=== PATIENT | male | born 1945 | race Hispanic/Latino ===

== ENCOUNTER → 2018-06-10 | Outpatient (CLI) | payer MEDICARE, OTHER | END | disposition home or self-care (01) | LOC: RAH 17:05 | PROVIDERS: ATTEND Internal Medicine | DX: I10 Essential (primary) hypertension (principal) | CPT/HCPCS: 71046 ==

== ENCOUNTER → 2019-05-21 | Outpatient (CLI) | payer OTHER | END | disposition home or self-care (01) | LOC: OIH 08:08 | PROVIDERS: ATTEND Internal Medicine | DX: M47.814 Spondylosis without myelopathy or radiculopathy, thoracic region (principal); I70.0 Atherosclerosis of aorta; I10 Essential (primary) hypertension | CPT/HCPCS: 71046 ==

== ENCOUNTER 2021-07-25 22:44 | Observation (INO) | payer OTHER ==
[~2021-07-25] VITALS: Ht 165.1 cm; Wt 74.8 kg
[2021-07-25 23:07] LABS: BASOPHILS % (AUTO) 0.8 % (0.0-5.0); EOSINOPHILS % (AUTO) 4.9 % (0.0-8.0); LYMPHOCYTES % (AUTO) 30.5 % (21.0-51.0); MEAN CORPUSCULAR HEMOGLOBIN 31.7 pg (27.0-33.0); MEAN CORPUSCULAR VOLUME 96.3 fL (79-99); MONOCYTES % (AUTO) 8.4 % (3.0-13.0); NEUTROPHILS % (AUTO) 55.2 % (40.0-77.0); PLATELET COUNT (AUTO) 209 K/uL (130-400); RED BLOOD CELL COUNT(AUTO) 4.57 MIL/uL (4.50-6.20); RED CELL DISTRIBUTION WIDTH 12.7 % (11.0-15.5); WHITE BLOOD COUNT (AUTO) 6.6 K/uL (4.8-10.8)
[2021-07-25 23:18] LABS: ALBUMIN 4.1 g/dL (3.5-5.0); BILIRUBIN,TOTAL 0.3 mg/dL (0.2-1.0); POTASSIUM 3.5 mmol/L (3.5-5.1); TOTAL PROTEIN, SERUM 7.7 g/dL (6.0-8.3)
[2021-07-26] MEDS ORDERED: ASPIRIN 81MG CHEW TAB PO ONE
[2021-07-26 00:01] LABS: APPEARANCE,URINE Clear (CLEAR); BILIRUBIN,URINE Negative (NEGATIVE); COLOR,URINE Yellow (YELLOW); GLUCOSE, URINE (UA) >=1000 mg/dL (NEGATIVE); KETONES,URINE Negative (NEGATIVE); LEUKOCYTE ESTERASE ,URINE Negative (NEGATIVE); NITRATE,URINE Negative (NEGATIVE); OCCULT BLOOD,URINE Negative (NEGATIVE); PROTEIN,URINE Negative (NEGATIVE); UROBILINOGEN,URINE 0.2 mg/dL (0.2-1.0)
[2021-07-26 00:07] LABS: AMPHET/METH SCREEN,URINE NEGATIVE (NEGATIVE); BARBITURATE SCREEN, URINE NEGATIVE (NEGATIVE); BENZODIAZEPINES SCREEN,URINE NEGATIVE (NEGATIVE); CANNABINOID SCREEN,URINE NEGATIVE (NEGATIVE); COCAINE SCREEN,URINE NEGATIVE (NEGATIVE); OPIATE SCREEN,URINE NEGATIVE (NEGATIVE); PHENCYCLIDINE SCREEN,URINE NEGATIVE (NEGATIVE)
[2021-07-26 00:13] LABS: BACTERIA,URINE Rare /HPF (None Seen); RBC,URINE None Seen /HPF (0-1); WBC,URINE 0-1 /HPF (0-1)
[2021-07-26] MEDS ORDERED: NITROGLYCERIN 1GM OINT 1 INCH/1GM TD ONE (01:30)
[2021-07-26] MEDS ORDERED: METF-446 PO (01:58)
[2021-07-26] MEDS ORDERED: MELO10CA3 PO (01:58)
[2021-07-26] MEDS ORDERED: GLIM4TAB36 PO (01:58)
[2021-07-26] MEDS ORDERED: OMEP20CA12 PO (01:58)
[2021-07-26] MEDS ORDERED: CANA300T PO (01:58)
[2021-07-26] MEDS ORDERED: ENOXAPARIN SODIUM 60 MG/0.6 ML SQ SCH (02:00)
[2021-07-26 02:05] VITALS: BP 155/70
[2021-07-26 08:00] VITALS: BP 125/69
[2021-07-26] MEDS: METFORMIN HCL 500 MG TABLET PO SCH ×2 (08:00→17:00)
[2021-07-26] MEDS: INVOKANA 300 MG PO SCH (09:00)
[2021-07-26] MEDS ORDERED: REGADENOSON 0.4 MG/5 ML PF SYG IVP SCH (09:00)
[2021-07-26] MEDS: PANTOPRAZOLE 40 MG TAB DR PO SCH (11:08)
[2021-07-26] MEDS: CLOPIDOGREL 75MG TAB PO SCH (11:09)
[2021-07-26] MEDS: MELOXICAM 7.5 MG TABLET PO SCH (11:09)
[2021-07-26] MEDS: GLIMEPIRIDE 2 MG TABLET PO SCH ×2 (11:09→20:12)
[2021-07-26] MEDS: ASPIRIN 81 MG EC TAB PO SCH (11:11)
[2021-07-26] MEDS: ENOXAPARIN SODIUM 80 MG/0.8 ML SQ SCH ×2 (11:22→20:13)
[2021-07-26] MEDS ORDERED: INSULIN HUMULIN R 100 UNIT/ML 3ML SQ SCH (11:30)
[2021-07-26 12:00] VITALS: BP 138/72
[2021-07-26 16:00] VITALS: BP 142/73
[2021-07-26] MEDS ORDERED: ACETAMINOPHEN 325 MG TAB PO PRN (20:00)
[2021-07-26 20:04] VITALS: BP 122/71
[2021-07-26 23:57] VITALS: BP 145/71
[2021-07-27 04:28] VITALS: BP 132/70
[2021-07-27] MEDS: PANTOPRAZOLE 40 MG TAB DR PO SCH (06:11)
[2021-07-27] MEDS ORDERED: INSULIN HUMULIN R 100 UNIT/ML 3ML SQ SCH (07:30)
[2021-07-27 08:56] VITALS: BP 129/62
[2021-07-27] MEDS: INVOKANA 300 MG PO SCH (09:00)
[2021-07-27] MEDS: ASPIRIN 81 MG EC TAB PO SCH (09:03)
[2021-07-27] MEDS: MELOXICAM 7.5 MG TABLET PO SCH (09:03)
[2021-07-27] MEDS: CLOPIDOGREL 75MG TAB PO SCH (09:04)
[2021-07-27] MEDS: METFORMIN HCL 500 MG TABLET PO SCH (09:04)
[2021-07-27] MEDS: GLIMEPIRIDE 2 MG TABLET PO SCH (09:04)
[2021-07-27] MEDS: ENOXAPARIN SODIUM 80 MG/0.8 ML SQ SCH (09:06)
== END 2021-07-27 10:04 | disposition home or self-care (01) ==
LOC: EDH 22:44 → EDHIP 07-26 01:08 → 3DH 07-26 02:10
PROVIDERS: ADMIT Internal Medicine; ATTEND Internal Medicine
DX: R07.89 Other chest pain (principal); Z20.822 Contact with and (suspected) exposure to COVID-19; I25.10 Atherosclerotic heart disease of native coronary artery without angina pectoris; E11.65 Type 2 diabetes mellitus with hyperglycemia; I10 Essential (primary) hypertension; E78.5 Hyperlipidemia, unspecified; F17.200 Nicotine dependence, unspecified, uncomplicated; Z79.82 Long term (current) use of aspirin; Z79.899 Other long term (current) drug therapy
CPT/HCPCS: 36415 ×2; 71045; 78452; 80053; 80305; 81001; 82550 ×2; 82948 ×4; 83690; 83874 ×2; 83880; 84484 ×3; 85025; 87635; 87804 ×2; 93005; 93017; 96372 ×2; 99285; A9500 ×2; G0378 ×30; J1650 ×3; J2785; 96374

== ENCOUNTER → 2021-07-28 | Outpatient (CLI) | payer OTHER ==
[~2021-07-28] MED LIST: CANA300T PO; GLIM4TAB36 PO; MELO10CA3 PO; METF-446 PO; OMEP20CA12 PO
== END | disposition home or self-care (01) ==
LOC: OIH 10:19
PROVIDERS: ATTEND Internal Medicine
DX: M47.812 Spondylosis without myelopathy or radiculopathy, cervical region (principal); M85.88 Other specified disorders of bone density and structure, other site
CPT/HCPCS: 72040

== ENCOUNTER → 2021-08-31 | Outpatient (CLI) | payer OTHER | END | disposition home or self-care (01) | LOC: RAH 09:54 | PROVIDERS: ATTEND Internal Medicine | DX: K80.20 Calculus of gallbladder without cholecystitis without obstruction (principal) | CPT/HCPCS: 76700 ==

== ENCOUNTER 2023-04-23 17:03 | Emergency (ER) | payer OTHER ==
[2023-04-23 18:46] LABS: BASOPHILS # (AUTO) 0.05 K/uL (0.00-0.20); BASOPHILS % (AUTO) 0.4 % (0.0-5.0); EOSINOPHILS # (AUTO) 0.07 K/uL (0.00-0.70); EOSINOPHILS % (AUTO) 0.6 % (0.0-8.0); HEMATOCRIT 43.7 % (42-54); IMMATURE GRANULOCYTE ABSOLUTE 0.06 K/uL (0-1); LYMPHOCYTES # (AUTO) 0.8 K/uL (1.0-4.8); LYMPHOCYTES % (AUTO) 6.1 % (21.0-51.0); MEAN CORPUSCULAR HEMOGLOBIN 33.4 pg (27.0-33.0); MEAN CORPUSCULAR HGB CONC 34.1 g/dL (32.0-36.0); MONOCYTES # (AUTO) 0.8 K/uL (0.1-1.0); MONOCYTES % (AUTO) 6.2 % (3.0-13.0); NEUTROPHILS # (AUTO) 10.9 K/uL (1.8-7.7); NEUTROPHILS % (AUTO) 86.2 % (40.0-77.0); PLATELET COUNT (AUTO) 190 K/uL (130-400); RED BLOOD CELL COUNT(AUTO) 4.46 MIL/uL (4.50-6.20); RED CELL DISTRIBUTION WIDTH 13.1 % (11.0-15.5); WHITE BLOOD COUNT (AUTO) 12.7 K/uL (4.8-10.8)
[2023-04-23 18:46] LABS: APPEARANCE,URINE CLEAR (CLEAR); BILIRUBIN,URINE NEGATIVE (NEGATIVE); COLOR,URINE YELLOW (YELLOW); GLUCOSE, URINE (UA) >=1000 mg/dL (NEGATIVE); KETONES,URINE 5 mg/dL (NEGATIVE); LEUKOCYTE ESTERASE ,URINE NEGATIVE Leu/uL (NEGATIVE); NITRATE,URINE NEGATIVE (NEGATIVE); OCCULT BLOOD,URINE NEGATIVE (NEGATIVE); PH,URINE 5.5 (5.0-8.0); PROTEIN,URINE NEGATIVE (NEGATIVE); UROBILINOGEN,URINE 0.2 mg/dL (0.2-1.0)
[2023-04-23 18:48] LABS: ADD UA MICROSCOPIC YES
[2023-04-23 18:56] LABS: MUCUS,URINE RARE LPF (None Seen); OTHER CASTS, URINE 3 /LPF (None Seen); RBC,URINE 0-1 /HPF (0-1); WBC,URINE 0-1 /HPF (0-1)
[2023-04-23 19:03] LABS: POTASSIUM 4.2 mmol/L (3.5-5.1)
[2023-04-23 19:08] LABS: ALBUMIN 4.1 g/dL (3.5-5.0); BILIRUBIN,TOTAL 0.4 mg/dL (0.2-1.0); TOTAL PROTEIN, SERUM 7.5 g/dL (6.0-8.3)
[2023-04-23] MEDS ORDERED: FAMOTIDINE 20MG VIAL IV ONE (20:00)
[2023-04-23] MEDS ORDERED: LABETALOL 20MG VIAL IV ONE (20:00)
[2023-04-23] MEDS ORDERED: KETOROLAC 30MG VIAL (30MG/ML) IVP ONE (20:00)
[2023-04-23] MEDS ORDERED: METOCLOPRAMIDE 10 MG/2 ML VIAL IVP ONE (20:00)
[2023-04-23] MEDS ORDERED: 0.9% NACL 500ML IV.SOLN 500 ML IV ONE ×2 (20:21→20:30)
[2023-04-23] MEDS ORDERED: METO-296 PO (21:35)
[2023-04-23] MEDS ORDERED: HYDR50CA50 PO (21:35)
[2023-04-23 22:20] VITALS: BP 152/77; PULSE 88; RESP 20; O2SAT 99
== END 2023-04-23 22:29 | disposition home or self-care (01) ==
LOC: EDH 17:03
DX: G44.209 Tension-type headache, unspecified, not intractable (principal); R07.89 Other chest pain; I10 Essential (primary) hypertension; F41.9 Anxiety disorder, unspecified; E11.9 Type 2 diabetes mellitus without complications; M19.90 Unspecified osteoarthritis, unspecified site; F17.200 Nicotine dependence, unspecified, uncomplicated; Z79.84 Long term (current) use of oral hypoglycemic drugs; Z79.899 Other long term (current) drug therapy; Z98.890 Other specified postprocedural states
CPT/HCPCS: 99285; 96374; 96375; 70450; 71045; 84484; 80053; 85025; 81001; 36415; 93005 ×2; J7040; J3490 ×2; J1885; J2765; 96361

== ENCOUNTER → 2023-05-07 | Outpatient (CLI) | payer OTHER ==
[~2023-05-07] MED LIST changes: +GADOTERATE MEGLUMINE 10 MMOL/20 ML VIAL IV ONE; +HYDR50CA50 PO; +METO-296 PO
== END | disposition home or self-care (01) ==
LOC: RAH 08:11
PROVIDERS: ATTEND Internal Medicine
DX: R51.9 Headache, unspecified (principal)
CPT/HCPCS: 70553; A9575

== ENCOUNTER 2024-08-21 09:46 | Observation (INO) | payer OTHER ==
[~2024-08-21] VITALS: Ht 165.1 cm; Wt 62.6 kg
[~2024-08-21 09:46] MED LIST changes: -GADOTERATE MEGLUMINE 10 MMOL/20 ML VIAL IV ONE
[2024-08-21] MEDS: LACTATED RINGERS 1000ML 1,000 ML IV ONE (10:11)
[2024-08-21 10:20] LABS: BASOPHILS # (AUTO) 0.02 K/uL (0.00-0.20); BASOPHILS % (AUTO) 0.3 % (0.0-5.0); EOSINOPHILS # (AUTO) 0.01 K/uL (0.00-0.70); EOSINOPHILS % (AUTO) 0.2 % (0.0-8.0); IMMATURE GRANULOCYTE ABSOLUTE 0.01 K/uL (0-1); LYMPHOCYTES # (AUTO) 0.3 K/uL (1.0-4.8); MEAN CORPUSCULAR HEMOGLOBIN 30.9 pg (27.0-33.0); MEAN CORPUSCULAR HGB CONC 31.6 g/dL (32.0-36.0); MEAN CORPUSCULAR VOLUME 97.6 fL (79-99); MONOCYTES # (AUTO) 0.5 K/uL (0.1-1.0); MONOCYTES % (AUTO) 7.1 % (3.0-13.0); NEUTROPHILS # (AUTO) 5.6 K/uL (1.8-7.7); NEUTROPHILS % (AUTO) 88.2 % (40.0-77.0); PLATELET COUNT (AUTO) 217 K/uL (130-400); RED BLOOD CELL COUNT(AUTO) 5.02 MIL/uL (4.50-6.20); RED CELL DISTRIBUTION WIDTH 13.6 % (11.0-15.5); WHITE BLOOD COUNT (AUTO) 6.3 K/uL (4.8-10.8)
[2024-08-21 10:26] LABS: APPEARANCE,URINE CLEAR (CLEAR); BILIRUBIN,URINE NEGATIVE (NEGATIVE); COLOR,URINE LIGHT-YELLOW (YELLOW); GLUCOSE, URINE (UA) >=1000 mg/dL (NEGATIVE); KETONES,URINE 20 mg/dL (NEGATIVE); LEUKOCYTE ESTERASE ,URINE NEGATIVE Leu/uL (NEGATIVE); NITRATE,URINE NEGATIVE (NEGATIVE); OCCULT BLOOD,URINE NEGATIVE (NEGATIVE); PH,URINE 5.5 (5.0-8.0); PROTEIN,URINE 10 mg/dL (NEGATIVE); UROBILINOGEN,URINE 0.2 mg/dL (0.2-1.0)
[2024-08-21 10:27] LABS: ADD UA MICROSCOPIC YES
[2024-08-21 10:28] LABS: CREATININE 1.4 mg/dL (0.5-1.3); POTASSIUM 4.3 mmol/L (3.5-5.1)
[2024-08-21 10:33] LABS: ALBUMIN 4.1 g/dL (3.5-5.0); BILIRUBIN,DIRECT 0.2 mg/dL (0.0-0.3); BILIRUBIN,TOTAL 0.6 mg/dL (0.2-1.0); TOTAL PROTEIN, SERUM 7.7 g/dL (6.0-8.3)
[2024-08-21 10:34] LABS: MUCUS,URINE RARE LPF (None Seen); RBC,URINE 0-1 /HPF (0-1); SQUAMOUS EPITHELIAL CELL,UR RARE /HPF (0-2); WBC,URINE 0-1 /HPF (0-1)
--- NOTE | 2024-08-21 10:56 | NUR ---
DECLINES CONTRAST WITH CT. STATES CONCERNS FOR RENAL FUNCTION. PROVIDER YOSEPH MACILE REAL ESTATE ATTORNEY INFORMED.
--- NOTE | 2024-08-21 11:05 | ERN ---
ED Note History of Present Illness Stated Complaint: ABDOMINAL PAIN Chief Complaint: Nausea,Vomiting,Diarrhea Time Seen by MD: 10:16 Time Seen by Midlevel: 10:20 Dictation: 78-year-old male with a history of Parkinson's, diabetes and arthritis coming in for vomiting and diarrhea last night. Patient states he has had three episodes of vomiting and three episodes of diarrhea last night. Nonbloody. Patient states also in his way from the bathroom to his bed he tried to lift up his left leg and fell forward, states he did not hit his head but he landed on his head but denies headache or neck pain. Denies any LOC. Denies being on any blood thinners. Patient states he usually has trouble ambulating says he drags his left leg due to his Parkinson's. Allergies: Coded Allergies: codeine (Unverified Adverse Reaction, Severe, SEVERE VOMITING, 04/23/23) hydrocodone (Unverified Adverse Reaction, Severe, SEVERE VOMITING, 04/23/23) Home Meds Reported Medications Glimepiride (Glimepiride) 4 Mg Tablet, 4 MG PO DAILY, TAB 08/21/24 Carbidopa/Levodopa (Carbidopa-Levo 25-100 mg Odt) 25 Mg-100 Mg Tab.rapdis, 1 EACH PO BID, TAB 08/21/24 Rosuvastatin Calcium (Rosuvastatin Calcium) 5 Mg Tablet, 20 MG PO DAILY, TAB 08/21/24 Aspirin (ASPIRIN 81MG CHEW TAB) 81 Mg Tab.chew, 1 TAB PO DAILY for 30 Days, #30 TAB 0 Refills 08/21/24 Metformin HCl (Metformin HCl) 1,000 Mg Tablet, 1 TAB PO BID for 30 Days, #60 TAB 0 Refills 08/21/24 Diphenoxylate HCl/Atropine (Diphenoxylate-Atropine Tablet) 2.5 Mg-0.025 Mg Tablet, 1 TAB PO QID for 10 Days, #40 TAB 0 Refills 08/21/24 Rimegepant Sulfate (Nurtec Odt) 75 Mg Tab.rapdis, 75 MG PO QODAY, TAB 08/21/24 Finasteride (Finasteride) 5 Mg Tablet, 1 TAB PO DAILY for 30 Days, #30 TAB 0 Refills 08/21/24 Glimepiride (Glimepiride) 1 Mg Tablet, 1 TAB PO DAILY for 30 Days, #30 TAB 0 Refills 08/21/24 Duloxetine HCl (Duloxetine HCl) 20 Mg Capsule.dr, 1 CAP PO DAILY for 30 Days, #30 CAP 0 Refills 08/21/24 Tamsulosin HCl (Flomax) 0.4 Mg Cap.er.24h, 1 CAP PO DAILY for 30 Days, #30 CAP 0 Refills 08/21/24 Empagliflozin (Jardiance) 25 Mg Tablet, 1 TAB PO DAILY for 30 Days, #30 TAB 0 Refills 08/21/24 Ondansetron (Ondansetron Odt) 4 Mg Tab.rapdis, 4 MG PO Q6HPRN PRN for NAUSEA/VOMITING, TAB 08/21/24 Gabapentin (Gabapentin) 100 Mg Capsule, 300 MG PO TID, CAP 08/21/24 Omeprazole (Omeprazole) 20 Mg Capsule.dr, 20 MG PO TIDAC, CAP 07/26/21 Discontinued Reported Medications Glimepiride (Glimepiride) 4 Mg Tablet, 4 MG PO BID, TAB 07/26/21 Metformin HCl (Metformin HCl) 1,000 Mg Tablet, 1000 MG PO BID, TAB 07/26/21 Meloxicam, Submicronized (Meloxicam) 10 Mg Capsule, 15 MG PO DAILY, CAP 07/26/21 Canagliflozin (Invokana) 300 Mg Tablet, 300 MG PO DAILY, TAB 07/26/21 Discontinued Scripts Metoclopramide HCl (Reglan) 10 Mg Tablet, 10 MG PO QIDP PRN for HEADACHE, #40 TAB 2 Refills Prov:RENETTA SHAHID Sr., MD 04/23/23 Hydroxyzine Pamoate (Hydroxyzine Pamoate) 50 Mg Capsule, 50 MG PO QIDP PRN for ANXIETY/AGITATION, #40 CAP 2 Refills Prov:RENETTA SHAHID Sr., MD 04/23/23 Past Medical History Past Medical History: Arthritis, Diabetes-Type II, High Cholesterol, Heart Disease, Hypertension, TIA, Other Additional Past Medical Hx: Parkinsons Surgical History: Cholecystectomy, Other Surgical History Other: eye Social History: Smokers, ETOH Review of System Dictation Constitutional: Negative for fever,chills, and weight loss Eyes: Negative for injury, pain,redness, and discharge ENT: Negative for injury,pain or swelling Cardiovascular: Negative for chest pain, palpitations, and edema Respiratory: Negative for shortness of breath, cough, and wheezing, Abdomen/GI: Negative for abdominal pain, positive for vomiting and diarrhea last night Back: Negative for injury and pain : Negative for injury, bleeding and discharge MS/Extremity: Negative for injury and deformity Skin: Negative for rash, and discoloration Neuro: Negative for headache, weakness, numbness, tingling, and seizure Psych: Negative for suicide ideation, homicidal ideation, and hallucinations Review of Systems: was completed Initial Vital Sign VS Vital Signs Date Time Temp Pulse Resp B/P (MAP) Pulse Ox O2 Delivery O2 Flow Rate FiO2 08/21/24 09:47 98.4 112 20 96/61 0 Room Air 0 08/21/24 10:18 21 Physical Exam Dictation General: awake, alert, NAD Head/Face: Normocephalic, atraumatic Eyes: PERRL, EOMI, vision at baseline ENT: oral cavity clear, TMs clear, no signs of infection Neck: Trachea midline, supple, no nuchal rigidity Cardiovascular: RRR, normal S1/S2, No MRGs, no JVD Respiratory: CTAB, no respiratory distress, No rales or wheezes Abdomen: Soft, non-tender, non-distended, normal bowel sounds, no guarding or rebound. Skin: Warm, dry, normal turgor, no rash MS/Extremity: Pulses equal, no cyanosis, neurovascular intact, FROM Neuro: COAx4, GCS 15, strength 5/5, CN 2-12 intact, normal cerebellar exam, normal gait, Psych: Normal behavior, mood, and affect normal Results (Laboratory/Radiology) Laboratory/Radiology Laboratory Tests Test 08/21/24 10:05 08/21/24 10:13 08/21/24 13:31 08/21/24 17:13 Urine Color LIGHT-YELLOW (YELLOW) Urine Appearance CLEAR (CLEAR) Urine pH 5.5 (5.0-8.0) Urine Specific [place] 1.037 (1.001-1.031) Urine Protein 10 mg/dL (NEGATIVE) H Urine Glucose (UA) >=1000 mg/dL (NEGATIVE) H Urine Ketones 20 mg/dL (NEGATIVE) H Urine Occult Blood NEGATIVE (NEGATIVE) Urine Nitrate NEGATIVE (NEGATIVE) Urine Bilirubin NEGATIVE mg/dL (NEGATIVE) Urine Urobilinogen 0.2 mg/dL (0.2-1.0) Urine Leukocyte Esterase NEGATIVE Bianca/uL Urine RBC 0-1 /HPF (0-1) Urine WBC 0-1 /HPF (0-1) Urine Squamous Epithelial Cells RARE /HPF (0-2) Urine Bacteria None /HPF (None Seen) White Blood Count 6.3 K/uL (4.8-10.8) Red Blood Count 5.02 MIL/uL (4.50-6.20) Hemoglobin 15.5 g/dL (14.0-18.0) Hematocrit 49.0 % (42-54) Mean Corpuscular Volume 97.6 fL (79-99) Mean Corpuscular Hemoglobin 30.9 pg (27.0-33.0) Mean Corpuscular Hemoglobin Concent 31.6 g/dL (32.0-36.0) L Red Cell Distribution Width 13.6 % (11.0-15.5) Platelet Count 217 K/uL (130-400) Mean Platelet Volume 9.8 fL (7.5-10.5) Immature Granulocyte % (Auto) 0.2 % (0-1) Neutrophils (%) (Auto) 88.2 % (40.0-77.0) H Lymphocytes (%) (Auto) 4.0 % (21.0-51.0) L Monocytes (%) (Auto) 7.1 % (3.0-13.0) Eosinophils (%) (Auto) 0.2 % (0.0-8.0) Basophils (%) (Auto) 0.3 % (0.0-5.0) Neutrophils # (Auto) 5.6 K/uL (1.8-7.7) Lymphocytes # (Auto) 0.3 K/uL (1.0-4.8) L Monocytes # (Auto) 0.5 K/uL (0.1-1.0) Eosinophils # (Auto) 0.01 K/uL (0.00-0.70) Basophils # (Auto) 0.02 K/uL (0.00-0.20) Absolute Immature Granulocyte (auto 0.01 K/uL (0-1) Nucleated Red Blood Cells 0.0 % (0.0-0.19) White Cell Morphology Comment See comments Sodium Level 142 mmol/L (136-145) Potassium Level 4.3 mmol/L (3.5-5.1) Chloride Level 102 mmol/L (101-111) Carbon Dioxide Level 24 mmol/L (21-32) Blood Urea Nitrogen 28 mg/dL (7-18) H Creatinine 1.4 mg/dL (0.5-1.3) H Glomerular Filtration Rate Calc 51 mL/min (>90) Random Glucose 205 mg/dL (70-105) H Lactic Acid Level 3.1 mmol/L (0.8-2.5) H 2.0 mmol/L (0.8-2.5) Total Calcium 9.9 mg/dL (8.5-10.1) Total Bilirubin 0.6 mg/dL (0.2-1.0) Direct Bilirubin 0.2 mg/dL (0.0-0.3) Aspartate Amino Transf (AST/SGOT) 12 U/L (10-37) Alanine Aminotransferase (ALT/SGPT) 13 U/L (12-78) Alkaline Phosphatase 68 U/L (50-136) Total Creatine Kinase 29 U/L (21-232) # Troponin I High Sensitivity 12 ng/L (4-75) Total Protein 7.7 g/dL (6.0-8.3) Albumin 4.1 g/dL (3.5-5.0) Lipase 14 U/L (16-77) L Whole Blood Glucose 110 MG/DL (70-110) Test 08/21/24 19:54 08/22/24 04:00 08/22/24 05:04 08/22/24 05:36 Whole Blood Glucose 164 MG/DL (70-110) H 64 MG/DL (70-110) #L 70 MG/DL (70-110) White Blood Count 3.8 K/uL (4.8-10.8) #L Red Blood Count 4.13 MIL/uL (4.50-6.20) L Hemoglobin 12.9 g/dL (14.0-18.0) L Hematocrit 39.8 % (42-54) L Mean Corpuscular Volume 96.4 fL (79-99) Mean Corpuscular Hemoglobin 31.2 pg (27.0-33.0) Mean Corpuscular Hemoglobin Concent 32.4 g/dL (32.0-36.0) Red Cell Distribution Width 13.4 % (11.0-15.5) Platelet Count 166 K/uL (130-400) Mean Platelet Volume 9.2 fL (7.5-10.5) Immature Granulocyte % (Auto) 0.0 % (0-1) Neutrophils (%) (Auto) 68.0 % (40.0-77.0) Lymphocytes (%) (Auto) 14.6 % (21.0-51.0) L Monocytes (%) (Auto) 14.3 % (3.0-13.0) H Eosinophils (%) (Auto) 2.3 % (0.0-8.0) Basophils (%) (Auto) 0.8 % (0.0-5.0) Neutrophils # (Auto) 2.6 K/uL (1.8-7.7) Lymphocytes # (Auto) 0.6 K/uL (1.0-4.8) L Monocytes # (Auto) 0.6 K/uL (0.1-1.0) Eosinophils # (Auto) 0.09 K/uL (0.00-0.70) Basophils # (Auto) 0.03 K/uL (0.00-0.20) Absolute Immature Granulocyte (auto 0.00 K/uL (0-1) Nucleated Red Blood Cells 0.0 % (0.0-0.19) Sodium Level 138 mmol/L (136-145) Potassium Level 3.4 mmol/L (3.5-5.1) L Chloride Level 103 mmol/L (101-111) Carbon Dioxide Level 26 mmol/L (21-32) Blood Urea Nitrogen 18 mg/dL (7-18) Creatinine 1.0 mg/dL (0.5-1.3) Glomerular Filtration Rate Calc 77 mL/min (>90) Random Glucose 56 mg/dL (70-105) #L Total Calcium 8.4 mg/dL (8.5-10.1) L Labs Reviewed?: Yes CT Scan Comment: [place] [id number] [id number] IMAGING REPORT Signed PATIENT: KAYLA BELLE MR#: [id number] : 1945 SEX: M AGE: 78 LOCATION: [facility] ORDER 1100 STATUS: REG ER REPORT#: [id number] SERVICE 1057 REASON: NAUSEA VOMITING DIARRHEA ORDERING PHYSICIAN: YOSEPH MACIEL NP PROCEDURE: ABD PEL WO - CT ABDOMEN/PELVIS W/O CONTRAST CT ABDOMEN/PELVIS W/O CONTRAST HISTORY: Nausea, vomiting and diarrhea COMPARISON: None TECHNIQUE: Multiple sequential axial images of the abdomen and pelvis were obtained from the dome of the diaphragm through symphysis pubis. Patient was not given contrast through intravenous route. Oral contrast was not given. FINDINGS: There is a small hiatal hernia. No pleural effusion is seen bilaterally. There is no evidence of parenchymal disease or pulmonary nodule of the visualized lower lungs. Degenerative changes of the thoracolumbar spine are present. The heart is not enlarged. The calcifications are seen. Fatty changes of the liver are noted. There is small bowel dilatation with fluid-filled colon and small bowel loops may be related to enterocolitis. The liver, spleen, adrenal glands and pancreas are unremarkable. There is no evidence of hydronephrosis bilaterally. No evidence of renal stone is seen. Fecal material is seen in the colon.. There is diverticulosis. There are normal size retroperitoneal and mesenteric lymph nodes. No ascites is seen. Atherosclerotic changes are present. Pelvic sidewalls are symmetric bilaterally. Bladder is well distended without wall thickening. IMPRESSION: 1. Small bowel dilatation with fluid-filled colon and small bowel loops may be related to enterocolitis. CT was performed with one or more following dose reduction techniques: automated exposure control, adjustment of the mA and kv according to patient's size, or use of a iterative reconstruction technique. DICTATED BY: ISIAH HORNER MD DATE: 08/21/24 1208 ELECTRONICALLY SIGNED BY: ISIAH HORNER MD DATE: 08/21/24 1213 [place] [id number] IMAGING REPORT Signed PATIENT: KAYLA BELLE MR#: [id number] : 1945 SEX: M AGE: 78 LOCATION: [facility] ORDER 1027 STATUS: REG ER REPORT#: [id number] SERVICE 1025 REASON: fall ORDERING PHYSICIAN: YOSEPH MACIEL NP PROCEDURE: HEAD WO - CT HEAD/BRAIN W/O CONTRAST CT HEAD/BRAIN W/O CONTRAST HISTORY: Status post fall COMPARISON: None TECHNIQUE: Multiple sequential axial images of the head were obtained from the base of the skull through vertex. Patient was not given contrast through intravenous route. FINDINGS: The ventricles and extraventricular CSF spaces are dilated consistent with cerebral atrophy. Nonspecific white matter changes seen. There is no midline shift, mass effect or herniation. No acute intracranial bleed is seen. Visualized portion of the paranasal sinuses are grossly within normal limits. IMPRESSION: 1. No acute intracranial bleed is seen. 2. Atrophy with white matter changes. CT was performed with one or more following dose reduction techniques: automated exposure control, adjustment of the mA and kv according to patient's size, or use of a iterative reconstruction technique. DICTATED BY: ISIAH HORNER MD DATE: 08/21/24 1211 ELECTRONICALLY SIGNED BY: ISIAH HORNER MD DATE: 08/21/24 1241 ED Course ED Course Orders Procedure Category Date Status Time Cbc With Differential LAB 08/21/24 Complete 09:53 Troponin I High LAB 08/21/24 Complete Sensitivity 09:53 Urinalysis Profile LAB 08/21/24 Complete 09:53 Lactated Ringers PHA 08/21/24 Complete 1000ml (Lactated 10:00 Creatine Kinase, Total LAB 08/21/24 Complete 09:53 Chest 1vw RAD 08/21/24 Resulted 09:53 Lipase LAB 08/21/24 Complete 09:53 Basic Metabolic Panel LAB 08/21/24 Complete 09:53 Hepatic Function Panel LAB 08/21/24 Complete 09:53 Lactic Acid LAB 08/21/24 Complete 09:53 Ct Head/Brain W/O CT 08/21/24 Resulted Contrast 10:25 Ct Abdomen/Pelvis W/O CT 08/21/24 Resulted Contrast 10:57 Lactic Acid (Removed) LAB 08/21/24 Complete 13:24 Admit Orders ADM 08/21/24 Transmitted 13:49 1/2 Ns 1000ml (0.45% PHA 08/21/24 Complete Nacl 1000ml) 14:00 Pantoprazole 40mg Inj PHA 08/21/24 Complete (Protonix 40mg Inj 14:00 Clear Liquid DIET 08/21/24 Complete Lunch Ondansetron 4mg Inj PHA 08/21/24 Complete (Zofran 4mg Inj) 14:00 *Nursing CPOE 08/21/24 Transmitted Communication: 13:49 Cbc With Differential LAB 08/22/24 Complete 04:00 Basic Metabolic Panel LAB 08/22/24 Complete 04:00 Initiate Hypoglycemia EVARISTO 08/21/24 Complete Protocol 13:49 Dextrose 50%-Water PHA 08/21/24 Complete (D50w) 14:00 Glucagon 1mg Kit PHA 08/21/24 Complete (Glucagon 1mg Kit) 14:00 Initiate EVARISTO 08/21/24 Complete Hyperglycemia Protoco 13:49 Insulin Regular, PHA 08/21/24 Complete Human 3ml (Humulin R 16:30 *Nursing CPOE 08/21/24 Transmitted Communication: 13:49 Aspirin 81mg Chew Tab PHA 08/22/24 Complete (Aspirin 81mg Chew 09:00 Diphenoxylate PHA 08/21/24 Complete Hcl/Atropine (Lomotil) 17:00 Finasteride 5 Mg PHA 08/22/24 Complete Tablet (Proscar 5 Mg 09:00 Ondansetron Odt 4mg PHA 08/21/24 Complete Tab (Zofran 4mg Odt) 15:00 Tamsulosin Hcl PHA 08/22/24 Complete (Flomax) 09:00 Carbidopa-Levodopa PHA 08/21/24 Complete 25-100 Tab (Sinemet 2 21:00 Home Medication (Home PHA 08/22/24 Complete Medication) 09:00 (Nf) Omeprazole PHA 08/21/24 Complete 17:00 Gabapentin 300 Mg Cap PHA 08/22/24 Complete (Neurontin 300 Mg 09:00 Home Medication (Home PHA 08/22/24 Complete Medication) 09:00 Atorvastatin 40mg PHA 08/21/24 Complete (Lipitor 40mg) 21:00 Gi Soft/[place] Diet DIET 08/22/24 Complete Breakfast *Nursing CPOE 08/22/24 Transmitted Communication: 07:38 *General Dc DS 08/22/24 Transmitted Instructions 09:12 Vital Signs Date Time Temp Pulse Resp B/P (MAP) Pulse Ox O2 Delivery O2 Flow Rate FiO2 08/22/24 08:00 94 Room Air* 0 21 08/22/24 03:30 98.1 72 20 140/70 98 Room Air 08/21/24 23:40 98.1 71 16 146/77 98 Room Air 08/21/24 20:00 Room Air* 0 21 08/21/24 20:00 98.2 86 20 156/83 97 Room Air 08/21/24 16:00 97.7 108 20 135/89 96 Room Air 08/21/24 15:35 98 Room Air* 0 08/21/24 14:52 89 14 120/67 98 Room Air* 0 08/21/24 12:06 80 16 116/62 98 Room Air* 0 08/21/24 10:18 106 14 110/56 97 Room Air* 0 08/21/24 09:47 98.4 112 20 96/61 0 Room Air 0 Medical Decision Making MDM MDM: 78-year-old male with a history of Parkinson's, diabetes and arthritis coming in for vomiting and diarrhea last night. Patient states he has had three episodes of vomiting and three episodes of diarrhea last night. Nonbloody. Patient states also in his way from the bathroom to his bed he tried to lift up his left leg and fell forward, states he did not hit his head but he landed on his head but denies headache or neck pain. Denies any LOC. Denies being on any blood thinners. Patient states he usually has trouble ambulating says he drags his left leg due to his Parkinson's.CBC SHOWS A LEUKOCYTOSIS, NO ANEMIA, NO THROMBOCYTOPENIA. CHEMISTRY SHOWS ELEVATED BUN AND CREATININE AND COULD BE RELATED TO DEHYDRATION, HYPERGLYCEMIA AT 2:05 A.M., ELEVATED LACTIC OF 3.1. SPOKE TO DR. MIXON ALSO, OKAY TO ADMIT PATIENT FOR INTRACTABLE VOMITING, DEHYDRATION ELEVATED LACTIC ENTERITIS DIFFERENTIAL DIAGNOSIS: DIVERTICULITIS, DIVERTICULOSIS, GASTROENTERITIS RATIONALE: TESTS CONSIDERED AND ORDERED SECONDARY TO SHARED DECISION MAKING INCLUDE: LABS, ECG AND RADIOLOGY PREVIOUS OUTSIDE RECORDS REVIEWED: OLD ER VISITS. RISK OF COMPLICATION AND/OR MORBIDITY OR MORTALITY OF PATIENT MANAGEMENT: NONE MEDICATIONS-PER MEDICATION RECONCILIATION NEED FOR HOSPITALIZATION: PATIENT DOES MEET CRITERIA FOR HOSPITALIZATION. NEED FOR EMERGENCY MAJOR/MINOR SURGERY: NO THERE ARE NO SOCIAL CONCERNS WITH THIS PATIENT. PRESCRIPTION DRUG MANAGEMENT PRESCRIPTIONS WILL INCLUDE SYMPTOMATIC CARE PATIENT'S PRIOR EXTERNAL MEDICAL RECORDS FROM OTHER ER VISITS WERE REVIEWED BY ME INDICATED. PRIOR TESTING AND RESULTS FROM PREVIOUS VISITS WERE REVIEWED. PRIOR TESTS WERE TAKEN INTO ACCOUNT WITH MEDICAL DECISION MAKING AND RESOURCE UTILIZATION, INDEPENDENT HISTORIAN/HISTORIANS WERE USED TO OBTAIN COMPLETE MEDICAL HISTORY. I INDEPENDENTLY INTERPRETED THE TEST THAT WERE PERFORMED, RESULTS WERE REVIEWED BY ME AND CONSIDERED FINDINGS ON RADIOLOGY IF ORDERED. MEDICAL MANAGEMENT AND EXAMINATION INTERPRETATION DISCUSSIONS WERE HAD BY ME WITH OTHER QUALIFIED HEALTHCARE PROFESSIONALS INDICATED FOR THE PATIENT'S CARE. DX & DISP Disposition: Inpatient Decision to Admit Date: August 21, 2024 Decision to Admit Time: 13:51 Departure Impression: Primary Impression: Intractable nausea and vomiting Additional Impressions: Dehydration, Elevated lactic acid level, Enteritis Condition: Stable Referrals: LYN SAHNI MD (PCP) I have reviewed the case, and I agree with, Diagnosis and Plan I performed a substantive portion of the visit. I have reviewed and personally made and approve the management plan that is documented in the notes by myself with SHERMAN/resident. I acknowledged full responsibility for the patient's management plan. YOSEPH MACIEL NP August 21, 2024 11:05 KANWAL CONTI DO August 22, 2024 10:39
--- NOTE | 2024-08-21 12:13 | HMCIMG ---
CT ABDOMEN/PELVIS W/O CONTRAST HISTORY: Nausea, vomiting and diarrhea COMPARISON: None TECHNIQUE: Multiple sequential axial images of the abdomen and pelvis were obtained from the dome of the diaphragm through symphysis pubis. Patient was not given contrast through intravenous route. Oral contrast was not given. FINDINGS: There is a small hiatal hernia. No pleural effusion is seen bilaterally. There is no evidence of parenchymal disease or pulmonary nodule of the visualized lower lungs. Degenerative changes of the thoracolumbar spine are present. The heart is not enlarged. The calcifications are seen. Fatty changes of the liver are noted. There is small bowel dilatation with fluid-filled colon and small bowel loops may be related to enterocolitis. The liver, spleen, adrenal glands and pancreas are unremarkable. There is no evidence of hydronephrosis bilaterally. No evidence of renal stone is seen. Fecal material is seen in the colon.. There is diverticulosis. There are normal size retroperitoneal and mesenteric lymph nodes. No ascites is seen. Atherosclerotic changes are present. Pelvic sidewalls are symmetric bilaterally. Bladder is well distended without wall thickening. IMPRESSION: 1. Small bowel dilatation with fluid-filled colon and small bowel loops may be related to enterocolitis. CT was performed with one or more following dose reduction techniques: automated exposure control, adjustment of the mA and kv according to patient's size, or use of a iterative reconstruction technique.
--- NOTE | 2024-08-21 12:41 | HMCIMG ---
CT HEAD/BRAIN W/O CONTRAST HISTORY: Status post fall COMPARISON: None TECHNIQUE: Multiple sequential axial images of the head were obtained from the base of the skull through vertex. Patient was not given contrast through intravenous route. FINDINGS: The ventricles and extraventricular CSF spaces are dilated consistent with cerebral atrophy. Nonspecific white matter changes seen. There is no midline shift, mass effect or herniation. No acute intracranial bleed is seen. Visualized portion of the paranasal sinuses are grossly within normal limits. IMPRESSION: 1. No acute intracranial bleed is seen. 2. Atrophy with white matter changes. CT was performed with one or more following dose reduction techniques: automated exposure control, adjustment of the mA and kv according to patient's size, or use of a iterative reconstruction technique.
[2024-08-21] MEDS ORDERED: DEXTROSE 50%-WATER 50 ML DISP.SYRIN IV PRN (14:00)
[2024-08-21] MEDS ORDERED: ondanSETRON 4MG INJ IVP PRN (14:00)
[2024-08-21] MEDS ORDERED: GLUCAGON 1MG KIT 1 MG ML IM PRN (14:00)
[2024-08-21] MEDS: PANTOPrazole 40 MG/VIAL IVP SCH (14:08)
[2024-08-21] MEDS: 1/2 NS 1000ML 1,000 ML IV SCH (14:17)
[2024-08-21] MEDS ORDERED: EMPA25TA PO (14:29)
[2024-08-21] MEDS ORDERED: DIPH-1150 PO (14:29)
[2024-08-21] MEDS ORDERED: GLIM1TAB56 PO (14:29)
[2024-08-21] MEDS ORDERED: CARB-38 PO (14:29)
[2024-08-21] MEDS ORDERED: TAMS-55 PO (14:29)
[2024-08-21] MEDS ORDERED: ASPI-1005 PO (14:29)
[2024-08-21] MEDS ORDERED: GABA-529 PO (14:29)
[2024-08-21] MEDS ORDERED: ONDA-243 PO (14:29)
[2024-08-21] MEDS ORDERED: RIME75TA PO (14:29)
[2024-08-21] MEDS ORDERED: DULO20CA18 PO (14:29)
[2024-08-21] MEDS ORDERED: FINA5TAB41 PO (14:29)
[2024-08-21] MEDS ORDERED: METF-446 PO (14:29)
[2024-08-21] MEDS ORDERED: ROSU5TAB51 PO (14:29)
--- NOTE | 2024-08-21 14:30 | NUR ---
HOME MEDICATIONS UPDATED IN EMR
--- NOTE | 2024-08-21 14:48 | HMCIMG ---
CHEST 1VW HISTORY: Cough COMPARISON: None FINDINGS: A frontal projection of the chest was obtained. No acute pulmonary infiltrates is seen. The heart is borderline enlarged. Degenerative changes are seen. Prominent interstitial markings are seen. IMPRESSION: 1. No acute pulmonary infiltrate is seen.
[2024-08-21] MEDS ORDERED: ondanSETRON ODT 4MG TAB PO PRN (15:00)
[2024-08-21 15:35] VITALS: O2SAT 98
[2024-08-21 16:00] VITALS: BP 135/89; PULSE 108; RESP 20; TEMP 97.7
[2024-08-21] MEDS: INSULIN humuLIN R 100 UNIT/ML 3ML SQ SCH (16:30)
[2024-08-21] MEDS ORDERED: GLIM4TAB36 PO (16:57)
[2024-08-21] MEDS ORDERED: NON-FORMULARY MEDICATION 1 EACH (Omeprazole 20 MG) PO SCH (17:00)
[2024-08-21] MEDS: DIPHENOXYLATE HCL/ATROPINE 2.5/0.025 MG TAB PO SCH (18:14)
[2024-08-21 20:00] VITALS: BP 156/83; PULSE 86; RESP 20; TEMP 98.2
[2024-08-21] MEDS: atorVAStatin 40 MG TABLET PO SCH (20:15)
[2024-08-21] MEDS: CARBIDOPA-LEVODOPA 25-100 TAB PO SCH (20:15)
[2024-08-21 23:40] VITALS: BP 146/77; PULSE 71; RESP 16; TEMP 98.1
[2024-08-22 03:30] VITALS: BP 140/70; PULSE 72; RESP 20; TEMP 98
[2024-08-22 04:10] LABS: BASOPHILS # (AUTO) 0.03 K/uL (0.00-0.20); BASOPHILS % (AUTO) 0.8 % (0.0-5.0); EOSINOPHILS # (AUTO) 0.09 K/uL (0.00-0.70); EOSINOPHILS % (AUTO) 2.3 % (0.0-8.0); HEMATOCRIT 39.8 % (42-54); LYMPHOCYTES # (AUTO) 0.6 K/uL (1.0-4.8); LYMPHOCYTES % (AUTO) 14.6 % (21.0-51.0); MEAN CORPUSCULAR HEMOGLOBIN 31.2 pg (27.0-33.0); MEAN CORPUSCULAR HGB CONC 32.4 g/dL (32.0-36.0); MEAN CORPUSCULAR VOLUME 96.4 fL (79-99); MONOCYTES # (AUTO) 0.6 K/uL (0.1-1.0); MONOCYTES % (AUTO) 14.3 % (3.0-13.0); NEUTROPHILS # (AUTO) 2.6 K/uL (1.8-7.7); PLATELET COUNT (AUTO) 166 K/uL (130-400); RED BLOOD CELL COUNT(AUTO) 4.13 MIL/uL (4.50-6.20); RED CELL DISTRIBUTION WIDTH 13.4 % (11.0-15.5); WHITE BLOOD COUNT (AUTO) 3.8 K/uL (4.8-10.8)
[2024-08-22 04:33] LABS: POTASSIUM 3.4 mmol/L (3.5-5.1)
[2024-08-22 08:00] VITALS: O2SAT 94
[2024-08-22] MEDS: tamSULOsin HCL 0.4 MG CAP.ER.24H PO SCH (08:18)
[2024-08-22] MEDS: GABAPENTIN 300 MG CAPSULE PO SCH (08:19)
[2024-08-22] MEDS: finaSTERide 5 MG TABLET PO SCH (08:19)
[2024-08-22] MEDS: ASPIRIN 81MG CHEW TAB PO SCH (08:19)
[2024-08-22] MEDS: DULOXETINE HCL PO SCH (08:20)
--- NOTE | 2024-08-22 09:53 | NUR ---
PATIENT DISCHARGED HOME ID BAND AND IV REMOVED. DISCHARGE INSTRUCTIONS EXPLAINED AND GIVEN TO PATIENT. PATIENT VERBALIZED UNDERSTANDING. BELONGINGS PACKED AND TAKEN BY PATIENT. WHEELED DOWN TO PRIVATE CAR,
--- NOTE | 2024-08-22 17:00 | HP ---
HISTORY OF PRESENT ILLNESS: A patient of Dr. Arguello, came to the emergency room complaining of nausea, vomiting for the last few hours prior to arrival. No fever, chills. No seizures. No diplopia, dysphagia, or dysphonia. No sore throat. No cough, wheezes, rhonchi. No chest pain, palpitations. No dysuria, urgency, or frequency. No rashes, petechiae, or ecchymosis. No hallucinations or delusions. No suicidal ideation. No loss of consciousness. ALLERGIES: CODEINE AND HYDROCODONE. MEDICATIONS: Glimepiride, carbidopa and levodopa, rosuvastatin, aspirin, metformin, Nurtec, finasteride, glimepiride, tamsulosin, Jardiance, ondansetron, gabapentin, omeprazole, meloxicam. PAST MEDICAL HISTORY: Type 2 diabetes, hypertension, dyslipidemia, Parkinson's disease, gait impairment. PAST SURGICAL HISTORY: Status post cholecystectomy. PHYSICAL EXAMINATION: GENERAL: Currently awake, alert, oriented in person, time, and place, not in distress. VITAL SIGNS: Blood pressure 140/70, pulse 72, respirations 20. HEENT: Normocephalic, atraumatic. LUNGS: Clear to auscultation. HEART: S1, S2 are distant. ABDOMEN: Soft and nontender. EXTREMITIES: No clubbing or cyanosis. LABORATORY DATA: Urinalysis is within normal limits, only for glucose more than 1000. WBC count 6.3, hemoglobin 15.5, platelets 217. Sodium 142, potassium 4.3, BUN 28, creatinine 1.4. Lactic acid was 3.1, repeated was 2. Lipase was 14. Troponin 12. CT scan of the abdomen shows small bowel dilatation with fluid-filled colon and small bowel loops, maybe related to enterocolitis. ASSESSMENT AND PLAN: * Gastroenterocolitis. Continue Protonix, Zofran, clear liquids. * Dehydration. BUN and creatinine ratio of 20. Increased creatinine levels. He will be admitted for observation. We will have him on IV fluids and clear liquids. * Type 2 diabetes, hypertension, dyslipidemia, and Parkinson's disease. Continue with his home medication. * The patient will be able to be discharged when stable. If he tolerates his breakfast, he might be able to be discharged and follow up with his primary care, Dr. Arguello. TID: [id number] RECEIPT: [id number]
--- NOTE | 2024-08-24 21:57 | DS ---
Discharge Summary DIAGNOSE(S): [Gastroenteritis Dehydration] HOSPITAL COURSE SUMMARY: [Presented with diarrhea and dehydration given fluids tolerated diet discharged resume home medication for his diabetes and hypertension] INSTRUMENT STERILIZER(S): [None] PROCEDURE(S)/TREATMENT(S): [IV hydration] PROBLEM(S): [None] FOLLOW-UP TEST(S): [None] DISCHARGE INSTRUCTIONS: [Follow PCP in two days] Home Meds Reported Medications Glimepiride (Glimepiride) 4 Mg Tablet, 4 MG PO DAILY, TAB 08/21/24 Carbidopa/Levodopa (Carbidopa-Levo 25-100 mg Odt) 25 Mg-100 Mg Tab.rapdis, 1 EACH PO BID, TAB 08/21/24 Rosuvastatin Calcium (Rosuvastatin Calcium) 5 Mg Tablet, 20 MG PO DAILY, TAB 08/21/24 Aspirin (ASPIRIN 81MG CHEW TAB) 81 Mg Tab.chew, 1 TAB PO DAILY for 30 Days, #30 TAB 0 Refills 08/21/24 Metformin HCl (Metformin HCl) 1,000 Mg Tablet, 1 TAB PO BID for 30 Days, #60 TAB 0 Refills 08/21/24 Diphenoxylate HCl/Atropine (Diphenoxylate-Atropine Tablet) 2.5 Mg-0.025 Mg Tablet, 1 TAB PO QID for 10 Days, #40 TAB 0 Refills 08/21/24 Rimegepant Sulfate (Nurtec Odt) 75 Mg Tab.rapdis, 75 MG PO QODAY, TAB 08/21/24 Finasteride (Finasteride) 5 Mg Tablet, 1 TAB PO DAILY for 30 Days, #30 TAB 0 Refills 08/21/24 Glimepiride (Glimepiride) 1 Mg Tablet, 1 TAB PO DAILY for 30 Days, #30 TAB 0 Refills 08/21/24 Duloxetine HCl (Duloxetine HCl) 20 Mg Capsule.dr, 1 CAP PO DAILY for 30 Days, #30 CAP 0 Refills 08/21/24 Tamsulosin HCl (Flomax) 0.4 Mg Cap.er.24h, 1 CAP PO DAILY for 30 Days, #30 CAP 0 Refills 08/21/24 Empagliflozin (Jardiance) 25 Mg Tablet, 1 TAB PO DAILY for 30 Days, #30 TAB 0 Refills 08/21/24 Ondansetron (Ondansetron Odt) 4 Mg Tab.rapdis, 4 MG PO Q6HPRN PRN for NAUSEA/VOMITING, TAB 08/21/24 Gabapentin (Gabapentin) 100 Mg Capsule, 300 MG PO TID, CAP 08/21/24 Omeprazole (Omeprazole) 20 Mg Capsule.dr, 20 MG PO TIDAC, CAP 07/26/21 Discontinued Reported Medications Glimepiride (Glimepiride) 4 Mg Tablet, 4 MG PO BID, TAB 07/26/21 Metformin HCl (Metformin HCl) 1,000 Mg Tablet, 1000 MG PO BID, TAB 07/26/21 Meloxicam, Submicronized (Meloxicam) 10 Mg Capsule, 15 MG PO DAILY, CAP 07/26/21 Canagliflozin (Invokana) 300 Mg Tablet, 300 MG PO DAILY, TAB 07/26/21 Discontinued Scripts Metoclopramide HCl (Reglan) 10 Mg Tablet, 10 MG PO QIDP PRN for HEADACHE, #40 TAB 2 Refills Prov:RENETTA SHAHID Sr., MD 04/23/23 Hydroxyzine Pamoate (Hydroxyzine Pamoate) 50 Mg Capsule, 50 MG PO QIDP PRN for ANXIETY/AGITATION, #40 CAP 2 Refills Prov:RENETTA SHAHID Sr., MD 04/23/23 LYN SAHNI MD August 24, 2024 21:57
== END 2024-08-22 10:00 | disposition home or self-care (01) ==
LOC: EDH 09:46 → EDHIP 09:47 → 3AH 15:35
PROVIDERS: ADMIT Internal Medicine; ATTEND Internal Medicine
DX: K52.9 Noninfective gastroenteritis and colitis, unspecified (principal); E11.9 Type 2 diabetes mellitus without complications; E78.00 Pure hypercholesterolemia, unspecified; E86.0 Dehydration; E78.5 Hyperlipidemia, unspecified; I10 Essential (primary) hypertension; R11.2 Nausea with vomiting, unspecified; Z86.73 Personal history of transient ischemic attack (TIA), and cerebral infarction without residual deficits; Z90.49 Acquired absence of other specified parts of digestive tract; Z98.890 Other specified postprocedural states; Z79.899 Other long term (current) drug therapy
CPT/HCPCS: 96374; 96361 ×2; 99284; 82550; 80076; 84484; 80048 ×2; 83690; 85025 ×2; 82948 ×4; 83605 ×2; 81001; 36415 ×2; 71045; 70450; 74176; 96376; G0378 ×20; J2470 ×2

== ENCOUNTER 2024-09-11 09:44 | Emergency (ER) | payer OTHER ==
[~2024-09-11] VITALS: Ht 162.6 cm; Wt 73.5 kg
[~2024-09-11 09:44] MED LIST changes: +ASPI-1005 PO; -CANA300T PO; +CARB-38 PO; +DIPH-1150 PO; +DULO20CA18 PO; +EMPA25TA PO; +FINA5TAB41 PO; +GABA-529 PO; +GLIM1TAB56 PO; -HYDR50CA50 PO; -MELO10CA3 PO; -METO-296 PO; +ONDA-243 PO; +RIME75TA PO; +ROSU5TAB51 PO; +TAMS-55 PO
--- NOTE | 2024-09-11 10:13 | EKG ---
[facility] Test Date: 2024-09-11 Test Time: 10:04:53 Pat Name: KAYLA BELLE Department: ED Room: Gender: M Pattern Checker: [id number] : [id number] Requested By: FREDA JOINER Order Number: [id number] Reading MD: Hernán Rojas Measurements Intervals [place] Rate: 80 P: 67 DE: 208 QRS: 108 QRSD: 94 T: 41 QT: 347 QTc: 401 Interpretive Statements Sinus rhythm Right axis deviation Compared to ECG 04/23/2023 19:51:00 First degree AV block no longer present Electronically Signed On 09-11-2024 16:57:40 CDT by Hernán Rojas Please click the below link to view image of tracing.
[2024-09-11 10:27] LABS: BASOPHILS # (AUTO) 0.01 K/uL (0.00-0.20); BASOPHILS % (AUTO) 0.2 % (0.0-5.0); EOSINOPHILS # (AUTO) 0.01 K/uL (0.00-0.70); EOSINOPHILS % (AUTO) 0.2 % (0.0-8.0); HEMATOCRIT 46.1 % (42-54); IMMATURE GRANULOCYTE ABSOLUTE 0.02 K/uL (0-1); LYMPHOCYTES # (AUTO) 0.5 K/uL (1.0-4.8); LYMPHOCYTES % (AUTO) 7.8 % (21.0-51.0); MEAN CORPUSCULAR HEMOGLOBIN 31.3 pg (27.0-33.0); MEAN CORPUSCULAR HGB CONC 32.5 g/dL (32.0-36.0); MEAN CORPUSCULAR VOLUME 96.2 fL (79-99); MONOCYTES # (AUTO) 0.6 K/uL (0.1-1.0); MONOCYTES % (AUTO) 10.4 % (3.0-13.0); NEUTROPHILS # (AUTO) 4.9 K/uL (1.8-7.7); NEUTROPHILS % (AUTO) 81.1 % (40.0-77.0); PLATELET COUNT (AUTO) 210 K/uL (130-400); RED BLOOD CELL COUNT(AUTO) 4.79 MIL/uL (4.50-6.20); RED CELL DISTRIBUTION WIDTH 13.9 % (11.0-15.5)
--- NOTE | 2024-09-11 10:31 | ERN ---
General Chief Complaint: Nausea,Vomiting,Diarrhea Stated Complaint: NAUSEA, VOMITING AND DIARRHEA Time Seen by MD: 09:46 Source: patient History of Present Illness Initial Comments Patient is a 79-year-old male coming in to be evaluated for diarrhea. He states that he has been having diarrhea for two days. It is a diarrhea so intense that he has been feeling very weak. Patient also states that he was hospitalized one week ago for the same reason. He has not had any fever or chills. Allergies: Coded Allergies: codeine (Unverified Adverse Reaction, Severe, SEVERE VOMITING, 04/23/23) hydrocodone (Unverified Adverse Reaction, Severe, SEVERE VOMITING, 04/23/23) Home Meds Reported Medications Glimepiride (Glimepiride) 4 Mg Tablet, 4 MG PO DAILY, TAB 08/21/24 Carbidopa/Levodopa (Carbidopa-Levo 25-100 mg Odt) 25 Mg-100 Mg Tab.rapdis, 1 EACH PO BID, TAB 08/21/24 Rosuvastatin Calcium (Rosuvastatin Calcium) 5 Mg Tablet, 20 MG PO DAILY, TAB 08/21/24 Aspirin (ASPIRIN 81MG CHEW TAB) 81 Mg Tab.chew, 1 TAB PO DAILY for 30 Days, #30 TAB 0 Refills 08/21/24 Metformin HCl (Metformin HCl) 1,000 Mg Tablet, 1 TAB PO BID for 30 Days, #60 TAB 0 Refills 08/21/24 Diphenoxylate HCl/Atropine (Diphenoxylate-Atropine Tablet) 2.5 Mg-0.025 Mg Tabl et, 1 TAB PO QID for 10 Days, #40 TAB 0 Refills 08/21/24 Rimegepant Sulfate (Nurtec Odt) 75 Mg Tab.rapdis, 75 MG PO QODAY, TAB 08/21/24 Finasteride (Finasteride) 5 Mg Tablet, 1 TAB PO DAILY for 30 Days, #30 TAB 0 Ref ills 08/21/24 Glimepiride (Glimepiride) 1 Mg Tablet, 1 TAB PO DAILY for 30 Days, #30 TAB 0 Refills 08/21/24 Duloxetine HCl (Duloxetine HCl) 20 Mg Capsule.dr, 1 CAP PO DAILY for 30 Days, #30 CAP 0 Refills 08/21/24 Tamsulosin HCl (Flomax) 0.4 Mg Cap.er.24h, 1 CAP PO DAILY for 30 Days, #30 CAP 0 Refills 08/21/24 Empagliflozin (Jardiance) 25 Mg Tablet, 1 TAB PO DAILY for 30 Days, #30 TAB 0 Refills 08/21/24 Ondansetron (Ondansetron Odt) 4 Mg Tab.rapdis, 4 MG PO Q6HPRN PRN for NAUSEA/VOMITING, TAB 08/21/24 Gabapentin (Gabapentin) 100 Mg Capsule, 300 MG PO TID, CAP 08/21/24 Omeprazole (Omeprazole) 20 Mg Capsule.dr, 20 MG PO TIDAC, CAP 07/26/21 Past Medical History Past Medical History: Arthritis, Diabetes-Type II, High Cholesterol, Heart Disease, Hypertension, TIA, Other Medical History Other: Parkinsons Past Surgical History: Cholecystectomy, Other Surgical History Other: eye Social History Social History: Smokers, ETOH ROS Dictation CONSTITUTIONAL: No chills, no fever, weakness, no diaphoresis, no malaise. HEAD/FACE: No signs of trauma. EENT: No eye pain, no blurred vision, no tearing, no double vision, no ear pain, no ear discharge, no nose pain, no nasal congestion, no throat pain, no throat swelling, no mouth pain. RESPIRATORY: No cough, no orthopnea, no SOB, no stridor, no wheezing. CARDIOVASCULAR: No chest pain, no edema, no palpitations, no syncope. GASTROINTESTINAL/ABDOMINAL: No abdominal pain, no constipation, diarrhea, no nausea, no vomiting. GENITOURINARY: No abnormal discharge, no dysuria, no frequent urination, no hematuria. No complaints of pain in the genitals. MUSCULOSKELETAL: No back pain, no gout, no joint pain, no joint swelling, no muscle pain, no muscle stiffness, no neck pain. INTEGUMENTARY: No change in color, no change in hair/nails, no dryness, no lesion, no lumps, no rash. NEUROLOGICAL/PSYCH: No anxiety, not depressed, no emotional problem, no headache, no numbness, no pre-existing deficit, no history of seizures, no tremors, no weakness. HEMATOLOGIC/LYMPHATIC: Not anemic, no history of blood clots, no apparent bleeding, no bruising, glands not swollen. All Systems Negative, Except as Noted. Physical Exam Physical Exam Dictation VITAL SIGNS: Reviewed. GENERAL APPEARANCE: Alert, oriented x3, no acute distress, obese. HEAD AND FACE: Non-traumatic. EYES: PERRL, pink conjunctivas, eyelid no trauma, anterior chamber clear. EARS: Pinnas intact and no signs of trauma or erythema. Ear canals clear and no discharge. TMs no erythema. NOSE: No discharge, no bleeding. OROPHARYNX: Mouth normal, teeth no caries, tongue pink. Pharynx clear, no erythema. Tonsils no exudates, no abscesses noted. Mucous membrane moist. NECK: Supple, non-tender, no thyromegaly, no masses, no JVD, no bruits. BREAST: Deferred. CHEST: No tenderness, no crepitus, no paradoxical movement, no retractions. LUNGS: Clear, well-ventilated, symmetric, no rales, no wheezing, no rhonchi, no stridor, good breath sounds bilaterally. HEART: Regular rate, regular rhythm, no murmur, no gallops. VASCULAR: No peripheral edema. ABDOMEN: Soft, positive bowel sounds, nondistended, no guarding, nontender, no rebound, no masses no hepatomegaly, no splenomegaly, no Reyes's sign, no hernias. RECTAL: Deferred. GENITAL: Deferred. NEUROLOGICAL: Normal speech, gross motor function intact, gross sensory function intact. MUSCULOSKELETAL: Neck nontender, full range of motion, back nontender, full range of motion. EXTREMITIES: Nontender, full range of motion. SKIN: Color pink, dry, no turgor, no rash, no lacerations, no abrasions, no contusions. LYMPHATICS: Deferred. Results Laboratory and Microbiology Lab and Micro Result Laboratory Tests Test 09/11/24 10:05 White Blood Count 6.0 K/uL (4.8-10.8) Red Blood Count 4.79 MIL/uL (4.50-6.20) Hemoglobin 15.0 g/dL (14.0-18.0) Hematocrit 46.1 % (42-54) Mean Corpuscular Volume 96.2 fL (79-99) Mean Corpuscular Hemoglobin 31.3 pg (27.0-33.0) Mean Corpuscular Hemoglobin Concent 32.5 g/dL (32.0-36.0) Red Cell Distribution Width 13.9 % (11.0-15.5) Platelet Count 210 K/uL (130-400) Mean Platelet Volume 9.8 fL (7.5-10.5) Immature Granulocyte % (Auto) 0.3 % (0-1) Neutrophils (%) (Auto) 81.1 % (40.0-77.0) H Lymphocytes (%) (Auto) 7.8 % (21.0-51.0) L Monocytes (%) (Auto) 10.4 % (3.0-13.0) Eosinophils (%) (Auto) 0.2 % (0.0-8.0) Basophils (%) (Auto) 0.2 % (0.0-5.0) Neutrophils # (Auto) 4.9 K/uL (1.8-7.7) Lymphocytes # (Auto) 0.5 K/uL (1.0-4.8) L Monocytes # (Auto) 0.6 K/uL (0.1-1.0) Eosinophils # (Auto) 0.01 K/uL (0.00-0.70) Basophils # (Auto) 0.01 K/uL (0.00-0.20) Absolute Immature Granulocyte (auto 0.02 K/uL (0-1) Nucleated Red Blood Cells 0.0 % (0.0-0.19) White Cell Morphology Comment See comments Urine Color YELLOW (YELLOW) Urine Appearance CLEAR (CLEAR) Urine pH 5.5 (5.0-8.0) Urine Specific [place] 1.030 (1.001-1.031) Urine Protein 10 mg/dL (NEGATIVE) H Urine Glucose (UA) >=1000 mg/dL (NEGATIVE) H Urine Ketones 10 mg/dL (NEGATIVE) H Urine Occult Blood NEGATIVE (NEGATIVE) Urine Nitrate NEGATIVE (NEGATIVE) Urine Bilirubin NEGATIVE mg/dL (NEGATIVE) Urine Urobilinogen 0.2 mg/dL (0.2-1.0) Urine Leukocyte Esterase NEGATIVE Bianca/uL Urine RBC 0-1 /HPF (0-1) Urine WBC 2-5 /HPF (0-1) H Urine Squamous Epithelial Cells RARE /HPF (0-2) Urine Bacteria None /HPF (None Seen) Sodium Level 139 mmol/L (136-145) Potassium Level 4.2 mmol/L (3.5-5.1) Chloride Level 103 mmol/L (101-111) Carbon Dioxide Level 24 mmol/L (21-32) Blood Urea Nitrogen 27 mg/dL (7-18) H Creatinine 1.1 mg/dL (0.5-1.3) Glomerular Filtration Rate Calc 68 mL/min (>90) Random Glucose 110 mg/dL (70-105) H Total Calcium 8.9 mg/dL (8.5-10.1) Total Bilirubin 0.6 mg/dL (0.2-1.0) Aspartate Amino Transf (AST/SGOT) 15 U/L (10-37) Alanine Aminotransferase (ALT/SGPT) 4 U/L (12-78) L Alkaline Phosphatase 68 U/L (50-136) Total Creatine Kinase 33 U/L (21-232) Troponin I High Sensitivity 10 ng/L (4-75) Total Protein 7.5 g/dL (6.0-8.3) Albumin 3.9 g/dL (3.5-5.0) Lipase 13 U/L (16-77) L Influenza Type A Antigen Negative For Type A Influenza Type B Antigen Negative For Type B SARS-CoV-2, RNA, NAAT NEGATIVE SARS CoV-2 Group A Streptococcus Rapid negative (NEGATIVE) Labs Reviewed?: Yes EKG/XRAY/US/CT/MRI EKG Comment 09/11/2024 time 10:04 a.m. Ventricular rate [address] wave elevation or depression MDM MDM: Differential diagnosis: Viral gastroenteritis, gastroenteritis Rationale: Tests considered and ordered secondary to shared decision making include: Previous outside records reviewed: Old ER visits. Risk of complication and/or morbidity or mortality of patient management: None Medications-Per medication reconciliation Patient is a 79-year-old male coming in to be evaluated for diarrhea. Patient states that he had diarrhea for one day. On laboratory workup negative for acute findings. Patient was hydrated with IV fluids given some anti Protonix states he feels better. Patient will be discharged in stable condition I did advised him diet modification avoiding lactose products as well as fatty foods. I also advised him increased water intake. ED Course Orders Procedure Category Date Status Time Cbc With Differential LAB 09/11/24 Complete 10:07 Comprehensive LAB 09/11/24 Complete Metabolic Panel 10:07 Troponin I High LAB 09/11/24 Complete Sensitivity 10:07 Urinalysis Profile LAB 09/11/24 Complete 10:07 12 Lead Ekg Tracing- EKG 09/11/24 Complete Technical 10:07 Lactated Ringers PHA 09/11/24 Complete 1000ml (Lactated 10:30 Creatine Kinase, Total LAB 09/11/24 Complete 10:07 Lipase LAB 09/11/24 Complete 10:07 Basic Metabolic Panel LAB 09/11/24 Complete 10:07 Covid Rna Naat LAB 09/11/24 Complete 10:41 Influenza Type A & B, LAB 09/11/24 Complete Rapid 10:41 Rapid (Group A Strep) LAB 09/11/24 Complete 10:41 Current Medications Medications (Trade) Dose Ordered Sig/Steve Route PRN Reason Start Time Stop Time Status Last Admin Dose Admin Lactated Ringer's 1,000 ml @ 0 mls/hr ONCE ONCE IV 09/11/24 10:30 09/11/24 10:31 DC 09/11/24 10:33 Vital Signs Date Time Temp Pulse Resp B/P (MAP) Pulse Ox O2 Delivery O2 Flow Rate FiO2 09/11/24 11:00 98.1 77 16 130/70 98 Room Air* 0 21 09/11/24 10:00 98.2 73 17 117/65 98 Room Air* 0 21 09/11/24 09:45 97.7 88 16 123/66 98 Room Air 0 DX & DISP Disposition: Discharge Departure Impression: Primary Impression: Viral gastroenteritis Condition: Stable Additional Instructions: FOLLOW-UP WITH PRIMARY CARE PROVIDER IN 1 TO 2 DAYS. TAKE MEDICATIONS DIRECTED HERE IN THE EMERGENCY ROOM. OKAY TO CONTINUE HOME MEDICATIONS UNLESS OTHERWISE DISCUSSED DURING YOUR VISIT IN THE EMERGENCY ROOM TODAY. RETURN TO YOUR NEAREST EMERGENCY ROOM IF SYMPTOMS WORSEN OR IF THERE IS NO IMPROVEMENT. CALL 911 IF YOU NEED IMMEDIATE ASSISTANCE. TAKE TYLENOL [id number] NEEDED AND IF NO CONTRAINDICATIONS ARE PRESENT. INCREASE ORAL HYDRATION. A WOUND CULTURE OR URINE CULTURE WAS ORDERED HERE IN THE EMERGENCY ROOM DEPARTMENT PLEASE FOLLOW-UP WITH PRIMARY CARE PROVIDER AND ADVISE THEM TO GET REPEAT PORTS FROM OUR FACILITY. IF YOU HAD ANY MISHEL WRAP/SPLINTS THAT WERE APPLIED HERE, PLEASE DO NOT REMOVE THEM UNTIL YOU SEE YOUR PRIMARY CARE OR SPECIALTY. Referrals: Referrals: LYN SAHNI MD (PCP) Time of Disposition: 11:50 FREDA JOINER MD September 11, 2024 10:31
[2024-09-11] MEDS: LACTATED RINGERS 1000ML 1,000 ML IV ONE (10:33)
[2024-09-11 10:49] LABS: CREATININE 1.1 mg/dL (0.5-1.3); POTASSIUM 4.2 mmol/L (3.5-5.1)
[2024-09-11 10:50] LABS: APPEARANCE,URINE CLEAR (CLEAR); BILIRUBIN,URINE NEGATIVE (NEGATIVE); COLOR,URINE YELLOW (YELLOW); GLUCOSE, URINE (UA) >=1000 mg/dL (NEGATIVE); KETONES,URINE 10 mg/dL (NEGATIVE); LEUKOCYTE ESTERASE ,URINE NEGATIVE Leu/uL (NEGATIVE); NITRATE,URINE NEGATIVE (NEGATIVE); OCCULT BLOOD,URINE NEGATIVE (NEGATIVE); PH,URINE 5.5 (5.0-8.0); PROTEIN,URINE 10 mg/dL (NEGATIVE); UROBILINOGEN,URINE 0.2 mg/dL (0.2-1.0)
[2024-09-11 10:52] LABS: ADD UA MICROSCOPIC YES
[2024-09-11 10:53] LABS: ALBUMIN 3.9 g/dL (3.5-5.0); BILIRUBIN,TOTAL 0.6 mg/dL (0.2-1.0); TOTAL PROTEIN, SERUM 7.5 g/dL (6.0-8.3)
[2024-09-11 11:04] LABS: MUCUS,URINE RARE LPF (None Seen); RBC,URINE 0-1 /HPF (0-1); SQUAMOUS EPITHELIAL CELL,UR RARE /HPF (0-2)
[2024-09-11 11:09] LABS: RAPID GROUP A STREP negative (NEGATIVE)
[2024-09-11 11:14] LABS: SARS-CoV-2, RNA, NAAT NEGATIVE SARS CoV-2 (NEGATIVE)
[2024-09-11 11:20] LABS: INFLUENZA TYPE A Negative For Type A (NEGATIVE); INFLUENZA TYPE B Negative For Type B (NEGATIVE)
[2024-09-11 11:53] VITALS: BP 117/65; PULSE 74; RESP 13; TEMP 98; O2SAT 98
--- NOTE | 2024-09-11 12:05 | NUR ---
PATIENT VERBALIZES EX WILL BE HERE TO PROVIDE TRANSPORT.
== END 2024-09-11 12:00 | disposition home or self-care (01) ==
LOC: EDH 09:44
DX: A08.4 Viral intestinal infection, unspecified (principal); E11.9 Type 2 diabetes mellitus without complications; E78.00 Pure hypercholesterolemia, unspecified; F17.200 Nicotine dependence, unspecified, uncomplicated; G20.A1 Parkinson's disease without dyskinesia, without mention of fluctuations; I11.9 Hypertensive heart disease without heart failure; M19.90 Unspecified osteoarthritis, unspecified site; Z20.822 Contact with and (suspected) exposure to COVID-19; Z79.82 Long term (current) use of aspirin; Z79.84 Long term (current) use of oral hypoglycemic drugs; Z79.899 Other long term (current) drug therapy; Z86.73 Personal history of transient ischemic attack (TIA), and cerebral infarction without residual deficits; Z88.5 Allergy status to narcotic agent; Z90.49 Acquired absence of other specified parts of digestive tract
CPT/HCPCS: 99284; 96360; 87635; 82550; 84484; 80053; 83690; 85025; 87880; 87804 ×2; 81001; 36415; 93005; J7120

== ENCOUNTER 2024-12-10 10:27 | Emergency (ER) | payer OTHER ==
[~2024-12-10] VITALS: Ht 162.6 cm; Wt 73.9 kg
--- NOTE | 2024-12-10 10:37 | ERN ---
ED Note History of Present Illness Stated Complaint: DIARRHEA Chief Complaint: Diarrhea Time Seen by MD: 10:30 Dictation: PATIENT IS A 79-YEAR-OLD HERE WITH COMPLAINTS OF DIZZINESS DIARRHEA WITH NAUSEA ONSET YESTERDAY. NO FEVER NO CHILLS HE DOES COMPLAIN OF MILD GENERALIZED ABDOMINAL PAIN. HE ALSO STATES HE HAS BEEN DIZZY WITH A HEADACHE SINCE HE FELL TWO DAYS AGO AND STRUCK HIS FOREHEAD. IT WAS A TRIP FALL HE HAS A LACERATION TO HIS LEFT ANTERIOR FOREHEAD WITH SUTURES IN PLACE. HEMATOMAS NOTED. NO ROMO OR RACCOON SIGN. THERE WAS NO BLOOD THINNERS AND NO TRAUMA ALERT CRITERIA AT THIS TIME. PATIENT ALERT AND ORIENTED X4 SPEECH IS CLEAR. AFEBRILE IN TRIAGE. PATIENT STATES HE DID NOT HAVE A CT OF HIS HEAD AFTER HIS STRIKING IT TWO DAYS AGO. Allergies: Coded Allergies: codeine (Unverified Adverse Reaction, Severe, SEVERE VOMITING, 04/23/23) hydrocodone (Unverified Adverse Reaction, Severe, SEVERE VOMITING, 04/23/23) Home Meds Reported Medications Glimepiride (Glimepiride) 4 Mg Tablet, 4 MG PO DAILY, TAB 08/21/24 Carbidopa/Levodopa (Carbidopa-Levo 25-100 mg Odt) 25 Mg-100 Mg Tab.rapdis, 1 EACH PO BID, TAB 08/21/24 Rosuvastatin Calcium (Rosuvastatin Calcium) 5 Mg Tablet, 20 MG PO DAILY, TAB 08/21/24 Aspirin (ASPIRIN 81MG CHEW TAB) 81 Mg Tab.chew, 1 TAB PO DAILY for 30 Days, #30 TAB 0 Refills 08/21/24 Metformin HCl (Metformin HCl) 1,000 Mg Tablet, 1 TAB PO BID for 30 Days, #60 TAB 0 Refills 08/21/24 Diphenoxylate HCl/Atropine (Diphenoxylate-Atropine Tablet) 2.5 Mg-0.025 Mg Tablet, 1 TAB PO QID for 10 Days, #40 TAB 0 Refills 08/21/24 Rimegepant Sulfate (Nurtec Odt) 75 Mg Tab.rapdis, 75 MG PO QODAY, TAB 08/21/24 Finasteride (Finasteride) 5 Mg Tablet, 1 TAB PO DAILY for 30 Days, #30 TAB 0 Refills 08/21/24 Glimepiride (Glimepiride) 1 Mg Tablet, 1 TAB PO DAILY for 30 Days, #30 TAB 0 Refills 08/21/24 Duloxetine HCl (Duloxetine HCl) 20 Mg Capsule.dr, 1 CAP PO DAILY for 30 Days, #30 CAP 0 Refills 08/21/24 Tamsulosin HCl (Flomax) 0.4 Mg Cap.er.24h, 1 CAP PO DAILY for 30 Days, #30 CAP 0 Refills 08/21/24 Empagliflozin (Jardiance) 25 Mg Tablet, 1 TAB PO DAILY for 30 Days, #30 TAB 0 Refills 08/21/24 Ondansetron (Ondansetron Odt) 4 Mg Tab.rapdis, 4 MG PO Q6HPRN PRN for NAUSEA/VOMITING, TAB 08/21/24 Gabapentin (Gabapentin) 100 Mg Capsule, 300 MG PO TID, CAP 08/21/24 Omeprazole (Omeprazole) 20 Mg Capsule.dr, 20 MG PO TIDAC, CAP 07/26/21 Past Medical History Past Medical History: Arthritis, Diabetes-Type II, High Cholesterol, Heart Disease, Hypertension, TIA, Other Additional Past Medical Hx: Parkinsons Surgical History: Cholecystectomy, Other Surgical History Other: eye Social History: Smokers, ETOH RN Note Reviewed/Agreed w/PFSH: Yes Review of System Dictation CONSTITUTIONAL: NEGATIVE EXCEPT FOR HPI HEAD/FACE: NEGATIVE EXCEPT FOR HPI EENT: NEGATIVE EXCEPT FOR HPI RESPIRATORY: NEGATIVE EXCEPT FOR HPI GASTROINTESTINAL/ABDOMINAL: NEGATIVE EXCEPT FOR HPI DIARRHEA WITH THE ABDOMINAL CRAMPING GENITOURINARY: NEGATIVE EXCEPT FOR HPI MUSCULOSKELETAL: NEGATIVE EXCEPT FOR HPI INTEGUMENTARY: NEGATIVE EXCEPT FOR HPI NEUROLOGICAL/PSYCH: NEGATIVE EXCEPT FOR HPI DIZZINESS WITH HEADACHE. HEMATOLOGIC/LYMPHATIC: NEGATIVE EXCEPT FOR HPI ALL SYSTEMS NEGATIVE, EXCEPT NOTED ABOVE. 13 POINT REVIEW OF SYSTEMS ASSESSED AND ALL NEGATIVE EXCEPT FOR ABOVE. Initial Vital Sign VS Vital Signs Date Time Temp Pulse Resp B/P (MAP) Pulse Ox O2 Delivery O2 Flow Rate FiO2 12/10/24 10:29 97.9 76 18 149/70 99 Room Air 0 12/10/24 11:55 21 Physical Exam Dictation VITAL SIGNS REVIEWED GENERAL APPEARANCE: ALERT, ORIENTED X 3, MILD ACUTE DISTRESS, WELL DEVELOPED, NOURISHED. HEAD AND FACE: SMALL HEMATOMA WITH LACERATION AND SUTURES TO LEFT ANTERIOR FOREHEAD. NO ROMO OR RACCOON SIGN. EYES: PERRL, PINK CONJUNCTIVAS, EYELID NO TRAUMA, ANTERIOR CHAMBER WITH ARCUS SENILIS. EARS: PINNAS INTACT AND NO SIGNS OF TRAUMA OR ERYTHEMA EAR CANALS CLEAR AND NO DISCHARGE TM NO ERYTHEMA NO HEMOTYMPANUM NOSE: NO DISCHARGE, NO BLEEDING. OROPHARYNX: MOUTH NORMAL, TONGUE PINK, PHARYNX CLEAR,NO ERYTHEMA, TONSILS NO EXUDATES, NO ABSCESSES NOTED, MUCOUS MEMBRANE MOIST NECK: SUPPLE, NON-TENDER, NO THYROMEGALY, NO MASSES, NO JVD, NO BRUITS BREAST:DEFERRED CHEST:NO TENDERNESS, NO CREPITUS, NO PARADOXICAL MOVEMENT, NO RETRACTIONS LUNGS:CLEAR, WELL-VENTILATED, SYMMETRIC, NO RALES, NO WHEEZING, NO RHONCHI, NO STRIDOR, GOOD BREATH SOUNDS BILATERALLY HEART: REGULAR RATE, REGULAR RHYTHM, NO MURMUR, NO GALLOPS VASCULAR: NO PERIPHERAL EDEMA, ABDOMEN: SOFT, POSITIVE BOWEL SOUNDS, NONDISTENDED, NO GUARDING, NONTENDER, NO REBOUND, NO MASSES NO HEPATOMEGALY, NO SPLENOMEGALY, NO FLORES'S SIGN, NO HERNIAS. NO FOCAL TENDERNESS RECTAL: DEFERRED GENITAL: DEFERRED NEUROLOGICAL: NORMAL SPEECH, MOTOR FUNCTION INTACT, SENSORY FUNCTION INTACT NIH IS 0 PER MUSCULOSKELETAL: NECK NONTENDER, FULL RANGE OF MOTION, BACK NONTENDER, FULL RANGE OF MOTION, EXTREMITIES: NONTENDER, FULL RANGE OF MOTION SKIN: COLOR PINK, DRY, NO TURGOR, NO RASH, NO LACERATIONS, NO ABRASIONS, NO CONTUSIONS. LYMPHATIC: DEFERRED Results (Laboratory/Radiology) Laboratory/Radiology Laboratory Tests Test 12/10/24 10:45 White Blood Count 3.8 K/uL (4.8-10.8) L Red Blood Count 4.45 MIL/uL (4.50-6.20) L Hemoglobin 14.3 g/dL (14.0-18.0) Hematocrit 43.3 % (42-54) Mean Corpuscular Volume 97.3 fL (79-99) Mean Corpuscular Hemoglobin 32.1 pg (27.0-33.0) Mean Corpuscular Hemoglobin Concent 33.0 g/dL (32.0-36.0) Red Cell Distribution Width 13.8 % (11.0-15.5) Platelet Count 194 K/uL (130-400) Mean Platelet Volume 9.6 fL (7.5-10.5) Immature Granulocyte % (Auto) 0.0 % (0-1) Neutrophils (%) (Auto) 70.4 % (40.0-77.0) Lymphocytes (%) (Auto) 14.0 % (21.0-51.0) L Monocytes (%) (Auto) 14.0 % (3.0-13.0) H Eosinophils (%) (Auto) 0.8 % (0.0-8.0) Basophils (%) (Auto) 0.8 % (0.0-5.0) Neutrophils # (Auto) 2.7 K/uL (1.8-7.7) Lymphocytes # (Auto) 0.5 K/uL (1.0-4.8) L Monocytes # (Auto) 0.5 K/uL (0.1-1.0) Eosinophils # (Auto) 0.03 K/uL (0.00-0.70) Basophils # (Auto) 0.03 K/uL (0.00-0.20) Absolute Immature Granulocyte (auto 0.00 K/uL (0-1) Nucleated Red Blood Cells 0.0 % (0.0-0.19) Sodium Level 139 mmol/L (136-145) Potassium Level 4.0 mmol/L (3.5-5.1) Chloride Level 103 mmol/L (101-111) Carbon Dioxide Level 22 mmol/L (21-32) Blood Urea Nitrogen 27 mg/dL (7-18) H Creatinine 0.9 mg/dL (0.5-1.3) Glomerular Filtration Rate Calc 87 mL/min (>90) Random Glucose 152 mg/dL (70-105) H Total Calcium 9.7 mg/dL (8.5-10.1) Troponin I High Sensitivity 8 ng/L (4-75) Lipase 13 U/L (16-77) L EXAM: Non-contrast CT examination of the Brain CLINICAL HISTORY: Headache with dizziness. TECHNIQUE: Thin collimated axial CT images of the brain were obtained, with sagittal and coronal reformatted images also submitted. CT scan done according to ALARA (As Low as Reasonably Achievable). CONTRAST USED: None. COMPARISON: None provided. FINDINGS: No acute intracranial abnormality is present. No acute cortical infarction, hemorrhage, mass, or mass effect. Mild to moderate chronic ischemic changes secondary to small vessel disease. No hydrocephalus or abnormal extra-axial fluid collections. The posterior fossa is unremarkable. The skull base and calvarium are intact. The included portions of the paranasal sinuses and mastoid air cells are clear. IMPRESSION: No acute intracranial abnormality is present. Mild to moderate chronic ischemic changes secondary to small vessel disease. /[facility] Reviewed?: Yes EKG Comment: EKG NORMAL SINUS RHYTHM/HEART RATE 70/AXIS NORMAL ME INTERVAL 224 MILLISECOND ED Course ED Course Orders Procedure Category Date Status Time Ct Head/Brain W/O CT 12/10/24 Resulted Contrast 10:33 Cbc With Differential LAB 12/10/24 Complete 10:33 Troponin I High LAB 12/10/24 Complete Sensitivity 10:33 Urinalysis Profile LAB 12/10/24 In Process 10:33 12 Lead Ekg Tracing- EKG 12/10/24 Complete Technical 10:33 Lipase LAB 12/10/24 Complete 10:33 0.9%Nacl 1000ml (Ns PHA 12/10/24 Complete 1000ml) 11:00 Basic Metabolic Panel LAB 12/10/24 Complete 12:38 Current Medications Medications (Trade) Dose Ordered Sig/Setve Route PRN Reason Start Time Stop Time Status Last Admin Dose Admin Sodium Chloride 1,000 ml @ 0 mls/hr ONCE ONCE IV 12/10/24 11:00 12/10/24 11:01 DC 12/10/24 11:56 Vital Signs Date Time Temp Pulse Resp B/P (MAP) Pulse Ox O2 Delivery O2 Flow Rate FiO2 12/10/24 13:16 97.9 70 18 144/77 99 Room Air* 0 21 12/10/24 11:55 68 20 147/74 98 Room Air* 0 21 12/10/24 10:29 97.9 76 18 149/70 99 Room Air 0 1340/PATIENT REMAINS HEMODYNAMICALLY STABLE AFEBRILE. DEHYDRATION WAS ADDRESSED WITH 1 L NORMAL SALINE PATIENT WISHES TO BE DISCHARGED HOME HE AND HIS ARE AWARE THAT CT OF THE HEAD IS NEGATIVE AND WORKUP OTHER THAN DEHYDRATION IS ESSENTIALLY NEGATIVE. ALL QUESTIONS ANSWERED HEART Score Response (Comments) Value EKG: Repolarization changes 1 Age: > 65yrs (+2) 2 Risk Factors: 1-2 risk factors (+1) 1 Initial Troponin: Normal limit (0) 0 Total 4 Medical Decision Making MDM MDM: DIFFERENTIAL DIAGNOSIS: DIARRHEA/DEHYDRATION/ELECTROLYTE IMBALANCE/ACS/AMI/SEPSIS RATIONALE: TESTS CONSIDERED AND ORDERED SECONDARY TO SHARED DECISION MAKING INCLUDE: EKG/LABS/UA PREVIOUS OUTSIDE RECORDS REVIEWED: OLD ER VISITS. RISK OF COMPLICATION AND/OR MORBIDITY OR MORTALITY OF PATIENT MANAGEMENT: NONE MEDICATIONS-PER MEDICATION RECONCILIATION NEED FOR HOSPITALIZATION: PATIENT DOES NOT MEET CRITERIA FOR HOSPITALIZATION. NON NEED FOR EMERGENCY MAJOR/MINOR SURGERY: NO THERE ARE NO SOCIAL CONCERNS WITH THIS PATIENT. PRESCRIPTION DRUG MANAGEMENT NONE PRESCRIPTIONS WILL INCLUDE SYMPTOMATIC CARE PATIENT'S PRIOR EXTERNAL MEDICAL RECORDS FROM OTHER ER VISITS WERE REVIEWED BY ME INDICATED. PRIOR TESTING AND RESULTS FROM PREVIOUS VISITS WERE REVIEWED. PRIOR TESTS WERE TAKEN INTO ACCOUNT WITH MEDICAL DECISION MAKING AND RESOURCE UTILIZATION, INDEPENDENT HISTORIAN/HISTORIANS WERE USED TO OBTAIN COMPLETE MEDICAL HISTORY. I INDEPENDENTLY INTERPRETED THE TEST THAT WERE PERFORMED, RESULTS WERE REVIEWED BY ME AND CONSIDERED FINDINGS ON RADIOLOGY IF ORDERED. MEDICAL MANAGEMENT AND EXAMINATION INTERPRETATION DISCUSSIONS WERE HAD BY ME WITH OTHER QUALIFIED HEALTHCARE PROFESSIONALS INDICATED FOR THE PATIENT'S CARE. DX & DISP Disposition: Discharge Departure Impression: Primary Impression: Viral gastroenteritis Additional Impressions: Dehydration, Diabetes mellitus with hyperglycemia, Diarrhea, Closed head injury, Fall Condition: Stable Additional Instructions: FOLLOW-UP WITH PRIMARY CARE PROVIDER IN 1 TO 2 DAYS. TAKE MEDICATIONS DIRECTED HERE IN THE EMERGENCY ROOM. OKAY TO CONTINUE HOME MEDICATIONS UNLESS OTHERWISE DISCUSSED DURING YOUR VISIT IN THE EMERGENCY ROOM TODAY. RETURN TO YOUR NEAREST EMERGENCY ROOM IF SYMPTOMS WORSEN OR IF THERE IS NO IMPROVEMENT. CALL 911 IF YOU NEED IMMEDIATE ASSISTANCE. TAKE TYLENOL OR MOTRIN OVER-THE- COUNTER NEEDED AND IF NO CONTRAINDICATIONS ARE PRESENT. INCREASE ORAL HYDRATION. A WOUND CULTURE OR URINE CULTURE WAS ORDERED HERE IN THE EMERGENCY ROOM DEPARTMENT PLEASE FOLLOW-UP WITH PRIMARY CARE PROVIDER AND ADVISE THEM TO GET REPEAT PORTS FROM OUR FACILITY. IF YOU HAD ANY MISHEL WRAP/SPLINTS THAT WERE APPLIED HERE, PLEASE DO NOT REMOVE THEM UNTIL YOU SEE YOUR PRIMARY CARE OR SPECIALTY. ACTIVITY TOLERATED. INCREASE YOUR FLUIDS TO INCLUDE WATER GATORADE OR POWERADE. SUGGEST AVOIDING COFFEE OR ICE TEA FOR THE NEXT 24 HOURS AND THEN MAY RESUME. SEE YOUR PRIMARY CARE DOCTOR FOR FOLLOW UP Referrals: LYN SAHNI MD (PCP) Time of Disposition: 13:42 I have reviewed the case, and I agree with, Diagnosis and Plan ERASMO VICKERS NP Dec 10, 2024 10:37
[2024-12-10 10:52] LABS: IMMATURE GRANULOCYTE ABSOLUTE 0.00 K/uL (0-1); NUCLEATED RED BLOOD CELLS 0.0 % (0.0-0.19); PLATELET COUNT (AUTO) 194 K/uL (130-400); RED BLOOD CELL COUNT(AUTO) 4.45 MIL/uL (4.50-6.20); RED CELL DISTRIBUTION WIDTH 13.8 % (11.0-15.5); WHITE BLOOD COUNT (AUTO) 3.8 K/uL (4.8-10.8)
[2024-12-10] MEDS: 0.9%NACL 1000ML 1,000 ML IV ONE (11:56)
--- NOTE | 2024-12-10 11:59 | HMCIMG ---
EXAM: Non-contrast CT examination of the Brain CLINICAL HISTORY: Headache with dizziness. TECHNIQUE: Thin collimated axial CT images of the brain were obtained, with sagittal and coronal reformatted images also submitted. CT scan done according to ALARA (As Low as Reasonably Achievable). CONTRAST USED: None. COMPARISON: None provided. FINDINGS: No acute intracranial abnormality is present. No acute cortical infarction, hemorrhage, mass, or mass effect. Mild to moderate chronic ischemic changes secondary to small vessel disease. No hydrocephalus or abnormal extra-axial fluid collections. The posterior fossa is unremarkable. The skull base and calvarium are intact. The included portions of the paranasal sinuses and mastoid air cells are clear. IMPRESSION: No acute intracranial abnormality is present. Mild to moderate chronic ischemic changes secondary to small vessel disease. /[place]
[2024-12-10 13:16] VITALS: BP 144/77; PULSE 70; RESP 18; TEMP 97.9; O2SAT 99
--- NOTE | 2024-12-10 13:16 | EKG ---
Test Date: 2024-12-10 Test Time: 10:46:57 Pat Name: KAYLA BELLE Department: ED Room: Gender: M Roping Tender: [id number] : 1945 Requested By: ERASMO VICKERS Order Number: [id number] Reading MD: Lizzeth Fields Measurements Intervals [place] Rate: 70 P: 52 OH: 224 QRS: 83 QRSD: 98 T: 32 QT: 367 QTc: 398 Interpretive Statements Sinus rhythm Prolonged OH interval Compared to ECG 09/11/2024 10:04:53 First degree AV block now present Right-axis deviation no longer present Electronically Signed On 12-10-2024 15:55:09 CDT by Lizzeth Fields Please click the below link to view image of tracing.
[2024-12-10 13:20] LABS: CREATININE 0.9 mg/dL (0.5-1.3); GLOMERULAR FILTR. RATE CALC 87.0 mL/min (>90); GLUCOSE,RANDOM 152.0 mg/dL (70-105); SODIUM SERUM 139.0 mmol/L (136-145); UREA NITROGEN, BLOOD 27.0 mg/dL (7-18)
[2024-12-10 13:40] LABS: ADD UA MICROSCOPIC YES
[2024-12-10 13:41] LABS: APPEARANCE,URINE CLEAR (CLEAR); GLUCOSE, URINE (UA) >=1000 mg/dL (NEGATIVE); LEUKOCYTE ESTERASE ,URINE NEGATIVE Leu/uL (NEGATIVE); NITRATE,URINE NEGATIVE (NEGATIVE); OCCULT BLOOD,URINE NEGATIVE (NEGATIVE); SQUAMOUS EPITHELIAL CELL,UR RARE /HPF (0-2)
== END 2024-12-10 14:09 | disposition home or self-care (01) ==
LOC: EDH 10:27
DX: S09.90XA Unspecified injury of head, initial encounter (principal); A08.4 Viral intestinal infection, unspecified; E86.0 Dehydration; E11.65 Type 2 diabetes mellitus with hyperglycemia; E78.00 Pure hypercholesterolemia, unspecified; I10 Essential (primary) hypertension; M19.90 Unspecified osteoarthritis, unspecified site; F17.200 Nicotine dependence, unspecified, uncomplicated; Z79.82 Long term (current) use of aspirin; Z79.84 Long term (current) use of oral hypoglycemic drugs; Z79.899 Other long term (current) drug therapy; Z86.73 Personal history of transient ischemic attack (TIA), and cerebral infarction without residual deficits; Z88.5 Allergy status to narcotic agent; Z90.49 Acquired absence of other specified parts of digestive tract; X58.XXXA Exposure to other specified factors, initial encounter; Y93.89 Activity, other specified; Y92.89 Other specified places as the place of occurrence of the external cause; Y99.8 Other external cause status
CPT/HCPCS: 99284; 96360; 70450; 96361; 84484; 80048; 83690; 85025; 81001; 36415; 93005; J7030

== ENCOUNTER 2025-01-20 12:25 | Inpatient (IN) | payer OTHER ==
[~2025-01-20] VITALS: Ht 165.1 cm; Wt 67.8 kg
[~2025-01-20 12:25] MED LIST changes: +CARB15DR OP; -DIPH-1150 PO; +FLUT16H NASAL; -GLIM1TAB56 PO; +LOSA1TAB37 PO; -ONDA-243 PO
--- NOTE | 2025-01-20 12:38 | ERN ---
ED Note History of Present Illness Stated Complaint: BACK PAIN S/P SURGERY Chief Complaint: Back Pain or Injury Time Seen by MD: 12:34 Dictation: PATIENT IS A 79-YEAR-OLD MALE COMING IN VIA EMS FROM A LOCAL CUSTODIAL. HE IS HAVING FEVER CHILLS AND SURGICAL SITE PAIN FROM A T12 LAMINECTOMY WITH T10 [place] [facility] [place]USEA VOMITING NO ABDOMINAL PAIN NO CHEST PAIN. Allergies: Coded Allergies: codeine (Unverified Adverse Reaction, Severe, SEVERE VOMITING, 04/23/23) hydrocodone (Unverified Adverse Reaction, Severe, SEVERE VOMITING, 04/23/23) Home Meds Reported Medications Carboxymethylcellulose Sodium (Refresh Tears) 0.5 % Drops, 1 DROP OP QID for 30 Days, #15 ML 0 Refills 12/27/24 Fluticasone Propionate (Flonase Nasal [place]) 50 Mcg/Actuation [place], 50 MCG NASAL BID, SPRAY 12/27/24 Losartan/Hydrochlorothiazide (Losartan-Hctz 50-12.5 mg Tab) 50 Mg-12.5 Mg Tablet, 1 TAB PO DAILY for 30 Days, #30 TAB 0 Refills PATIENT STATES HE ONLY TAKES HALF A TAB 12/21/24 Glimepiride (Glimepiride) 4 Mg Tablet, 4 MG PO DAILY, TAB 08/21/24 Carbidopa/Levodopa (Carbidopa-Levo 25-100 mg Odt) 25 Mg-100 Mg Tab.rapdis, 1 EACH PO BID, TAB 08/21/24 Rosuvastatin Calcium (Rosuvastatin Calcium) 5 Mg Tablet, 20 MG PO DAILY, TAB 08/21/24 Aspirin (ASPIRIN 81MG CHEW TAB) 81 Mg Tab.chew, 1 TAB PO DAILY for 30 Days, #30 TAB 0 Refills 08/21/24 Metformin HCl (Metformin HCl) 1,000 Mg Tablet, 1 TAB PO BID for 30 Days, #60 TAB 0 Refills 08/21/24 Rimegepant Sulfate (Nurtec Odt) 75 Mg Tab.rapdis, 75 MG PO QODAY, TAB 08/21/24 Finasteride (Finasteride) 5 Mg Tablet, 1 TAB PO DAILY for 30 Days, #30 TAB 0 Refills 08/21/24 Duloxetine HCl (Duloxetine HCl) 20 Mg Capsule.dr, 1 CAP PO DAILY for 30 Days, #30 CAP 0 Refills 08/21/24 Tamsulosin HCl (Flomax) 0.4 Mg Cap.er.24h, 1 CAP PO DAILY for 30 Days, #30 CAP 0 Refills 08/21/24 Empagliflozin (Jardiance) 25 Mg Tablet, 1 TAB PO DAILY for 30 Days, #30 TAB 0 Refills 08/21/24 Gabapentin (Gabapentin) 100 Mg Capsule, 300 MG PO TID, CAP 08/21/24 Omeprazole (Omeprazole) 20 Mg Capsule.dr, 20 MG PO TIDAC, CAP 07/26/21 Past Medical History Past Medical History: Arthritis, CVA, Diabetes-Type II, High Cholesterol, Heart Disease, Hypertension Additional Past Medical Hx: PARKINSON Surgical History: Cholecystectomy, Other Surgical History Other: hernia repair , BACK SURGERY Social History: Smokers, ETOH RN Note Reviewed/Agreed w/PFSH: Yes Review of System Dictation CONSTITUTIONAL: NEGATIVE EXCEPT FOR HPI FEVER CHILLS HEAD/FACE: NEGATIVE EXCEPT FOR HPI EENT: NEGATIVE EXCEPT FOR HPI RESPIRATORY: NEGATIVE EXCEPT FOR HPI GASTROINTESTINAL/ABDOMINAL: NEGATIVE EXCEPT FOR HPI GENITOURINARY: NEGATIVE EXCEPT FOR HPI MUSCULOSKELETAL: NEGATIVE EXCEPT FOR HPI THORACIC BACK PAIN INTEGUMENTARY: NEGATIVE EXCEPT FOR HPI NEUROLOGICAL/PSYCH: NEGATIVE EXCEPT FOR HPI HEMATOLOGIC/LYMPHATIC: NEGATIVE EXCEPT FOR HPI ALL SYSTEMS NEGATIVE, EXCEPT NOTED ABOVE. 13 POINT REVIEW OF SYSTEMS ASSESSED AND ALL NEGATIVE EXCEPT FOR ABOVE. Initial Vital Sign VS Vital Signs Date Time Temp Pulse Resp B/P (MAP) Pulse Ox O2 Delivery O2 Flow Rate FiO2 01/20/25 12:29 98.4 101 18 108/64 90 Nasal Cannula 2.0 01/20/25 13:06 28 Physical Exam Dictation VITAL SIGNS REVIEWED GENERAL APPEARANCE: ALERT, ORIENTED X 3, VERY WEAK AND DEBILITATED. HEAD AND FACE: NON-TRAUMATIC. EYES: PERRL, PINK CONJUNCTIVAS, EYELID NO TRAUMA, ANTERIOR CHAMBER WITH ARCUS SENILIS. EARS: PINNAS INTACT AND NO SIGNS OF TRAUMA OR ERYTHEMA EAR CANALS CLEAR AND NO DISCHARGE TM NO ERYTHEMA NOSE: NO DISCHARGE, NO BLEEDING. OROPHARYNX: MOUTH NORMAL, TONGUE PINK, PHARYNX CLEAR,NO ERYTHEMA, TONSILS NO EXUDATES, NO ABSCESSES NOTED, MUCOUS MEMBRANE MOIST NECK: SUPPLE, NON-TENDER, NO THYROMEGALY, NO MASSES, NO JVD, NO BRUITS BREAST:DEFERRED CHEST:NO TENDERNESS, NO CREPITUS, NO PARADOXICAL MOVEMENT, NO RETRACTIONS LUNGS:CLEAR, WELL-VENTILATED, SYMMETRIC, NO RALES, NO WHEEZING, NO RHONCHI, NO STRIDOR, GOOD BREATH SOUNDS BILATERALLY HEART: REGULAR RATE, REGULAR RHYTHM, NO MURMUR, NO GALLOPS VASCULAR: NO PERIPHERAL EDEMA, ABDOMEN: SOFT, POSITIVE BOWEL SOUNDS, NONDISTENDED, NO GUARDING, NONTENDER, NO REBOUND, NO MASSES NO HEPATOMEGALY, NO SPLENOMEGALY, NO FLORES'S SIGN, NO HERNIAS. RECTAL: DEFERRED GENITAL: DEFERRED NEUROLOGICAL: NORMAL SPEECH, MOTOR FUNCTION INTACT, SENSORY FUNCTION INTACT MUSCULOSKELETAL: NECK NONTENDER, FULL RANGE OF MOTION, BACK NONTENDER, FULL RANGE OF MOTION, EXTREMITIES: NONTENDER, FULL RANGE OF MOTION SKIN: COLOR P SURGICAL INCISION TO THORACIC SPINE POORLY APPROXIMATED WITH FOUL- SMELLING GREEN DRAINAGE. MILD ERYTHEMA. CULTURE WE WILL BE OBTAIN LYMPHATIC: DEFERRED Results (Laboratory/Radiology) Laboratory/Radiology Laboratory Tests Test 01/20/25 12:43 White Blood Count 5.9 K/uL (4.8-10.8) Red Blood Count 3.51 MIL/uL (4.50-6.20) L Hemoglobin 10.8 g/dL (14.0-18.0) L Hematocrit 33.4 % (42-54) L Mean Corpuscular Volume 95.2 fL (79-99) Mean Corpuscular Hemoglobin 30.8 pg (27.0-33.0) Mean Corpuscular Hemoglobin Concent 32.3 g/dL (32.0-36.0) Red Cell Distribution Width 13.8 % (11.0-15.5) Platelet Count 258 K/uL (130-400) Mean Platelet Volume 9.0 fL (7.5-10.5) Immature Granulocyte % (Auto) 0.3 % (0-1) Neutrophils (%) (Auto) 88.8 % (40.0-77.0) H Lymphocytes (%) (Auto) 3.4 % (21.0-51.0) L Monocytes (%) (Auto) 7.3 % (3.0-13.0) Eosinophils (%) (Auto) 0.0 % (0.0-8.0) Basophils (%) (Auto) 0.2 % (0.0-5.0) Neutrophils # (Auto) 5.2 K/uL (1.8-7.7) Lymphocytes # (Auto) 0.2 K/uL (1.0-4.8) L Monocytes # (Auto) 0.4 K/uL (0.1-1.0) Eosinophils # (Auto) 0.00 K/uL (0.00-0.70) Basophils # (Auto) 0.01 K/uL (0.00-0.20) Absolute Immature Granulocyte (auto 0.02 K/uL (0-1) Nucleated Red Blood Cells 0.0 % (0.0-0.19) White Cell Morphology Comment See comments Sodium Level 134 mmol/L (136-145) L Potassium Level 3.1 mmol/L (3.5-5.1) L Chloride Level 95 mmol/L (101-111) L Carbon Dioxide Level 26 mmol/L (21-32) Blood Urea Nitrogen 32 mg/dL (7-18) H Creatinine 0.8 mg/dL (0.5-1.3) Glomerular Filtration Rate Calc 90 mL/min (>90) Random Glucose 223 mg/dL (70-105) H Lactic Acid Level 1.8 mmol/L (0.8-2.5) Total Calcium 9.1 mg/dL (8.5-10.1) Troponin I High Sensitivity 6 ng/L (4-75) Lipase 21 U/L (16-77) Labs Reviewed?: Yes EKG Comment: EKG SINUS TACHYCARDIA/HEART RATE 105/OH INTERVAL 214 MILLISECOND/NONSPECIFIC CHANGES TO LATERAL LEADS ED Course ED Course Orders Procedure Category Date Status Time Blood Cult ELENA 01/20/25 In Process 12:35 Lactic Acid LAB 01/20/25 Complete 12:35 Cbc With Differential LAB 01/20/25 Complete 12:35 Troponin I High LAB 01/20/25 Complete Sensitivity 12:35 Urinalysis Profile LAB 01/20/25 Logged 12:35 12 Lead Ekg Tracing- EKG 01/20/25 Complete Technical 12:35 Lipase LAB 01/20/25 Complete 12:35 Basic Metabolic Panel LAB 01/20/25 Complete 12:35 Potassium Bicarb/Cit PHA 01/20/25 Complete Ac 25meq (K-Lyte Ta 14:30 Aerobic Culture ELENA 01/20/25 Logged 14:30 Clindamycin Ivpb PHA 01/20/25 Complete 600mg/50ml (Cleocin 14:30 Ns 1000ml Bolus PHA 01/20/25 Transmitted 15:30 Edm Admit Bridge Order ADM 01/20/25 Transmitted 15:20 Current Medications Medications (Trade) Dose Ordered Sig/Steve Route PRN Reason Start Time Stop Time Status Last Admin Dose Admin Clindamycin HCl/ Dextrose 50 ml @ 100 mls/hr ONCE STAT IV 01/20/25 14:30 01/20/25 14:59 DC 01/20/25 15:04 Potassium Bicarbonate (K-Lyte Tablet Eff 25 Meq Tablet.eff) 25 meq ONCE ONCE PO 01/20/25 14:30 01/20/25 14:31 DC 01/20/25 15:04 Vital Signs Date Time Temp Pulse Resp B/P (MAP) Pulse Ox O2 Delivery O2 Flow Rate FiO2 01/20/25 13:06 98.1 101 20 113/72 96 Nasal Cannula* 2 28 01/20/25 12:29 98.4 101 18 108/64 90 Nasal Cannula 2.0 1500/SPOKE WITH PATIENT IN HIS AT LENGTH THEY ARE AWARE HE WILL BE ADMITTED FOR DELAYED WOUND HEALING TO HIS SURGICAL SITE. CULTURE WE WILL BE OBTAIN A NTIBIOTICS WE WILL BE INITIATED AND PATIENT WILL CAN FOLLOW UP W NEUROSURGEON AND WOUND CARE. 1520/SPOKE PRINCE RUGGIEROP HOSPITALIST AND SHE AGREED TO AN INPATIENT. REVIEWED LABS CULTURES AND INTERVENTIONS FOR HYPONATREMIA HYPOKALEMIA. HEART Score Response (Comments) Value EKG: Repolarization changes 1 Age: > 65yrs (+2) 2 Risk Factors: 3+ risk factors (+2) 2 Initial Troponin: Normal limit (0) 0 Total 5 Medical Decision Making MDM MDM: DIFFERENTIAL DIAGNOSIS: SEPSIS/SURGICAL WOUND/ELECTROLYTE IMBALANCE/DEHYDRATION/PNEUMONIA/BRONCHITIS/UTI RATIONALE: TESTS CONSIDERED AND ORDERED SECONDARY TO SHARED DECISION MAKING INCLUDE: LABS, AND RADIOLOGY PREVIOUS OUTSIDE RECORDS REVIEWED: OLD ER VISITS. RISK OF COMPLICATION AND/OR MORBIDITY OR MORTALITY OF PATIENT MANAGEMENT: NONE MEDICATIONS-PER MEDICATION RECONCILIATION NEED FOR HOSPITALIZATION: PATIENT DOES MEET CRITERIA FOR HOSPITALIZATION. IV ANTIBIOTICS WOUND CARE FOLLOW UP AND NEUROSURGICAL FOLLOW UP NEED FOR EMERGENCY MAJOR/MINOR SURGERY: NO THERE ARE NO SOCIAL CONCERNS WITH THIS PATIENT. PRESCRIPTION DRUG MANAGEMENT PRESCRIPTIONS WILL INCLUDE SYMPTOMATIC CARE PATIENT'S PRIOR EXTERNAL MEDICAL RECORDS FROM OTHER ER VISITS WERE REVIEWED BY ME INDICATED. PRIOR TESTING AND RESULTS FROM PREVIOUS VISITS WERE REVIEWED. PRIOR TESTS WERE TAKEN INTO ACCOUNT WITH MEDICAL DECISION MAKING AND RESOURCE UTILIZATION, INDEPENDENT HISTORIAN/HISTORIANS WERE USED TO OBTAIN COMPLETE MEDICAL HISTORY. I INDEPENDENTLY INTERPRETED THE TEST THAT WERE PERFORMED, RESULTS WERE REVIEWED BY ME AND CONSIDERED FINDINGS ON RADIOLOGY IF ORDERED. MEDICAL MANAGEMENT AND EXAMINATION INTERPRETATION DISCUSSIONS WERE HAD BY ME WITH OTHER QUALIFIED HEALTHCARE PROFESSIONALS INDICATED FOR THE PATIENT'S CARE. DX & DISP Disposition: Inpatient Decision to Admit Time: 15:03 Departure Impression: Primary Impression: Delayed surgical wound healing Additional Impressions: Uncontrolled diabetes mellitus, Hyponatremia, Hypokalemia, Dehydration Condition: Stable Referrals: LYN SAHNI MD (PCP) ERASMO VICKERS NP Jan 20, 2025 12:38
--- NOTE | 2025-01-20 12:46 | EKG ---
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
[2025-01-20 12:52] LABS: IMMATURE GRANULOCYTE ABSOLUTE 0.02 K/uL (0-1); NUCLEATED RED BLOOD CELLS 0.0 % (0.0-0.19); PLATELET COUNT (AUTO) 258 K/uL (130-400); RED BLOOD CELL COUNT(AUTO) 3.51 MIL/uL (4.50-6.20); RED CELL DISTRIBUTION WIDTH 13.8 % (11.0-15.5); WHITE BLOOD COUNT (AUTO) 5.9 K/uL (4.8-10.8)
[2025-01-20 13:01] LABS: CREATININE 0.8 mg/dL (0.5-1.3); GLOMERULAR FILTR. RATE CALC 90.0 mL/min (>90); GLUCOSE,RANDOM 223.0 mg/dL (70-105); SODIUM SERUM 134.0 mmol/L (136-145); UREA NITROGEN, BLOOD 32.0 mg/dL (7-18)
[2025-01-20] MEDS: CLINDAMYCIN IVPB 600MG/50ML 50 ML IV STA (15:04)
[2025-01-20] MEDS: 0.9%NACL 1000ML 1,000 ML IV ONE (15:59)
[2025-01-20] MEDS ORDERED: GLUCAGON 1MG KIT 1 MG ML IM PRN (16:00)
[2025-01-20] MEDS ORDERED: FAMOTIDINE 20MG VIAL IV PRN (16:00)
[2025-01-20] MEDS ORDERED: DEXTROSE 50%-WATER 50 ML DISP.SYRIN IV PRN (16:00)
[2025-01-20] MEDS ORDERED: MAG/ALUM/SIMETH 30 ML UDCUP PO PRN (16:00)
[2025-01-20] MEDS ORDERED: guaiFENesin-DM 200/20MG 10ML PO PRN (16:00)
[2025-01-20] MEDS ORDERED: NITROGLYCERIN 0.4 MG SL TAB SL PRN (16:00)
--- NOTE | 2025-01-20 16:22 | HP ---
[facility] H[facility]ORY [facility] PHYSICAL Date of Service: Jan 20, 2025 Time of Service: 16:[address] Esau Borja Admitting: Dr Burr, Allergies: Codeine, hydrocodone HISTORY OF PRESENT ILLNESS: [ Patient is 79 years old male with a past medical history of diabetes, hypertension, compression vertebral fracture, spinal stenosis, Parkinson, BPH, s/p recent laminectomy with Dr. Blancas 12/30/24, who came to emergency department from [facility] with a complaint of infected surgical site s/p laminectomy. Family members/ at the bedside stated that yesterday she realized that patient's wound has been very with TITI Mendoza patient and opening the wound, patient's realize that has this open has a bed and that is draining pus. She took the pictures and sent to Dr. Norman's, who recommended that patient comes to ER for admission-recommendations.] Most recent vital signs temperature 98.1 one 0 lying 20 blood pressure 113/72 patient on 2 L 96%. Sodium 134 potassium 3.1 CO2 26 BUN 32 creatinine 0.8 GFR 9 0 glucose 223 lactic acid 1.8 troponin negative x1 lipase 21. WBC 5.9 hemoglobin 10.8 hematocrit 3010.4 platelets 258. No radiology performed at this moment. Chest x-ray pending. We will admit patient under hospitalist care for further evaluation/recom mendations. ID we will be consulted for the antibiotics Dr. Martinez with a consulted wound recommendations and Dr. Xiong for s/p laminectomy. REVIEW OF SYSTEMS CONSTITUTIONAL: Denies fevers, chills, or night sweats. No unintentional weight loss reported. NEUROLOGICAL: Denies headache, amaurosis fugax, motor weakness, sensory deficit, vertigo/spinning sensation, gait abnormalities, or tremors. ENT: No hearing loss, otalgia, otorrhea, rhinitis, rhinorrhea, hoarseness, or sore throat. CARDIOVASCULAR: Denies any exertional angina, dyspnea on exertion, orthopnea, paroxysmal nocturnal dyspnea, palpitations, life-threatening arrhythmias, cla udication. PULMONARY: Denies any shortness of breath, cough, phlegm/sputum, hemoptysis, pleuritic chest pain. SLEEP: Denies morning headaches, daytime somnolence or napping. Denies difficulty falling asleep, staying asleep, waking from sleep. Denies knowledge of snoring. GASTROINTESTINAL: Denies any type of dysphagia to either liquids or solids. Denies nausea, vomiting, pyrosis, early satiety, abdominal pain, diarrhea, constipation, or changes in stool consistency or caliber. Denies coffee-ground emesis, hematemesis, hematochezia, or melanotic stools. GENITOURINARY: Denies frequency, urgency, nocturia, hematuria or incontinence (Storage/Irritative symptoms.) Low urinary stream, straining to void, urinary intermittency or hesitancy, splitting of the voiding stream, terminal dribbling. ENDOCRINOLOGIC: Denies polyuria, polydipsia, polyphagia or heat/cold intolerances. HEMATOLOGIC: Denies thrombophilia/previous clots, or coagulopathy/bleeding disorders. ONCOLOGIC: Denies personal history of malignancy. DERMATOLOGIC: Denies rashes or pruritus. S/p laminectomy open wound PSYCHIATRIC: Denies any suicidal or homicidal ideation. Denies hallucinations. PAST MEDICAL HISTORY: [ Hypertension, hyperlipidemia, stroke, BPH, Parkinson's, spinal stenosis, diabetes, low back pain ] PAST SURGICAL HISTORY: [ S/p laminectomy ] PAST SOCIAL HISTORY: [Patient denies smoking. Patient denies any drug illicit. Patient denies any alcohol consumption ] FAMILY HISTORY: [ Patient came from nurse Jose Yeung] Coded Allergies: codeine (Unverified Adverse Reaction, Severe, SEVERE VOMITING, 04/23/23) hydrocodone (Unverified Adverse Reaction, Severe, SEVERE VOMITING, 04/23/23) PHYSICAL EXAM GENERAL APPEARANCE: The patient is awake, alert, and oriented, in no acute cardiopulmonary distress. NEUROLOGICAL: Cranial nerves II-XII grossly intact. Motor is 5/5 in bilateral upper and lower extremities proximal to distal. No sensory deficits. S/p laminectomy HEENT: Face is symmetric. Pupils are equal and reactive. Extraocular movements are intact. NECK: Supple. No JVD. No thyromegaly. No submental, submandibular, pre- /postauricular, occipital or supraclavicular lymphadenopathy. CHEST: Normal chest expansion. No Telemetry. LUNGS: Absence of any rales, rhonchi or any wheezing. CARDIOVASCULAR: Regular. S1 and S2 normal. No appreciable rubs, murmurs or gallops. ABDOMEN: Soft, nontender, and nondistended. There is no rebound, voluntary g uarding, or rigidity. : Deferred. No Mcgraw. EXTREMITIES: Non-edematous and not cyanotic. No clubbing. Good capillary refill. SKIN: No skin breakdown. Vital Sign (Last 24 Hours) 01/20/25 13:06 Temp 98.1 Pulse 101 Resp 20 B/P (MAP) 113/72 Pulse Ox 96 O2 Delivery Nasal Cannula* O2 Flow Rate 2 FiO2 28 LABS: Laboratory: Test 01/20/25 12:43 Range/Units White Blood Count 5.9 4.8-10.8 K/uL Red Blood Count 3.51 L 4.50-6.20 MIL/uL Hemoglobin 10.8 L 14.0-18.0 g/dL Hematocrit 33.4 L 42-54 % Mean Corpuscular Volume 95.2 79-99 fL Mean Corpuscular Hemoglobin 30.8 27.0-33.0 pg Mean Corpuscular Hemoglobin Concent 32.3 32.0-36.0 g/dL Red Cell Distribution Width 13.8 11.0-15.5 % Platelet Count 258 130-400 K/uL Mean Platelet Volume 9.0 7.5-10.5 fL Immature Granulocyte % (Auto) 0.3 0-1 % Neutrophils (%) (Auto) 88.8 H 40.0-77.0 % Lymphocytes (%) (Auto) 3.4 L 21.0-51.0 % Monocytes (%) (Auto) 7.3 3.0-13.0 % Eosinophils (%) (Auto) 0.0 0.0-8.0 % Basophils (%) (Auto) 0.2 0.0-5.0 % Neutrophils # (Auto) 5.2 1.8-7.7 K/uL Lymphocytes # (Auto) 0.2 L 1.0-4.8 K/uL Monocytes # (Auto) 0.4 0.1-1.0 K/uL Eosinophils # (Auto) 0.00 0.00-0.70 K/uL Basophils # (Auto) 0.01 0.00-0.20 K/uL Absolute Immature Granulocyte (auto 0.02 0-1 K/uL Nucleated Red Blood Cells 0.0 0.0-0.19 % White Cell Morphology Comment See comments Sodium Level 134 L 136-145 mmol/L Potassium Level 3.1 L 3.5-5.1 mmol/L Chloride Level 95 L 101-111 mmol/L Carbon Dioxide Level 26 21-32 mmol/L Blood Urea Nitrogen 32 H 7-18 mg/dL Creatinine 0.8 0.5-1.3 mg/dL Glomerular Filtration Rate Calc 90 >90 mL/min Random Glucose 223 H 70-105 mg/dL Lactic Acid Level 1.8 0.8-2.5 mmol/L Total Calcium 9.1 8.5-10.1 mg/dL Troponin I High Sensitivity 6 4-75 ng/L Lipase 21 16-77 U/L Current Medications Medications (Trade) Dose Ordered Sig/Steve Route PRN Reason Start Time Stop Time Status Last Admin Dose Admin Acetaminophen (TYLenol 325MG TAB) 650 mg Q4H PRN PO MILD PAIN (1-3) 01/20/25 16:00 02/19/25 15:59 UNV Acetaminophen (TYLenol 325MG TAB) 650 mg Q6H PRN PO MILD PAIN (1-3) 01/20/25 16:00 02/19/25 15:59 UNV Acetaminophen (TYLenol 325MG TAB) 650 mg Q6H PRN PO TEMPERATURE GREATER THAN 101.5 01/20/25 16:00 02/19/25 15:59 UNV Al Hydroxide/Mg Hydroxide (MAALox PLUS 30ML) 30 ml Q6H PRN PO INDIGESTION 01/20/25 16:00 02/19/25 15:59 UNV Albuterol Sulfate (Proventil 0.083% 2.5mg/3ml) 2.5 mg Q3KFATP IH 01/20/25 18:00 02/19/25 17:59 UNV Clindamycin HCl/ Dextrose 50 ml @ 100 mls/hr ONCE STAT IV 01/20/25 14:30 01/20/25 14:59 DC 01/20/25 15:04 100 MLS/HR Clindamycin HCl/ Dextrose 50 ml @ 100 mls/hr Q8H IV 01/20/25 16:00 01/30/25 15:59 UNV Dextrose (D50w) 50 ml AD PRN IV HYPOGLYCEMIA PROTOCOL 01/20/25 16:00 02/19/25 15:59 Diphenhydramine HCl (BENAdryl INJ) 25 mg Q6H PRN IV SEVERE ITCHING/RASH 01/20/25 16:00 02/19/25 15:59 UNV Famotidine (Pepcid 20mg Vial) 20 mg BID PRN IV NAUSEA/VOMITING 01/20/25 16:00 02/19/25 15:59 UNV Glucagon (Glucagon 1mg Kit) 1 mg AD PRN IM HYPOGLYCEMIA PROTOCOL 01/20/25 16:00 02/19/25 15:59 Guaifenesin/ Dextromethorphan (RobiTUSSin DM 200/20MG 10ML) 10 ml Q4H PRN PO COUGH 01/20/25 16:00 02/19/25 15:59 UNV Heparin Sodium (Porcine) (HEParin 5,000 UNIT VIAL) 5,000 unit BID SQ 01/20/25 21:00 02/19/25 20:59 UNV Hydralazine HCl (APRESOLine 20MG INJ) 10 mg Q6H PRN IV For:SBP above 160;DBP above 90 01/20/25 16:00 02/19/25 15:59 UNV Ibuprofen (moTRIN) 800 mg Q8H PRN PO MODERATE PAIN (4-6) 01/20/25 16:00 02/19/25 15:59 UNV Insulin Human Regular (humuLIN R 100 UNIT/ML 3ML) INSULIN SLIDING SCAL... ACHS SQ 01/20/25 16:30 02/19/25 16:29 Ipratropium [place] (AtrovENT UD) 0.5 mg [id number] IH 01/20/25 18:00 02/19/25 17:59 UNV Ketorolac Tromethamine (toRADol) 15 mg Q8H PRN IV MODERATE PAIN (4-6) 01/20/25 16:00 01/25/25 15:59 UNV Lactulose (Constulose 20gm/ 30ml Udcup) 20 gm BID PRN PO CONSTIPATION 01/20/25 16:00 02/19/25 15:59 UNV Magnesium Sulfate 50 ml @ 0 mls/hr PROTOCOL PRN IV other 01/20/25 16:00 02/19/25 15:59 Morphine Sulfate (morPHINE 2MG SYG) 1 mg Q4H PRN IVP SEVERE PAIN (7-10) 01/20/25 16:00 01/27/25 15:59 UNV Nitroglycerin (Nitrostat) 0.4 mg PROTOCOL PRN SL CHEST PAIN 01/20/25 16:00 02/19/25 15:59 UNV Ondansetron HCl (zoFRAN 4MG INJ) 4 mg Q6H PRN IV NAUSEA/VOMITING 01/20/25 16:00 02/19/25 15:59 UNV Potassium Chloride 100 ml @ 100 mls/hr AD PRN IV POTASSIUM PROTOCOL 01/20/25 16:00 02/19/25 15:59 Potassium Chloride (K-Dur/Klor-Con 20meq) 20 meq AD PRN PO POTASSIUM PROTOCOL 01/20/25 16:00 02/19/25 15:59 Potassium Chloride (KCl 10% Elixir 20meq/15ml) 20 meq AD PRN PO POTASSIUM PROTOCOL 01/20/25 16:00 02/19/25 15:59 Sodium Chloride 1,000 ml @ 100 mls/hr Q10H IV 01/20/25 16:00 02/19/25 15:59 UNV Zolpidem Tartrate (AmbIEN) 5 mg HS PRN PO INSOMNIA 01/20/25 16:00 02/19/25 15:59 UNV DIAGNOSTICS / RADIOLOGY: [ ] ASSESSMENT: [Acute hypoxic respiratory failure POA Infected wound laminectomy 12/30/24 POA Tachycardia POA Multifactorial anemia POA Electrolyte imbalance hyponatremia Na 134 hypokalemia 3.1 POA Acute dehydration POA Hypotension Hyperlipidemia POA History of Stroke POA Uncontrolled diabetes mellitus type 2 with hyperglycemia POA Compression fracture Spinal stenosis s/p laminectomy 01/15 ] PLAN: [ Admit to medical-surgical tele Blood culture pending Blood culture pending Urine culture pending Urinalysis pending Chest x-ray pending Patient is lateral facet and Normal saline Consulted neurosurgeon Consult and Dr. CASTELLANO A.cuauhtemoc labs Hyper hypoglycemia Hypokalemia protocol magnesemia Patient education heparin prophylaxis five case management for discharge PT for eval] ADVANCED CARE PLANNING 1. Which of the following were discussed? Hospice Care - Yes / No Therapeutic options - Yes / No Advance Directives - Yes / No Other discussions - 2. Discussed with who? patient and 3. Voluntary nature of this service was explained to the patient? Yes / No 4. Amount of time spent - __more than 35 min 5. Reviewed by Physician? (if this service was performed by NPP) Yes / No ATTESTATION BY PHYSICIAN I have seen and examined the patient. I reviewed the documentation, medical decision making, and treatment plan as noted by the mid-level provider above. I agree with the findings and plan of care. HEMANT BURR MD, KATARZYNA B [employer]PERATIONS ASST Jan 20, 2025 16:22
[2025-01-20 16:28] VITALS: PULSE 95; RESP 20; O2SAT 100
[2025-01-20] MEDS: 0.9%NACL 1000ML 1,000 ML IV SCH (16:58)
--- NOTE | 2025-01-20 17:08 | NUR ---
SPOKE TO DR VALENTINO FOR NEUROSX CONSULTS ORDERS RECIEVED
--- NOTE | 2025-01-20 17:12 | NUR ---
DR ISRAEL WOUND CARE CONSULT HE WILL SEE PATIENT
[2025-01-20] MEDS: ALBUTEROL 0.083% 2.5 MG/3 ML INH IH SCH (18:40)
[2025-01-20 18:43] VITALS: PULSE 92; RESP 18; O2SAT 100
[2025-01-20 19:39] LABS: COVID19 (SARS ANTIGEN RAPID) PRESUMPTIVE NEGATIVE (NEGATIVE); INFLUENZA TYPE A Negative For Type A (NEGATIVE); INFLUENZA TYPE B Negative For Type B (NEGATIVE)
--- NOTE | 2025-01-20 19:43 | HMCIMG ---
EXAM: XR Chest, 1 View. CLINICAL HISTORY: 79-year-old male with congestion. COMPARISON: Compared to XR Chest from 08/21/2024 at 11:24 AM. FINDINGS: LUNGS: Minimal left base atelectasis, new from prior study. PLEURAL SPACES: No pleural effusion or pneumothorax. HEART: The heart size is normal. BONES: No acute osseous abnormality. IMPRESSION: 1. Minimal left base atelectasis, new from prior XR Chest from 08/21/2024 at 11:24 AM. /[place]
[2025-01-20] MEDS: CLINDAMYCIN IVPB 600MG/50ML 50 ML IV SCH (22:42)
[2025-01-20 23:02] LABS: APPEARANCE,URINE CLEAR (CLEAR); GLUCOSE, URINE (UA) >=1000 mg/dL (NEGATIVE); LEUKOCYTE ESTERASE ,URINE NEGATIVE Leu/uL (NEGATIVE); NITRATE,URINE NEGATIVE (NEGATIVE); OCCULT BLOOD,URINE NEGATIVE (NEGATIVE); SQUAMOUS EPITHELIAL CELL,UR RARE /HPF (0-2)
[2025-01-20 23:03] LABS: ADD UA MICROSCOPIC YES
[2025-01-21] VITALS (8 sets, daily range): BP systolic 119–135; BP diastolic 43–71; PULSE 80–93; RESP 14–20; TEMP 98.4–99; O2SAT 97–100
[2025-01-21 05:09] LABS: IMMATURE GRANULOCYTE ABSOLUTE 0.02 K/uL (0-1); NUCLEATED RED BLOOD CELLS 0.0 % (0.0-0.19); PLATELET COUNT (AUTO) 275 K/uL (130-400); RED BLOOD CELL COUNT(AUTO) 3.43 MIL/uL (4.50-6.20); RED CELL DISTRIBUTION WIDTH 13.8 % (11.0-15.5); WHITE BLOOD COUNT (AUTO) 4.9 K/uL (4.8-10.8)
[2025-01-21 05:18] LABS: INR 1.13 (0.85-1.15)
[2025-01-21 05:46] LABS: ASPARTATE AMINOTRANSFERASE 23 U/L (10-37); CREATINE KINASE, TOTAL 40 U/L (21-232); CREATININE 0.6 mg/dL (0.5-1.3); GLOMERULAR FILTR. RATE CALC 98 mL/min (>90); GLUCOSE,RANDOM 100 mg/dL (70-105); SODIUM SERUM 143 mmol/L (136-145); TOTAL PROTEIN, SERUM 6.2 g/dL (6.0-8.3); UREA NITROGEN, BLOOD 23 mg/dL (7-18)
--- NOTE | 2025-01-21 11:55 | NUR ---
[facility] Consult: Patient assessed by wound healing team. See wound assessment. Assessment and recommendations for venelex to sacrococcygeal and dakins dressing to lumbar area provided to primary nurse. Education provided to spouse r/t to wound care treatment and pressure ulcer prevention. Addendum: 01/21/25 at 1642 by ROMELIA WOLFF RN RN/ Amended: Links added.
--- NOTE | 2025-01-21 11:59 | NUR ---
WOUND CARE AT BEDSIDE
[2025-01-21] MEDS ORDERED: VANCOMYCIN PROTOCOL PER PHARMACY IV SCH (13:00)
--- NOTE | 2025-01-21 13:45 | NUR ---
Patient pending neurosurgery. Patient s/p lumbar laminectomy by Dr Vidal with newly discovered wound infection with open wound to surgical site. Addendum: 01/21/25 at 1459 by DREW MONIQUE PT Amended: Links added.
--- NOTE | 2025-01-21 14:16 | CONS ---
CONSULTATION NOTE Date of Service: Jan 21, 2025 Reason for Consultation: [Open wound to thoracic spine s/p laminectomy ] Requesting Physician: [Keenan Brown NP ] HISTORY OF PRESENT ILLNESS: Patient is evaluated at bedside in room ED 11 for evaluation of surgical wound to thoracic spine. Patient's at bedside. Patient is a 79 years old male with a past medical history of diabetes, hypertension, compression vertebral fracture, spinal stenosis, Parkinson, BPH, s/p recent laminectomy with Dr. Vidal on 12/30/24, who came to emergency department from [facility] with a complaint of infected surgical site s/p laminectomy. Family members/ at the bedside stated that yesterday she realized that patient's wound was opening and noted it was draining pus. She took the pictures and sent to Dr. Vidal who recommended that patient comes to ER for admission- recommendations. Patient was admitted for further evaluation. REVIEW OF SYSTEMS CONSTITUTIONAL: Denies fever, chills, or fatigue. HEAD/FACE: No signs of trauma. EENT: Denies eye pain, blurred vision, double vision, or light sensitivity. RESPIRATORY: Denies shortness of breath, cough, wheezing CARDIOVASCULAR: Denies chest pain, palpitation, syncope GASTROINTESTINAL/ABDOMINAL: Denies abdominal pain, constipation, diarrhea, nausea or vomiting GENITOURINARY: Denies dysuria or hematuria. MUSCULOSKELETAL: Denies joint pain, tenderness, or trauma. INTEGUMENTARY: Open Surgical wound to thoracic spine NEUROLOGICAL/PSYCH: Denies anxiety, depression, heat or cold intolerance. PAST MEDICAL HISTORY: [ Hypertension, hyperlipidemia, stroke, BPH, Parkinson's, spinal stenosis, diabetes, low back pain ] PAST SURGICAL HISTORY: [ S/p laminectomy ] PAST SOCIAL HISTORY: [Patient denies smoking. Patient denies any drug illicit. Patient denies any alcohol consumption ] FAMILY HISTORY: [ Patient came from [facility]] Coded Allergies: codeine (Unverified Adverse Reaction, Severe, SEVERE VOMITING, 04/23/23) hydrocodone (Unverified Adverse Reaction, Severe, SEVERE VOMITING, 04/23/23) PHYSICAL EXAM EYES: Anicteric. Pupils equal and reactive. HENT: No oral thrush seen, moist Oral mucosa NECK: Supple, no JVD or thyromegaly. LUNGS: Good air entry. No rales, no rhonchi. CARDIOVASCULAR: S1, S2 regular. No murmur heard. ABDOMEN: Soft, non tender, bowel sounds present, no organomegaly CENTRAL NERVOUS SYSTEM: Awake, alert, oriented x 3. No focal deficits. SKIN: discoloration noted to sacrum LYMPHATICS: No peripheral lymphadenopathy MUSCULOSKELETAL: No joint swelling, erythema or tenderness. EXTREMITIES: No cyanosis or clubbing BACK: dehiscence of surgical wound of thoracic spine noted to distal region of wound with slough and purulent drainage with periwound erythema GENITOURINARY: No dysuria or hematuria Vital Sign (Last 24 Hours) 01/21/25 01/21/25 11:00 11:47 Temp 98.2 Pulse 89 Resp 18 B/P (MAP) 107/47 Pulse Ox 99 O2 Delivery N/Cannula Low lpm O2 Flow Rate 2.0 FiO2 28 LABS: Laboratory: Test 01/21/25 11:14 01/21/25 04:40 01/20/25 22:45 01/20/25 19:10 Range/Units Whole Blood Glucose 88 70-110 MG/DL White Blood Count 4.9 4.8-10.8 K/uL Red Blood Count 3.43 L 4.50-6.20 MIL/uL Hemoglobin 10.3 L 14.0-18.0 g/dL Hematocrit 33.2 L 42-54 % Mean Corpuscular Volume 96.8 79-99 fL Mean Corpuscular Hemoglobin 30.0 27.0-33.0 pg Mean Corpuscular Hemoglobin Concent 31.0 L 32.0-36.0 g/dL Red Cell Distribution Width 13.8 11.0-15.5 % Platelet Count 275 130-400 K/uL Mean Platelet Volume 9.1 7.5-10.5 fL Immature Granulocyte % (Auto) 0.4 0-1 % Neutrophils (%) (Auto) 84.1 H 40.0-77.0 % Lymphocytes (%) (Auto) 6.1 L 21.0-51.0 % Monocytes (%) (Auto) 9.0 3.0-13.0 % Eosinophils (%) (Auto) 0.2 0.0-8.0 % Basophils (%) (Auto) 0.2 0.0-5.0 % Neutrophils # (Auto) 4.1 1.8-7.7 K/uL Lymphocytes # (Auto) 0.3 L 1.0-4.8 K/uL Monocytes # (Auto) 0.4 0.1-1.0 K/uL Eosinophils # (Auto) 0.01 0.00-0.70 K/uL Basophils # (Auto) 0.01 0.00-0.20 K/uL Absolute Immature Granulocyte (auto 0.02 0-1 K/uL Nucleated Red Blood Cells 0.0 0.0-0.19 % Red Blood Cell Morphology See comments Prothrombin Time 11.8 H 9.6-11.6 SEC Prothromb Time International Ratio 1.13 0.85-1.15 Activated Partial Thromboplast Time 30.7 26.3-35.5 SEC Sodium Level 143 136-145 mmol/L Potassium Level 3.6 3.5-5.1 mmol/L Chloride Level 101 101-111 mmol/L Carbon Dioxide Level 27 21-32 mmol/L Blood Urea Nitrogen 23 H 7-18 mg/dL Creatinine 0.6 0.5-1.3 mg/dL Glomerular Filtration Rate Calc 98 >90 mL/min Random Glucose 100 # 70-105 mg/dL Hemoglobin A1c 6.6 H 4.0-6.0 % Estimated Average Glucose (eAG) 143 H 70-126 mg/dL Lactic Acid Level 1.5 0.8-2.5 mmol/L Total Calcium 9.5 8.5-10.1 mg/dL Magnesium Level 1.40 L 1.80-2.40 mg/dL Total Bilirubin 0.6 0.2-1.0 mg/dL Direct Bilirubin 0.3 0.0-0.3 mg/dL Aspartate Amino Transf (AST/SGOT) 23 10-37 U/L Alanine Aminotransferase (ALT/SGPT) 18 12-78 U/L Alkaline Phosphatase 153 H 50-136 U/L Ammonia < 10 L 11-32 umol/L Total Creatine Kinase 40 # 21-232 U/L Troponin I High Sensitivity 6 4-75 ng/L B-Type Natriuretic Peptide 56 0-100 pg/mL Total Protein 6.2 6.0-8.3 g/dL Albumin 1.8 L 3.5-5.0 g/dL Amylase Level 26 25-115 U/L Lipase 15 L 16-77 U/L Procalcitonin 0.55 H 0.05-0.5 ng/mL Thyroid Stimulating Hormone (TSH) 4.14 H 0.36-3.74 uIU/mL Free Thyroxine (T4) Direct 1.16 0.76-1.46 ng/dL Free Triiodothyronine (T3) pg/mL 0.69 L 2.18-3.98 pg/mL Urine Color LIGHT-YELLOW YELLOW Urine Appearance CLEAR CLEAR Urine pH 5.0 5.0-8.0 Urine Specific [place] 1.019 1.001-1.031 Urine Protein NEGATIVE NEGATIVE mg/dL Urine Glucose (UA) >=1000 H NEGATIVE mg/dL Urine Ketones 20 H NEGATIVE mg/dL Urine Occult Blood NEGATIVE NEGATIVE Urine Nitrate NEGATIVE NEGATIVE Urine Bilirubin NEGATIVE NEGATIVE mg/dL Urine Urobilinogen 0.2 0.2-1.0 mg/dL Urine Leukocyte Esterase NEGATIVE NEGATIVE Bianca/uL Urine RBC 0-1 0-1 /HPF Urine WBC 0-1 0-1 /HPF Urine Squamous Epithelial Cells RARE 0-2 /HPF Urine Bacteria RARE None Seen /HPF Influenza Type A Antigen Negative For Type A NEGATIVE Influenza Type B Antigen Negative For Type B NEGATIVE SARS-CoV-2 Antigen (Rapid) PRESUMPTIVE NEGATIVE NEGATIVE Test 01/20/25 12:43 Range/Units White Cell Morphology Comment See comments PROBLEM LIST : Medical Problems: Deep disruption of surgical wound Unspecified open wound of lower back Deep tissue injury to sacrum PLAN: Wound care to surgical wound to thoracic spine- Cleanse with normal saline, pat dry, apply dakin's wet to dry cover with 4x4 gauze,abdominal pad, secure with tape change BID and prn Wound care to sacrum- Apply Venelex BID and PRN Apply waffle mattress Keep wounds clean and dry Offloading/reposition q 2 hours Continue IV antibiotics per ID Comorbidities per primary care team Further Management per hospital course. Thank You for the consult and allowing us to participate in the care of this patient. ATTESTATION BY PHYSICIAN I have seen and examined the patient. I reviewed the documentation, medical decision making, and treatment plan as noted by the mid-level provider above. I agree with the findings and plan of care. VANCE ISRAEL MD, MICHELLE A NP Jan 21, 2025 14:15 VANCE ISRAEL MD Jan 30, 2025 12:50
--- NOTE | 2025-01-21 14:38 | PN ---
[facility] PROGRESS NOTE Date of Service: Jan 21, 2025 Time of Service: 14:[address] Burr SUBJECTIVE: [ 01/20 Patient is 79 years old male with a past medical history of diabetes, hypertension, compression vertebral fracture, spinal stenosis, Parkinson, BPH, s/p recent laminectomy with Dr. Norman's 12/30/24, who came to emergency department from [facility] with a complaint of infected surgical site s/p laminectomy. Family members/ at the bedside stated that yesterday she realized that patient's wound has been very with TITI Mendoza patient and opening the wound, patient's realize that has this open has a bed and that is draining pus. She took the pictures and sent to Dr. Norman's, who recommended that patient comes to ER for admission-recommendations.] Most recent vital signs temperature 98.1 one 0 lying 20 blood pressure 113/72 patient on 2 L 96%. Sodium 134 potassium 3.1 CO2 26 BUN 32 creatinine 0.8 GFR 90 glucose 223 lactic acid 1.8 troponin negative x1 lipase 21. WBC 5.9 hemoglobin 10.8 hematocrit 3010.4 platelets 258. No radiology performed at this moment. Chest x-ray pending. We will admit patient under hospitalist care for further evaluation/recommendations. ID we will be consulted for the antibiotics Dr. Martinez with a consulted wound recommendations and Dr. Xiong for s/p laminectomy. 01/21 patient was seen by nurse practitioner and physician during rounding in emergency department in room ED 11. Home medication were reconciled by [employer]EL[employer]. At this moment we are pending further evaluation/recommendation by wound care, ID and neurosurgeon. All three consults were notified and are aware of consultations. Patient we will continue antibiotics. We will continue to monitor patient in the meantime. A.m. labs. REVIEW OF SYSTEMS CONSTITUTIONAL: Denies fevers, chills, or night sweats. No unintentional weight loss reported. NEUROLOGICAL: Denies headache, amaurosis fugax, motor weakness, sensory deficit, vertigo/spinning sensation, gait abnormalities, or tremors. ENT: No hearing loss, otalgia, otorrhea, rhinitis, rhinorrhea, hoarseness, or sore throat. CARDIOVASCULAR: Denies any exertional angina, dyspnea on exertion, orthopnea, paroxysmal nocturnal dyspnea, palpitations, life-threatening arrhythmias, claudication. PULMONARY: Denies any shortness of breath, cough, phlegm/sputum, hemoptysis, pleuritic chest pain. SLEEP: Denies morning headaches, daytime somnolence or napping. Denies difficulty falling asleep, staying asleep, waking from sleep. Denies knowledge of snoring. GASTROINTESTINAL: Denies any type of dysphagia to either liquids or solids. Denies nausea, vomiting, pyrosis, early satiety, abdominal pain, diarrhea, constipation, or changes in stool consistency or caliber. Denies coffee-ground emesis, hematemesis, hematochezia, or melanotic stools. GENITOURINARY: Denies frequency, urgency, nocturia, hematuria or incontinence (Storage/Irritative symptoms.) Low urinary stream, straining to void, urinary intermittency or hesitancy, splitting of the voiding stream, terminal dribbling. ENDOCRINOLOGIC: Denies polyuria, polydipsia, polyphagia or heat/cold intolerances. HEMATOLOGIC: Denies thrombophilia/previous clots, or coagulopathy/bleeding disorders. ONCOLOGIC: Denies personal history of malignancy. DERMATOLOGIC: Denies rashes or pruritus. S/p laminectomy open wound PSYCHIATRIC: Denies any suicidal or homicidal ideation. Denies hallucinations. PHYSICAL EXAM GENERAL APPEARANCE: The patient is awake, alert, and oriented, in no acute cardiopulmonary distress. NEUROLOGICAL: Cranial nerves II-XII grossly intact. Motor is 5/5 in bilateral upper and lower extremities proximal to distal. No sensory deficits. S/p laminectomy HEENT: Face is symmetric. Pupils are equal and reactive. Extraocular movements are intact. NECK: Supple. No JVD. No thyromegaly. No submental, submandibular, pre- /postauricular, occipital or supraclavicular lymphadenopathy. CHEST: Normal chest expansion. No Telemetry. LUNGS: Absence of any rales, rhonchi or any wheezing. CARDIOVASCULAR: Regular. S1 and S2 normal. No appreciable rubs, murmurs or gallops. ABDOMEN: Soft, nontender, and nondistended. There is no rebound, voluntary guarding, or rigidity. : Deferred. No Mcgraw. EXTREMITIES: Non-edematous and not cyanotic. No clubbing. Good capillary refill. SKIN: No skin breakdown. Vital Signs (last 8hr) Date Time Temp Pulse Resp B/P (MAP) Pulse Ox O2 Delivery O2 Flow Rate FiO2 01/21/25 11:47 89 18 N/Cannula Low lpm 2.0 01/21/25 11:45 89 18 01/21/25 11:00 98.2 95 18 107/47 99 Nasal Cannula* 2 28 LABS: Laboratory: Test 01/21/25 11:14 01/21/25 04:40 01/20/25 22:45 01/20/25 19:10 Range/Units Whole Blood Glucose 88 70-110 MG/DL White Blood Count 4.9 4.8-10.8 K/uL Red Blood Count 3.43 L 4.50-6.20 MIL/uL Hemoglobin 10.3 L 14.0-18.0 g/dL Hematocrit 33.2 L 42-54 % Mean Corpuscular Volume 96.8 79-99 fL Mean Corpuscular Hemoglobin 30.0 27.0-33.0 pg Mean Corpuscular Hemoglobin Concent 31.0 L 32.0-36.0 g/dL Red Cell Distribution Width 13.8 11.0-15.5 % Platelet Count 275 130-400 K/uL Mean Platelet Volume 9.1 7.5-10.5 fL Immature Granulocyte % (Auto) 0.4 0-1 % Neutrophils (%) (Auto) 84.1 H 40.0-77.0 % Lymphocytes (%) (Auto) 6.1 L 21.0-51.0 % Monocytes (%) (Auto) 9.0 3.0-13.0 % Eosinophils (%) (Auto) 0.2 0.0-8.0 % Basophils (%) (Auto) 0.2 0.0-5.0 % Neutrophils # (Auto) 4.1 1.8-7.7 K/uL Lymphocytes # (Auto) 0.3 L 1.0-4.8 K/uL Monocytes # (Auto) 0.4 0.1-1.0 K/uL Eosinophils # (Auto) 0.01 0.00-0.70 K/uL Basophils # (Auto) 0.01 0.00-0.20 K/uL Absolute Immature Granulocyte (auto 0.02 0-1 K/uL Nucleated Red Blood Cells 0.0 0.0-0.19 % Red Blood Cell Morphology See comments Prothrombin Time 11.8 H 9.6-11.6 SEC Prothromb Time International Ratio 1.13 0.85-1.15 Activated Partial Thromboplast Time 30.7 26.3-35.5 SEC Sodium Level 143 136-145 mmol/L Potassium Level 3.6 3.5-5.1 mmol/L Chloride Level 101 101-111 mmol/L Carbon Dioxide Level 27 21-32 mmol/L Blood Urea Nitrogen 23 H 7-18 mg/dL Creatinine 0.6 0.5-1.3 mg/dL Glomerular Filtration Rate Calc 98 >90 mL/min Random Glucose 100 # 70-105 mg/dL Hemoglobin A1c 6.6 H 4.0-6.0 % Estimated Average Glucose (eAG) 143 H 70-126 mg/dL Lactic Acid Level 1.5 0.8-2.5 mmol/L Total Calcium 9.5 8.5-10.1 mg/dL Magnesium Level 1.40 L 1.80-2.40 mg/dL Total Bilirubin 0.6 0.2-1.0 mg/dL Direct Bilirubin 0.3 0.0-0.3 mg/dL Aspartate Amino Transf (AST/SGOT) 23 10-37 U/L Alanine Aminotransferase (ALT/SGPT) 18 12-78 U/L Alkaline Phosphatase 153 H 50-136 U/L Ammonia < 10 L 11-32 umol/L Total Creatine Kinase 40 # 21-232 U/L Troponin I High Sensitivity 6 4-75 ng/L B-Type Natriuretic Peptide 56 0-100 pg/mL Total Protein 6.2 6.0-8.3 g/dL Albumin 1.8 L 3.5-5.0 g/dL Amylase Level 26 25-115 U/L Lipase 15 L 16-77 U/L Procalcitonin 0.55 H 0.05-0.5 ng/mL Thyroid Stimulating Hormone (TSH) 4.14 H 0.36-3.74 uIU/mL Free Thyroxine (T4) Direct 1.16 0.76-1.46 ng/dL Free Triiodothyronine (T3) pg/mL 0.69 L 2.18-3.98 pg/mL Urine Color LIGHT-YELLOW YELLOW Urine Appearance CLEAR CLEAR Urine pH 5.0 5.0-8.0 Urine Specific [place] 1.019 1.001-1.031 Urine Protein NEGATIVE NEGATIVE mg/dL Urine Glucose (UA) >=1000 H NEGATIVE mg/dL Urine Ketones 20 H NEGATIVE mg/dL Urine Occult Blood NEGATIVE NEGATIVE Urine Nitrate NEGATIVE NEGATIVE Urine Bilirubin NEGATIVE NEGATIVE mg/dL Urine Urobilinogen 0.2 0.2-1.0 mg/dL Urine Leukocyte Esterase NEGATIVE NEGATIVE Bianca/uL Urine RBC 0-1 0-1 /HPF Urine WBC 0-1 0-1 /HPF Urine Squamous Epithelial Cells RARE 0-2 /HPF Urine Bacteria RARE None Seen /HPF Influenza Type A Antigen Negative For Type A NEGATIVE Influenza Type B Antigen Negative For Type B NEGATIVE SARS-CoV-2 Antigen (Rapid) PRESUMPTIVE NEGATIVE NEGATIVE Test 01/20/25 12:43 Range/Units White Cell Morphology Comment See comments Current Medications Medications (Trade) Dose Ordered Sig/Steve Route PRN Reason Start Time Stop Time Status Last Admin Dose Admin Acetaminophen (TYLenol 325MG TAB) 650 mg Q4H PRN PO MILD PAIN (1-3) 01/20/25 16:00 02/19/25 15:59 Acetaminophen (TYLenol 325MG TAB) 650 mg Q6H PRN PO MILD PAIN (1-3) 01/20/25 16:00 02/19/25 15:59 Acetaminophen (TYLenol 325MG TAB) 650 mg Q6H PRN PO TEMPERATURE GREATER THAN 101.5 01/20/25 16:00 02/19/25 15:59 Al Hydroxide/Mg Hydroxide (MAALox PLUS 30ML) 30 ml Q6H PRN PO INDIGESTION 01/20/25 16:00 02/19/25 15:59 Albuterol Sulfate (Proventil 0.083% 2.5mg/3ml) 2.5 mg [id number] IH 01/20/25 18:00 02/19/25 17:59 01/21/25 11:43 2.5 MG Cefepime HCl (MAXipime 1 GM vial) 1 gm Q8H IVPB 01/21/25 13:00 01/31/25 12:59 Clindamycin HCl/ Dextrose 50 ml @ 100 mls/hr ONCE STAT IV 01/20/25 14:30 01/20/25 14:59 DC 01/20/25 15:04 100 MLS/HR Clindamycin HCl/ Dextrose 50 ml @ 100 mls/hr Q8H IV 01/20/25 23:00 01/21/25 12:57 DC 01/21/25 08:07 100 MLS/HR Dextrose (D50w) 50 ml AD PRN IV HYPOGLYCEMIA PROTOCOL 01/20/25 16:00 02/19/25 15:59 Diphenhydramine HCl (BENAdryl INJ) 25 mg Q6H PRN IV SEVERE ITCHING/RASH 01/20/25 16:00 02/19/25 15:59 Famotidine (Pepcid 20mg Vial) 20 mg BID PRN IV NAUSEA/VOMITING 01/20/25 16:00 01/20/25 16:18 DC Glucagon (Glucagon 1mg Kit) 1 mg AD PRN IM HYPOGLYCEMIA PROTOCOL 01/20/25 16:00 02/19/25 15:59 Guaifenesin/ Dextromethorphan (RobiTUSSin DM 200/20MG 10ML) 10 ml Q4H PRN PO COUGH 01/20/25 16:00 02/19/25 15:59 Heparin Sodium (Porcine) (HEParin 5,000 UNIT VIAL) 5,000 unit BID SQ 01/20/25 21:00 02/19/25 20:59 01/21/25 10:48 5,000 UNIT Hydralazine HCl (APRESOLine 20MG INJ) 10 mg Q6H PRN IV For:SBP above 160;DBP above 90 01/20/25 16:00 02/19/25 15:59 Ibuprofen (moTRIN) 800 mg Q8H PRN PO MODERATE PAIN (4-6) 01/20/25 16:00 02/19/25 15:59 Insulin Human Regular (humuLIN R 100 UNIT/ML 3ML) INSULIN SLIDING SCAL... ACHS SQ 01/20/25 16:30 02/19/25 16:29 Ipratropium [place] (AtrovENT UD) 0.5 mg [id number] IH 01/20/25 18:00 01/21/25 10:32 DC 01/21/25 06:07 0.5 MG Ipratropium [place] (AtrovENT UD) 0.5 mg [id number] IH 01/21/25 12:00 02/19/25 17:59 01/21/25 11:43 0.5 MG Ketorolac Tromethamine (toRADol) 15 mg Q8H PRN IV MODERATE PAIN (4-6) IF NPO 01/20/25 16:00 01/25/25 15:59 Lactulose (Constulose 20gm/ 30ml Udcup) 20 gm BID PRN PO CONSTIPATION 01/20/25 16:00 02/19/25 15:59 Magnesium Sulfate 50 ml @ 0 mls/hr PROTOCOL PRN IV other 01/20/25 16:00 02/19/25 15:59 Morphine Sulfate (morPHINE 4MG SYG) 1 mg Q4H PRN IVP SEVERE PAIN (7-10) 01/20/25 16:00 01/27/25 15:59 01/21/25 06:29 1 MG Nitroglycerin (Nitrostat) 0.4 mg PROTOCOL PRN SL CHEST PAIN 01/20/25 16:00 02/19/25 15:59 Ondansetron HCl (zoFRAN 4MG INJ) 4 mg Q6H PRN IV NAUSEA/VOMITING 01/20/25 16:00 02/19/25 15:59 Potassium Chloride 100 ml @ 100 mls/hr AD PRN IV POTASSIUM PROTOCOL 01/20/25 16:00 02/19/25 15:59 Potassium Chloride (K-Dur/Klor-Con 20meq) 20 meq AD PRN PO POTASSIUM PROTOCOL 01/20/25 16:00 02/19/25 15:59 Potassium Chloride (KCl 10% Elixir 20meq/15ml) 20 meq AD PRN PO POTASSIUM PROTOCOL 01/20/25 16:00 02/19/25 15:59 Sodium Hypochlorite (Dakin'S 0.25% Half Strength) lumbar spine wo... BID TP 01/21/25 21:00 02/20/25 20:59 Sodium Chloride 1,000 ml @ 100 mls/hr Q10H IV 01/20/25 16:00 02/19/25 15:59 01/21/25 11:59 100 MLS/HR Vancomycin HCl 250 ml @ 125 mls/hr Q12H IV 01/22/25 02:00 02/01/25 01:59 Vancomycin HCl (Vancomycin Protocol) 1 each AD IV 01/21/25 13:00 02/04/25 12:59 Wound Care/ Dressing Products (Venelex Ointment) Sacral wound APPL... BID TP 01/21/25 21:00 02/20/25 20:59 Zolpidem Tartrate (AmbIEN) 5 mg HS PRN PO INSOMNIA 01/20/25 16:00 02/19/25 15:59 DIAGNOSTICS / RADIOLOGY: [ ] ASSESSMENT: [Acute hypoxic respiratory failure POA Infected wound laminectomy 12/30/24 POA Tachycardia POA Multifactorial anemia POA Electrolyte imbalance hyponatremia Na 134 hypokalemia 3.1 POA Acute dehydration POA Hypotension Hyperlipidemia POA History of Stroke POA Uncontrolled diabetes mellitus type 2 with hyperglycemia POA Compression fracture Spinal stenosis s/p laminectomy 01/15 ] PLAN: [ Home medication were reconciled by [employer] DEVEL[employer]. At this moment we are pending further evaluation/recommendation by wound care, ID and neurosurgeon. All three consults were notified and are aware of consultations. Patient we will continue antibiotics. We will continue to monitor patient in the meantime. A.m. labs. Admit to medical-surgical tele Blood culture pending Urine culture pending Urinalysis pending Chest x-ray pending Patient is lateral facet and Normal saline Consulted neurosurgeon Consult Dr. CASTELLANO A.m. labs Hyper hypoglycemia Hypokalemia protocol magnesemia Patient education heparin prophylaxis five case management for discharge PT for eval] ATTESTATION BY PHYSICIAN I have seen and examined the patient. I reviewed the documentation, medical decision making, and treatment plan as noted by the mid-level provider above. I agree with the findings and plan of care. HEMANT BURR MD, KATARZYNA B TELECOMMUNICATIONS OPERATOR Jan 21, 2025 14:38
[2025-01-21] MEDS: VANCOMYCIN 1.5 GM/250 ML BAG 250 ML IV ONE (15:12)
[2025-01-21] MEDS: Carboxymethylcellulose Sodium (Refresh Tears) 1 DROP OP SCH (15:18)
--- NOTE | 2025-01-21 15:21 | NUR ---
DR FITZGERALD WOUND CARE AT BEDSIDE
--- NOTE | 2025-01-21 18:44 | NUR ---
PT HAD A BOWEL MOVEMENT
[2025-01-21] MEDS: GABAPENTIN 300 MG CAPSULE PO SCH (21:27)
[2025-01-21] MEDS: BALSAM PERU/CASTOR OIL 60 GM TUBE TP SCH (21:28)
[2025-01-21] MEDS: SODIUM HYPOCHLORITE 0.25% [HALF STRENGTH] 473 ML TOPICAL SOLN TP SCH (21:28)
--- NOTE | 2025-01-21 22:28 | NUR ---
gave report to marlys antony in 3rd floor. patient transferred to room 329. sinus rhythm in 80s. [id number], RESPIRATIONS EVEN AND UNLABORED. DENIES ANY CHEST PAIN.
[2025-01-22] VITALS (15 sets, daily range): BP systolic 99–138; BP diastolic 46–78; PULSE 71–104; RESP 18–21; TEMP 98.1–98.9; O2SAT 97–99
[2025-01-22] MEDS: MAGNESIUM 2GM PREMIX 50ML 50 ML IV PRN (01:06)
[2025-01-22] MEDS: VANCOMYCIN 1.25 GM/250 ML BAG 250 ML IV SCH (01:58)
[2025-01-22 04:02] LABS: IMMATURE GRANULOCYTE ABSOLUTE 0.03 K/uL (0-1); NUCLEATED RED BLOOD CELLS 0.0 % (0.0-0.19); PLATELET COUNT (AUTO) 255 K/uL (130-400); RED BLOOD CELL COUNT(AUTO) 3.30 MIL/uL (4.50-6.20); RED CELL DISTRIBUTION WIDTH 14.1 % (11.0-15.5); WHITE BLOOD COUNT (AUTO) 6.3 K/uL (4.8-10.8)
[2025-01-22 04:29] LABS: ASPARTATE AMINOTRANSFERASE 24.0 U/L (10-37); CREATININE 0.7 mg/dL (0.5-1.3); GLOMERULAR FILTR. RATE CALC 94.0 mL/min (>90); GLUCOSE,RANDOM 83.0 mg/dL (70-105); SODIUM SERUM 142.0 mmol/L (136-145); TOTAL PROTEIN, SERUM 6.2 g/dL (6.0-8.3); UREA NITROGEN, BLOOD 13.0 mg/dL (7-18)
[2025-01-22] MEDS: PoTASSium chloRIDE 20MEQ ER 20 MEQ ERTAB PO PRN (04:43)
[2025-01-22] MEDS: DULOXETINE HCL PO SCH (09:00)
--- NOTE | 2025-01-22 09:08 | PN ---
[facility] PROGRESS NOTE Date of Service: Jan 22, 2025 Time of Service: 09:[address] Burr SUBJECTIVE: [ 01/20 Patient is 79 years old male with a past medical history of diabetes, hypertension, compression vertebral fracture, spinal stenosis, Parkinson, BPH, s/p recent laminectomy with Dr. Norman's 12/30/24, who came to emergency department from [facility] with a complaint of infected surgical site s/p laminectomy. Family members/ at the bedside stated that yesterday she realized that patient's wound has been very with DELFINOA Mendoza patient and opening the wound, patient's realize that has this open has a bed and that is draining pus. She took the pictures and sent to Dr. Norman's, who recommended that patient comes to ER for admission-recommendations.] Most recent vital signs temperature 98.1 one 0 lying 20 blood pressure 113/72 patient on 2 L 96%. Sodium 134 potassium 3.1 CO2 26 BUN 32 creatinine 0.8 GFR 90 glucose 223 lactic acid 1.8 troponin negative x1 lipase 21. WBC 5.9 hemoglobin 10.8 hematocrit 3010.4 platelets 258. No radiology performed at this moment. Chest x-ray pending. We will admit patient under hospitalist care for further evaluation/recommendations. ID we will be consulted for the antibiotics Dr. Martinez with a consulted wound recommendations and Dr. Xiong for s/p laminectomy. 01/21 patient was seen by nurse practitioner and physician during rounding in emergency department in room ED 11. Home medication were reconciled by RN MATERNITY. At this moment we are pending further evaluation/recommendation by wound care, ID and neurosurgeon. All three consults were notified and are aware of consultations. Patient we will continue antibiotics. We will continue to monitor patient in the meantime. A.m. labs. 01/22 patient was seen by nurse practitioner and physician during rounding in room 329. Nurse practitioner was able to talk to Dr. Vidal neurosurgeon regarding further recommendations and plan. As per surgeon CT spine lumbar, thoracic and cervical with the contrast to be ordered. RN MATERNITY placed the orders. Most recent WBC is 6.3. Patient continues to be on vancomycin and cefepime as per ID recommendations. As per wound care to surgical wound to thoracic spine cleanse with normal saline, pat dry, apply Dakins wet to dry cover with 4 x 4 gauze, abdominal pad, secure with tape change b.i.d. and PRN. Wound care to sacrum apply Venelex b.i.d. and PRN. Apply waffle mattress. Keep wounds clean and dry. Offloading/reposition q.2 hours. We will continue to monitor patient in the meantime. A.m. labs REVIEW OF SYSTEMS CONSTITUTIONAL: Denies fevers, chills, or night sweats. No unintentional weight loss reported. NEUROLOGICAL: Denies headache, amaurosis fugax, motor weakness, sensory deficit, vertigo/spinning sensation, gait abnormalities, or tremors. ENT: No hearing loss, otalgia, otorrhea, rhinitis, rhinorrhea, hoarseness, or sore throat. CARDIOVASCULAR: Denies any exertional angina, dyspnea on exertion, orthopnea, paroxysmal nocturnal dyspnea, palpitations, life-threatening arrhythmias, claudication. PULMONARY: Denies any shortness of breath, cough, phlegm/sputum, hemoptysis, pleuritic chest pain. SLEEP: Denies morning headaches, daytime somnolence or napping. Denies difficulty falling asleep, staying asleep, waking from sleep. Denies knowledge of snoring. GASTROINTESTINAL: Denies any type of dysphagia to either liquids or solids. Denies nausea, vomiting, pyrosis, early satiety, abdominal pain, diarrhea, constipation, or changes in stool consistency or caliber. Denies coffee-ground emesis, hematemesis, hematochezia, or melanotic stools. GENITOURINARY: Denies frequency, urgency, nocturia, hematuria or incontinence (Storage/Irritative symptoms.) Low urinary stream, straining to void, urinary intermittency or hesitancy, splitting of the voiding stream, terminal dribbling. ENDOCRINOLOGIC: Denies polyuria, polydipsia, polyphagia or heat/cold intolerances. HEMATOLOGIC: Denies thrombophilia/previous clots, or coagulopathy/bleeding diso rders. ONCOLOGIC: Denies personal history of malignancy. DERMATOLOGIC: Denies rashes or pruritus. S/p laminectomy open wound PSYCHIATRIC: Denies any suicidal or homicidal ideation. Denies hallucinations. PHYSICAL EXAM GENERAL APPEARANCE: The patient is awake, alert, and oriented, in no acute cardiopulmonary distress. NEUROLOGICAL: Cranial nerves II-XII grossly intact. Motor is 5/5 in bilateral upper and lower extremities proximal to distal. No sensory deficits. S/p laminectomy HEENT: Face is symmetric. Pupils are equal and reactive. Extraocular movements are intact. NECK: Supple. No JVD. No thyromegaly. No submental, submandibular, pre- /postauricular, occipital or supraclavicular lymphadenopathy. CHEST: Normal chest expansion. No Telemetry. LUNGS: Absence of any rales, rhonchi or any wheezing. CARDIOVASCULAR: Regular. S1 and S2 normal. No appreciable rubs, murmurs or gallops. ABDOMEN: Soft, nontender, and nondistended. There is no rebound, voluntary guarding, or rigidity. : Deferred. No Mcgraw. EXTREMITIES: Non-edematous and not cyanotic. No clubbing. Good capillary refill. SKIN: No skin breakdown. Vital Signs (last 8hr) Date Time Temp Pulse Resp B/P (MAP) Pulse Ox O2 Delivery O2 Flow Rate FiO2 01/22/25 08:00 98.1 71 20 137/66 98 Nasal Cannula 2.0 24 01/22/25 07:35 76 20 01/22/25 07:34 76 20 N/Cannula Low lpm 2.0 28 01/22/25 04:00 93 18 138/78 98 Nasal Cannula 1.0 LABS: Laboratory: Test 01/22/25 04:47 01/22/25 03:47 01/21/25 04:40 01/20/25 22:45 Range/Units Whole Blood Glucose 79 70-110 MG/DL White Blood Count 6.3 # 4.8-10.8 K/uL Red Blood Count 3.30 L 4.50-6.20 MIL/uL Hemoglobin 10.1 L 14.0-18.0 g/dL Hematocrit 32.0 L 42-54 % Mean Corpuscular Volume 97.0 79-99 fL Mean Corpuscular Hemoglobin 30.6 27.0-33.0 pg Mean Corpuscular Hemoglobin Concent 31.6 L 32.0-36.0 g/dL Red Cell Distribution Width 14.1 11.0-15.5 % Platelet Count 255 130-400 K/uL Mean Platelet Volume 8.8 7.5-10.5 fL Immature Granulocyte % (Auto) 0.5 0-1 % Neutrophils (%) (Auto) 85.6 H 40.0-77.0 % Lymphocytes (%) (Auto) 5.6 L 21.0-51.0 % Monocytes (%) (Auto) 7.8 3.0-13.0 % Eosinophils (%) (Auto) 0.3 0.0-8.0 % Basophils (%) (Auto) 0.2 0.0-5.0 % Neutrophils # (Auto) 5.4 1.8-7.7 K/uL Lymphocytes # (Auto) 0.4 L 1.0-4.8 K/uL Monocytes # (Auto) 0.5 0.1-1.0 K/uL Eosinophils # (Auto) 0.02 0.00-0.70 K/uL Basophils # (Auto) 0.01 0.00-0.20 K/uL Absolute Immature Granulocyte (auto 0.03 0-1 K/uL Nucleated Red Blood Cells 0.0 0.0-0.19 % Sodium Level 142 136-145 mmol/L Potassium Level 3.1 L 3.5-5.1 mmol/L Chloride Level 100 L 101-111 mmol/L Carbon Dioxide Level 23 21-32 mmol/L Blood Urea Nitrogen 13 7-18 mg/dL Creatinine 0.7 0.5-1.3 mg/dL Glomerular Filtration Rate Calc 94 >90 mL/min Random Glucose 83 70-105 mg/dL Total Calcium 9.0 8.5-10.1 mg/dL Magnesium Level 1.70 L 1.80-2.40 mg/dL Total Bilirubin 0.6 0.2-1.0 mg/dL Aspartate Amino Transf (AST/SGOT) 24 10-37 U/L Alanine Aminotransferase (ALT/SGPT) 20 12-78 U/L Alkaline Phosphatase 152 H 50-136 U/L Total Protein 6.2 6.0-8.3 g/dL Albumin 1.7 L 3.5-5.0 g/dL Red Blood Cell Morphology See comments Prothrombin Time 11.8 H 9.6-11.6 SEC Prothromb Time International Ratio 1.13 0.85-1.15 Activated Partial Thromboplast Time 30.7 26.3-35.5 SEC Hemoglobin A1c 6.6 H 4.0-6.0 % Estimated Average Glucose (eAG) 143 H 70-126 mg/dL Lactic Acid Level 1.5 0.8-2.5 mmol/L Direct Bilirubin 0.3 0.0-0.3 mg/dL Ammonia < 10 L 11-32 umol/L Total Creatine Kinase 40 # 21-232 U/L Troponin I High Sensitivity 6 4-75 ng/L B-Type Natriuretic Peptide 56 0-100 pg/mL Amylase Level 26 25-115 U/L Lipase 15 L 16-77 U/L Procalcitonin 0.55 H 0.05-0.5 ng/mL Thyroid Stimulating Hormone (TSH) 4.14 H 0.36-3.74 uIU/mL Free Thyroxine (T4) Direct 1.16 0.76-1.46 ng/dL Free Triiodothyronine (T3) pg/mL 0.69 L 2.18-3.98 pg/mL Urine Color LIGHT-YELLOW YELLOW Urine Appearance CLEAR CLEAR Urine pH 5.0 5.0-8.0 Urine Specific [place]send 1.019 1.001-1.031 Urine Protein NEGATIVE NEGATIVE mg/dL Urine Glucose (UA) >=1000 H NEGATIVE mg/dL Urine Ketones 20 H NEGATIVE mg/dL Urine Occult Blood NEGATIVE NEGATIVE Urine Nitrate NEGATIVE NEGATIVE Urine Bilirubin NEGATIVE NEGATIVE mg/dL Urine Urobilinogen 0.2 0.2-1.0 mg/dL Urine Leukocyte Esterase NEGATIVE NEGATIVE Bianca/uL Urine RBC 0-1 0-1 /HPF Urine WBC 0-1 0-1 /HPF Urine Squamous Epithelial Cells RARE 0-2 /HPF Urine Bacteria RARE None Seen /HPF Test 01/20/25 19:10 01/20/25 12:43 Range/Units Influenza Type A Antigen Negative For Type A NEGATIVE Influenza Type B Antigen Negative For Type B NEGATIVE SARS-CoV-2 Antigen (Rapid) PRESUMPTIVE NEGATIVE NEGATIVE White Cell Morphology Comment See comments Current Medications Medications (Trade) Dose Ordered Sig/Steve Route PRN Reason Start Time Stop Time Status Last Admin Dose Admin Acetaminophen (TYLenol 325MG TAB) 650 mg Q4H PRN PO MILD PAIN (1-3) 01/20/25 16:00 02/19/25 15:59 Acetaminophen (TYLenol 325MG TAB) 650 mg Q6H PRN PO MILD PAIN (1-3) 01/20/25 16:00 02/19/25 15:59 Acetaminophen (TYLenol 325MG TAB) 650 mg Q6H PRN PO TEMPERATURE GREATER THAN 101.5 01/20/25 16:00 02/19/25 15:59 Al Hydroxide/Mg Hydroxide (MAALox PLUS 30ML) 30 ml Q6H PRN PO INDIGESTION 01/20/25 16:00 02/19/25 15:59 Albuterol Sulfate (Proventil 0.083% 2.5mg/3ml) 2.5 mg [id number] IH 01/20/25 18:00 02/19/25 17:59 01/22/25 07:34 2.5 MG Aspirin (Aspirin 81mg Chew Tab) 81 mg DAILY PO 01/22/25 09:00 02/21/25 08:59 Atorvastatin Calcium (LIPItor 40MG) 80 mg DAILY PO 01/22/25 09:00 02/21/25 08:59 Cefepime HCl (MAXipime 1 GM vial) 1 gm Q8H IVPB 01/21/25 13:00 01/31/25 12:59 01/22/25 05:30 1 GM Clindamycin HCl/ Dextrose 50 ml @ 100 mls/hr ONCE STAT IV 01/20/25 14:30 01/20/25 14:59 DC 01/20/25 15:04 100 MLS/HR Clindamycin HCl/ Dextrose 50 ml @ 100 mls/hr Q8H IV 01/20/25 23:00 01/21/25 12:57 DC 01/21/25 08:07 100 MLS/HR Dextrose (D50w) 50 ml AD PRN IV HYPOGLYCEMIA PROTOCOL 01/20/25 16:00 02/19/25 15:59 Diphenhydramine HCl (BENAdryl INJ) 25 mg Q6H PRN IV SEVERE ITCHING/RASH 01/20/25 16:00 02/19/25 15:59 Famotidine (Pepcid 20mg Vial) 20 mg BID PRN IV NAUSEA/VOMITING 01/20/25 16:00 01/20/25 16:18 DC Finasteride (PROscar 5 MG TAB) 5 mg DAILY PO 01/22/25 09:00 02/21/25 08:59 Fluticasone Propionate (FLOnase 50 mcg/ spray 16g bottle) 1 SPRAY BID EN 01/21/25 21:00 02/20/25 20:59 01/21/25 21:37 1 SPRAYS Gabapentin (NEURontin 300 MG CAP) 300 mg TID PO 01/21/25 21:00 02/20/25 20:59 01/21/25 21:27 300 MG Glucagon (Glucagon 1mg Kit) 1 mg AD PRN IM HYPOGLYCEMIA PROTOCOL 01/20/25 16:00 02/19/25 15:59 Guaifenesin/ Dextromethorphan (RobiTUSSin DM 200/20MG 10ML) 10 ml Q4H PRN PO COUGH 01/20/25 16:00 02/19/25 15:59 HCTZ/Losartan Potassium (Hyzaar 50-12.5 Tablet) 1 tab DAILY PO 01/22/25 09:00 02/21/25 08:59 Heparin Sodium (Porcine) (HEParin 5,000 UNIT VIAL) 5,000 unit BID SQ 01/20/25 21:00 02/19/25 20:59 01/21/25 21:33 5,000 UNIT Home Med (Home Medication) BID PO 01/21/25 21:00 02/20/25 20:59 Home Med (Home Medication) DAILY PO 01/22/25 09:00 02/21/25 08:59 Home Med (Home Medication) QID OP 01/21/25 17:00 02/20/25 16:59 Hydralazine HCl (APRESOLine 20MG INJ) 10 mg Q6H PRN IV For:SBP above 160;DBP above 90 01/20/25 16:00 02/19/25 15:59 Ibuprofen (moTRIN) 800 mg Q8H PRN PO MODERATE PAIN (4-6) 01/20/25 16:00 02/19/25 15:59 Insulin Human Regular (humuLIN R 100 UNIT/ML 3ML) INSULIN SLIDING SCAL... ACHS SQ 01/20/25 16:30 02/19/25 16:29 Ipratropium Henry (AtrovENT UD) 0.5 mg [id number] IH 01/20/25 18:00 01/21/25 10:32 DC 01/21/25 06:07 0.5 MG Ipratropium Henry (AtrovENT UD) 0.5 mg [id number] IH 01/21/25 12:00 02/19/25 17:59 01/22/25 07:34 0.5 MG Ketorolac Tromethamine (toRADol) 15 mg Q8H PRN IV MODERATE PAIN (4-6) IF NPO 01/20/25 16:00 01/25/25 15:59 Lactulose (Constulose 20gm/ 30ml Udcup) 20 gm BID PRN PO CONSTIPATION 01/20/25 16:00 02/19/25 15:59 Magnesium Sulfate 50 ml @ 0 mls/hr PROTOCOL PRN IV other 01/20/25 16:00 02/19/25 15:59 01/22/25 06:15 25 MLS/HR Morphine Sulfate (morPHINE 4MG SYG) 1 mg Q4H PRN IVP SEVERE PAIN (7-10) 01/20/25 16:00 01/27/25 15:59 01/22/25 05:35 1 MG Nitroglycerin (Nitrostat) 0.4 mg PROTOCOL PRN SL CHEST PAIN 01/20/25 16:00 02/19/25 15:59 Ondansetron HCl (zoFRAN 4MG INJ) 4 mg Q6H PRN IV NAUSEA/VOMITING 01/20/25 16:00 02/19/25 15:59 Pantoprazole Sodium (PROTonix 40MG TAB) 40 mg DAILY PO 01/22/25 09:00 02/21/25 08:59 Potassium Chloride 100 ml @ 100 mls/hr AD PRN IV POTASSIUM PROTOCOL 01/20/25 16:00 02/19/25 15:59 Potassium Chloride (K-Dur/Klor-Con 20meq) 20 meq AD PRN PO POTASSIUM PROTOCOL 01/20/25 16:00 02/19/25 15:59 01/22/25 04:47 20 MEQ Potassium Chloride (KCl 10% Elixir 20meq/15ml) 20 meq AD PRN PO POTASSIUM PROTOCOL 01/20/25 16:00 02/19/25 15:59 Sodium Hypochlorite (Dakin'S 0.25% Half Strength) thoracic spine wo... BID TP 01/21/25 21:00 02/20/25 20:59 01/21/25 21:28 1 APPL Sodium Chloride 1,000 ml @ 100 mls/hr Q10H IV 01/20/25 16:00 02/19/25 15:59 01/21/25 22:40 100 MLS/HR Tamsulosin HCl (FloMAX) 0.4 mg DAILY PO 01/22/25 09:00 02/21/25 08:59 Vancomycin HCl 250 ml @ 125 mls/hr Q12H IV 01/22/25 02:00 02/01/25 01:59 01/22/25 01:58 125 MLS/HR Vancomycin HCl (Vancomycin Protocol) 1 each AD IV 01/21/25 13:00 02/04/25 12:59 Wound Care/ Dressing Products (Venelex Ointment) Sacral wound APPL... BID TP 01/21/25 21:00 02/20/25 20:59 01/21/25 21:28 1 GM Zolpidem Tartrate (AmbIEN) 5 mg HS PRN PO INSOMNIA 01/20/25 16:00 02/19/25 15:59 DIAGNOSTICS / RADIOLOGY: [ ] ASSESSMENT: [Acute hypoxic respiratory failure POA Infected wound laminectomy 12/30/24 POA Tachycardia POA Multifactorial anemia POA Electrolyte imbalance hyponatremia Na 134 hypokalemia 3.1 POA Acute dehydration POA Hypotension Hyperlipidemia POA History of Stroke POA Uncontrolled diabetes mellitus type 2 with hyperglycemia POA Compression fracture Spinal stenosis s/p laminectomy 01/15 ] PLAN: [ Nurse practitioner was able to talk to Dr. Vidal neurosurgeon regarding further recommendations and plan. As per surgeon CT spine lumbar, thoracic and cervical with the contrast to be ordered. RN MATERNITY placed the orders. Most recent WBC is 6.3. Patient continues to be on vancomycin and cefepime as per ID recommendations. We will continue to monitor patient in the meantime. A.m. labs As per wound care to surgical wound to thoracic spine cleanse with normal saline, pat dry, apply Dakins wet to dry cover with 4 x 4 gauze, abdominal pad, secure with tape change b.i.d. and PRN. Wound care to sacrum apply Venelex b.i.d. and PRN. Apply waffle mattress. Keep wounds clean and dry. Offloading/reposition q.2 hours. Admit to medical-surgical tele Blood culture pending Urine culture pending Urinalysis negative Chest x-ray showed mild left base atelectasis A.m. labs Hyper hypoglycemia Hypokalemia protocol magnesemia Patient education heparin prophylaxis five case management for discharge PT for eval] Home medication reconciled by RN MATERNITY 01/21/2025 ATTESTATION BY PHYSICIAN I have seen and examined the patient. I reviewed the documentation, medical decision making, and treatment plan as noted by the mid-level provider above. I agree with the findings and plan of care. HEMANT BURR MD, KATARZYNA B SAMPLE GRINDER Jan 22, 2025 09:08
--- NOTE | 2025-01-22 10:25 | NUR ---
DCP:HOME Pt currently lives at home alone. Pt does have a hospital bed, lift, and walker at home. Pt does have 24hrs of provider services (ex- Maddie Shepard [phone] is the provider) and she assists him with all ADLs, home management, and meals. PCP is Dr. Fermin Dill ([facility]) and [facility]. At DC pt will want to home and ex- states that he will need an ambulance because he has been bed bound for the past 3 weeks. Addendum: 01/22/25 at 1030 by CALLIE SINHA SS Amended: Links added.
--- NOTE | 2025-01-22 10:39 | CONS ---
INFECTIOUS DISEASE CONSULTATION DATE OF SERVICE: 01/21/2025. REQUESTING PHYSICIAN: Jennifer Brown NP REASON FOR CONSULTATION: Lumbar surgical wound infection. HISTORY OF PRESENT ILLNESS: This is a 79-year-old male with hypertension, diabetes mellitus, and spinal stenosis, who recently underwent lumbar laminectomy. The patient subsequently transferred to [place] for physical therapy. The patient now found with surgical intervention and was sent to the hospital for further care. No fever, no chills. No new weakness. No frequent urinary retention. PAST MEDICAL HISTORY: * Diabetes mellitus. * Hypertension. * Compression fracture. * Lumbar spinal stenosis. * Parkinson's disease. * BPH. PAST SURGICAL HISTORY: Lumbar laminectomy. ALLERGIES: No known drug allergies. CURRENT MEDICATIONS: Reviewed. SOCIAL HISTORY: No alcohol or tobacco use. FAMILY HISTORY: Positive for diabetes mellitus. REVIEW OF SYSTEMS: CONSTITUTIONAL: Denies fever or chills. No weight loss or night sweats. Positive for weakness. EYES: No eye pain. No photophobia. HENT: No sore throat. No rhinorrhea. NECK: No neck pain. No neck swelling. RESPIRATORY: No cough. No hemoptysis or pleuritic pain. CARDIOVASCULAR: No shortness of breath. No palpitations or orthopnea. GASTROINTESTINAL: Denies nausea or vomiting. GENITOURINARY: No dysuria, urgency, urinary frequency. CENTRAL NERVOUS SYSTEM: No headache, dyspnea, or slurred speech. PSYCHIATRY: No depression, no suicidal ideation. MUSCULOSKELETAL: No joint pain. No joint swelling, but positive for surgical wound drainage. PHYSICAL EXAMINATION: GENERAL: Elderly male, awake and alert. VITAL SIGNS: Temperature 98.2, pulse 69, respirations 18, blood pressure 132/60. EYES: No icterus. Pupils equal and reactive. NECK: Supple. No JVD or thyromegaly. LUNGS: Good air entry. No rales. CARDIOVASCULAR: S1 and S2 regular. No murmur. ABDOMEN: Obese, soft, and nontender. Bowel sounds are present CENTRAL NERVOUS SYSTEM: Awake, alert, and oriented x 3. No focal deficits. SKIN: No rashes. No peripheral lymphadenopathy. BACK: No deformity. No pressure ulcer. Surgical incision of the lumbar spine with purulent drainage. LABORATORY DATA: Hemoglobin A1c is 6.6. Sodium 143, potassium 3.6, BUN 23, creatinine 0.6. WBC 4.9, hemoglobin 10.2, platelets 275. Urinalysis negative. Blood culture negative for 1 day. Blood culture . RADIOLOGY: Chest x-ray unremarkable. ASSESSMENT: A 79-year-old male presenting with: * Lower back wound infection. * Hypertension. * Diabetes mellitus. * Obesity. * Benign prostatic hyperplasia. * Anemia. PLAN: * Start the patient on Cefepime. * Start the patient on vancomycin. * Followup cultures. * Continue pain management. * Continue antihypertensive. * Continue antidiabetic. * Continue nutritional support. * The patient needs surgical evaluation and wound debridement. Thank you for allowing me to participate in the care of this patient. TID: [id number] RECEIPT: [id number]
[2025-01-22] MEDS: LOSARTAN/HYDROCHLOROTHIAZIDE 50-12.5MG TABLET PO SCH (11:15)
[2025-01-22] MEDS: ASPIRIN 81MG CHEW TAB PO SCH (11:16)
--- NOTE | 2025-01-22 11:59 | PN ---
INFECTIOUS DISEASE PROGRESS NOTE Date of Service: Jan 22, 2025 SUBJECTIVE: This is a 79-year-old male patient who was seen and examined at bedside in room 329. The preliminary culture results from the thoracic lumbar surgical site is growing Gram-negative rods. Patient continues on vancomycin and cefepime and we will follow up on the final culture results. Patient had a CT of the spine today and pending interpretation. Patient will be undergoing a lumbar wound debridement tomorrow. Patient is afebrile today, temperature is 98.2. We will continue to follow patient's care. PHYSICAL EXAM EYES: Anicteric. Pupils equal and reactive. HENT: No oral thrush seen, moist Oral mucosa. NECK: Supple, no JVD or thyromegaly. LUNGS: Good air entry. No rales, no rhonchi. CARDIOVASCULAR: S1, S2 regular. No murmur heard. ABDOMEN: Soft, non tender, bowel sounds present, no organomegaly. CENTRAL NERVOUS SYSTEM: Awake, alert, oriented x 3. SKIN: No rashes, no swelling. LYMPHATICS: No peripheral lymphadenopathy. MUSCULOSKELETAL: No joint swelling, erythema or tenderness. EXTREMITIES: No cyanosis or clubbing BACK: Surgical wound. GENITOURINARY: No dysuria or hematuria. Vital Sign (Last 12 Hours) 01/22/25 01/22/25 01/22/25 01/22/25 00:02 04:00 07:34 07:35 Pulse 87 93 76 76 Resp 18 18 20 20 B/P (MAP) 138/78 Pulse Ox 98 O2 Delivery Nasal Cannula N/Cannula Low lpm O2 Flow Rate 1.0 2.0 FiO2 28 01/22/25 08:00 Temp 98.1 Pulse 71 Resp 20 B/P (MAP) 137/66 Pulse Ox 98 O2 Delivery Nasal Cannula O2 Flow Rate 2.0 FiO2 24 Intake & Output (last 24hrs) 01/21/25 01/21/25 01/22/25 15:00 23:00 07:00 Intake Total 900.0 ml 780.0 ml Balance 900.0 ml 780.0 ml LABS: Laboratory: Test 01/22/25 11:19 01/22/25 03:47 01/21/25 04:40 01/20/25 22:45 Range/Units Whole Blood Glucose 113 H 70-110 MG/DL Bedside Glucose Comment Notified Nurse White Blood Count 6.3 # 4.8-10.8 K/uL Red Blood Count 3.30 L 4.50-6.20 MIL/uL Hemoglobin 10.1 L 14.0-18.0 g/dL Hematocrit 32.0 L 42-54 % Mean Corpuscular Volume 97.0 79-99 fL Mean Corpuscular Hemoglobin 30.6 27.0-33.0 pg Mean Corpuscular Hemoglobin Concent 31.6 L 32.0-36.0 g/dL Red Cell Distribution Width 14.1 11.0-15.5 % Platelet Count 255 130-400 K/uL Mean Platelet Volume 8.8 7.5-10.5 fL Immature Granulocyte % (Auto) 0.5 0-1 % Neutrophils (%) (Auto) 85.6 H 40.0-77.0 % Lymphocytes (%) (Auto) 5.6 L 21.0-51.0 % Monocytes (%) (Auto) 7.8 3.0-13.0 % Eosinophils (%) (Auto) 0.3 0.0-8.0 % Basophils (%) (Auto) 0.2 0.0-5.0 % Neutrophils # (Auto) 5.4 1.8-7.7 K/uL Lymphocytes # (Auto) 0.4 L 1.0-4.8 K/uL Monocytes # (Auto) 0.5 0.1-1.0 K/uL Eosinophils # (Auto) 0.02 0.00-0.70 K/uL Basophils # (Auto) 0.01 0.00-0.20 K/uL Absolute Immature Granulocyte (auto 0.03 0-1 K/uL Nucleated Red Blood Cells 0.0 0.0-0.19 % Sodium Level 142 136-145 mmol/L Potassium Level 3.1 L 3.5-5.1 mmol/L Chloride Level 100 L 101-111 mmol/L Carbon Dioxide Level 23 21-32 mmol/L Blood Urea Nitrogen 13 7-18 mg/dL Creatinine 0.7 0.5-1.3 mg/dL Glomerular Filtration Rate Calc 94 >90 mL/min Random Glucose 83 70-105 mg/dL Total Calcium 9.0 8.5-10.1 mg/dL Magnesium Level 1.70 L 1.80-2.40 mg/dL Total Bilirubin 0.6 0.2-1.0 mg/dL Aspartate Amino Transf (AST/SGOT) 24 10-37 U/L Alanine Aminotransferase (ALT/SGPT) 20 12-78 U/L Alkaline Phosphatase 152 H 50-136 U/L Total Protein 6.2 6.0-8.3 g/dL Albumin 1.7 L 3.5-5.0 g/dL Red Blood Cell Morphology See comments Prothrombin Time 11.8 H 9.6-11.6 SEC Prothromb Time International Ratio 1.13 0.85-1.15 Activated Partial Thromboplast Time 30.7 26.3-35.5 SEC Hemoglobin A1c 6.6 H 4.0-6.0 % Estimated Average Glucose (eAG) 143 H 70-126 mg/dL Lactic Acid Level 1.5 0.8-2.5 mmol/L Direct Bilirubin 0.3 0.0-0.3 mg/dL Ammonia < 10 L 11-32 umol/L Total Creatine Kinase 40 # 21-232 U/L Troponin I High Sensitivity 6 4-75 ng/L B-Type Natriuretic Peptide 56 0-100 pg/mL Amylase Level 26 25-115 U/L Lipase 15 L 16-77 U/L Procalcitonin 0.55 H 0.05-0.5 ng/mL Thyroid Stimulating Hormone (TSH) 4.14 H 0.36-3.74 uIU/mL Free Thyroxine (T4) Direct 1.16 0.76-1.46 ng/dL Free Triiodothyronine (T3) pg/mL 0.69 L 2.18-3.98 pg/mL Urine Color LIGHT-YELLOW YELLOW Urine Appearance CLEAR CLEAR Urine pH 5.0 5.0-8.0 Urine Specific [place] 1.019 1.001-1.031 Urine Protein NEGATIVE NEGATIVE mg/dL Urine Glucose (UA) >=1000 H NEGATIVE mg/dL Urine Ketones 20 H NEGATIVE mg/dL Urine Occult Blood NEGATIVE NEGATIVE Urine Nitrate NEGATIVE NEGATIVE Urine Bilirubin NEGATIVE NEGATIVE mg/dL Urine Urobilinogen 0.2 0.2-1.0 mg/dL Urine Leukocyte Esterase NEGATIVE NEGATIVE Bianca/uL Urine RBC 0-1 0-1 /HPF Urine WBC 0-1 0-1 /HPF Urine Squamous Epithelial Cells RARE 0-2 /HPF Urine Bacteria RARE None Seen /HPF Test 01/20/25 19:10 01/20/25 12:43 Range/Units Influenza Type A Antigen Negative For Type A NEGATIVE Influenza Type B Antigen Negative For Type B NEGATIVE SARS-CoV-2 Antigen (Rapid) PRESUMPTIVE NEGATIVE NEGATIVE White Cell Morphology Comment See comments DIAGNOSTICS / RADIOLOGY: PATIENT: KAYLA BELLE ACCT: [id number] LOC: 3A U: [id number] AGE/SX: 79/M ROOM: 329 RE01/20/[address]: HEMANT ALMANZAR MD : 1945 BED: 1 DIS: STATUS: ADM IN TLOC: ------- ----- SPEC: [id number] MARILEE: 01/20/25 STATUS: RES REQ: [id number] RECD: 01/20/[address]: ERASMO VICKERS NP SOURCE: OTHER SOUR ENTR: 01/20/25-[address]: MEAGAN TRIANA MD SPDESC: OTHER BHARAT REICH MD ORDERED: AEROBIC CULTURE COMMENTS: Specimen Comment: THORACIC SURGICAL SITE Procedure Result Jaspreet Date-Time AEROBIC CULTURE Preliminary 01/22/25-2 MRL COLONY DESCRIPTION: REPORT 1: 3+ GRAM NEGATIVE RODS IDENTIFICATION AND SENSITIVITY TO FOLLOW Test(s) performed by: [facility] [address] [place] [address] ASSESSMENT: Thoracic lumbar surgical wound infection. Recent T12-L1 decompressive laminectomy on 01/01/2025. Spinal stenosis Diabetes mellitus. Benign prostatic hyperplasia. Parkinson's disease. PLAN: Continue vancomycin per pharmacy protocol. Continue cefepime IV. We will follow up on the final culture results. Wound care as recommended by neurosurgeon. Continue pain management. Patient had a CT scan of the spine today, we will follow up on the interpretation. Scheduled for a lumbar wound debridement tomorrow. This case was reviewed and discussed with my supervising physician Dr. Fitzgerald and the above assessment and plan was formulated and agreed upon. ATTESTATION BY PHYSICIAN I have seen and examined the patient. I reviewed the documentation, medical decision making, and treatment plan as noted by the mid-level provider above. I agree with the findings and plan of care. DIANA FITZGERALD MD, MIRTA L [facility] Jan 22, 2025 11:59
[2025-01-22] MEDS ORDERED: IOHEXOL-350 50ML VIAL IV ONE (13:03)
[2025-01-23] VITALS (37 sets, daily range): BP systolic 63–155; BP diastolic 34–78; PULSE 73–111; RESP 17–21; TEMP 97.1–99.1; O2SAT 93–98
[2025-01-23 01:06] LABS: IMMATURE GRANULOCYTE ABSOLUTE 0.06 K/uL (0-1); NUCLEATED RED BLOOD CELLS 0.0 % (0.0-0.19); PLATELET COUNT (AUTO) 250 K/uL (130-400); RED BLOOD CELL COUNT(AUTO) 3.17 MIL/uL (4.50-6.20); RED CELL DISTRIBUTION WIDTH 14.4 % (11.0-15.5); WHITE BLOOD COUNT (AUTO) 9.0 K/uL (4.8-10.8)
[2025-01-23 01:36] LABS: ASPARTATE AMINOTRANSFERASE 20.0 U/L (10-37); CREATININE 0.7 mg/dL (0.5-1.3); GLOMERULAR FILTR. RATE CALC 94.0 mL/min (>90); GLUCOSE,RANDOM 107.0 mg/dL (70-105); SODIUM SERUM 141.0 mmol/L (136-145); TOTAL PROTEIN, SERUM 5.9 g/dL (6.0-8.3); UREA NITROGEN, BLOOD 10.0 mg/dL (7-18)
[2025-01-23] MEDS: VANCOMYCIN 750MG VIAL IVPB SCH (03:31)
[2025-01-23] MEDS ORDERED: MIDAZOLAM HCL 1 MG/ML 2ML VIAL ONE (07:23)
[2025-01-23] MEDS ORDERED: LIDOCAINE PF 100MG/5ML (2%) SYRINGE 5ML ONE ×2 (07:23→23:03)
[2025-01-23] MEDS ORDERED: GLYCOPYRROLATE 0.2 MG/ML 5 ML VIAL ONE (07:26)
[2025-01-23] MEDS ORDERED: NEOSTIGMINE METHYLSULFATE 1MG/ML IV ONE (07:26)
[2025-01-23] MEDS ORDERED: BACITRACIN 28.4 GM OINT TP ONE (08:10)
[2025-01-23] MEDS ORDERED: TRANEXAMIC ACID 1000MG/10ML ONE ×2 (08:10→23:22)
[2025-01-23] MEDS ORDERED: VANCOMYCIN 500MG+NS 100ML 100 ML IV ONE ×2 (08:10→08:16)
[2025-01-23] MEDS ORDERED: THROMBIN-JMI 5000 UNIT/VIAL TP ONE (08:11)
[2025-01-23] MEDS ORDERED: THROMBIN-JMI 20000 UNIT KIT TP ONE (09:16)
--- NOTE | 2025-01-23 10:51 | NUR ---
REPORT RECEIVED REPORT FROM CAROLE ALAS. REPORTS BP: 123/53 HR: 88 O2: 97% ON 3L VIA N/C. EBL: 50ML. CULTURES SENT FOR TESTING. WOUND VAC PLACED RATE: 125MM/HG.
[2025-01-23] MEDS: SUGAMMADEX SODIUM 200 MG/2 ML VIAL IV ONE (11:02)
--- NOTE | 2025-01-23 11:30 | NUR ---
POST OP PT ARRIVED BACK FROM PROCEDURE VIA STRETCHER. ACCOMPANIED BY BISHOP RN. A&OX4. NON LABORED BREATHING. BP: 147/75 HR:92 O2: 98% ON 3L VIA N/C. FAMILY AT BEDSIDE. NOTED WOUND VAC PLACED TO BACK INCISION AT 125MM/HG.
--- NOTE | 2025-01-23 11:45 | OP ---
DATE OF PROCEDURE: 01/23/2025 INDICATIONS: The patient is a 79-year-old male. The patient is status post lumbar decompression and fusion due to a Chance fracture. At this time, the patient returns to the hospital with: 1. Wound dehiscence and some discharge, but more so also evidence of possible deep vein thrombosis with pulmonary emboli. He has been hemodynamically stable. Family members were addressed as well as the patient. They agreed and consented freely on the proposed surgery. PREOPERATIVE DIAGNOSIS: Wound dehiscence with wound infection, thoracolumbar spine. POSTOPERATIVE DIAGNOSIS: Wound dehiscence with wound infection, thoracolumbar spine. PROCEDURE: Incision and drainage of wound abscess. SURGEON: Harish Francisco M.D. ANESTHESIA: General. The patient tolerated the procedure well. There are no complications. FINDINGS: There was evidence of marked devitalized tissue. No gross evidence of purulent discharge nor loculation noted. DESCRIPTION OF PROCEDURE: The patient was brought to the operating room, adequate general endotracheal anesthesia was achieved. IV antibiotics were given. Thereafter, DVT garments were secured. The patient was positioned prone with adequate padding to pressure area. The back was extensively prepped and draped in the usual sterile fashion, and thereafter the wound was opened. All sutures were removed and thereafter I proceeded to do mechanical debridement with the pulse lavage and then 4 x 4s. Some of the skin devitalized tissue was removed with scalpel. Hemostasis was achieved with bipolar coagulation and after copious irrigation with bacteriostatic solution, the wound was sprinkled with antibiotic powder and then the wound VAC was positioned with adequate seal. Family members were addressed. The patient tolerated the procedure well. Sponge count reported complete at the end of the procedure. TID: [id number] RECEIPT: [id number]
--- NOTE | 2025-01-23 12:00 | PN ---
[facility] PROGRESS NOTE Date of Service: Jan 23, 2025 Time of Service: 11:37 Attending doctor Leno SUBJECTIVE: [ 01/20 Patient is 79 years old male with a past medical history of diabetes, hypertension, compression vertebral fracture, spinal stenosis, Parkinson, BPH, s/p recent laminectomy with Dr. Norman's 12/30/24, who came to emergency department from [facility] with a complaint of infected surgical site s/p laminectomy. Family members/ at the bedside stated that yesterday she realized that patient's wound has been very with POA Mendoza patient and opening the wound, patient's realize that has this open has a bed and that is draining pus. She took the pictures and sent to Dr. Norman's, who recommended that patient comes to ER for admission-recommendations.] Most recent vital signs temperature 98.1 one 0 lying 20 blood pressure 113/72 patient on 2 L 96%. Sodium 134 potassium 3.1 CO2 26 BUN 32 creatinine 0.8 GFR 90 glucose 223 lactic acid 1.8 troponin negative x1 lipase 21. WBC 5.9 hemoglobin 10.8 hematocrit 3010.4 platelets 258. No radiology performed at this moment. Chest x-ray pending. We will admit patient under hospitalist care for further evaluation/recommendations. ID we will be consulted for the antibiotics Dr. Martinez with a consulted wound recommendations and Dr. Xiong for s/p laminectomy. 01/21 patient was seen by nurse practitioner and physician during rounding in emergency department in room ED 11. Home medication were reconciled by EARRINGS FABRICATOR. At this moment we are pending further evaluation/recommendation by wound care, ID and neurosurgeon. All three consults were notified and are aware of consultations. Patient we will continue antibiotics. We will continue to monitor patient in the meantime. A.m. labs. 01/22 patient was seen by nurse practitioner and physician during rounding in room 329. Nurse practitioner was able to talk to Dr. Vidal neurosurgeon regarding further recommendations and plan. As per surgeon CT spine lumbar, thoracic and cervical with the contrast to be ordered. EARRINGS FABRICATOR placed the orders. Most recent WBC is 6.3. Patient continues to be on vancomycin and cefepime as per ID recommendations. As per wound care to surgical wound to thoracic spine cleanse with normal saline, pat dry, apply Dakins wet to dry cover with 4 x 4 gauze, abdominal pad, secure with tape change b.i.d. and PRN. Wound care to sacrum apply Venelex b.i.d. and PRN. Apply waffle mattress. Keep wounds clean and dry. Offloading/reposition q.2 hours. We will continue to monitor patient in the meantime. A.m. labs 01/23 patient was seen by nurse practitioner and physician during rounding in [place] [id number]. Patient was evaluated by neurosurgeon and today patient was taken for lumbar cleaning and debridement by . Klebsiella pneumoniae and Pseudomonas aeruginosa. Final urine culture negative. Blood culture 48 hours negative. As per ID continue vancomycin and cefepime. We will continue to monitor patient in the meantime. A.m. labs. REVIEW OF SYSTEMS CONSTITUTIONAL: Denies fevers, chills, or night sweats. No unintentional weight loss reported. NEUROLOGICAL: Denies headache, amaurosis fugax, motor weakness, sensory deficit, vertigo/spinning sensation, gait abnormalities, or tremors. ENT: No hearing loss, otalgia, otorrhea, rhinitis, rhinorrhea, hoarseness, or sore throat. CARDIOVASCULAR: Denies any exertional angina, dyspnea on exertion, orthopnea, paroxysmal nocturnal dyspnea, palpitations, life-threatening arrhythmias, claudication. PULMONARY: Denies any shortness of breath, cough, phlegm/sputum, hemoptysis, pleuritic chest pain. SLEEP: Denies morning headaches, daytime somnolence or napping. Denies difficulty falling asleep, staying asleep, waking from sleep. Denies knowledge of snoring. GASTROINTESTINAL: Denies any type of dysphagia to either liquids or solids. Denies nausea, vomiting, pyrosis, early satiety, abdominal pain, diarrhea, constipation, or changes in stool consistency or caliber. Denies coffee-ground emesis, hematemesis, hematochezia, or melanotic stools. GENITOURINARY: Denies frequency, urgency, nocturia, hematuria or incontinence (Storage/Irritative symptoms.) Low urinary stream, straining to void, urinary intermittency or hesitancy, splitting of the voiding stream, terminal dribbling. ENDOCRINOLOGIC: Denies polyuria, polydipsia, polyphagia or heat/cold intolerances. HEMATOLOGIC: Denies thrombophilia/previous clots, or coagulopathy/bleeding disorders. ONCOLOGIC: Denies personal history of malignancy. DERMATOLOGIC: Denies rashes or pruritus. S/p laminectomy open wound PSYCHIATRIC: Denies any suicidal or homicidal ideation. Denies hallucinations. PHYSICAL EXAM GENERAL APPEARANCE: The patient is awake, alert, and oriented, in no acute cardiopulmonary distress. NEUROLOGICAL: Cranial nerves II-XII grossly intact. Motor is 5/5 in bilateral upper and lower extremities proximal to distal. No sensory deficits. S/p laminectomy HEENT: Face is symmetric. Pupils are equal and reactive. Extraocular movements are intact. NECK: Supple. No JVD. No thyromegaly. No submental, submandibular, pre- /postauricular, occipital or supraclavicular lymphadenopathy. CHEST: Normal chest expansion. No Telemetry. LUNGS: Absence of any rales, rhonchi or any wheezing. CARDIOVASCULAR: Regular. S1 and S2 normal. No appreciable rubs, murmurs or gallops. ABDOMEN: Soft, nontender, and nondistended. There is no rebound, voluntary guarding, or rigidity. : Deferred. No Mcgraw. EXTREMITIES: Non-edematous and not cyanotic. No clubbing. Good capillary refill. SKIN: No skin breakdown. Vital Signs (last 8hr) Date Time Temp Pulse Resp B/P (MAP) Pulse Ox O2 Delivery O2 Flow Rate FiO2 01/23/25 11:20 97.2 90 17 147/67 97 Nasal Cannula 2.0 01/23/25 11:15 92 18 155/62 98 Nasal Cannula 2.0 01/23/25 11:10 92 18 145/66 98 Nasal Cannula 2.0 01/23/25 11:05 95 20 133/70 98 Nasal Cannula 2.0 01/23/25 11:00 96 21 127/52 100 Nasal Cannula 2.0 01/23/25 10:55 95 20 130/59 97 Nasal Cannula 2.0 01/23/25 10:50 94 21 123/53 98 Nasal Cannula 2.0 01/23/25 10:45 90 20 98/63 100 Nasal Cannula 2.0 01/23/25 10:40 91 20 103/56 100 Nasal Cannula 2.0 01/23/25 10:35 90 21 113/54 100 Nonrebreathing Mask 10.0 01/23/25 10:30 90 20 112/54 100 Nonrebreathing Mask 10.0 01/23/25 10:25 92 21 116/67 100 Nonrebreathing Mask 10.0 01/23/25 10:20 97.2 90 20 112/60 100 Nonrebreathing Mask 10.0 01/23/25 08:46 99.1 80 18 132/65 99 Room Air 01/23/25 07:02 73 20 01/23/25 07:01 73 20 N/Cannula Low lpm 2.0 28 01/23/25 07:00 99.1 80 18 132/68 99 Nasal Cannula 2.0 21 01/23/25 04:00 98.2 98 106/52 99 Nasal Cannula 2.0 LABS: Laboratory: Test 01/23/25 06:42 01/23/25 05:07 01/23/25 01:01 01/22/25 15:39 Range/Units Potassium Level 3.4 L 3.5-5.1 mmol/L Whole Blood Glucose 88 70-110 MG/DL White Blood Count 9.0 # 4.8-10.8 K/uL Red Blood Count 3.17 L 4.50-6.20 MIL/uL Hemoglobin 9.8 L 14.0-18.0 g/dL Hematocrit 30.0 L 42-54 % Mean Corpuscular Volume 94.6 79-99 fL Mean Corpuscular Hemoglobin 30.9 27.0-33.0 pg Mean Corpuscular Hemoglobin Concent 32.7 32.0-36.0 g/dL Red Cell Distribution Width 14.4 11.0-15.5 % Platelet Count 250 130-400 K/uL Mean Platelet Volume 9.1 7.5-10.5 fL Immature Granulocyte % (Auto) 0.7 0-1 % Neutrophils (%) (Auto) 92.9 H 40.0-77.0 % Lymphocytes (%) (Auto) 2.3 L 21.0-51.0 % Monocytes (%) (Auto) 3.8 3.0-13.0 % Eosinophils (%) (Auto) 0.2 0.0-8.0 % Basophils (%) (Auto) 0.1 0.0-5.0 % Neutrophils # (Auto) 8.3 H 1.8-7.7 K/uL Lymphocytes # (Auto) 0.2 L 1.0-4.8 K/uL Monocytes # (Auto) 0.3 0.1-1.0 K/uL Eosinophils # (Auto) 0.02 0.00-0.70 K/uL Basophils # (Auto) 0.01 0.00-0.20 K/uL Absolute Immature Granulocyte (auto 0.06 0-1 K/uL Nucleated Red Blood Cells 0.0 0.0-0.19 % Sodium Level 141 136-145 mmol/L Chloride Level 102 101-111 mmol/L Carbon Dioxide Level 23 21-32 mmol/L Blood Urea Nitrogen 10 7-18 mg/dL Creatinine 0.7 0.5-1.3 mg/dL Glomerular Filtration Rate Calc 94 >90 mL/min Random Glucose 107 H 70-105 mg/dL Total Calcium 8.8 8.5-10.1 mg/dL Magnesium Level 1.70 L 1.80-2.40 mg/dL Total Bilirubin 0.7 0.2-1.0 mg/dL Aspartate Amino Transf (AST/SGOT) 20 10-37 U/L Alanine Aminotransferase (ALT/SGPT) 19 12-78 U/L Alkaline Phosphatase 142 H 50-136 U/L Total Protein 5.9 L 6.0-8.3 g/dL Albumin 1.6 L 3.5-5.0 g/dL Vancomycin Level Trough 23.7 H 10.0-20.0 UG/ML Bedside Glucose Comment Notified Nurse Current Medications Medications (Trade) Dose Ordered Sig/Steve Route PRN Reason Start Time Stop Time Status Last Admin Dose Admin Acetaminophen (TYLenol 325MG TAB) 650 mg Q4H PRN PO MILD PAIN (1-3) 01/20/25 16:00 02/19/25 15:59 Acetaminophen (TYLenol 325MG TAB) 650 mg Q6H PRN PO MILD PAIN (1-3) 01/20/25 16:00 01/23/25 07:25 DC Acetaminophen (TYLenol 325MG TAB) 650 mg Q6H PRN PO TEMPERATURE GREATER THAN 101.5 01/20/25 16:00 02/19/25 15:59 Al Hydroxide/Mg Hydroxide (MAALox PLUS 30ML) 30 ml Q6H PRN PO INDIGESTION 01/20/25 16:00 02/19/25 15:59 Albuterol Sulfate (Proventil 0.083% 2.5mg/3ml) 2.5 mg [id number] IH 01/20/25 18:00 02/19/25 17:59 01/23/25 07:01 2.5 MG Aspirin (Aspirin 81mg Chew Tab) 81 mg DAILY PO 01/22/25 09:00 02/21/25 08:59 01/22/25 11:16 81 MG Atorvastatin Calcium (LIPItor 40MG) 80 mg DAILY PO 01/22/25 09:00 02/21/25 08:59 01/22/25 11:14 80 MG Cefepime HCl (MAXipime 1 GM vial) 1 gm Q8H IVPB 01/21/25 13:00 01/31/25 12:59 01/23/25 05:43 1 GM Clindamycin HCl/ Dextrose 50 ml @ 100 mls/hr ONCE STAT IV 01/20/25 14:30 01/20/25 14:59 DC 01/20/25 15:04 100 MLS/HR Clindamycin HCl/ Dextrose 50 ml @ 100 mls/hr Q8H IV 01/20/25 23:00 01/21/25 12:57 DC 01/21/25 08:07 100 MLS/HR Dextrose (D50w) 50 ml AD PRN IV HYPOGLYCEMIA PROTOCOL 01/20/25 16:00 02/19/25 15:59 Diphenhydramine HCl (BENAdryl INJ) 25 mg Q6H PRN IV SEVERE ITCHING/RASH 01/20/25 16:00 02/19/25 15:59 Famotidine (Pepcid 20mg Vial) 20 mg BID PRN IV NAUSEA/VOMITING 01/20/25 16:00 01/20/25 16:18 DC Finasteride (PROscar 5 MG TAB) 5 mg DAILY PO 01/22/25 09:00 02/21/25 08:59 01/22/25 11:15 5 MG Fluticasone Propionate (FLOnase 50 mcg/ spray 16g bottle) 1 SPRAY BID EN 01/21/25 21:00 02/20/25 20:59 01/22/25 11:33 1 SPRAYS Gabapentin (NEURontin 300 MG CAP) 300 mg TID PO 01/21/25 21:00 02/20/25 20:59 01/22/25 21:03 300 MG Glucagon (Glucagon 1mg Kit) 1 mg AD PRN IM HYPOGLYCEMIA PROTOCOL 01/20/25 16:00 02/19/25 15:59 Guaifenesin/ Dextromethorphan (RobiTUSSin DM 200/20MG 10ML) 10 ml Q4H PRN PO COUGH 01/20/25 16:00 02/19/25 15:59 HCTZ/Losartan Potassium (Hyzaar 50-12.5 Tablet) 1 tab DAILY PO 01/22/25 09:00 02/21/25 08:59 01/22/25 11:15 1 TAB Heparin Sodium (Porcine) (HEParin 5,000 UNIT VIAL) 5,000 unit BID SQ 01/20/25 21:00 02/19/25 20:59 01/22/25 21:04 5,000 UNIT Home Med (Home Medication) BID PO 01/21/25 21:00 02/20/25 20:59 Home Med (Home Medication) DAILY PO 01/22/25 09:00 02/21/25 08:59 Home Med (Home Medication) QID OP 01/21/25 17:00 02/20/25 16:59 Hydralazine HCl (APRESOLine 20MG INJ) 10 mg Q6H PRN IV For:SBP above 160;DBP above 90 01/20/25 16:00 02/19/25 15:59 Ibuprofen (moTRIN) 800 mg Q8H PRN PO MODERATE PAIN (4-6) 01/20/25 16:00 02/19/25 15:59 Insulin Human Regular (humuLIN R 100 UNIT/ML 3ML) INSULIN SLIDING SCAL... ACHS SQ 01/20/25 16:30 02/19/25 16:29 Ipratropium [place] (AtrovENT UD) 0.5 mg [id number] IH 01/20/25 18:00 01/21/25 10:32 DC 01/21/25 06:07 0.5 MG Ipratropium [place] (AtrovENT UD) 0.5 mg [id number] IH 01/21/25 12:00 02/19/25 17:59 01/23/25 07:02 0.5 MG Ketorolac Tromethamine (toRADol) 15 mg Q8H PRN IV MODERATE PAIN (4-6) IF NPO 01/20/25 16:00 01/23/25 07:25 DC Lactulose (Constulose 20gm/ 30ml Udcup) 20 gm BID PRN PO CONSTIPATION 01/20/25 16:00 02/19/25 15:59 Magnesium Sulfate 50 ml @ 0 mls/hr PROTOCOL PRN IV other 01/20/25 16:00 02/19/25 15:59 01/23/25 01:49 25 MLS/HR Morphine Sulfate (morPHINE 4MG SYG) 1 mg Q4H PRN IVP SEVERE PAIN (7-10) 01/20/25 16:00 01/27/25 15:59 01/23/25 04:34 1 MG Nitroglycerin (Nitrostat) 0.4 mg PROTOCOL PRN SL CHEST PAIN 01/20/25 16:00 02/19/25 15:59 Ondansetron HCl (zoFRAN 4MG INJ) 4 mg Q6H PRN IV NAUSEA/VOMITING 01/20/25 16:00 02/19/25 15:59 Pantoprazole Sodium (PROTonix 40MG TAB) 40 mg DAILY PO 01/22/25 09:00 02/21/25 08:59 01/22/25 11:16 40 MG Potassium Chloride 100 ml @ 100 mls/hr AD PRN IV POTASSIUM PROTOCOL 01/20/25 16:00 02/19/25 15:59 01/23/25 03:01 100 MLS/HR Potassium Chloride (K-Dur/Klor-Con 20meq) 20 meq AD PRN PO POTASSIUM PROTOCOL 01/20/25 16:00 02/19/25 15:59 01/22/25 21:07 20 MEQ Potassium Chloride (KCl 10% Elixir 20meq/15ml) 20 meq AD PRN PO POTASSIUM PROTOCOL 01/20/25 16:00 02/19/25 15:59 Sodium Hypochlorite (Dakin'S 0.25% Half Strength) thoracic spine wo... BID TP 01/21/25 21:00 02/20/25 20:59 01/22/25 21:05 1 APPL Sodium Chloride 1,000 ml @ 100 mls/hr Q10H IV 01/20/25 16:00 02/19/25 15:59 01/23/25 03:40 100 MLS/HR Tamsulosin HCl (FloMAX) 0.4 mg DAILY PO 01/22/25 09:00 02/21/25 08:59 01/22/25 11:15 0.4 MG Vancomycin HCl 250 ml @ 125 mls/hr Q12H IV 01/22/25 02:00 01/23/25 02:05 DC 01/22/25 16:48 125 MLS/HR Vancomycin HCl (Vancomycin 750mg) 750 mg Q12H IVPB 01/23/25 04:00 02/02/25 03:59 01/23/25 03:31 750 MG Vancomycin HCl (Vancomycin Protocol) 1 each AD IV 01/21/25 13:00 02/04/25 12:59 Wound Care/ Dressing Products (Venelex Ointment) Sacral wound APPL... BID TP 01/21/25 21:00 02/20/25 20:59 01/22/25 21:04 1 GM Zolpidem Tartrate (AmbIEN) 5 mg HS PRN PO INSOMNIA 01/20/25 16:00 02/19/25 15:59 DIAGNOSTICS / RADIOLOGY: [ ] ASSESSMENT: [Acute hypoxic respiratory failure POA Infected wound laminectomy 12/30/24 POA Tachycardia POA Multifactorial anemia POA Electrolyte imbalance hyponatremia Na 134 hypokalemia 3.1 POA Acute dehydration POA Hypotension Hyperlipidemia POA History of Stroke POA Uncontrolled diabetes mellitus type 2 with hyperglycemia POA Compression fracture Spinal stenosis s/p laminectomy 01/15 ] PLAN: [ Patient was evaluated by neurosurgeon and today patient was taken for lumbar cleaning and debridement by . Klebsiella pneumoniae and Pseudomonas aeruginosa. Final urine culture negative. Blood culture 48 hours negative. As per ID continue vancomycin and cefepime. We will continue to monitor patient in the meantime. A.m. labs. As per wound care to surgical wound to thoracic spine cleanse with normal saline, pat dry, apply Dakins wet to dry cover with 4 x 4 gauze, abdominal pad, secure with tape change b.i.d. and PRN. Wound care to sacrum apply Venelex b.i.d. and PRN. Apply waffle mattress. Keep wounds clean and dry. Offloading/reposition q.2 hours. Admit to medical-surgical tele Blood culture pending Urine culture pending Urinalysis negative Chest x-ray showed mild left base atelectasis A.m. labs Hyper hypoglycemia Hypokalemia protocol tyroneesemia Patient education heparin prophylaxis five case management for discharge PT for eval] Home medication reconciled by EARRINGS FABRICATOR 01/21/2025 ATTESTATION BY PHYSICIAN I have seen and examined the patient. I reviewed the documentation, medical decision making, and treatment plan as noted by the mid-level provider above. I agree with the findings and plan of care. HEMANT ALMANZAR MD, KATARZYNA [facility] [employer] Jan 23, 2025 12:00
--- NOTE | 2025-01-23 12:00 | NUR ---
PATIENT UNDERWENT BACK SURGERY TODAY. Addendum: 01/23/25 at 1411 by DREW MONIQUE PT Amended: Links added.
--- NOTE | 2025-01-23 12:37 | HMCIMG ---
EXAM: CT Thoracic Spine With IV Contrast CLINICAL HISTORY: Infection . status post laminectomy.. TECHNIQUE: Spiral axial CT images through the thoracic spine were acquired, reconstructed in axial and sagittal projections, and imaged using soft tissue and bone algorithms. Reformatted/MPR images were performed. CT scan is done according to ALARA (As Low as Reasonably Achievable). CONTRAST: Yes COMPARISON: Prior radiograph of thoracic spine dated December 30, 2024 FINDINGS: The cervicothoracic and thoracolumbar junction are intact. Mild osteopenia. Age-indeterminate anterior wedge compression fracture of the T11 and T12 thoracic vertebra. Posterior orthopedic fixation in the lower thoracic and lumbar spine. Rest of the visualized thoracic vertebrae are normal in height. Normal thoracic curvature. The prevertebral and paravertebral soft tissues are within normal limits. [id number] findings are as follows: C7-T1: No disc bulge or herniation. Bilateral facet arthropathy. Moderate to severe narrowing of the bilateral neural foramina. No spinal canal stenosis. T1-T2: No disc bulge or herniation. Bilateral facet arthropathy. Moderate to severe narrowing of the bilateral neural foramina. No spinal canal stenosis. T2-T3: No disc bulge or herniation. Bilateral facet arthropathy. Moderate to severe narrowing of the bilateral neural foramina. No spinal canal stenosis. T3-T4: No disc bulge or herniation. Bilateral facet arthropathy. Moderate to severe narrowing of the bilateral neural foramina. No spinal canal stenosis. T4-T5: No disc bulge or herniation. Bilateral facet arthropathy. Moderate to severe narrowing of the bilateral neural foramina. No spinal canal stenosis. T5-T6: No disc bulge or herniation. Bilateral facet arthropathy. Moderate to severe narrowing of the bilateral neural foramina. No spinal canal stenosis. T6-T7: No disc bulge or herniation. Bilateral facet arthropathy. Moderate to severe narrowing of the bilateral neural foramina. No spinal canal stenosis. T7-T8: No disc bulge or herniation. Bilateral facet arthropathy. Moderate to severe narrowing of the bilateral neural foramina. No spinal canal stenosis. T8-T9: No disc bulge or herniation. Bilateral facet arthropathy. Moderate to severe narrowing of the bilateral neural foramina. No spinal canal stenosis. T9-T10: No disc bulge or herniation. No neural foramina, lateral recess or spinal canal stenosis. Posterior orthopedic fixation. T10-T11: Age-indeterminate anterior wedge compression fracture of the T11 thoracic vertebra with posterior orthopedic fixation. Bilateral hypertrophic facet arthropathy right more than left. Moderate narrowing of the right neural foramina T11-T12: Axial compression fracture of the T12 thoracic vertebra with posterior orthopedic fixation. Small air loci are identified in the T12 thoracic vertebra, and the air loci in the prevertebral soft tissues. Possibility of discitis. No disc bulge or neural foraminal narrowing. No spinal canal stenosis. T12-L1: No disc bulge or herniation. No neural foramina, lateral recess or spinal canal stenosis. Mild bilateral pleural effusion with adjacent lung atelectasis. Left fissural effusion. Scattered coronary artery calcifications. Moderate hiatus hernia. Post cholecystectomy status. IMPRESSION: Axial compression fracture of the T12 thoracic vertebra with posterior orthopedic fixation. Small air loci are identified in the T12 thoracic vertebra and the air locules in the prevertebral soft tissues. Possibility of discitis cannot be excluded. Mild osteopenia. Age-indeterminate anterior wedge compression fracture of the T11 thoracic vertebra. Posterior orthopedic fixation in the lower thoracic and lumbar spine. Multilevel degenerative facet arthropathy at C7-T1, through T8-T9 level, and degenerative changes in the lumbar spine as described. [facility]
--- NOTE | 2025-01-23 12:41 | HMCIMG ---
EXAM: CT Cervical Spine With IV Contrast CLINICAL HISTORY: Infection. Status post laminectomy TECHNIQUE: Thin collimated axial CT images of the cervical spine were obtained with sagittal and coronal reformatted images also submitted. CT scan is done according to ALARA (As Low As Reasonably Achievable). CONTRAST: None. COMPARISON: None provided. FINDINGS: Loss of cervical lordosis. Normal vertebral body height. No evidence of acute fracture or subluxation. 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 Level by level disease is present as follows: C1-C2: No osteoarthritis. C2-C3: No disc bulge or herniation. No neural foraminal, lateral recess or spinal canal stenosis. C3-C4: No significant disc bulge. Bilateral C4 uncinate process hypertrophy and facet arthropathy. Moderate narrowing of the bilateral neural foramina. No spinal canal stenosis. C4-C5: No significant disc bulge. Bilateral C5 uncinate process hypertrophy and facet arthropathy. Moderate narrowing of the bilateral neural foramina. No spinal canal stenosis. C5-C6: No significant disc bulge. Bilateral C6 uncinate process hypertrophy and facet arthropathy. Moderate narrowing of the bilateral neural foramina. No spinal canal stenosis. C6-C7: No significant disc bulge. Bilateral C7 uncinate process hypertrophy and facet arthropathy. Moderate narrowing of the bilateral neural foramina. No spinal canal stenosis. C7-T1: No disc bulge or herniation. No neural foraminal, lateral recess or spinal canal stenosis. Bilateral pleural effusion. Atherosclerotic calcification of the bilateral carotid bulbs and diffuse atherosclerotic calcification and narrowing of the bilateral carotid bulbs with more than 70% narrowing on the left side and 60-70% narrowing on the right side. IMPRESSIONS: 1. No evidence of acute fracture. Normal vertebral body height and marrow signal intensity. Loss of cervical lordosis. 2. 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 Multilevel uncinate process hypertrophy from C4-C7 level and facet arthropathy. Moderate narrowing of the bilateral neural foramina. No spinal canal stenosis. 3.Bilateral pleural effusion. Atherosclerotic calcification of the bilateral carotid bulbs and diffuse atherosclerotic calcification and narrowing of the bilateral carotid bulbs with more than 70% narrowing on the left side and 60-70% narrowing on the right side. /[place]
--- NOTE | 2025-01-23 12:42 | HMCIMG ---
EXAM: CT Lumbar Spine With IV Contrast CLINICAL HISTORY: Infection. Status post laminectomy. TECHNIQUE: Spiral axial CT images through the lumbar spine were acquired, reconstructed in axial and sagittal projections, and imaged using soft tissue and bone algorithms. Reformatted/MPR images were performed. CT scan is done according to ALARA (As Low as Reasonably Achievable). CONTRAST: Yes COMPARISON: None provided. FINDINGS: No acute fracture. Normal lordotic curvature. Normal vertebral body height and relatively preserved intervertebral disc height. Grade 1 anterolisthesis of L4 over L5. Anterior wedge compression fracture of the T11 and T12 thoracic vertebrae. Posterior orthopedic fixation in the lower thoracic and lumbar spine. Air locules in the paravertebral soft tissues at the level of the T1 thoracic vertebra. Air lucencies are identified in the anterosuperior aspect of the T12 thoracic vertebra, and an ill-defined collection and air locules in the prevertebral soft tissues anterior to the T12 thoracic vertebra, concerning for discitis. Bilateral pleural effusion. Partially visualized hiatus hernia. The surrounding soft tissues are unremarkable. Individual spinal levels are described as follows: T12-L1: No disc bulge or herniation. No neural foraminal, lateral recess or spinal canal stenosis. L1-L2: No disc bulge or herniation. No neural foraminal, lateral recess or spinal canal stenosis. L2-L3: No disc bulge or herniation. No neural foraminal, lateral recess or spinal canal stenosis. Mild degenerative bilateral facet arthropathy. L3-L4: No disc bulge or herniation. No neural foraminal, lateral recess or spinal canal stenosis. Mild degenerative bilateral facet arthropathy. L4-L5: Grade 1 anterolisthesis of L4 over L5. Broad-based circumferential 4 mm disc bulge with severe bilateral facet arthropathy. Moderate to severe narrowing of the bilateral neural foramina and abutment of the bilateral exiting L4 nerve root. Moderate to severe spinal canal stenosis. L5-S1: No disc bulge or herniation. No neural foraminal, lateral recess or spinal canal stenosis. Mild degenerative bilateral facet arthropathy. Normal-sized prostate with foci of parenchymal calcification within. Fecal impaction in the distal sigmoid colon and rectum. Atherosclerotic vascular disease of the abdominal aorta and its branches without significant narrowing. IMPRESSIONS: Anterior wedge compression fracture of the T11 and T12 thoracic vertebrae. Posterior orthopedic fixation in the lower thoracic and lumbar spine. Air locules in the paravertebral soft tissues at the level of the T1 thoracic vertebra. Air lucencies are identified in the anterosuperior aspect of the T12 thoracic vertebra, and an ill-defined collection and air locules in the prevertebral soft tissues anterior to the T12 thoracic vertebra, concerning for discitis. Grade 1 anterolisthesis of L4 over L5 with severe facet arthropathy and disc bulge. Moderate to severe narrowing of the bilateral neural foramina and moderate to severe spinal canal stenosis. No other significant disc bulges in the lumbar spine. Multilevel degenerative facet arthropathy. Bilateral pleural effusion. Partially visualized hiatus hernia. /[place]
--- NOTE | 2025-01-23 13:50 | NUR ---
[facility] Follow-up Patient re-assessed by wound healing team. S/p debridement to lumbar area today with wound vac in place, patent. next due vac change, 01-26-25. Addendum: 01/23/25 at 1617 by ROMELIA WOLFF RN RN/ELI Amended: Links added.
--- NOTE | 2025-01-23 15:46 | NUR ---
Discharge Update: Patient was offered SNF placement but he refused. States he wants to go home upon discharge. CM will re-assess and speak to patient after his procedure with Dr. Vidal.
--- NOTE | 2025-01-23 16:07 | PN ---
PROGRESS NOTE Date of Service: Jan 23, 2025 Time of Service: 16:05 SUBJECTIVE: Patient is evaluated at bedside in room 329. Patient's at bedside during evaluation. Patient is s/p I&D of wound dehiscence with wound infection to thoracolumbar spine by Dr. Vidal today. Patient is awake, alert, and oriented. Patient denies any complaints at this time. No signs of distress noted. Wound vac @ 125mmHG to thoracolumbar spine wound. REVIEW OF SYSTEMS CONSTITUTIONAL: Denies fever, chills, or fatigue. HEAD/FACE: No signs of trauma. EENT: Denies eye pain, blurred vision, double vision, or light sensitivity. RESPIRATORY: Denies shortness of breath, cough, wheezing CARDIOVASCULAR: Denies chest pain, palpitation, syncope GASTROINTESTINAL/ABDOMINAL: Denies abdominal pain, constipation, diarrhea, nausea or vomiting GENITOURINARY: Denies dysuria or hematuria. MUSCULOSKELETAL: Denies joint pain, tenderness, or trauma. INTEGUMENTARY: Open Surgical wound to thoracic lumbar spine NEUROLOGICAL/PSYCH: Denies anxiety, depression, heat or cold intolerance. PHYSICAL EXAM EYES: Anicteric. Pupils equal and reactive. HENT: No oral thrush seen, moist Oral mucosa NECK: Supple, no JVD or thyromegaly. LUNGS: Good air entry. No rales, no rhonchi. CARDIOVASCULAR: S1, S2 regular. No murmur heard. ABDOMEN: Soft, non tender, bowel sounds present, no organomegaly CENTRAL NERVOUS SYSTEM: Awake, alert, oriented x 3. No focal deficits. SKIN: discoloration noted to sacrum LYMPHATICS: No peripheral lymphadenopathy MUSCULOSKELETAL: No joint swelling, erythema or tenderness. EXTREMITIES: No cyanosis or clubbing BACK: Wound vac @ 125mmHG to thoracolumbar spine wound GENITOURINARY: No dysuria or hematuria Vital Signs (last 8hr) Date Time Temp Pulse Resp B/P (MAP) Pulse Ox O2 Delivery O2 Flow Rate FiO2 01/23/25 11:49 98.2 92 18 147/75 98 N/C High Flow System 2.0 01/23/25 11:34 93 20 01/23/25 11:32 93 20 N/Cannula Low lpm 2.0 28 01/23/25 11:20 97.2 90 17 147/67 97 Nasal Cannula 2.0 01/23/25 11:15 92 18 155/62 98 Nasal Cannula 2.0 01/23/25 11:10 92 18 145/66 98 Nasal Cannula 2.0 01/23/25 11:05 95 20 133/70 98 Nasal Cannula 2.0 01/23/25 11:00 96 21 127/52 100 Nasal Cannula 2.0 01/23/25 10:55 95 20 130/59 97 Nasal Cannula 2.0 01/23/25 10:50 94 21 123/53 98 Nasal Cannula 2.0 01/23/25 10:45 90 20 98/63 100 Nasal Cannula 2.0 01/23/25 10:40 91 20 103/56 100 Nasal Cannula 2.0 01/23/25 10:35 90 21 113/54 100 Nonrebreathing Mask 10.0 01/23/25 10:30 90 20 112/54 100 Nonrebreathing Mask 10.0 01/23/25 10:25 92 21 116/67 100 Nonrebreathing Mask 10.0 01/23/25 10:20 97.2 90 20 112/60 100 Nonrebreathing Mask 10.0 01/23/25 08:46 99.1 80 18 132/65 99 Room Air LABS: Laboratory: Test 01/23/25 11:59 01/23/25 06:42 01/23/25 01:01 01/22/25 15:39 Range/Units Whole Blood Glucose 82 70-110 MG/DL Potassium Level 3.4 L 3.5-5.1 mmol/L White Blood Count 9.0 # 4.8-10.8 K/uL Red Blood Count 3.17 L 4.50-6.20 MIL/uL Hemoglobin 9.8 L 14.0-18.0 g/dL Hematocrit 30.0 L 42-54 % Mean Corpuscular Volume 94.6 79-99 fL Mean Corpuscular Hemoglobin 30.9 27.0-33.0 pg Mean Corpuscular Hemoglobin Concent 32.7 32.0-36.0 g/dL Red Cell Distribution Width 14.4 11.0-15.5 % Platelet Count 250 130-400 K/uL Mean Platelet Volume 9.1 7.5-10.5 fL Immature Granulocyte % (Auto) 0.7 0-1 % Neutrophils (%) (Auto) 92.9 H 40.0-77.0 % Lymphocytes (%) (Auto) 2.3 L 21.0-51.0 % Monocytes (%) (Auto) 3.8 3.0-13.0 % Eosinophils (%) (Auto) 0.2 0.0-8.0 % Basophils (%) (Auto) 0.1 0.0-5.0 % Neutrophils # (Auto) 8.3 H 1.8-7.7 K/uL Lymphocytes # (Auto) 0.2 L 1.0-4.8 K/uL Monocytes # (Auto) 0.3 0.1-1.0 K/uL Eosinophils # (Auto) 0.02 0.00-0.70 K/uL Basophils # (Auto) 0.01 0.00-0.20 K/uL Absolute Immature Granulocyte (auto 0.06 0-1 K/uL Nucleated Red Blood Cells 0.0 0.0-0.19 % Sodium Level 141 136-145 mmol/L Chloride Level 102 101-111 mmol/L Carbon Dioxide Level 23 21-32 mmol/L Blood Urea Nitrogen 10 7-18 mg/dL Creatinine 0.7 0.5-1.3 mg/dL Glomerular Filtration Rate Calc 94 >90 mL/min Random Glucose 107 H 70-105 mg/dL Total Calcium 8.8 8.5-10.1 mg/dL Magnesium Level 1.70 L 1.80-2.40 mg/dL Total Bilirubin 0.7 0.2-1.0 mg/dL Aspartate Amino Transf (AST/SGOT) 20 10-37 U/L Alanine Aminotransferase (ALT/SGPT) 19 12-78 U/L Alkaline Phosphatase 142 H 50-136 U/L Total Protein 5.9 L 6.0-8.3 g/dL Albumin 1.6 L 3.5-5.0 g/dL Vancomycin Level Trough 23.7 H 10.0-20.0 UG/ML Bedside Glucose Comment Notified Nurse PROBLEM LIST : Medical Problems: Deep disruption of surgical wound Unspecified open wound of lower back Deep tissue injury to sacrum PLAN: Wound care to surgical wound to thoracic lumbar spine- Cleanse with normal saline, pat dry, apply adaptic/Vaseline gauze to bone/tendon, fill with black foam, cover with drape connect to wound vac at 125mmhg/ continuous. Change 3 x week. Q -W-F, Wound care team to do initial wound vac dressing change. Wound care to sacrum- Apply Venelex BID and PRN Apply waffle mattress Keep wounds clean and dry Offloading/reposition q 2 hours Continue IV antibiotics per ID Comorbidities per primary care team Further Management per hospital course. Thank You for the consult and allowing us to participate in the care of this patient. ATTESTATION BY PHYSICIAN I have seen and examined the patient. I reviewed the documentation, medical decision making, and treatment plan as noted by the mid-level provider above. I agree with the findings and plan of care. VANCE ISRAEL MD, MICHELLE A NP Jan 23, 2025 16:07 VANCE ISRAEL MD Jan 30, 2025 12:37
--- NOTE | 2025-01-23 18:30 | NUR ---
SPINAL INCISION NOTED LARGE COAGULATION TO OPEN SURGICAL SPINE INCISION. DR. VALENTINO MADE AWARE. ORDERED TO CHANGE WOUND VAC DRESSING. IF IT CONTINUE TO COAGULATE TO DISCONTINUE WOUND VAC AND DO WET- DRY TID, DECREASED RATE TO 100MM/HG. AWARE OF 300ML OUTPUT. ORDERS TO CONTINUE WOUND VAC AT THIS TIME. WOUND DRESSING CHANGED. PT TOLERATED WELL. FAMILY AT BEDSIDE.
--- NOTE | 2025-01-23 21:26 | NUR ---
WOUND VAC DR. VALENTINO CALLED TO INFORM HGB: 7.5. OUTPUT: 200ML. ORDERED TO NOT APPLY PRESSURE TO WOUND, LEAVE WOUND VAC, IF OOZING TO TURN OFF WOUND VAC. NO FURTHER ORDERS GIVEN AT THIS TIME.
--- NOTE | 2025-01-23 21:36 | PN ---
INFECTIOUS DISEASE PROGRESS NOTE Date of Service: Jan 23, 2025 SUBJECTIVE: This is a 79-year-old male patient who is status post incision and drainage with wound VAC placement of the thoracolumbar incision today. The CT of the spine completed prior to surgery showed anterior wedge compression fracture of the T11 and T12 thoracic vertebrae also concern for discitis on the T12 thoracic vertebra. The preliminary cultures obtain prior to debridement is growing E coli, Klebsiella aerogenes and Pseudomonas aeruginosa. Patient has no fever, temperature is 98.2. Patient continues on vancomycin and cefepime. We will continue to follow patient's care. PHYSICAL EXAM EYES: Anicteric. Pupils equal and reactive. HENT: No oral thrush seen, moist Oral mucosa. NECK: Supple, no JVD or thyromegaly. LUNGS: Good air entry. No rales, no rhonchi. CARDIOVASCULAR: S1, S2 regular. No murmur heard. ABDOMEN: Soft, non tender, bowel sounds present, no organomegaly. CENTRAL NERVOUS SYSTEM: Awake, alert, oriented x 3. SKIN: No rashes, no swelling. LYMPHATICS: No peripheral lymphadenopathy. MUSCULOSKELETAL: No joint swelling, erythema or tenderness. EXTREMITIES: No cyanosis or clubbing BACK: Surgical wound. GENITOURINARY: No dysuria or hematuria. Vital Sign (Last 12 Hours) 01/23/25 01/23/25 01/23/25 01/23/25 10:20 10:25 10:30 10:35 Temp 97.2 Pulse 90 92 90 90 Resp 20 21 20 21 B/P (MAP) 112/60 116/67 112/54 113/54 Pulse Ox 100 100 100 100 O2 Delivery Nonrebreathing Mask Nonrebreathing Mask Nonrebreathing Mask Nonrebreathing Mask O2 Flow Rate 10.0 10.0 10.0 10.0 01/23/25 01/23/25 01/23/25 01/23/25 10:40 10:45 10:50 10:55 Pulse 91 90 94 95 Resp 20 20 21 20 B/P (MAP) 103/56 98/63 123/53 130/59 Pulse Ox 100 100 98 97 O2 Delivery Nasal Cannula Nasal Cannula Nasal Cannula Nasal Cannula O2 Flow Rate 2.0 2.0 2.0 2.0 01/23/25 01/23/25 01/23/25 01/23/25 11:00 11:05 11:10 11:15 Pulse 96 95 92 92 Resp 21 20 18 18 B/P (MAP) 127/52 133/70 145/66 155/62 Pulse Ox 100 98 98 98 O2 Delivery Nasal Cannula Nasal Cannula Nasal Cannula Nasal Cannula O2 Flow Rate 2.0 2.0 2.0 2.0 01/23/25 01/23/25 01/23/25 01/23/25 11:20 11:30 11:30 11:32 Temp 97.2 98.2 Pulse 90 92 93 Resp 17 18 20 B/P (MAP) 147/67 147/75 Pulse Ox 97 98 O2 Delivery Nasal Cannula Nasal Cannula* Nasal Cannula N/Cannula Low lpm O2 Flow Rate 2.0 3 3.0 2.0 FiO2 32 28 01/23/25 01/23/25 01/23/25 01/23/25 11:34 11:49 12:30 13:30 Temp 98.2 97.5 Pulse 93 92 111 102 Resp 20 18 17 20 B/P (MAP) 147/75 115/48 134/62 Pulse Ox 98 99 99 O2 Delivery N/C High Flow System Nasal Cannula Nasal Cannula O2 Flow Rate 2.0 3.0 01/23/25 01/23/25 01/23/25 01/23/25 14:30 15:30 16:09 16:30 Temp 98.2 Pulse 93 91 83 81 Resp 18 17 18 20 B/P (MAP) 137/62 122/71 138/74 133/70 Pulse Ox 100 100 100 100 O2 Delivery Nasal Cannula Nasal Cannula Nasal Cannula Nasal Cannula O2 Flow Rate 3.0 3.0 3.0 3.0 01/23/25 20:44 Temp 97.9 Pulse 97 Resp 18 B/P (MAP) 70/45 Pulse Ox 93 O2 Delivery Nasal Cannula Intake & Output (last 24hrs) 01/22/25 01/22/25 01/23/25 15:00 23:00 07:00 Intake Total 1720.0 ml 450.0 ml Balance 1720.0 ml 450.0 ml LABS: Laboratory: Test 01/23/25 20:00 01/23/25 19:20 01/23/25 06:42 01/23/25 01:01 Range/Units Hemoglobin 7.5 #L 14.0-18.0 g/dL Hematocrit 24.2 L 42-54 % Whole Blood Glucose 185 #H 70-110 MG/DL Potassium Level 3.4 L 3.5-5.1 mmol/L White Blood Count 9.0 # 4.8-10.8 K/uL Red Blood Count 3.17 L 4.50-6.20 MIL/uL Mean Corpuscular Volume 94.6 79-99 fL Mean Corpuscular Hemoglobin 30.9 27.0-33.0 pg Mean Corpuscular Hemoglobin Concent 32.7 32.0-36.0 g/dL Red Cell Distribution Width 14.4 11.0-15.5 % Platelet Count 250 130-400 K/uL Mean Platelet Volume 9.1 7.5-10.5 fL Immature Granulocyte % (Auto) 0.7 0-1 % Neutrophils (%) (Auto) 92.9 H 40.0-77.0 % Lymphocytes (%) (Auto) 2.3 L 21.0-51.0 % Monocytes (%) (Auto) 3.8 3.0-13.0 % Eosinophils (%) (Auto) 0.2 0.0-8.0 % Basophils (%) (Auto) 0.1 0.0-5.0 % Neutrophils # (Auto) 8.3 H 1.8-7.7 K/uL Lymphocytes # (Auto) 0.2 L 1.0-4.8 K/uL Monocytes # (Auto) 0.3 0.1-1.0 K/uL Eosinophils # (Auto) 0.02 0.00-0.70 K/uL Basophils # (Auto) 0.01 0.00-0.20 K/uL Absolute Immature Granulocyte (auto 0.06 0-1 K/uL Nucleated Red Blood Cells 0.0 0.0-0.19 % Sodium Level 141 136-145 mmol/L Chloride Level 102 101-111 mmol/L Carbon Dioxide Level 23 21-32 mmol/L Blood Urea Nitrogen 10 7-18 mg/dL Creatinine 0.7 0.5-1.3 mg/dL Glomerular Filtration Rate Calc 94 >90 mL/min Random Glucose 107 H 70-105 mg/dL Total Calcium 8.8 8.5-10.1 mg/dL Magnesium Level 1.70 L 1.80-2.40 mg/dL Total Bilirubin 0.7 0.2-1.0 mg/dL Aspartate Amino Transf (AST/SGOT) 20 10-37 U/L Alanine Aminotransferase (ALT/SGPT) 19 12-78 U/L Alkaline Phosphatase 142 H 50-136 U/L Total Protein 5.9 L 6.0-8.3 g/dL Albumin 1.6 L 3.5-5.0 g/dL Vancomycin Level Trough 23.7 H 10.0-20.0 UG/ML Test 01/22/25 15:39 Range/Units Bedside Glucose Comment Notified Nurse DIAGNOSTICS / RADIOLOGY: PATIENT: KAYLA BELLE ACCT: [id number] LOC: [facility] U: [id number] AGE/SX: 79/M ROOM: [facility] RE01/20/[address]: HEMANT ALMANZAR MD : 1945 BED: 1 DIS: STATUS: ADM IN TLOC: SPEC: [id number] MARILEE: 01/20/25-1604 STATUS: RES REQ: [id number] RECD: 01/20/25-[address]: ERASMO VICKERS NP SOURCE: OTHER SOUR ENTR: 01/20/25-[address] [facility] [address]: MEAGAN TRIANA MD [facility] OTHER BHARAT REICH MD ORDERED: AEROBIC CULTURE COMMENTS: Specimen Comment: THORACIC SURGICAL SITE Procedure Result Jaspreet Date-Time -- AEROBIC CULTURE Preliminary 01/23/25-1109 MRL COLONY DESCRIPTION: REPORT 1: 3+ GRAM NEGATIVE RODS IDENTIFICATION AND SENSITIVITY TO FOLLOW REPORT 2: STUDIES TO CONTINUE ESCHERICHIA COLI KLEBSIELLA AEROGENES PSEUDOMONAS AERUGINOSA E COLI KLEB AERGE M.I.C. RX M.I.C. RX --------- ---- --------- ---- AMPICILLIN >16 R AZTREONAM <=4 S <=4 S CEFAZOLIN >16 R CEFTAZIDIME <=1 S <=1 S CEFTAZIDIME/AVIBACTAM <=8 S <=8 S CEFTRIAXONE >2 R CIPROFLOXACIN >2 R >2 R GENTAMICIN <=2 S <=2 S LEVOFLOXACIN >4 R >4 R AMPICILLIN/SULBACTAM >16/8 R MEROPENEM <=1 S <=1 S PIPERACILLIN/TAZOBACTAM <=8 S <=8 S TRIMETHOPRIM/SUFLAMETHOXAZOLE <=2/38 S <=2/38 S ASSESSMENT: Thoracic lumbar surgical wound infection with dehiscence, s/p incision and drainage with wound VAC placement. Polymicrobial infection. Recent T12-L1 decompressive laminectomy on 01/01/2025. Spinal stenosis Diabetes mellitus. Benign prostatic hyperplasia. Parkinson's disease. PLAN: Continue vancomycin per pharmacy protocol. Continue cefepime IV. Continue GI prophylaxis. Wound care as recommended by neurosurgeon, currently on wound VAC therapy. Continue pain management. This case was reviewed and discussed with my supervising physician Dr. Fitzgerald and the above assessment and plan was formulated and agreed upon. ATTESTATION BY PHYSICIAN I have seen and examined the patient. I reviewed the documentation, medical decision making, and treatment plan as noted by the mid-level provider above. I agree with the findings and plan of care. DIANA FITZGERALD MD, MIRTA L [facility] Jan 23, 2025 21:36
[2025-01-23] MEDS: ALBUMIN (HUMAN) 5% 250 ML IV SCH (21:58)
[2025-01-23 22:03] LABS: PLATELET COUNT (AUTO) 204.0 K/uL (130-400)
[2025-01-23 22:08] LABS: INR 1.23 (0.85-1.15)
[2025-01-23 22:14] LABS: ABG BASE EXCESS -9.7 mmol/L (-2.0-3.0); ABG HCO3 12.7 mmol/L (21.0-28.0); ABG OXYGEN SATURATION 98.1 % (94.0-98.0); ABG PCO2 17 mmHg (35-48); ABG PH 7.481 (7.350-7.450); CARBON MONOXIDE 1.0 % (0.5-1.5); DEVICE COMMENT LEFT RAD; PO2, ARTERIAL BG 125.7 mmHg (83.0-108.0); TEMPERATURE, CELSIUS BG 37.0 CELSIUS (35.5-37.0); VENT MODE, BG 3LNC (ROOM AIR)
[2025-01-23] MEDS ORDERED: 0.9%NACL 1000ML 1,000 ML IV ONE (22:30)
[2025-01-23] MEDS ORDERED: NOREPINEPHRIN 4MG/NS 250ML 250 ML IV SCH (22:30)
--- NOTE | 2025-01-23 22:30 | NUR ---
RAPID RESPONSE 79 Y/O MALE S/P I/D OF LUMBAR WOUND ABSCESS W/ WOUND VAC PLACEMENT THIS AM, REPORTED WITH WOUND VAC PROBLEMS WITH MOD AMT OF BLOODY DRAINAGE ON THE SITE, WV PRESSURE DOWN TO 100 MM[facility] PRESSURE PER LATEST ORDER. DR. VALENTINO WAS CALLED PER REPORT WITH ORDERS FOR CBC IN THE AM. STAT CBC DONE HB DOWN TO 7.5 FR 9.2 PREOP, WAS ADVISED BY MD TO CALL HOSPITALIST FOR BLOOD TRANSFUSION ORDERS.BP NOTED DOWN TO 63/34 MM[facility] FR 70/45 MM[facility] AT THE BEGINNING OF THE SHIFT. Beto WATSON CALLED ABOUT PT'S ONGOING STATUS, LR 500CC IV BOLUS GIVEN WELL 250 CC OF 5% ALBUMIN ADMINISTERED. STARTED ON THE 1ST UNIT OF EMERGENCY BLOOD TRANSFUSION. Beto WATSON CAME TO SEE THE PT ON THE FLOOR, CALLED FOR RAPID RESPONSE AT 2204. CHARGE NURSE REFUGIO AND FOOD DEHYDRATOR OPERATOR LORA ALREADY MADE AWARE OF WHAT'S GOING ON BEFORE THE RAPID RESPONSE WAS CALLED. Beto WATSON TABLE HAND CALLED DR. VALENTINO ABOUT THE NEED FOR PT'S VERY UNSTABLE BLEEDING STATE THAT HE MIGHT NEED TO TAKE THE PT BACK TO OR. LEVOPHED DRIP STARTED AT 2224 AT 0.1 MCG/KG/MIN. HS SUPER ALREADY CALLED THE OR CREW PRIOR, DR. VALENTINO CAME TO THE FLOOR TO SEE THE PT AT 2224. TALKED TO THE PT AND ABOUT THE PLAN OF CARE. CONSENTS SECURED. WHEELED DOWN TO OR AT 2228. PT AWAKE AND AWARE OF THE PLAN OF CARE. PLAN TO BE TAKEN TO ICU POST OP. SECURED ALL THE PERSONAL BELONGINGS FROM THE ROOM.
--- NOTE | 2025-01-23 22:44 | PN ---
Rapid Response Note Event Date: [01/23/35 ] Event Time: [2207 ] Code Status: [ Full code] Events Prior to Rapid Response: [ Patient underwent an Incision and drainage of wound abscess at thoracolumbar spine performed by Dr.Jose Vidal.] Event: [ Primary nurse called me and notified me of low hemoglobin trending down from 9.8/30 to 7.5 24 to 6.8/21and patient is bleeding profusely at the surgical wound and BP was from 133/70 to 70/45 Sat93% 3L/NC. Patient is in hemorrhagic shock ,a rapid response was called NS IV fluid bolus and Albumin were given to patient while waiting for an emergency release of blood .Doctor Marcy was notified and updated with patient current condition.Patient was then transfused with PRBC ,and started on low dose of Levophed for BP support was at bedside and updated with current treatment and plan.Patient is awake,weak and pale looking,verbalized not feeling good.An ABG was done which showed mixed respiratory alkalosis and metabolic acidosis and critical care was also consulted and spoke to WORKS[employer] WELLNESS PRACTITIONER Melany Kingsley. came and is now taking the patient to OR. Patient will be going to ICU post procedure. ] JONATHAN WATSON [facility] Jan 23, 2025 22:44
--- NOTE | 2025-01-23 22:45 | NUR ---
ELEVATED D-DIMER OF 3246 REPORTED BY LAB. NESTOR WATSON BUS DRIVER SUPERVISOR NOTIFIED.
[2025-01-23] MEDS ORDERED: SUCCINYLCHOLINE CHLORIDE 20 MG/ML 10 ML VIAL ONE (23:05)
--- NOTE | 2025-01-23 23:49 | CONS ---
[facility] CONSULTATION NOTE Date Patient Seen: Jan 23, 2025 Time of Visit: 23:49 Supervising Physician: Dr. Migel Gorman Reason for Consultation: [facility] Primary Care Physician: Dr. Yosi Rg Outpatient Specialists: Inpatient Consults: neurosurgeon PROBLEM LIST: s/p Emergency closure of back wound done on 01/23/[address] Vidal Hemorrhagic shock requiring blood transfusion, s/p I&D of wound abscess at thoracolumbar spine performed by Dr. Harish Vidal on 01/24/2024 morning Hypotension, unresponsive to IV fluids and albumin, in need of pressor Severe anemia Wound dehiscence with wound infection of thoracolumbar spine in need of I&D of wound abscess at thoracolumbar spine performed by Dr. Harish Vidal on 01/24/2024 morning Electrolyte derangement (hypokalemia and hypomagnesemia) Protein calorie malnutrition/ hypoalbuminemia Hyperglycemia Elevated alk-phos Deep disruption of surgical wound Unspecified open wound of lower back Deep tissue injury to sacrum HPI: Mr. Shepard is 79 years old male with a past medical history of diabetes, hypertension, compression vertebral fracture, spinal stenosis, Parkinson, BPH, s/p recent laminectomy with Dr. Vidal 12/30/24, who presented to ED from [facility] for evaluation of infected surgical site s/p laminectomy. The patient's realize that the surgical incision was opened and was draining pus. She took the pictures and sent to Dr. Rivera, who recommended that patient comes to ER for admission-recommendations on 12/20/24. The patient was admitted by the [facility] team. On 01/24/2024 [facility] Hospitalist SHERMAN reported that the patient's hemoglobin dropped down from 9.8/30 to 7.5 24 to 6.8/21. The patient was bleeding profusely at the surgical wound. BP was from 133/70 to 70/45 Sat93% 3L/NC. Patient was in hemorrhagic shock, a rapid response was called. NS IV fluid bolus and Albumin were administer while waiting for an emergency release of blood. Doctor Marcy was notified and updated with patient current condition. Patient was then transfused with PRBC , and was started on low dose of Levophed for BP support. The was at bedside. Patient is awake,weak and pale looking,verbalized not feeling good. An ABG was done which showed mixed respiratory alkalosis and metabolic acidosis. arrived and took the patient to OR. I went to assess the patient in 329, but the pt had just left to OR. I saw the patient post surgery. The patient was intubated, sedated, appeared comfortable, in no distress. No family member at bedside. BI team we will continue monitoring patient closely. Plan and assessment are listed below. PAST MEDICAL HX: see above PAST SURGICAL HX: noncontributory SOCIAL HISTORY: No tobacco, ETOH, or illicit drug use Coded Allergies: codeine (Unverified Adverse Reaction, Severe, SEVERE VOMITING, 04/23/23) hydrocodone (Unverified Adverse Reaction, Severe, SEVERE VOMITING, 04/23/23) REVIEW OF SYSTEMS: Unable to assess ROS from patient due to patient's medical condition. PHYSICAL EXAM: GENERAL: Intubated & sedated. HEENT: EOMI, Sclera non icteric, moist mucosa. Endotracheal tube in place. NECK: Supple, no JVD, trachea midline LUNGS: Clear breath sounds bilaterally. No wheezes HEART: Regular rate and rhythm. Normal S1 and S2, without murmurs ABD: Abdomen soft, nontender. Bowel sounds present EXT: No clubbing cyanosis or edema NEURO: Intubated and sedated. Vital Signs (last 8hr) Date Time Temp Pulse Resp B/P (MAP) Pulse Ox O2 Delivery O2 Flow Rate FiO2 01/23/25 22:35 109 137/62 01/23/25 22:30 104 145/66 01/23/25 22:28 92 146/78 01/23/25 22:25 101 85/45 01/23/25 20:44 97.9 97 18 70/45 93 Nasal Cannula 01/23/25 16:30 81 20 133/70 100 Nasal Cannula 3.0 01/23/25 16:09 98.2 83 18 138/74 100 Nasal Cannula 3.0 LABS: Hematology Labs: Test 01/23/25 21:40 01/23/25 01:01 Range/Units Hemoglobin 6.8 *L 14.0-18.0 g/dL Hematocrit 21.9 L 42-54 % Platelet Count 204 130-400 K/uL White Blood Count 9.0 # 4.8-10.8 K/uL Red Blood Count 3.17 L 4.50-6.20 MIL/uL Mean Corpuscular Volume 94.6 79-99 fL Mean Corpuscular Hemoglobin 30.9 27.0-33.0 pg Mean Corpuscular Hemoglobin Concent 32.7 32.0-36.0 g/dL Red Cell Distribution Width 14.4 11.0-15.5 % Mean Platelet Volume 9.1 7.5-10.5 fL Immature Granulocyte % (Auto) 0.7 0-1 % Neutrophils (%) (Auto) 92.9 H 40.0-77.0 % Lymphocytes (%) (Auto) 2.3 L 21.0-51.0 % Monocytes (%) (Auto) 3.8 3.0-13.0 % Eosinophils (%) (Auto) 0.2 0.0-8.0 % Basophils (%) (Auto) 0.1 0.0-5.0 % Neutrophils # (Auto) 8.3 H 1.8-7.7 K/uL Lymphocytes # (Auto) 0.2 L 1.0-4.8 K/uL Monocytes # (Auto) 0.3 0.1-1.0 K/uL Eosinophils # (Auto) 0.02 0.00-0.70 K/uL Basophils # (Auto) 0.01 0.00-0.20 K/uL Absolute Immature Granulocyte (auto 0.06 0-1 K/uL Nucleated Red Blood Cells 0.0 0.0-0.19 % Chemistry Labs: Test 01/23/25 22:08 01/23/25 06:42 01/23/25 01:01 01/22/25 15:39 Range/Units Whole Blood Glucose 215 H 70-110 MG/DL Potassium Level 3.4 L 3.5-5.1 mmol/L Sodium Level 141 136-145 mmol/L Chloride Level 102 101-111 mmol/L Carbon Dioxide Level 23 21-32 mmol/L Blood Urea Nitrogen 10 7-18 mg/dL Creatinine 0.7 0.5-1.3 mg/dL Glomerular Filtration Rate Calc 94 >90 mL/min Random Glucose 107 H 70-105 mg/dL Total Calcium 8.8 8.5-10.1 mg/dL Magnesium Level 1.70 L 1.80-2.40 mg/dL Total Bilirubin 0.7 0.2-1.0 mg/dL Aspartate Amino Transf (AST/SGOT) 20 10-37 U/L Alanine Aminotransferase (ALT/SGPT) 19 12-78 U/L Alkaline Phosphatase 142 H 50-136 U/L Total Protein 5.9 L 6.0-8.3 g/dL Albumin 1.6 L 3.5-5.0 g/dL Bedside Glucose Comment Notified Nurse Coagulation Labs: Test 01/23/25 21:40 Range/Units Prothrombin Time 12.8 H 9.6-11.6 SEC Prothromb Time International Ratio 1.23 H 0.85-1.15 Activated Partial Thromboplast Time 35.8 H 26.3-35.5 SEC Fibrinogen 644 *H 180-350 mg/dL D-Dimer Quantitative (PE/DVT) 3246 *H 0-500 ng/mL DIAGNOSTICS / RADIOLOGY RESULTS: [ ] PLAN -Admit to ICU with continuous cardiac and pulse oximetry monitoring with [employer] status admitting team and BI team as critical care consults. -Propofol and fentanyl to keep RASS- 2. -Keep NPO. -Follow neurosurgeon's recommendations on surgical site care. -Monitor for bleed & H&H Q6 hours -Transfuse 1 unit PRBC prn Hemoglobin less than 7 -NS @ 100 mls/hr. -Antibiotic therapy: Vanco IV and Cefepime. -PRN medications for: Pain management, fever, hypertension, N/V, constipation. -Glucometer checks AC & HS needed with insulin regular sliding scale coverage as needed. -Vital signs per ICU. -Monitor respiratory status. -titrate ventilator to keep oxygen prn to keep Spo2>/+=92%. - Monitor renal and liver function. -Monitor electrolytes and treat accordingly PRN -AM labs. -GI and DVT prophylaxis -Further plan/orders per hospitalization course. NEURO: Minimize central acting medications as possible. Fall Precautions. Well lighted room through the day and minimize interruptions through the night to prevent acute delirium. PULMONARY: Supplemental 02 as needed Titrate Fio2 to keep Spo2 > or = 90% DuoNebs and CPT as needed IS hourly while awake for pulmonary hygiene Out of bed to chair as tolerated VAP Bundle CARDIOVASCULAR: Follow hemodynamics. Titrate vasopressor to keep MAP >65 or systolic blood pressure >95mmHg GI & NUTRITION: Continue nutritional support Aspirations precautions Prokinetic agents and laxatives as needed KIDNEYS & ELECTROLYTES: Strict monitoring of intake and output Daily weights Avoid nephrotoxic agents Monitor electrolytes and replace as needed Goal urine output of 30mL/hr or 0.5mL/kg/hr ENDOCRINE: Maintain blood glucose between 100-180 at all times. Insulin sliding scale for blood glucose management INFECTIOUS DISEASE: Trend temperature. Suresh-culture if febrile. HEMATOLOGY & COAGULATION: Monitor H&H. Keep Hgb > 7 Transfuse 1 unit of PRBC for Hgb < 7 Transfuse 1 pack of platelets of platelets < 20, 000 Watch for any signs and symptoms of bleeding SKIN: Pressure ulcer prevention per facility protocol Rehab: PT/OT Code Status: Full Resuscitation Disposition: [Admit to ICU] Other: Total patient Critical care time exceeds 45 minutes excluding all procedures. ATTESTATION BY PHYSICIAN I reviewed the documentation, medical decision making, and treatment plan as noted by the mid-level provider above. I agree with the findings and plan of care. Migel Gorman MD, [facility] Jan 23, 2025 23:49
[2025-01-24] VITALS (56 sets, daily range): BP systolic 102–179; BP diastolic 40–72; PULSE 72–124; RESP 10–29; TEMP 97.2–98.6; O2SAT 94–100
--- NOTE | 2025-01-24 01:43 | HMCIMG ---
EXAM: CR Chest, 1 view CLINICAL HISTORY: Central line/ETT placement. COMPARISON: Chest radiograph dated 01/20/2025. FINDINGS: The endotracheal tube tip is 2 cm above the jaja. The right sided central venous catheter tip overlies the distal SVC. Small pleural effusion and lower zone airspace disease on the left side. Mild perihilar haziness bilaterally, concerning mild pulmonary edema. Stable cardiac size. No pneumothorax. No acute osseous abnormality. IMPRESSION: The endotracheal tube tip is 2 cm above the jaja. The right sided central venous catheter tip overlies the distal SVC. Stable small pleural effusion and lower zone airspace disease on the left side. Mild perihilar haziness bilaterally, concerning mild pulmonary edema. A new finding. /[place]
[2025-01-24 02:02] LABS: ABG BASE EXCESS -12.7 mmol/L (-2.0-3.0); ABG HCO3 12.9 mmol/L (21.0-28.0); ABG OXYGEN SATURATION 99.0 % (94.0-98.0); ABG PCO2 28 mmHg (35-48); ABG PH 7.275 (7.350-7.450); CARBON MONOXIDE 1.0 % (0.5-1.5); DEVICE COMMENT AC; PO2, ARTERIAL BG 211.2 mmHg (83.0-108.0); TEMPERATURE, CELSIUS BG 37.0 CELSIUS (35.5-37.0); VENT MODE, BG ALINE (ROOM AIR)
--- NOTE | 2025-01-24 03:03 | NUR ---
0000 - report was called fro Luc Nurse at OR - DR. Vidal took pt for an emergency surgery after an ID procedure done on 01/23/25 for an abscess s/p an infected laminectomy few weeks back with a wound vac. Today he was taken to OR for a second emergency ID with Dr. Vidal, wound vac was removed, and cleaned wound with pressure dressing and a quick clot dressing. Dressing clean and dry. No bleeding, no drains, no wound vacs. Keep intubated for the night and stable. Pt arrived at 0030, Right IJ central line and right brachial a-line in place by anesthesiologists [place], intubated 7.0 ETT TUBE 22 at the lip. Vent mode AC - TV 500, RESP 18, FIO2% 60, PEEP 5. ON LEVOPHED 0.1 mcg/kg/min. [facility] ICU SLITTING MACHINE FEEDER at bedside evaluated pt, started propofol for sedation for ventilator. no pain noted CPOT 0. New order for Mcgraw catheter F/C INSERTED 16 FR CLEAR YELLOW URINE. CBC, CMP, and ABG to be done. will cont to monitor. family visited patient at bedside and updated and daughter
[2025-01-24 04:20] LABS: IMMATURE GRANULOCYTE ABSOLUTE 0.08 K/uL (0-1); NUCLEATED RED BLOOD CELLS 0.0 % (0.0-0.19); PLATELET COUNT (AUTO) 215 K/uL (130-400); RED BLOOD CELL COUNT(AUTO) 2.54 MIL/uL (4.50-6.20); RED CELL DISTRIBUTION WIDTH 14.9 % (11.0-15.5); WHITE BLOOD COUNT (AUTO) 9.5 K/uL (4.8-10.8)
[2025-01-24 04:49] LABS: ASPARTATE AMINOTRANSFERASE 19.0 U/L (10-37); CREATININE 0.6 mg/dL (0.5-1.3); GLOMERULAR FILTR. RATE CALC 98.0 mL/min (>90); GLUCOSE,RANDOM 197.0 mg/dL (70-105); SODIUM SERUM 139.0 mmol/L (136-145); TOTAL PROTEIN, SERUM 4.7 g/dL (6.0-8.3); UREA NITROGEN, BLOOD 20.0 mg/dL (7-18)
[2025-01-24] MEDS: LACTATED RINGERS 1000ML IV SCH (06:42)
[2025-01-24 06:59] LABS: ABG BASE EXCESS -10.5 mmol/L (-2.0-3.0); ABG HCO3 13.2 mmol/L (21.0-28.0); ABG OXYGEN SATURATION 98.8 % (94.0-98.0); ABG PCO2 22 mmHg (35-48); ABG PH 7.387 (7.350-7.450); CARBON MONOXIDE 1.0 % (0.5-1.5); DEVICE COMMENT ALINE; PO2, ARTERIAL BG 189.8 mmHg (83.0-108.0); TEMPERATURE, CELSIUS BG 37.0 CELSIUS (35.5-37.0); VENT MODE, BG AC (ROOM AIR)
[2025-01-24] MEDS ORDERED: LACTATED RINGERS 1000ML IV SCH (07:00)
[2025-01-24 10:56] LABS: ABG BASE EXCESS -7.7 mmol/L (-2.0-3.0); ABG HCO3 13.5 mmol/L (21.0-28.0); ABG OXYGEN SATURATION 99.4 % (94.0-98.0); ABG PCO2 20 mmHg (35-48); ABG PH 7.454 (7.350-7.450); DEVICE COMMENT ALINE RN BRI; PO2, ARTERIAL BG 189.4 mmHg (83.0-108.0); TEMPERATURE, CELSIUS BG 37.0 CELSIUS (35.5-37.0); VENT MODE, BG CPAP 5, PS10 (ROOM AIR)
--- NOTE | 2025-01-24 11:49 | OP ---
DATE OF PROCEDURE: 01/24/2025 The patient is a 79-year-old male who returned back to the OR after the wound VAC has been filled up with blood and a large hematoma. PREOPERATIVE DIAGNOSIS: Wound hematoma. POSTOPERATIVE DIAGNOSIS: Wound hematoma. PROCEDURE: Exploration of wound, drainage of hematoma. FINDINGS: There was evidence of some bleeding through the skin site. DESCRIPTION OF PROCEDURE: The patient was brought to the operating room. Adequate endotracheal anesthesia was achieved. IV antibiotics were given. Then, the patient was positioned prone with adequate padding to the pressure area. The wound VAC was removed. The hematoma was inspected. The wound was extensively prepped and draped in the usual sterile fashion. It was washed out and then we proceeded to remove the blood clot and inspected the wound, achieving hemostasis in the borders that were actively bleeding. Once I was satisfied with the hemostasis, the wound was packed again and the dressings were placed. The patient tolerated so well. One unit of packed RBCs was completed in the OR. He remained hemodynamically stable during the procedure. Family members were addressed. TID: [id number] RECEIPT: [id number]
--- NOTE | 2025-01-24 12:25 | PN ---
[facility] PROGRESS NOTE Date of Service: Jan 24, 2025 Time of Service: 12:10 Attending doctor Leno SUBJECTIVE: [ 01/20 Patient is 79 years old male with a past medical history of diabetes, hypertension, compression vertebral fracture, spinal stenosis, Parkinson, BPH, s/p recent laminectomy with Dr. Norman's 12/30/24, who came to emergency department from [facility] with a complaint of infected surgical site s/p laminectomy. Family members/ at the bedside stated that yesterday she realized that patient's wound has been very with POA Mendoza patient and opening the wound, patient's realize that has this open has a bed and that is draining pus. She took the pictures and sent to Dr. Norman's, who recommended that patient comes to ER for admission-recommendations.] Most recent vital signs temperature 98.1 one 0 lying 20 blood pressure 113/72 patient on 2 L 96%. Sodium 134 potassium 3.1 CO2 26 BUN 32 creatinine 0.8 GFR 90 glucose 223 lactic acid 1.8 troponin negative x1 lipase 21. WBC 5.9 hemoglobin 10.8 hematocrit 3010.4 platelets 258. No radiology performed at this moment. Chest x-ray pending. We will admit patient under hospitalist care for further evaluation/recommendations. ID we will be consulted for the antibiotics Dr. Martinez with a consulted wound recommendations and Dr. Xiong for s/p laminectomy. 01/21 patient was seen by nurse practitioner and physician during rounding in emergency department in room ED 11. Home medication were reconciled by TEACHER VISUALLY IMPAIRED. At this moment we are pending further evaluation/recommendation by wound care, ID and neurosurgeon. All three consults were notified and are aware of consultations. Patient we will continue antibiotics. We will continue to monitor patient in the meantime. A.m. labs. 01/22 patient was seen by nurse practitioner and physician during rounding in room 329. Nurse practitioner was able to talk to Dr. Nava neurosurgeon regarding further recommendations and plan. As per surgeon CT spine lumbar, thoracic and cervical with the contrast to be ordered. TEACHER VISUALLY IMPAIRED placed the orders. Most recent WBC is 6.3. Patient continues to be on vancomycin and cefepime as per ID recommendations. As per wound care to surgical wound to thoracic spine cleanse with normal saline, pat dry, apply Dakins wet to dry cover with 4 x 4 gauze, abdominal pad, secure with tape change b.i.d. and PRN. Wound care to sacrum apply Venelex b.i.d. and PRN. Apply waffle mattress. Keep wounds clean and dry. Offloading/reposition q.2 hours. We will continue to monitor patient in the meantime. A.m. labs 01/23 patient was seen by nurse practitioner and physician during rounding in [place] [id number]. Patient was evaluated by neurosurgeon and today patient was taken for lumbar cleaning and debridement by . Klebsiella pneumoniae and Pseudomonas aeruginosa. Final urine culture negative. Blood culture 48 hours negative. As per ID continue vancomycin and cefepime. We will continue to monitor patient in the meantime. A.m. labs. 01/24 patient was seen by nurse practitioner and physician during rounding. Patient is s/p I and D of wound abscess at thoracolumbar spine with Dr. Nava on 01/23/2025. After surgery around 2208 RN paged hospitalist TEACHER VISUALLY IMPAIRED on-call regarding the hemoglobin mean trending down at that if patient is bleeding profusely at the surgical wound and blood pressure from 133/70 went down to 70 over 45. Patient was placed on 3 L nasal cannula satting 93%. Patient went into hemorrhagic shock rapid response was called normal saline IV fluids bolus were administered and albumin was given to the patient for emergency release of blood. Surgeon was notified patient was transfused with one PRBC and was placed on low-dose of Levophed for the blood pressure support. Patient then was taken to OR by . After procedure patient was brought back to ICU. Most recent hemoglobin 7.7 hematocrit 24.4 patient receiving another PRBC. Venous Doppler was performed pending results as well as carotid artery ultrasound was performed pending results. Most recent chest x-ray from 01/24/2025 showed endotracheal tube tip a 2 cm above the jaja. Right-sided central venous catheter tip overlies distal SVC. Stable small pleural effusions. Mild perihilar haziness bilaterally concerning for mild pulmonary edema as a new finding. We will continue to monitor patient in the meantime. A.m. labs. REVIEW OF SYSTEMS CONSTITUTIONAL: Denies fevers, chills, or night sweats. No unintentional weight loss reported. NEUROLOGICAL: Denies headache, amaurosis fugax, motor weakness, sensory deficit, vertigo/spinning sensation, gait abnormalities, or tremors. ENT: No hearing loss, otalgia, otorrhea, rhinitis, rhinorrhea, hoarseness, or sore throat. CARDIOVASCULAR: Denies any exertional angina, dyspnea on exertion, orthopnea, paroxysmal nocturnal dyspnea, palpitations, life-threatening arrhythmias, claudication. PULMONARY: Denies any shortness of breath, cough, phlegm/sputum, hemoptysis, pleuritic chest pain. SLEEP: Denies morning headaches, daytime somnolence or napping. Denies difficulty falling asleep, staying asleep, waking from sleep. Denies knowledge of snoring. GASTROINTESTINAL: Denies any type of dysphagia to either liquids or solids. Denies nausea, vomiting, pyrosis, early satiety, abdominal pain, diarrhea, constipation, or changes in stool consistency or caliber. Denies coffee-ground emesis, hematemesis, hematochezia, or melanotic stools. GENITOURINARY: Denies frequency, urgency, nocturia, hematuria or incontinence (Storage/Irritative symptoms.) Low urinary stream, straining to void, urinary intermittency or hesitancy, splitting of the voiding stream, terminal dribbling. ENDOCRINOLOGIC: Denies polyuria, polydipsia, polyphagia or heat/cold intolerances. HEMATOLOGIC: Denies thrombophilia/previous clots, or coagulopathy/bleeding disorders. ONCOLOGIC: Denies personal history of malignancy. DERMATOLOGIC: Denies rashes or pruritus. S/p laminectomy open wound PSYCHIATRIC: Denies any suicidal or homicidal ideation. Denies hallucinations. PHYSICAL EXAM PT INTUBATED Vital Signs (last 8hr) Date Time Temp Pulse Resp B/P (MAP) Pulse Ox O2 Delivery O2 Flow Rate FiO2 01/24/25 11:56 87 40 01/24/25 11:44 89 23 01/24/25 08:53 91 40 01/24/25 07:01 94 24 01/24/25 06:49 105 40 01/24/25 06:00 86 21 120/45 (70) 100 01/24/25 05:45 84 23 118/45 (69) 100 01/24/25 05:30 90 21 122/47 (72) 100 01/24/25 05:15 77 12 120/47 (71) 100 01/24/25 05:00 80 17 118/48 (71) 100 01/24/25 04:45 84 17 118/49 (72) 100 01/24/25 04:39 99 Ventilator+ 60 01/24/25 04:30 97.9 86 12 122/51 (74) 100 01/24/25 04:15 89 25 118/51 (73) 100 LABS: Laboratory: Test 01/24/25 10:54 01/24/25 06:57 01/24/25 05:42 01/24/25 03:45 Range/Units Blood Gas Specimen Type Arterial Arterial Blood pH 7.454 H 7.350-7.450 Arterial Blood Partial Pressure CO2 20 *L 35-48 mmHg Arterial Blood Partial Pressure O2 189.4 H 83.0-108.0 mmHg Arterial Blood HCO3 13.5 L 21.0-28.0 mmol/L Arterial Blood Oxygen Saturation 99.4 H 94.0-98.0 % Arterial Blood Base Excess -7.7 L -2.0-3.0 mmol/L Blood Gas Temperature 37.0 35.5-37.0 CELSIUS Blood Gas Vent Mode CPAP 5, PS10 ROOM AIR FiO2 30.0 % Blood Gas PEEP 5 cm H2O Blood Gas Specimen Comment LOLIS RN CECELIA Hemoglobin (Blood Gas) 8.2 L 13.5-17.5 g/dL Sodium (Blood Gas) 137 136-145 MMOL/L Bedside Potassium (Blood Gas) 3.5 3.4-4.5 MMOL/L Bedside Chloride (Blood Gas) 106 98-107 MMOL/L Bedside Glucose (Blood Gas) 166 H 65-95 MG/DL Bedside Ionized Calcium (Blood Gas) 1.18 1.15-1.33 MMOL/L Bedside Lactic Acid (Blood Gas) 0.88 H 0.36-0.75 MMOL/L Blood Gas Respiration Rate 18.0 min. Blood Gas Tidal Volume 500 ml Whole Blood Glucose 178 H 70-110 MG/DL White Blood Count 9.5 4.8-10.8 K/uL Red Blood Count 2.54 L 4.50-6.20 MIL/uL Hemoglobin 7.7 L 14.0-18.0 g/dL Hematocrit 24.4 L 42-54 % Mean Corpuscular Volume 96.1 79-99 fL Mean Corpuscular Hemoglobin 30.3 27.0-33.0 pg Mean Corpuscular Hemoglobin Concent 31.6 L 32.0-36.0 g/dL Red Cell Distribution Width 14.9 11.0-15.5 % Platelet Count 215 130-400 K/uL Mean Platelet Volume 9.8 7.5-10.5 fL Immature Granulocyte % (Auto) 0.8 0-1 % Neutrophils (%) (Auto) 91.2 H 40.0-77.0 % Lymphocytes (%) (Auto) 3.3 L 21.0-51.0 % Monocytes (%) (Auto) 4.6 3.0-13.0 % Eosinophils (%) (Auto) 0.0 0.0-8.0 % Basophils (%) (Auto) 0.1 0.0-5.0 % Neutrophils # (Auto) 8.6 H 1.8-7.7 K/uL Lymphocytes # (Auto) 0.3 L 1.0-4.8 K/uL Monocytes # (Auto) 0.4 0.1-1.0 K/uL Eosinophils # (Auto) 0.00 0.00-0.70 K/uL Basophils # (Auto) 0.01 0.00-0.20 K/uL Absolute Immature Granulocyte (auto 0.08 0-1 K/uL Nucleated Red Blood Cells 0.0 0.0-0.19 % Sodium Level 139 136-145 mmol/L Potassium Level 3.7 3.5-5.1 mmol/L Chloride Level 105 101-111 mmol/L Carbon Dioxide Level 14 L 21-32 mmol/L Blood Urea Nitrogen 20 H 7-18 mg/dL Creatinine 0.6 0.5-1.3 mg/dL Glomerular Filtration Rate Calc 98 >90 mL/min Random Glucose 197 H 70-105 mg/dL Total Calcium 7.5 L 8.5-10.1 mg/dL Magnesium Level 1.60 L 1.80-2.40 mg/dL Total Bilirubin 1.4 H 0.2-1.0 mg/dL Aspartate Amino Transf (AST/SGOT) 19 10-37 U/L Alanine Aminotransferase (ALT/SGPT) 15 12-78 U/L Alkaline Phosphatase 102 50-136 U/L Total Protein 4.7 L 6.0-8.3 g/dL Albumin 1.6 L 3.5-5.0 g/dL Test 01/23/25 22:12 01/23/25 21:40 01/23/25 01:01 01/22/25 15:39 Range/Units Blood Gas Flow-by 3.00 0.00-15.00 L/min Prothrombin Time 12.8 H 9.6-11.6 SEC Prothromb Time International Ratio 1.23 H 0.85-1.15 Activated Partial Thromboplast Time 35.8 H 26.3-35.5 SEC Fibrinogen 644 *H 180-350 mg/dL D-Dimer Quantitative (PE/DVT) 3246 *H 0-500 ng/mL Vancomycin Level Trough 23.7 H 10.0-20.0 UG/ML Bedside Glucose Comment Notified Nurse Current Medications Medications (Trade) Dose Ordered Sig/Steve Route PRN Reason Start Time Stop Time Status Last Admin Dose Admin Acetaminophen (TYLenol 325MG TAB) 650 mg Q4H PRN PO MILD PAIN (1-3) 01/20/25 16:00 02/19/25 15:59 01/23/25 12:42 650 MG Acetaminophen (TYLenol 325MG TAB) 650 mg Q6H PRN PO MILD PAIN (1-3) 01/20/25 16:00 01/23/25 07:25 DC Acetaminophen (TYLenol 325MG TAB) 650 mg Q6H PRN PO TEMPERATURE GREATER THAN 101.5 01/20/25 16:00 02/19/25 15:59 Al Hydroxide/Mg Hydroxide (MAALox PLUS 30ML) 30 ml Q6H PRN PO INDIGESTION 01/20/25 16:00 02/19/25 15:59 Albumin Human 250 ml @ 500 mls/hr AD IV 01/23/25 22:00 01/28/25 21:59 01/23/25 21:58 500 MLS/HR Albuterol Sulfate (Proventil 0.083% 2.5mg/3ml) 2.5 mg [id number] IH 01/20/25 18:00 02/19/25 17:59 01/24/25 11:43 2.5 MG Aspirin (Aspirin 81mg Chew Tab) 81 mg DAILY PO 01/22/25 09:00 02/21/25 08:59 01/24/25 08:28 81 MG Atorvastatin Calcium (LIPItor 40MG) 80 mg DAILY PO 01/22/25 09:00 02/21/25 08:59 01/24/25 08:29 80 MG Cefepime HCl (MAXipime 1 GM vial) 1 gm Q8H IVPB 01/21/25 13:00 01/31/25 12:59 01/24/25 05:39 1 GM Clindamycin HCl/ Dextrose 50 ml @ 100 mls/hr ONCE STAT IV 01/20/25 14:30 01/20/25 14:59 DC 01/20/25 15:04 100 MLS/HR Clindamycin HCl/ Dextrose 50 ml @ 100 mls/hr Q8H IV 01/20/25 23:00 01/21/25 12:57 DC 01/21/25 08:07 100 MLS/HR Dextrose (D50w) 50 ml AD PRN IV HYPOGLYCEMIA PROTOCOL 01/20/25 16:00 02/19/25 15:59 Diphenhydramine HCl (BENAdryl INJ) 25 mg Q6H PRN IV SEVERE ITCHING/RASH 01/20/25 16:00 02/19/25 15:59 Famotidine (Pepcid 20mg Vial) 20 mg BID PRN IV NAUSEA/VOMITING 01/20/25 16:00 01/20/25 16:18 DC Fentanyl/Sodium Chloride 250 ml @ 0 mls/hr PROTOCOL IV 01/24/25 00:30 01/24/25 08:46 DC Finasteride (PROscar 5 MG TAB) 5 mg DAILY PO 01/22/25 09:00 02/21/25 08:59 01/24/25 08:28 5 MG Fluticasone Propionate (FLOnase 50 mcg/ spray 16g bottle) 1 SPRAY BID EN 01/21/25 21:00 02/20/25 20:59 01/23/25 09:00 1 SPRAYS Gabapentin (NEURontin 300 MG CAP) 300 mg TID PO 01/21/25 21:00 02/20/25 20:59 01/24/25 08:26 300 MG Glucagon (Glucagon 1mg Kit) 1 mg AD PRN IM HYPOGLYCEMIA PROTOCOL 01/20/25 16:00 02/19/25 15:59 Guaifenesin/ Dextromethorphan (RobiTUSSin DM 200/20MG 10ML) 10 ml Q4H PRN PO COUGH 01/20/25 16:00 02/19/25 15:59 HCTZ/Losartan Potassium (Hyzaar 50-12.5 Tablet) 1 tab DAILY PO 01/22/25 09:00 02/21/25 08:59 01/23/25 11:49 1 TAB Heparin Sodium (Porcine) (HEParin 5,000 UNIT VIAL) 5,000 unit BID SQ 01/20/25 21:00 02/19/25 20:59 01/24/25 08:41 5,000 UNIT Home Med (Home Medication) BID PO 01/21/25 21:00 02/20/25 20:59 Home Med (Home Medication) DAILY PO 01/22/25 09:00 02/21/25 08:59 Home Med (Home Medication) QID OP 01/21/25 17:00 02/20/25 16:59 Hydralazine HCl (APRESOLine 20MG INJ) 10 mg Q6H PRN IV For:SBP above 160;DBP above 90 01/20/25 16:00 02/19/25 15:59 Ibuprofen (moTRIN) 800 mg Q8H PRN PO MODERATE PAIN (4-6) 01/20/25 16:00 02/19/25 15:59 Insulin Human Regular (humuLIN R 100 UNIT/ML 3ML) INSULIN SLIDING SCAL... ACHS SQ 01/20/25 16:30 02/19/25 16:29 01/24/25 06:03 4 UNIT Ipratropium [place] (AtrovENT UD) 0.5 mg [id number] IH 01/20/25 18:00 01/21/25 10:32 DC 01/21/25 06:07 0.5 MG Ipratropium [place] (AtrovENT UD) 0.5 mg [id number] IH 01/21/25 12:00 02/19/25 17:59 01/24/25 11:44 0.5 MG Ketorolac Tromethamine (toRADol) 15 mg Q8H PRN IV MODERATE PAIN (4-6) IF NPO 01/20/25 16:00 01/23/25 07:25 DC Lactated Ringer's (Lactated Ringers 1000ml) 500 ml BOLUS IV 01/23/25 22:00 02/22/25 21:59 01/24/25 06:42 500 ML Lactated Ringer's (Lactated Ringers 1000ml) 500 ml BOLUS IV 01/24/25 07:00 11/3/25 06:59 Lactulose (Constulose 20gm/ 30ml Udcup) 20 gm BID PRN PO CONSTIPATION 01/20/25 16:00 02/19/25 15:59 Magnesium Sulfate 50 ml @ 0 mls/hr PROTOCOL PRN IV other 01/20/25 16:00 02/19/25 15:59 01/24/25 05:49 25 MLS/HR Morphine Sulfate (morPHINE 4MG SYG) 1 mg Q4H PRN IVP SEVERE PAIN (7-10) 01/20/25 16:00 01/27/25 15:59 01/23/25 18:54 1 MG Nitroglycerin (Nitrostat) 0.4 mg PROTOCOL PRN SL CHEST PAIN 01/20/25 16:00 02/19/25 15:59 Norepinephrine 250 ml @ 0 mls/hr PROTOCOL IV 01/23/25 22:30 02/22/25 22:29 Ondansetron HCl (zoFRAN 4MG INJ) 4 mg Q6H PRN IV NAUSEA/VOMITING 01/20/25 16:00 02/19/25 15:59 Pantoprazole Sodium (PROTonix 40MG TAB) 40 mg DAILY PO 01/22/25 09:00 02/21/25 08:59 01/24/25 08:26 40 MG Potassium Chloride 100 ml @ 100 mls/hr AD PRN IV POTASSIUM PROTOCOL 01/20/25 16:00 02/19/25 15:59 01/23/25 03:01 100 MLS/HR Potassium Chloride (K-Dur/Klor-Con 20meq) 20 meq AD PRN PO POTASSIUM PROTOCOL 01/20/25 16:00 02/19/25 15:59 01/22/25 21:07 20 MEQ Potassium Chloride (KCl 10% Elixir 20meq/15ml) 20 meq AD PRN PO POTASSIUM PROTOCOL 01/20/25 16:00 02/19/25 15:59 Propofol 100 ml @ 0 mls/hr PROTOCOL IV 01/24/25 00:30 01/24/25 08:46 DC 01/24/25 06:19 25 MLS/HR Sodium Hypochlorite (Dakin'S 0.25% Half Strength) thoracic spine wo... BID TP 01/21/25 21:00 02/20/25 20:59 01/22/25 21:05 1 APPL Sodium Chloride 1,000 ml @ 100 mls/hr Q10H IV 01/20/25 16:00 01/24/25 10:22 DC 01/24/25 03:28 100 MLS/HR Tamsulosin HCl (FloMAX) 0.4 mg DAILY PO 01/22/25 09:00 02/21/25 08:59 01/24/25 08:28 0.4 MG Vancomycin HCl 250 ml @ 125 mls/hr Q12H IV 01/22/25 02:00 01/23/25 02:05 DC 01/22/25 16:48 125 MLS/HR Vancomycin HCl (Vancomycin 750mg) 750 mg Q12H IVPB 01/23/25 04:00 02/02/25 03:59 01/24/25 03:30 750 MG Vancomycin HCl (Vancomycin Protocol) 1 each AD IV 01/21/25 13:00 02/04/25 12:59 Wound Care/ Dressing Products (Venelex Ointment) Sacral wound APPL... BID TP 01/21/25 21:00 02/20/25 20:59 01/22/25 21:04 1 GM Zolpidem Tartrate (AmbIEN) 5 mg HS PRN PO INSOMNIA 01/20/25 16:00 02/19/25 15:59 DIAGNOSTICS / RADIOLOGY: [ ] ASSESSMENT: [s/p Emergency closure of back wound done on 01/23/[address] Nava Hemorrhagic shock requiring blood transfusion, s/p I&D of wound abscess at thoracolumbar spine performed by Dr. Harish Nava on 01/24/2024 morning Hypotension, unresponsive to IV fluids and albumin, in need of pressor Severe anemiaAcute hypoxic respiratory failure POA Infected wound laminectomy 12/30/24 POA s/p I AND D with dr Nava 01/23/25 wound culture growing enterococcus faecalis, e coli, klebsiella aerogeneses, pseudomonas aeruginosa Tachycardia POA Multifactorial anemia POA Electrolyte imbalance hyponatremia Na 134 hypokalemia 3.1 POA Acute dehydration POA Hypotension Hyperlipidemia POA History of Stroke POA Uncontrolled diabetes mellitus type 2 with hyperglycemia POA Compression fracture Spinal stenosis s/p laminectomy 01/15 ] PLAN: Patient is s/p I and D of wound abscess at thoracolumbar spine with Dr. Nava on 01/23/2025. After surgery around 2208 RN paged hospitalist TEACHER [employer]UALLY IMPAIRED on-call regarding the hemoglobin mean trending down at that if patient is bleeding profusely at the surgical wound and blood pressure from 133/70 went down to 70 over 45. Patient was placed on 3 L nasal cannula satting 93%. Patient went into hemorrhagic shock rapid response was called normal saline IV fluids bolus were administered and albumin was given to the patient for emergency release of blood. Surgeon was notified patient was transfused with one PRBC and was placed on low-dose of Levophed for the blood pressure support. Patient then was taken to OR by . After procedure patient was brought back to ICU. Most recent hemoglobin 7.7 hematocrit 24.4 patient receiving another PRBC. Venous Doppler was performed pending results as well as carotid artery ultrasound was performed pending results. Most recent chest x-ray from 01/24/2025 showed endotracheal tube tip a 2 cm above the jaja. Right-sided central venous catheter tip overlies distal SVC. Stable small pleural effusions. Mild perihilar haziness bilaterally concerning for mild pulmonary edema as a new fi nding. We will continue to monitor patient in the meantime. A.m. labs. As per wound care to surgical wound to thoracic spine cleanse with normal saline, pat dry, apply Dakins wet to dry cover with 4 x 4 gauze, abdominal pad, secure with tape change b.i.d. and PRN. Wound care to sacrum apply Venelex b.i.d. and PRN. Apply waffle mattress. Keep wounds clean and dry. Offloading/reposition q.2 hours. Admit to medical-surgical tele Blood culture pending Urine culture pending Urinalysis negative Chest x-ray showed mild left base atelectasis A.m. labs Hyper hypoglycemia Hypokalemia protocol magnesemia Patient education heparin prophylaxis five case management for discharge PT for eval] Home medication reconciled by TEACHER VISUALLY IMPAIRED 01/21/2025 ATTESTATION BY PHYSICIAN I have seen and examined the patient. I reviewed the documentation, medical decision making, and treatment plan as noted by the mid-level provider above. I agree with the findings and plan of care. HEMANT ALMANZAR MD, [employer] Jan 24, 2025 12:24
--- NOTE | 2025-01-24 12:38 | PN ---
[facility] PROGRESS NOTE Date Patient Seen: Jan 24, 2025 Time of Visit: 12:32 Supervising Physician: Dr Migel Gorman Primary Care Physician: Dr. Yosi Rg Outpatient Specialists: Inpatient Consults: neurosurgeon PROBLEM LIST: Intubated patient Hemorrhagic shock requiring blood transfusion, s/p I&D of wound abscess at thoracolumbar spine performed by Dr. Harish Vidal on 01/24/2024 morning Severe anemia Wound dehiscence Electrolyte derangement (hypokalemia and hypomagnesemia) Hyperglycemia Elevated D-dimer Bilateral carotid stenosis INTERVAL HISTORY: Patient was seen and examined all labs and imaging have been reviewed, discussion with Neurosurgery at bedside Family updated at bedside Patient remains intubated, weaning sedation, opening eyes and following simple commands, chest x-ray is clear, ABG is good patient placed on spontaneous breathing trials, After receiving 1 unit PRBCs hemoglobin is now 7.7, neurosurgery is requesting 1 additional unit Patient's platelets are 215, he has a D-dimer that is 3246, his renal function is good We are pending ultrasounds of the lower extremities, pending a V/Q scan Low-dose pressors Plan: Following neurosurgical recommendations Follow post transfusion labs Monitoring for signs of bleeding Telemetry Spontaneous breathing trials possible extubation Neurovascular checks Antibiotics, follow cultures Total critical care time spent 49 minutes, this is an intubated patient requiring pressors, vent management, high risk for decompensation REVIEW OF SYSTEMS: Unable to assess ROS from patient due to patient's medical condition. PHYSICAL EXAM: GENERAL: Intubated & sedated. HEENT: EOMI, Sclera non icteric, moist mucosa. Endotracheal tube in place. NECK: Supple, no JVD, trachea midline LUNGS: Clear breath sounds bilaterally. No wheezes HEART: Regular rate and rhythm. Normal S1 and S2, without murmurs ABD: Abdomen soft, nontender. Bowel sounds present EXT: No clubbing cyanosis or edema NEURO: Intubated and sedated. Vital Signs (last 8hr) Date Time Temp Pulse Resp B/P (MAP) Pulse Ox O2 Delivery O2 Flow Rate FiO2 01/24/25 11:56 87 40 01/24/25 11:44 89 23 01/24/25 08:53 91 40 01/24/25 07:01 94 24 01/24/25 06:49 105 40 01/24/25 06:00 86 21 120/45 (70) 100 01/24/25 05:45 84 23 118/45 (69) 100 01/24/25 05:30 90 21 122/47 (72) 100 01/24/25 05:15 77 12 120/47 (71) 100 01/24/25 05:00 80 17 118/48 (71) 100 01/24/25 04:45 84 17 118/49 (72) 100 01/24/25 04:39 99 Ventilator+ 60 LABS: Hematology Labs: Test 01/24/25 03:45 Range/Units White Blood Count 9.5 4.8-10.8 K/uL Red Blood Count 2.54 L 4.50-6.20 MIL/uL Hemoglobin 7.7 L 14.0-18.0 g/dL Hematocrit 24.4 L 42-54 % Mean Corpuscular Volume 96.1 79-99 fL Mean Corpuscular Hemoglobin 30.3 27.0-33.0 pg Mean Corpuscular Hemoglobin Concent 31.6 L 32.0-36.0 g/dL Red Cell Distribution Width 14.9 11.0-15.5 % Platelet Count 215 130-400 K/uL Mean Platelet Volume 9.8 7.5-10.5 fL Immature Granulocyte % (Auto) 0.8 0-1 % Neutrophils (%) (Auto) 91.2 H 40.0-77.0 % Lymphocytes (%) (Auto) 3.3 L 21.0-51.0 % Monocytes (%) (Auto) 4.6 3.0-13.0 % Eosinophils (%) (Auto) 0.0 0.0-8.0 % Basophils (%) (Auto) 0.1 0.0-5.0 % Neutrophils # (Auto) 8.6 H 1.8-7.7 K/uL Lymphocytes # (Auto) 0.3 L 1.0-4.8 K/uL Monocytes # (Auto) 0.4 0.1-1.0 K/uL Eosinophils # (Auto) 0.00 0.00-0.70 K/uL Basophils # (Auto) 0.01 0.00-0.20 K/uL Absolute Immature Granulocyte (auto 0.08 0-1 K/uL Nucleated Red Blood Cells 0.0 0.0-0.19 % Chemistry Labs: Test 01/24/25 12:08 01/24/25 03:45 01/22/25 15:39 Range/Units Whole Blood Glucose 148 H 70-110 MG/DL Sodium Level 139 136-145 mmol/L Potassium Level 3.7 3.5-5.1 mmol/L Chloride Level 105 101-111 mmol/L Carbon Dioxide Level 14 L 21-32 mmol/L Blood Urea Nitrogen 20 H 7-18 mg/dL Creatinine 0.6 0.5-1.3 mg/dL Glomerular Filtration Rate Calc 98 >90 mL/min Random Glucose 197 H 70-105 mg/dL Total Calcium 7.5 L 8.5-10.1 mg/dL Magnesium Level 1.60 L 1.80-2.40 mg/dL Total Bilirubin 1.4 H 0.2-1.0 mg/dL Aspartate Amino Transf (AST/SGOT) 19 10-37 U/L Alanine Aminotransferase (ALT/SGPT) 15 12-78 U/L Alkaline Phosphatase 102 50-136 U/L Total Protein 4.7 L 6.0-8.3 g/dL Albumin 1.6 L 3.5-5.0 g/dL Bedside Glucose Comment Notified Nurse Coagulation Labs: Test 01/23/25 21:40 Range/Units Prothrombin Time 12.8 H 9.6-11.6 SEC Prothromb Time International Ratio 1.23 H 0.85-1.15 Activated Partial Thromboplast Time 35.8 H 26.3-35.5 SEC Fibrinogen 644 *H 180-350 mg/dL D-Dimer Quantitative (PE/DVT) 3246 *H 0-500 ng/mL DIAGNOSTICS / RADIOLOGY RESULTS: [ ] PLAN NEURO: Minimize central acting medications as possible. Fall Precautions. Well lighted room through the day and minimize interruptions through the night to prevent acute delirium. PULMONARY: Supplemental 02 as needed Titrate Fio2 to keep Spo2 > or = 90% DuoNebs and CPT as needed IS hourly while awake for pulmonary hygiene Out of bed to chair as tolerated VAP Bundle CARDIOVASCULAR: Follow hemodynamics. Titrate vasopressor to keep MAP >65 or systolic blood pressure >95mmHg GI & NUTRITION: Continue nutritional support Aspirations precautions Prokinetic agents and laxatives as needed KIDNEYS & ELECTROLYTES: Strict monitoring of intake and output Daily weights Avoid nephrotoxic agents Monitor electrolytes and replace as needed Goal urine output of 30mL/hr or 0.5mL/kg/hr ENDOCRINE: Maintain blood glucose between 100-180 at all times. Insulin sliding scale for blood glucose management INFECTIOUS DISEASE: Trend temperature. Suresh-culture if febrile. HEMATOLOGY & COAGULATION: Monitor H&H. Keep Hgb > 7 Transfuse 1 unit of PRBC for Hgb < 7 Transfuse 1 pack of platelets of platelets < 20, 000 Watch for any signs and symptoms of bleeding SKIN: Pressure ulcer prevention per facility protocol Rehab: PT/OT Code Status: Full Resuscitation Disposition: [Admit to ICU] HOANG BAR Jan 24, 2025 12:38
[2025-01-24 12:52] LABS: ABG BASE EXCESS -9.1 mmol/L (-2.0-3.0); ABG HCO3 13.4 mmol/L (21.0-28.0); ABG OXYGEN SATURATION 98.4 % (94.0-98.0); ABG PCO2 20 mmHg (35-48); ABG PH 7.436 (7.350-7.450); CARBON MONOXIDE 0 % (0.5-1.5); CPAP, BG 5 cm H2O; DEVICE COMMENT ALINE; PO2, ARTERIAL BG 167.9 mmHg (83.0-108.0); TEMPERATURE, CELSIUS BG 37.0 CELSIUS (35.5-37.0); VENT MODE, BG CPAP5-5 (ROOM AIR)
--- NOTE | 2025-01-24 13:10 | NUR ---
Report given to Charge Nurse Ange LAM as lunch relief.
--- NOTE | 2025-01-24 13:13 | NUR ---
Patient successfully extubated at this time assisted by RT Yola and Charge Nurse CAROLE Cassidy. Patient tolerated well. Placed on aerosol mask at 35%, oxygenating well. Post-extubation education provided by RT Yola.
--- NOTE | 2025-01-24 14:10 | NUR ---
Dr. Vidal communication Received call from Dr. Vidal, updated on patient's condition. Patient has been extubated successfully, 1 unit of PRBCs have been transfused. Patient hemodynamically stable. made aware of plan to downgrade to medical surgical today at 1700. Dr. Vidal agrees with Critical Care plan of care. New orders received for patient's first wound care to be performed by wound care team on Sunday01/26/25 with placement of wound vac, continue monitoring patient's incision dressing for bleeding. Orders followed through.
[2025-01-24 14:42] LABS: ABG BASE EXCESS -9.0 mmol/L (-2.0-3.0); ABG HCO3 13.0 mmol/L (21.0-28.0); ABG OXYGEN SATURATION 98.2 % (94.0-98.0); ABG PCO2 19 mmHg (35-48); ABG PH 7.455 (7.350-7.450); CARBON MONOXIDE 0.2 % (0.5-1.5); DEVICE COMMENT ALINE; PO2, ARTERIAL BG 151.2 mmHg (83.0-108.0); TEMPERATURE, CELSIUS BG 37.0 CELSIUS (35.5-37.0); VENT MODE, BG CAFM (ROOM AIR)
--- NOTE | 2025-01-24 15:45 | NUR ---
Right IJ and Right brachial art line removed. Pt tolerated well. Gauze and Tegaderm dressing applied. No s/s of hematoma or bleeding from sites present.
--- NOTE | 2025-01-24 17:15 | NUR ---
Handoff report given to Margaret CHONG for medical surgical transfer. Patient stable at time of transfer. All questions answered for Margaret CHONG. Patient going to room 430.
--- NOTE | 2025-01-24 17:28 | NUR ---
REPORT RECEIVED FROM CECELIA LAM. PATIENT ARRIVED TO THE UNIT. NO SIGNS OF DISTRESS NOTED. SCDS PLACED ON PATIENT. ANTIBIOTIC HUNG. ASSESSED DRESSING. CLEAN DRY AND INTACT. VITALS IN RANGE. ORIENTED PATIENT AND SPOUSE TO THE ROOM. BED LOCKED AND LOW WITH CALL LIGHT IN REACH.
[2025-01-24] MEDS: PHARMACY COMMUNICATION MISC SCH (21:00)
[2025-01-25] VITALS (15 sets, daily range): BP systolic 121–139; BP diastolic 60–71; PULSE 80–100; RESP 17–20; TEMP 97.8–98.9; O2SAT 94–98
[2025-01-25 04:12] LABS: IMMATURE GRANULOCYTE ABSOLUTE 0.05 K/uL (0-1); NUCLEATED RED BLOOD CELLS 0.0 % (0.0-0.19); PLATELET COUNT (AUTO) 224 K/uL (130-400); RED BLOOD CELL COUNT(AUTO) 3.00 MIL/uL (4.50-6.20); RED CELL DISTRIBUTION WIDTH 17.2 % (11.0-15.5); WHITE BLOOD COUNT (AUTO) 6.4 K/uL (4.8-10.8)
[2025-01-25 04:41] LABS: ASPARTATE AMINOTRANSFERASE 20.0 U/L (10-37); CREATININE 0.8 mg/dL (0.5-1.3); GLOMERULAR FILTR. RATE CALC 90.0 mL/min (>90); GLUCOSE,RANDOM 111.0 mg/dL (70-105); SODIUM SERUM 138.0 mmol/L (136-145); TOTAL PROTEIN, SERUM 5.0 g/dL (6.0-8.3); UREA NITROGEN, BLOOD 14.0 mg/dL (7-18)
--- NOTE | 2025-01-25 05:56 | HMCIMG ---
EXAMINATION: DUPLEX ULTRASOUND EXAMINATION OF THE BILATERAL CAROTID AND VERTEBRAL ARTERIES. CLINICAL HISTORY: Carotid stenosis. COMPARISON: None provided. TECHNIQUE: Real-time ultrasound scan of the bilateral carotid and vertebral arteries, 2-D grayscale, with color Doppler flow and spectral waveform analysis. FINDINGS: Color and spectral Doppler interrogation of the carotid vessels on the right demonstrate peak systolic velocities as follows: CCA (Proximal and distal): 90 and 62 cm/s respectively. Bulb: 167 cm/s. ECA: 90 cm/s. ICA (Proximal, mid, and distal): 219, 104, and 85 cm/s respectively. Vertebral artery demonstrates antegrade flow: 60 cm/s. Right ICA/CCA ratio: 3.5 Peak systolic velocities on the left are as follows: CCA (Proximal and distal): 98 and 74 cm/s respectively. Bulb: 86 cm/s. ECA: 134 cm/s. ICA (Proximal, mid, and distal): 78, 76, and 94 cm/s respectively. Vertebral artery demonstrates antegrade flow: 47 cm/s. Left ICA/CCA ratio: 1.3 Both the common carotid arteries and their branches reveal mild intimal thickening. There are calcified plaques in the right bulb/proximal internal and external carotid arteries causing 40% to 50% diameter stenosis and in the left bulb/ proximal internal carotid artery causing 20% to 30% diameter stenosis. Raised velocity in the right proximal internal carotid artery. IMPRESSION: Mild intimal thickening in the bilateral carotid arteries and their branches. Raised velocity in the right proximal internal carotid artery. Right ICA/CCA ratio: 3.5, suggesting 50% to 69% stenosis. Plaques as described. Recommend CT or MR angiogram. /[place]
--- NOTE | 2025-01-25 06:49 | HMCIMG ---
EXAMINATION: SPECTRAL DOPPLER ULTRASOUND EXAMINATION OF THE BILATERAL LOWER EXTREMITY VEINS. CLINICAL HISTORY: Rule out DVT. COMPARISON: None provided. TECHNIQUE: Real-time ultrasound scan of the veins of the bilateral lower extremity with color Doppler flow, spectral waveform analysis and compression. FINDINGS: DEEP VEINS: The common femoral, superficial femoral, deep femoral, popliteal, and posterior tibial veins are echolucent and compressible. There is normal color Doppler flow throughout. The visualized calf veins appear patent. SUPERFICIAL VEINS: The visualized greater saphenous veins are echolucent and compressible. SOFT TISSUES: No popliteal fossa cyst or other abnormalities. IMPRESSION: No deep venous thrombosis evident in the bilateral lower extremity examination. /[place]
[2025-01-25 08:32] LABS: ABG OXYGEN SATURATION 98.0 % (94.0-98.0); BASE EXCESS,VENOUS BLOOD GAS -6.4 (-2.0-3.0); DEVICE COMMENT VENOUS; HCO3,VENOUS BLOOD GAS 14.5 (22.0-29.0); PCO2,VENOUS BLOOD GAS 20 (38-54); PH,VENOUS BLOOD GAS 7.475 (7.320-7.430); PO2,VENOUS BLOOD GAS 97.9 mmHg (23.0-48.0); TEMPERATURE, CELSIUS BG 37.0 CELSIUS (35.5-37.0); VENT MODE, BG RA (ROOM AIR)
[2025-01-25] MEDS: MAGNESIUM 2GM PREMIX 50ML IV ONE (09:19)
[2025-01-25] MEDS: PoTASSium chloRIDE 20MEQ ER 20 MEQ ERTAB PO ONE (09:20)
--- NOTE | 2025-01-25 10:22 | PN ---
[facility] PROGRESS NOTE Date of Service: Jan 25, 2025 Time of Service: 10:20 SUBJECTIVE: [ 01/20 Patient is 79 years old male with a past medical history of diabetes, hypertension, compression vertebral fracture, spinal stenosis, Parkinson, BPH, s/p recent laminectomy with Dr. Norman's 12/30/24, who came to emergency department from [facility] with a complaint of infected surgical site s/p laminectomy. Family members/ at the bedside stated that yesterday she realized that patient's wound has been very with TITI Mendoza patient and opening the wound, patient's realize that has this open has a bed and that is draining pus. She took the pictures and sent to Dr. Norman's, who recommended that patient comes to ER for admission-recommendations.] Most recent vital signs temperature 98.1 one 0 lying 20 blood pressure 113/72 patient on 2 L 96%. Sodium 134 potassium 3.1 CO2 26 BUN 32 creatinine 0.8 GFR 90 glucose 223 lactic acid 1.8 troponin negative x1 lipase 21. WBC 5.9 hemoglobin 10.8 hematocrit 3010.4 platelets 258. No radiology performed at this moment. Chest x-ray pending. We will admit patient under hospitalist care for further evaluation/recommendations. ID we will be consulted for the antibiotics Dr. Martinez with a consulted wound recommendations and Dr. Xiong for s/p laminectomy. 01/21 patient was seen by nurse practitioner and physician during rounding in emergency department in room ED 11. Home medication were reconciled by GATEMAN. At this moment we are pending further evaluation/recommendation by wound care, ID and neurosurgeon. All three consults were notified and are aware of consultations. Patient we will continue antibiotics. We will continue to monitor patient in the meantime. A.m. labs. 01/22 patient was seen by nurse practitioner and physician during rounding in room 329. Nurse practitioner was able to talk to Dr. Nava neurosurgeon regarding further recommendations and plan. As per surgeon CT spine lumbar, thoracic and cervical with the contrast to be ordered. GATEMAN placed the orders. Most recent WBC is 6.3. Patient continues to be on vancomycin and cefepime as per ID recommendations. As per wound care to surgical wound to thoracic spine cleanse with normal saline, pat dry, apply Dakins wet to dry cover with 4 x 4 gauze, abdominal pad, secure with tape change b.i.d. and PRN. Wound care to sacrum apply Venelex b.i.d. and PRN. Apply waffle mattress. Keep wounds clean and dry. Offloading/reposition q.2 hours. We will continue to monitor patient in the meantime. A.m. labs 01/23 patient was seen by nurse practitioner and physician during rounding in room 329. Patient was evaluated by neurosurgeon and today patient was taken for lumbar cleaning and debridement by . Klebsiella pneumoniae and Pseudomonas aeruginosa. Final urine culture negative. Blood culture 48 hours negative. As per ID continue vancomycin and cefepime. We will continue to monitor patient in the meantime. A.m. labs. 01/24 patient was seen by nurse practitioner and physician during rounding. Patient is s/p I and D of wound abscess at thoracolumbar spine with Dr. Nava on 01/23/2025. After surgery around 2208 RN paged hospitalist GATEMAN on-call regarding the hemoglobin mean trending down at that if patient is bleeding profusely at the surgical wound and blood pressure from 133/70 went down to 70 over 45. Patient was placed on 3 L nasal cannula satting 93%. Patient went into hemorrhagic shock rapid response was called normal saline IV fluids bolus were administered and albumin was given to the patient for emergency release of blood. Surgeon was notified patient was transfused with one PRBC and was placed on low-dose of Levophed for the blood pressure support. Patient then was taken to OR by . After procedure patient was brought back to ICU. Most recent hemoglobin 7.7 hematocrit 24.4 patient receiving another PRBC. Venous Doppler was performed pending results as well as carotid artery ultrasound was performed pending results. Most recent chest x-ray from 01/24/2025 showed endotracheal tube tip a 2 cm above the jaja. Right-sided central venous catheter tip overlies distal SVC. Stable small pleural effusions. Mild perihilar haziness bilaterally concerning for mild pulmonary edema as a new finding. We will continue to monitor patient in the meantime. A.m. labs. 01/25 patient is seen and examined at bedside, discussed with the RN, no acute events overnight, patient is status post incision and drainage of wound abscess a thoracolumbar spine by Dr. Nava on 01/23/2025. Patient tolerated the procedure well. Results of wound culture positive for E coli, Morganella Morgagni. Patient also with a aerobic culture positive for Enterococcus faecalis, E coli, Klebsiella aeruginosa and Pseudomonas aeruginosa. Continue the patient on broad-spectrum IV antibiotics to include vancomycin IV and cefep leigh ann. Continue to follow neurosurgical input and recommendation, continue to follow ID input recommendation, continue local wound care. The patient will benefit from discharge plan to half-way facility. REVIEW OF SYSTEMS CONSTITUTIONAL: Denies fevers, chills, or night sweats. No unintentional weight loss reported. NEUROLOGICAL: Denies headache, amaurosis fugax, motor weakness, sensory deficit, vertigo/spinning sensation, gait abnormalities, or tremors. ENT: No hearing loss, otalgia, otorrhea, rhinitis, rhinorrhea, hoarseness, or sore throat. CARDIOVASCULAR: Denies any exertional angina, dyspnea on exertion, orthopnea, paroxysmal nocturnal dyspnea, palpitations, life-threatening arrhythmias, claudication. PULMONARY: Denies any shortness of breath, cough, phlegm/sputum, hemoptysis, pleuritic chest pain. SLEEP: Denies morning headaches, daytime somnolence or napping. Denies difficulty falling asleep, staying asleep, waking from sleep. Denies knowledge of snoring. GASTROINTESTINAL: Denies any type of dysphagia to either liquids or solids. Denies nausea, vomiting, pyrosis, early satiety, abdominal pain, diarrhea, constipation, or changes in stool consistency or caliber. Denies coffee-ground emesis, hematemesis, hematochezia, or melanotic stools. GENITOURINARY: Denies frequency, urgency, nocturia, hematuria or incontinence (Storage/Irritative symptoms.) Low urinary stream, straining to void, urinary intermittency or hesitancy, splitting of the voiding stream, terminal dribbling. ENDOCRINOLOGIC: Denies polyuria, polydipsia, polyphagia or heat/cold intolerances. HEMATOLOGIC: Denies thrombophilia/previous clots, or coagulopathy/bleeding disorders. ONCOLOGIC: Denies personal history of malignancy. DERMATOLOGIC: Denies rashes or pruritus. S/p laminectomy open wound PSYCHIATRIC: Denies any suicidal or homicidal ideation. Denies hallucinations. PHYSICAL EXAM PT INTUBATED Vital Signs (last 8hr) Date Time Temp Pulse Resp B/P (MAP) Pulse Ox O2 Delivery O2 Flow Rate FiO2 01/25/25 08:10 97.9 100 17 128/68 95 Room Air 01/25/25 06:29 90 20 N/A Room Air 21 01/25/25 06:26 88 20 01/25/25 04:39 99.0 91 17 121/62 99 Room Air LABS: Laboratory: Test 01/25/25 08:31 01/25/25 05:46 01/25/25 03:20 01/24/25 15:05 Range/Units Blood Gas Specimen Type Venous Arterial Blood Oxygen Saturation 98.0 94.0-98.0 % Venous Blood pH 7.475 H 7.320-7.430 Venous Blood pCO2 at Patient Temp 20 *L 38-54 Venous Blood pO2 at Patient Temp 97.9 H 23.0-48.0 mmHg Venous Blood HCO3 14.5 L 22.0-29.0 Venous Blood Base Excess -6.4 L -2.0-3.0 Blood Gas Temperature 37.0 35.5-37.0 CELSIUS Blood Gas Vent Mode RA ROOM AIR FiO2 21.0 % Blood Gas Specimen Comment VENOUS Whole Blood Glucose 93 70-110 MG/DL White Blood Count 6.4 # 4.8-10.8 K/uL Red Blood Count 3.00 L 4.50-6.20 MIL/uL Hemoglobin 9.1 L 14.0-18.0 g/dL Hematocrit 28.1 L 42-54 % Mean Corpuscular Volume 93.7 79-99 fL Mean Corpuscular Hemoglobin 30.3 27.0-33.0 pg Mean Corpuscular Hemoglobin Concent 32.4 32.0-36.0 g/dL Red Cell Distribution Width 17.2 H 11.0-15.5 % Platelet Count 224 130-400 K/uL Mean Platelet Volume 9.5 7.5-10.5 fL Immature Granulocyte % (Auto) 0.8 0-1 % Neutrophils (%) (Auto) 85.9 H 40.0-77.0 % Lymphocytes (%) (Auto) 6.7 L 21.0-51.0 % Monocytes (%) (Auto) 6.1 3.0-13.0 % Eosinophils (%) (Auto) 0.5 0.0-8.0 % Basophils (%) (Auto) 0.0 0.0-5.0 % Neutrophils # (Auto) 5.5 1.8-7.7 K/uL Lymphocytes # (Auto) 0.4 L 1.0-4.8 K/uL Monocytes # (Auto) 0.4 0.1-1.0 K/uL Eosinophils # (Auto) 0.03 0.00-0.70 K/uL Basophils # (Auto) 0.00 0.00-0.20 K/uL Absolute Immature Granulocyte (auto 0.05 0-1 K/uL Nucleated Red Blood Cells 0.0 0.0-0.19 % Sodium Level 138 136-145 mmol/L Potassium Level 3.5 3.5-5.1 mmol/L Chloride Level 105 101-111 mmol/L Carbon Dioxide Level 13 L 21-32 mmol/L Blood Urea Nitrogen 14 7-18 mg/dL Creatinine 0.8 0.5-1.3 mg/dL Glomerular Filtration Rate Calc 90 >90 mL/min Random Glucose 111 H 70-105 mg/dL Total Calcium 8.1 L 8.5-10.1 mg/dL Magnesium Level 1.70 L 1.80-2.40 mg/dL Total Bilirubin 0.8 # 0.2-1.0 mg/dL Aspartate Amino Transf (AST/SGOT) 20 10-37 U/L Alanine Aminotransferase (ALT/SGPT) 19 # 12-78 U/L Alkaline Phosphatase 103 50-136 U/L Total Protein 5.0 L 6.0-8.3 g/dL Albumin 1.7 L 3.5-5.0 g/dL Vancomycin Level Trough 16.7 # 10.0-20.0 UG/ML Test 01/24/25 14:40 01/24/25 12:50 01/24/25 10:54 01/24/25 06:57 Range/Units Arterial Blood pH 7.455 H 7.350-7.450 Arterial Blood Partial Pressure CO2 19 *L 35-48 mmHg Arterial Blood Partial Pressure O2 151.2 H 83.0-108.0 mmHg Arterial Blood HCO3 13.0 L 21.0-28.0 mmol/L Arterial Blood Base Excess -9.0 L -2.0-3.0 mmol/L Hemoglobin (Blood Gas) 10.5 L 13.5-17.5 g/dL Sodium (Blood Gas) 138 136-145 MMOL/L Bedside Potassium (Blood Gas) 3.3 L 3.4-4.5 MMOL/L Bedside Chloride (Blood Gas) 109 H 98-107 MMOL/L Bedside Glucose (Blood Gas) 128 H 65-95 MG/DL Bedside Ionized Calcium (Blood Gas) 1.17 1.15-1.33 MMOL/L Bedside Lactic Acid (Blood Gas) 1.02 H 0.36-0.75 MMOL/L Blood Gas Flow-by 8.00 0.00-15.00 L/min Blood Gas CPAP 5 cm H2O Blood Gas PEEP 5 cm H2O Blood Gas Respiration Rate 18.0 min. Blood Gas Tidal Volume 500 ml Test 01/23/25 21:40 Range/Units Prothrombin Time 12.8 H 9.6-11.6 SEC Prothromb Time International Ratio 1.23 H 0.85-1.15 Activated Partial Thromboplast Time 35.8 H 26.3-35.5 SEC Fibrinogen 644 *H 180-350 mg/dL D-Dimer Quantitative (PE/DVT) 3246 *H 0-500 ng/mL Current Medications Medications (Trade) Dose Ordered Sig/Steve Route PRN Reason Start Time Stop Time Status Last Admin Dose Admin Acetaminophen (TYLenol 325MG TAB) 650 mg Q4H PRN PO MILD PAIN (1-3) 01/20/25 16:00 02/19/25 15:59 01/24/25 19:26 650 MG Acetaminophen (TYLenol 325MG TAB) 650 mg Q6H PRN PO MILD PAIN (1-3) 01/20/25 16:00 01/23/25 07:25 DC Acetaminophen (TYLenol 325MG TAB) 650 mg Q6H PRN PO TEMPERATURE GREATER THAN 101.5 01/20/25 16:00 02/19/25 15:59 Al Hydroxide/Mg Hydroxide (MAALox PLUS 30ML) 30 ml Q6H PRN PO INDIGESTION 01/20/25 16:00 02/19/25 15:59 Albumin Human 250 ml @ 500 mls/hr AD IV 01/23/25 22:00 01/25/25 07:05 DC 01/23/25 21:58 500 MLS/HR Albuterol Sulfate (Proventil 0.083% 2.5mg/3ml) 2.5 mg [id number] IH 01/20/25 18:00 02/19/25 17:59 01/25/25 06:26 2.5 MG Aspirin (Aspirin 81mg Chew Tab) 81 mg DAILY PO 01/22/25 09:00 02/21/25 08:59 01/25/25 09:30 81 MG Atorvastatin Calcium (LIPItor 40MG) 80 mg DAILY PO 01/22/25 09:00 02/21/25 08:59 01/25/25 09:29 80 MG Cefepime HCl (MAXipime 1 GM vial) 1 gm Q8H IVPB 01/21/25 13:00 01/31/25 12:59 01/25/25 04:44 1 GM Clindamycin HCl/ Dextrose 50 ml @ 100 mls/hr ONCE STAT IV 01/20/25 14:30 01/20/25 14:59 DC 01/20/25 15:04 100 MLS/HR Clindamycin HCl/ Dextrose 50 ml @ 100 mls/hr Q8H IV 01/20/25 23:00 01/21/25 12:57 DC 01/21/25 08:07 100 MLS/HR Dextrose (D50w) 50 ml AD PRN IV HYPOGLYCEMIA PROTOCOL 01/20/25 16:00 02/19/25 15:59 Diphenhydramine HCl (BENAdryl INJ) 25 mg Q6H PRN IV SEVERE ITCHING/RASH 01/20/25 16:00 02/19/25 15:59 Famotidine (Pepcid 20mg Vial) 20 mg BID PRN IV NAUSEA/VOMITING 01/20/25 16:00 01/20/25 16:18 DC Fentanyl/Sodium Chloride 250 ml @ 0 mls/hr PROTOCOL IV 01/24/25 00:30 01/24/25 08:46 DC Finasteride (PROscar 5 MG TAB) 5 mg DAILY PO 01/22/25 09:00 02/21/25 08:59 01/25/25 09:30 5 MG Fluticasone Propionate (FLOnase 50 mcg/ spray 16g bottle) 1 SPRAY BID EN 01/21/25 21:00 02/20/25 20:59 01/25/25 09:40 1 SPRAYS Gabapentin (NEURontin 300 MG CAP) 300 mg TID PO 01/21/25 21:00 02/20/25 20:59 01/25/25 09:29 300 MG Glucagon (Glucagon 1mg Kit) 1 mg AD PRN IM HYPOGLYCEMIA PROTOCOL 01/20/25 16:00 02/19/25 15:59 Guaifenesin/ Dextromethorphan (RobiTUSSin DM 200/20MG 10ML) 10 ml Q4H PRN PO COUGH 01/20/25 16:00 02/19/25 15:59 HCTZ/Losartan Potassium (Hyzaar 50-12.5 Tablet) 1 tab DAILY PO 01/22/25 09:00 02/21/25 08:59 01/25/25 09:29 1 TAB Heparin Sodium (Porcine) (HEParin 5,000 UNIT VIAL) 5,000 unit BID SQ 01/20/25 21:00 02/19/25 20:59 01/25/25 09:42 5,000 UNIT Home Med (Home Medication) BID PO 01/21/25 21:00 02/20/25 20:59 Home Med (Home Medication) DAILY PO 01/22/25 09:00 02/21/25 08:59 Home Med (Home Medication) QID OP 01/21/25 17:00 02/20/25 16:59 Hydralazine HCl (APRESOLine 20MG INJ) 10 mg Q6H PRN IV For:SBP above 160;DBP above 90 01/20/25 16:00 02/19/25 15:59 Ibuprofen (moTRIN) 800 mg Q8H PRN PO MODERATE PAIN (4-6) 01/20/25 16:00 02/19/25 15:59 Insulin Human Regular (humuLIN R 100 UNIT/ML 3ML) INSULIN SLIDING SCAL... ACHS SQ 01/20/25 16:30 02/19/25 16:29 01/24/25 06:03 4 UNIT Ipratropium United (AtrovENT UD) 0.5 mg [id number] IH 01/20/25 18:00 01/21/25 10:32 DC 01/21/25 06:07 0.5 MG Ipratropium United (AtrovENT UD) 0.5 mg [id number] IH 01/21/25 12:00 02/19/25 17:59 01/25/25 06:26 0.5 MG Ketorolac Tromethamine (toRADol) 15 mg Q8H PRN IV MODERATE PAIN (4-6) IF NPO 01/20/25 16:00 01/23/25 07:25 DC Lactated Ringer's (Lactated Ringers 1000ml) 500 ml BOLUS IV 01/23/25 22:00 01/25/25 07:06 DC 01/24/25 06:42 500 ML Lactated Ringer's (Lactated Ringers 1000ml) 500 ml BOLUS IV 01/24/25 07:00 01/25/25 07:06 DC Lactulose (Constulose 20gm/ 30ml Udcup) 20 gm BID PRN PO CONSTIPATION 01/20/25 16:00 02/19/25 15:59 Magnesium Sulfate 50 ml @ 0 mls/hr PROTOCOL PRN IV other 01/20/25 16:00 02/19/25 15:59 01/25/25 06:09 25 MLS/HR Morphine Sulfate (morPHINE 4MG SYG) 1 mg Q4H PRN IVP SEVERE PAIN (7-10) 01/20/25 16:00 01/27/25 15:59 01/23/25 18:54 1 MG Nitroglycerin (Nitrostat) 0.4 mg PROTOCOL PRN SL CHEST PAIN 01/20/25 16:00 02/19/25 15:59 Norepinephrine 250 ml @ 0 mls/hr PROTOCOL IV 01/23/25 22:30 02/22/25 22:29 Ondansetron HCl (zoFRAN 4MG INJ) 4 mg Q6H PRN IV NAUSEA/VOMITING 01/20/25 16:00 02/19/25 15:59 Pantoprazole Sodium (PROTonix 40MG TAB) 40 mg DAILY PO 01/22/25 09:00 02/21/25 08:59 01/25/25 09:30 40 MG Pharmacy Profile Note (Pharmacy Communication) 1 each ONCE MISC 01/24/25 21:00 01/25/25 07:06 DC Potassium Chloride 100 ml @ 100 mls/hr AD PRN IV POTASSIUM PROTOCOL 01/20/25 16:00 02/19/25 15:59 01/23/25 03:01 100 MLS/HR Potassium Chloride (K-Dur/Klor-Con 20meq) 20 meq AD PRN PO POTASSIUM PROTOCOL 01/20/25 16:00 02/19/25 15:59 01/25/25 09:29 20 MEQ Potassium Chloride (KCl 10% Elixir 20meq/15ml) 20 meq AD PRN PO POTASSIUM PROTOCOL 01/20/25 16:00 02/19/25 15:59 Propofol 100 ml @ 0 mls/hr PROTOCOL IV 01/24/25 00:30 01/24/25 08:46 DC 01/24/25 06:19 25 MLS/HR Sodium Hypochlorite (Dakin'S 0.25% Half Strength) thoracic spine wo... BID TP 01/21/25 21:00 02/20/25 20:59 01/22/25 21:05 1 APPL Sodium Chloride 1,000 ml @ 100 mls/hr Q10H IV 01/20/25 16:00 01/24/25 10:22 DC 01/24/25 03:28 100 MLS/HR Tamsulosin HCl (FloMAX) 0.4 mg DAILY PO 01/22/25 09:00 02/21/25 08:59 01/25/25 09:30 0.4 MG Vancomycin HCl 250 ml @ 125 mls/hr Q12H IV 01/22/25 02:00 01/23/25 02:05 DC 01/22/25 16:48 125 MLS/HR Vancomycin HCl (Vancomycin 750mg) 750 mg Q12H IVPB 01/23/25 04:00 02/02/25 03:59 01/25/25 03:30 750 MG Vancomycin HCl (Vancomycin Protocol) 1 each AD IV 01/21/25 13:00 02/04/25 12:59 Wound Care/ Dressing Products (Venelex Ointment) Sacral wound APPL... BID TP 01/21/25 21:00 02/20/25 20:59 01/22/25 21:04 1 GM Zolpidem Tartrate (AmbIEN) 5 mg HS PRN PO INSOMNIA 01/20/25 16:00 02/19/25 15:59 DIAGNOSTICS / RADIOLOGY: [ ] ASSESSMENT: [s/p Emergency closure of back wound done on 01/23/[address] Nava Hemorrhagic shock requiring blood transfusion, s/p I&D of wound abscess at thoracolumbar spine performed by Dr. Harish Nava on 01/24/2024 morning Hypotension, unresponsive to IV fluids and albumin, in need of pressor Severe anemiaAcute hypoxic respiratory failure POA Infected wound laminectomy 12/30/24 POA s/p I AND D with dr Nava 01/23/25 wound culture growing enterococcus faecalis, e coli, klebsiella aerogeneses, pseudomonas aeruginosa Tachycardia POA Multifactorial anemia POA Electrolyte imbalance hyponatremia Na 134 hypokalemia 3.1 POA Acute dehydration POA Hypotension Hyperlipidemia POA History of Stroke POA Uncontrolled diabetes mellitus type 2 with hyperglycemia POA Compression fracture Spinal stenosis s/p laminectomy 01/15 PLAN: patient is seen and examined at bedside, discussed with the RN, no acute events overnight, patient is status post incision and drainage of wound abscess a thoracolumbar spine by Dr. Nava on 01/23/2025. Patient tolerated the procedure well. Results of wound culture positive for E coli, Morganella Morgagni. Patient also with a aerobic culture positive for Enterococcus faecalis, E coli, Klebsiella aeruginosa and Pseudomonas aeruginosa. Continue the patient on broad-spectrum IV antibiotics to include vancomycin IV and cefepime. Continue to follow neurosurgical input and recommendation, continue to follow ID input recommendation, continue local wound care. The patient will benefit from disch arge plan to half-way facility. NEURO: Minimize central acting medications as possible. Fall Precautions. Well lighted room through the day and minimize interruptions through the night to prevent acute delirium. PULMONARY: Supplemental 02 as needed BiPAP as necessary, for respiratory distress Titrate Fio2 to keep Spo2 > or = 90% DuoNebs and CPT as needed IS hourly while awake for pulmonary hygiene prn Out of bed to chair as tolerated Maintain aspiration precautions at all times CARDIOVASCULAR: Follow hemodynamics. Vital signs per facility protocol GI & NUTRITION: Continue nutritional support Aspirations precautions Prokinetic agents and laxatives as needed KIDNEYS & ELECTROLYTES: Strict monitoring of intake and output Daily weights Avoid nephrotoxic agents Monitor electrolytes and replace as needed Goal urine output of 30mL/hr or 0.5mL/kg/hr Medications to be dosed according to renal function. Avoid contrast if possible ENDOCRINE: Maintain blood glucose between 100-180 at all times. Insulin sliding scale for blood glucose management Hypoglycemia and hyperglycemia protocol in place INFECTIOUS DISEASE: Trend temperature, WBC and procalcitonin level Follow cultures, deescalate antibiotics as soon as possible. Panculture if new onset fever HEMATOLOGY & COAGULATION: Monitor H&H. Keep Hgb > 7 Transfuse 1 unit of PRBC for Hgb < 7 Transfuse 1 pack of platelets of platelets < 20, 000 Watch for any signs and symptoms of bleeding SKIN: Pressure ulcer prevention per facility protocol Specialty mattress as needed ORTHO/REHAB Continue PT/OT PRN: MEDICATIONS Tylenol 650 mg po every 4 hrs for fever zofran 4 mg IV every 6 hrs for n/v Hydralazine 5 mg IV every 4 hrs systolic pressure > 160 bowel regiment: lactulose 20 gm PO BID PRN constipation Supportive measures: Continue GI and DVT prophylaxis All questions answered time spent: > 35 min ] HEMANT ALMANZAR MD Jan 25, 2025 10:22
--- NOTE | 2025-01-25 12:49 | PN ---
[facility] PROGRESS NOTE Date Patient Seen: Jan 25, 2025 Time of Visit: 12:28 Supervising Physician: Dr. Migel Gorman Primary Care Physician: Dr. Yosi Rg Outpatient Specialists: Inpatient Consults: neurosurgeon PROBLEM LIST: Intubated patient, extubated and downgraded transferred out of ICU Hemorrhagic shock requiring blood transfusion, s/p I&D of wound abscess at thoracolumbar spine performed by Dr. Harish Vidal on 01/24/2024 morning Severe anemia Wound dehiscence Electrolyte derangement (hypokalemia and hypomagnesemia) Hyperglycemia Elevated D-dimer Bilateral carotid stenosis INTERVAL HISTORY: Patient seen and assessed by myself, discussed with spouse present, laboratory results, vital signs, neurosurgery plan, and assessment findings. Spouse at bedside Reviewed patient's chart with bedside nurse, Margaret. Patient reports constipation we will start patient on bowel regimen. Patient is concerned right upper extremity more swollen when compared to the left upper extremity warm to touch. VSS. Afebrile Plan: Following neurosurgical recommendations Monitor for signs of bleeding Telemetry Wound care starts tomorrow, 01/26/25 to surgical site US venous Doppler unilateral, right upper extremity , ordered awaiting results Aerobic culture back results:Escherichia coli +, Morganella morganii +, cefepime 1 g IV q.8 hours Continue with DVT & GI prophylaxis REVIEW OF SYSTEMS: Unable to assess ROS from patient due to patient's medical condition. PHYSICAL EXAM: GENERAL: Intubated & sedated. HEENT: EOMI, Sclera non icteric, moist mucosa. Endotracheal tube in place. NECK: Supple, no JVD, trachea midline LUNGS: Clear breath sounds bilaterally. No wheezes HEART: Regular rate and rhythm. Normal S1 and S2, without murmurs ABD: Abdomen soft, nontender. Bowel sounds present EXT: No clubbing cyanosis or edema NEURO: Intubated and sedated. Vital Signs (last 8hr) Date Time Temp Pulse Resp B/P (MAP) Pulse Ox O2 Delivery O2 Flow Rate FiO2 01/25/25 11:38 97.9 89 18 139/71 98 Room Air 01/25/25 11:22 85 20 N/A Room Air 21 01/25/25 11:20 84 20 01/25/25 08:10 97.9 100 17 128/68 95 Room Air 01/25/25 08:00 95 Room Air* 0 21 01/25/25 06:29 90 20 N/A Room Air 21 01/25/25 06:26 88 20 01/25/25 04:39 99.0 91 17 121/62 99 Room Air LABS: Hematology Labs: Test 01/25/25 03:20 Range/Units White Blood Count 6.4 # 4.8-10.8 K/uL Red Blood Count 3.00 L 4.50-6.20 MIL/uL Hemoglobin 9.1 L 14.0-18.0 g/dL Hematocrit 28.1 L 42-54 % Mean Corpuscular Volume 93.7 79-99 fL Mean Corpuscular Hemoglobin 30.3 27.0-33.0 pg Mean Corpuscular Hemoglobin Concent 32.4 32.0-36.0 g/dL Red Cell Distribution Width 17.2 H 11.0-15.5 % Platelet Count 224 130-400 K/uL Mean Platelet Volume 9.5 7.5-10.5 fL Immature Granulocyte % (Auto) 0.8 0-1 % Neutrophils (%) (Auto) 85.9 H 40.0-77.0 % Lymphocytes (%) (Auto) 6.7 L 21.0-51.0 % Monocytes (%) (Auto) 6.1 3.0-13.0 % Eosinophils (%) (Auto) 0.5 0.0-8.0 % Basophils (%) (Auto) 0.0 0.0-5.0 % Neutrophils # (Auto) 5.5 1.8-7.7 K/uL Lymphocytes # (Auto) 0.4 L 1.0-4.8 K/uL Monocytes # (Auto) 0.4 0.1-1.0 K/uL Eosinophils # (Auto) 0.03 0.00-0.70 K/uL Basophils # (Auto) 0.00 0.00-0.20 K/uL Absolute Immature Granulocyte (auto 0.05 0-1 K/uL Nucleated Red Blood Cells 0.0 0.0-0.19 % Chemistry Labs: Test 01/25/25 11:09 01/25/25 03:20 Range/Units Whole Blood Glucose 120 H 70-110 MG/DL Sodium Level 138 136-145 mmol/L Potassium Level 3.5 3.5-5.1 mmol/L Chloride Level 105 101-111 mmol/L Carbon Dioxide Level 13 L 21-32 mmol/L Blood Urea Nitrogen 14 7-18 mg/dL Creatinine 0.8 0.5-1.3 mg/dL Glomerular Filtration Rate Calc 90 >90 mL/min Random Glucose 111 H 70-105 mg/dL Total Calcium 8.1 L 8.5-10.1 mg/dL Magnesium Level 1.70 L 1.80-2.40 mg/dL Total Bilirubin 0.8 # 0.2-1.0 mg/dL Aspartate Amino Transf (AST/SGOT) 20 10-37 U/L Alanine Aminotransferase (ALT/SGPT) 19 # 12-78 U/L Alkaline Phosphatase 103 50-136 U/L Total Protein 5.0 L 6.0-8.3 g/dL Albumin 1.7 L 3.5-5.0 g/dL Coagulation Labs: Test 01/23/25 21:40 Range/Units Prothrombin Time 12.8 H 9.6-11.6 SEC Prothromb Time International Ratio 1.23 H 0.85-1.15 Activated Partial Thromboplast Time 35.8 H 26.3-35.5 SEC Fibrinogen 644 *H 180-350 mg/dL D-Dimer Quantitative (PE/DVT) 3246 *H 0-500 ng/mL DIAGNOSTICS / RADIOLOGY RESULTS: [ ] PLAN NEURO: Minimize central acting medications as possible. Maintain fall precautions, adequate lighting during the day PULMONARY: Supplemental 02 as needed. Maintain aspiration precautions at all times CARDIOVASCULAR: Follow hemodynamics. Vital signs per facility protocol GI & NUTRITION: Continue with nutritional support. Continue stool softeners and laxatives as needed. KIDNEYS & ELECTROLYTES: Strict monitoring of intake, output and overall fluid balance. Avoid nephrotoxic medications to the extent possible. Medications to be dosed according to renal function. Monitor electrolytes and replace as needed ENDOCRINE: Maintain blood glucose between 100-180 at all times. Hypoglycemia protocol in place INFECTIOUS DISEASE: Trend temperature, WBC and procalcitonin level Follow cultures, deescalate antibiotics as soon as possible. Panculture if new onset fever ONCOLOGY/HEMATOLOGY/COAGULATION: Monitor for s/s of bleeding Monitor hemoglobin, coagulation studies as needed SKIN: Pressure ulcer prevention per facility protocol Specialty mattress ORTHO/REHAB: Continue PT/OT Prophylaxis: Continue GI and DVT prophylaxis Code Status: Full Resuscitation Disposition: TBD Other: Total patient care time exceeds 35 minutes excluding all procedures. ABIGAIL PALMA NP Jan 25, 2025 12:49
--- NOTE | 2025-01-25 23:33 | HMCIMG ---
EXAMINATION: SPECTRAL DOPPLER ULTRASOUND EXAMINATION OF THE RIGHT UPPER EXTREMITY VEINS. CLINICAL HISTORY: Swelling and warmth. COMPARISON: None. TECHNIQUE: Grayscale, color, and spectral Doppler images of the right upper extremity veins are submitted. FINDINGS: The right internal jugular, visualized aspects of the subclavian, axillary, brachial, and basilic, veins are patent. These veins show normal flow with physiological changes of phasicity and augmentation. The cephalic vein is collapsed IMPRESSION: There is no deep vein thrombosis within the right upper extremity. /[place]
[2025-01-26] VITALS (15 sets, daily range): BP systolic 113–148; BP diastolic 63–78; PULSE 70–99; RESP 16–20; TEMP 97.6–98.7; O2SAT 94–98
[2025-01-26 03:17] LABS: NUCLEATED RED BLOOD CELLS 0.0 % (0.0-0.19); PLATELET COUNT (AUTO) 223.0 K/uL (130-400); RED BLOOD CELL COUNT(AUTO) 3.07 MIL/uL (4.50-6.20); RED CELL DISTRIBUTION WIDTH 16.3 % (11.0-15.5); WHITE BLOOD COUNT (AUTO) 5.2 K/uL (4.8-10.8)
[2025-01-26 03:32] LABS: ASPARTATE AMINOTRANSFERASE 22.0 U/L (10-37); CREATININE 0.7 mg/dL (0.5-1.3); GLOMERULAR FILTR. RATE CALC 94.0 mL/min (>90); GLUCOSE,RANDOM 111.0 mg/dL (70-105); SODIUM SERUM 137.0 mmol/L (136-145); TOTAL PROTEIN, SERUM 5.3 g/dL (6.0-8.3); UREA NITROGEN, BLOOD 10.0 mg/dL (7-18)
--- NOTE | 2025-01-26 07:46 | PN ---
INFECTIOUS DISEASE FOLLOWUP NOTE DATE OF SERVICE: 01/24/2025 SUBJECTIVE: The patient is seen and examined at the bedside today. The patient underwent lumbar spine wound debridement. Remained on antibiotic. No bleeding tendency. No cough. No shortness of breath. No palpitations or orthopnea. The patient was transferred to ICU for closed observation after surgery. PHYSICAL EXAMINATION: VITAL SIGNS: Temperature 97.5. EYES: No icterus. Pupils equal and reactive. HENT: No oral thrush seen. Moist oral mucosa. NECK: Supple. No JVD or thyromegaly. LUNGS: Good air entry. No rales. No rhonchi. CARDIOVASCULAR: S1 and S2, regular. No murmur heard. ABDOMEN: Full, soft, nontender. Bowel sounds are present. CENTRAL NERVOUS SYSTEM: Awake, alert, oriented x 3. No focal deficits. SKIN: No rashes, no itchiness. LYMPHATIC: No peripheral lymphadenopathy. MUSCULOSKELETAL: No joint swelling, erythema or tenderness. BACK: No deformity. Wound in the lumbar spine area, status post debridement. ASSESSMENT: A 79-year-old male admitted with lumbar spine and drainage. CURRENT PROBLEMS: Include: * Lumbar spine wound infection, status post debridement. * Polymicrobic wound infection. * Hypertension. * Benign prostatic hyperplasia. * Anemia. PLAN: * Followup cultures. * Continue wound care. * Continue pain management. * Continue Cefepime. * Continue vancomycin. * Continue DVT prophylaxis. * Continue nutritional support. * Monitor electrolytes and correct as needed. TID: [id number] RECEIPT: [id number] [facility]
[2025-01-26] MEDS: PoTASSium chl 10% ELIXIR 20MEQ 20 MEQ/15 ML UDCUP PO PRN (09:44)
--- NOTE | 2025-01-26 11:35 | PN ---
INFECTIOUS DISEASE PROGRESS NOTE Date of Service: Jan 26, 2025 SUBJECTIVE: This is a 79-year-old male patient who is status post wound exploration of the thoracolumbar incision due to hematoma formation, status post drainage on 01/24/2025. Hemoglobin is stable today at 9.5 Patient was transfused 1 unit of PRBC on 01/23/2025 for hemoglobin of 6.8 and 1 unit on 01/24/2025 for hemoglobin of 7.7. Patient with polymicrobial infection to the thoracolumbar wound. Patient is afebrile today, temperature is 97.5. We will continue on vancomycin and cefepime. PHYSICAL EXAM EYES: Anicteric. Pupils equal and reactive. HENT: No oral thrush seen, moist Oral mucosa. NECK: Supple, no JVD or thyromegaly. LUNGS: Good air entry. No rales, no rhonchi. CARDIOVASCULAR: S1, S2 regular. No murmur heard. ABDOMEN: Soft, non tender, bowel sounds present, no organomegaly. CENTRAL NERVOUS SYSTEM: Awake, alert, oriented x 3. SKIN: No rashes, no swelling. LYMPHATICS: No peripheral lymphadenopathy. MUSCULOSKELETAL: No joint swelling, erythema or tenderness. EXTREMITIES: No cyanosis or clubbing BACK: Surgical wound. GENITOURINARY: No dysuria or hematuria. Vital Sign (Last 12 Hours) 01/26/25 01/26/25 01/26/25 01/26/25 00:38 05:20 06:37 06:46 Temp 98.4 98.1 Pulse 95 97 76 78 Resp 18 18 20 20 B/P (MAP) 113/63 138/67 Pulse Ox 94 94 O2 Delivery Room Air Room Air N/A Room Air FiO2 21 01/26/25 01/26/25 08:00 10:24 Temp 97.5 Pulse 83 Resp 20 B/P (MAP) 141/70 Pulse Ox 98 98 O2 Delivery Room Air Room Air* O2 Flow Rate 0 FiO2 21 Intake & Output (last 24hrs) 01/25/25 01/25/25 01/26/25 15:00 23:00 07:00 Output Total 1000 ml 1000 ml 950 ml Balance -1000 ml -1000 ml -950 ml LABS: Laboratory: Test 01/26/25 05:43 01/26/25 03:12 01/25/25 08:31 01/25/25 03:20 Range/Units Whole Blood Glucose 97 70-110 MG/DL White Blood Count 5.2 4.8-10.8 K/uL Red Blood Count 3.07 L 4.50-6.20 MIL/uL Hemoglobin 9.5 L 14.0-18.0 g/dL Hematocrit 27.5 L 42-54 % Mean Corpuscular Volume 89.6 79-99 fL Mean Corpuscular Hemoglobin 30.9 27.0-33.0 pg Mean Corpuscular Hemoglobin Concent 34.5 32.0-36.0 g/dL Red Cell Distribution Width 16.3 H 11.0-15.5 % Platelet Count 223 130-400 K/uL Mean Platelet Volume 9.4 7.5-10.5 fL Nucleated Red Blood Cells 0.0 0.0-0.19 % Sodium Level 137 136-145 mmol/L Potassium Level 3.4 L 3.5-5.1 mmol/L Chloride Level 103 101-111 mmol/L Carbon Dioxide Level 18 L 21-32 mmol/L Blood Urea Nitrogen 10 7-18 mg/dL Creatinine 0.7 0.5-1.3 mg/dL Glomerular Filtration Rate Calc 94 >90 mL/min Random Glucose 111 H 70-105 mg/dL Total Calcium 8.1 L 8.5-10.1 mg/dL Magnesium Level 1.70 L 1.80-2.40 mg/dL Total Bilirubin 0.8 0.2-1.0 mg/dL Aspartate Amino Transf (AST/SGOT) 22 10-37 U/L Alanine Aminotransferase (ALT/SGPT) 21 12-78 U/L Alkaline Phosphatase 115 50-136 U/L Total Protein 5.3 L 6.0-8.3 g/dL Albumin 1.7 L 3.5-5.0 g/dL Blood Gas Specimen Type Venous Arterial Blood Oxygen Saturation 98.0 94.0-98.0 % Venous Blood pH 7.475 H 7.320-7.430 Venous Blood pCO2 at Patient Temp 20 *L 38-54 Venous Blood pO2 at Patient Temp 97.9 H 23.0-48.0 mmHg Venous Blood HCO3 14.5 L 22.0-29.0 Venous Blood Base Excess -6.4 L -2.0-3.0 Blood Gas Temperature 37.0 35.5-37.0 CELSIUS Blood Gas Vent Mode RA ROOM AIR FiO2 21.0 % Blood Gas Specimen Comment VENOUS Immature Granulocyte % (Auto) 0.8 0-1 % Neutrophils (%) (Auto) 85.9 H 40.0-77.0 % Lymphocytes (%) (Auto) 6.7 L 21.0-51.0 % Monocytes (%) (Auto) 6.1 3.0-13.0 % Eosinophils (%) (Auto) 0.5 0.0-8.0 % Basophils (%) (Auto) 0.0 0.0-5.0 % Neutrophils # (Auto) 5.5 1.8-7.7 K/uL Lymphocytes # (Auto) 0.4 L 1.0-4.8 K/uL Monocytes # (Auto) 0.4 0.1-1.0 K/uL Eosinophils # (Auto) 0.03 0.00-0.70 K/uL Basophils # (Auto) 0.00 0.00-0.20 K/uL Absolute Immature Granulocyte (auto 0.05 0-1 K/uL Test 01/24/25 15:05 01/24/25 14:40 01/24/25 12:50 Range/Units Vancomycin Level Trough 16.7 # 10.0-20.0 UG/ML Arterial Blood pH 7.455 H 7.350-7.450 Arterial Blood Partial Pressure CO2 19 *L 35-48 mmHg Arterial Blood Partial Pressure O2 151.2 H 83.0-108.0 mmHg Arterial Blood HCO3 13.0 L 21.0-28.0 mmol/L Arterial Blood Base Excess -9.0 L -2.0-3.0 mmol/L Hemoglobin (Blood Gas) 10.5 L 13.5-17.5 g/dL Sodium (Blood Gas) 138 136-145 MMOL/L Bedside Potassium (Blood Gas) 3.3 L 3.4-4.5 MMOL/L Bedside Chloride (Blood Gas) 109 H 98-107 MMOL/L Bedside Glucose (Blood Gas) 128 H 65-95 MG/DL Bedside Ionized Calcium (Blood Gas) 1.17 1.15-1.33 MMOL/L Bedside Lactic Acid (Blood Gas) 1.02 H 0.36-0.75 MMOL/L Blood Gas Flow-by 8.00 0.00-15.00 L/min Blood Gas CPAP 5 cm H2O DIAGNOSTICS / RADIOLOGY: PATIENT: KAYLA BELLE ACCT: [id number] LOC: 2CV U: [id number] AGE/SX: 79/M ROOM: 214 RE01/20/[address]: HEMANT ALMANZAR MD : 1945 BED: 1 DIS: STATUS: ADM IN TLOC: -------- ---- SPEC: [id number] MAIRLEE: 01/20/25 STATUS: COMP REQ: [id number] RECD: 01/20/[address]: ERASMO VICKERS NP SOURCE: OTHER SOUR ENTR: 01/20/25-[address] [facility] [address]: MEAGAN TRIANA MD SPDESC: OTHER BHARAT REICH MD ORDERED: AEROBIC CULTURE COMMENTS: Specimen Comment: THORACIC SURGICAL SITE Procedure Result Jaspreet Date-Time AEROBIC CULTURE Final 01/24/25-0882 [facility] DESCRIPTION: REPORT 1: 3+ GRAM NEGATIVE RODS IDENTIFICATION AND SENSITIVITY TO FOLLOW REPORT 2: STUDIES TO CONTINUE REPORT 3: 1+ GRAM POSITIVE COCCI IN CHAINS POSSIBLE ENTEROCOCCUS SPECIES IDENTIFICATION AND SENSITIVITY TO FOLLOW . NO FURTHER WORK-UP DONE ENTEROCOCCUS FAECALIS ESCHERICHIA COLI KLEBSIELLA AEROGENES PSEUDOMONAS AERUGINOSA E FAECALIS E COLI M.I.C. RX M.I.C. RX --------- ---- --------- ---- AMPICILLIN <=2 S >16 R AZTREONAM <=4 S CEFAZOLIN >16 R CEFTAZIDIME <=1 S CEFTAZIDIME/AVIBACTAM <=8 S CEFTRIAXONE >2 R CIPROFLOXACIN >2 R GENTAMICIN <=2 S LEVOFLOXACIN >4 R VANCOMYCIN 1 S AMPICILLIN/SULBACTAM >16/8 R GENTAMICIN Synergy Screen <=500 S MEROPENEM <=1 S PENICILLIN 2 S PIPERACILLIN/TAZOBACTAM <=8 S TRIMETHOPRIM/SUFLAMETHOXAZOLE <=2/38 S CONTINUED ON NEXT PAGE RUN DATE: 01/24/25 [facility] PAGE 2 RUN TIME: 0900 [id number] [place] [address] Department of Laboratories CLIA # [id number] [employer]olstery Sewer: Azar Rousseau DO Specimen Report SPEC: [id number] PATIENT: KAYLA BELLE [id number] (Continued) Procedure Result Jaspreet Date-Time AEROBIC CULTURE Final (continued) 01/24/25 RACHEL Molina M.I.CJayesh RX M.I.C. RX --------- ---- --------- ---- AMPICILLIN AZTREONAM <=4 S <=4 S CEFAZOLIN CEFTAZIDIME <=1 S <=1 S CEFTAZIDIME/AVIBACTAM <=8 S <=8 S CEFTRIAXONE CIPROFLOXACIN >2 R <=0.25 S GENTAMICIN <=2 S LEVOFLOXACIN >4 R 1 S VANCOMYCIN AMPICILLIN/SULBACTAM GENTAMICIN Synergy Screen MEROPENEM <=1 S <=1 S PENICILLIN PIPERACILLIN/TAZOBACTAM <=8 S <=8 S TRIMETHOPRIM/SUFLAMETHOXAZOLE <=2/38 S ASSESSMENT: Wound hematoma, status post wound exploration with drainage of hematoma on 01/24/2025. Thoracic lumbar surgical wound infection with dehiscence, s/p incision and dra osorio with wound VAC placement on 01/23/2025. Polymicrobial infection. Recent T12-L1 decompressive laminectomy on 01/01/2025. Spinal stenosis Diabetes mellitus. Benign prostatic hyperplasia. Postop anemia requiring blood transfusion. PLAN: Continue vancomycin per pharmacy protocol. Continue cefepime IV. Continue pain management. Continue GI prophylaxis. Continue Wound care as recommended by neurosurgeon. We will monitor electrolytes. This case was reviewed and discussed with my supervising physician Dr. Fitzgerald and the above assessment and plan was formulated and agreed upon. ATTESTATION BY PHYSICIAN I have seen and examined the patient. I reviewed the documentation, medical decision making, and treatment plan as noted by the mid-level provider above. I agree with the findings and plan of care. DIANA FITZGERALD MD, MIRTA L [facility] Jan 26, 2025 11:35
--- NOTE | 2025-01-26 12:28 | PN ---
[facility] PROGRESS NOTE Date Patient Seen: Jan 26, 2025 Time of Visit: 12:28 Supervising Physician: Dr. Leander Prakash Primary Care Physician: Dr. Yosi Rg Attending physicians: [facility] Outpatient Specialists: Inpatient Consults: Dr. Josiah Noyola (ID), Dr. Harish Farmer (Neurosugery), BIS PROBLEM LIST: Intubated patient, extubated and downgraded transferred out of ICU Hemorrhagic shock requiring blood transfusion, s/p I&D of wound abscess at thoracolumbar spine performed by Dr. Harish Vidal on 01/24/2024 morning Severe anemia Wound dehiscence Electrolyte derangement (hypokalemia and hypomagnesemia) Hyperglycemia Elevated D-dimer Bilateral carotid stenosis INTERVAL HISTORY: Patient seen and assessed by myself, discussed with spouse present, vital signs, laboratory results, diagnostic tests and plan, IRU. The patient was joined by his spouse at bedside. Discussed information with both patient and spouse. Constipation, and fatigue reported. Started on a bowel regimen program. Chest pain, shortness of breath, fever, chills, nauseousness, diarrhea denied. US venous Doppler unilateral right upper extremity swelling and redness results negative ruling out deep vein thrombosis. VSS. Afebrile Plan: Following neurosurgical recommendations Monitor for signs of bleeding Telemetry Wound care starts tomorrow, 01/26/25 to surgical site US venous Doppler unilateral, right upper extremity , ordered awaiting results Aerobic culture back results:Escherichia coli +, Morganella morganii +, cefepime 1 g IV q.8 hours plus vancomycin 1 g Q 24 hours Continue with DVT & GI prophylaxis REVIEW OF SYSTEMS: Patient is able to participate PHYSICAL EXAM: GENERAL: Intubated & sedated. HEENT: EOMI, Sclera non icteric, moist mucosa. Endotracheal tube in place. NECK: Supple, no JVD, trachea midline LUNGS: Clear breath sounds bilaterally. No wheezes HEART: Regular rate and rhythm. Normal S1 and S2, without murmurs ABD: Abdomen soft, nontender. Bowel sounds present EXT: No clubbing cyanosis or edema NEURO: Intubated and sedated. Vital Signs (last 8hr) Date Time Temp Pulse Resp B/P (MAP) Pulse Ox O2 Delivery O2 Flow Rate FiO2 01/26/25 11:52 97.9 70 20 145/78 98 Room Air 01/26/25 11:19 78 20 01/26/25 10:24 98 Room Air* 0 21 01/26/25 08:00 97.5 83 20 141/70 98 Room Air 01/26/25 06:46 78 20 N/A Room Air 21 01/26/25 06:37 76 20 01/26/25 05:20 98.1 97 18 138/67 94 Room Air LABS: Hematology Labs: Test 01/26/25 03:12 01/25/25 03:20 Range/Units White Blood Count 5.2 4.8-10.8 K/uL Red Blood Count 3.07 L 4.50-6.20 MIL/uL Hemoglobin 9.5 L 14.0-18.0 g/dL Hematocrit 27.5 L 42-54 % Mean Corpuscular Volume 89.6 79-99 fL Mean Corpuscular Hemoglobin 30.9 27.0-33.0 pg Mean Corpuscular Hemoglobin Concent 34.5 32.0-36.0 g/dL Red Cell Distribution Width 16.3 H 11.0-15.5 % Platelet Count 223 130-400 K/uL Mean Platelet Volume 9.4 7.5-10.5 fL Nucleated Red Blood Cells 0.0 0.0-0.19 % Immature Granulocyte % (Auto) 0.8 0-1 % Neutrophils (%) (Auto) 85.9 H 40.0-77.0 % Lymphocytes (%) (Auto) 6.7 L 21.0-51.0 % Monocytes (%) (Auto) 6.1 3.0-13.0 % Eosinophils (%) (Auto) 0.5 0.0-8.0 % Basophils (%) (Auto) 0.0 0.0-5.0 % Neutrophils # (Auto) 5.5 1.8-7.7 K/uL Lymphocytes # (Auto) 0.4 L 1.0-4.8 K/uL Monocytes # (Auto) 0.4 0.1-1.0 K/uL Eosinophils # (Auto) 0.03 0.00-0.70 K/uL Basophils # (Auto) 0.00 0.00-0.20 K/uL Absolute Immature Granulocyte (auto 0.05 0-1 K/uL Chemistry Labs: Test 01/26/25 11:31 01/26/25 03:12 Range/Units Whole Blood Glucose 129 H 70-110 MG/DL Sodium Level 137 136-145 mmol/L Potassium Level 3.4 L 3.5-5.1 mmol/L Chloride Level 103 101-111 mmol/L Carbon Dioxide Level 18 L 21-32 mmol/L Blood Urea Nitrogen 10 7-18 mg/dL Creatinine 0.7 0.5-1.3 mg/dL Glomerular Filtration Rate Calc 94 >90 mL/min Random Glucose 111 H 70-105 mg/dL Total Calcium 8.1 L 8.5-10.1 mg/dL Magnesium Level 1.70 L 1.80-2.40 mg/dL Total Bilirubin 0.8 0.2-1.0 mg/dL Aspartate Amino Transf (AST/SGOT) 22 10-37 U/L Alanine Aminotransferase (ALT/SGPT) 21 12-78 U/L Alkaline Phosphatase 115 50-136 U/L Total Protein 5.3 L 6.0-8.3 g/dL Albumin 1.7 L 3.5-5.0 g/dL DIAGNOSTICS / RADIOLOGY RESULTS: REASON: Right upper extremity swelling and warmth ORDERING PHYSICIAN: ABIGAIL PALMA NP PROCEDURE: VENOUS UNI - US VENOUS DOPPLER UNILATERAL EXAMINATION: SPECTRAL DOPPLER ULTRASOUND EXAMINATION OF THE RIGHT UPPER EXTREMITY VEINS. CLINICAL HISTORY: Swelling and warmth. COMPARISON: None. TECHNIQUE: Grayscale, color, and spectral Doppler images of the right upper extremity veins are submitted. FINDINGS: The right internal jugular, visualized aspects of the subclavian, axillary, brachial, and basilic, veins are patent. These veins show normal flow with physiological changes of phasicity and augmentation. The cephalic vein is collapsed IMPRESSION: There is no deep vein thrombosis within the right upper extremity. /[place] DICTATED BY: STEVAN FOSTER Jr., MD DATE: 01/26/2531 ELECTRONICALLY SIGNED BY: STEVAN FOSTER Jr., MD DATE: 01/26/2531 PLAN NEURO: Minimize central acting medications as possible. Maintain fall precautions, adequate lighting during the day PULMONARY: Supplemental 02 as needed. Maintain aspiration precautions at all times CARDIOVASCULAR: Follow hemodynamics. Vital signs per facility protocol GI & NUTRITION: Continue with nutritional support. Continue stool softeners and laxatives as needed. KIDNEYS & ELECTROLYTES: Strict monitoring of intake, output and overall fluid balance. Avoid nephrotoxic medications to the extent possible. Medications to be dosed according to renal function. Monitor electrolytes and replace as needed ENDOCRINE: Maintain blood glucose between 100-180 at all times. Hypoglycemia protocol in place INFECTIOUS DISEASE: Trend temperature, WBC and procalcitonin level Follow cultures, deescalate antibiotics as soon as possible. Panculture if new onset fever ONCOLOGY/HEMATOLOGY/COAGULATION: Monitor for s/s of bleeding Monitor hemoglobin, coagulation studies as needed SKIN: Pressure ulcer prevention per facility protocol Specialty mattress ORTHO/REHAB: Continue PT/OT Prophylaxis: Continue GI and DVT prophylaxis Code Status: Full Resuscitation Disposition: TBD Other: Total patient care time exceeds 35 minutes excluding all procedures. ABIGAIL PALMA NP Jan 26, 2025 12:28
--- NOTE | 2025-01-26 13:23 | PN ---
INFECTIOUS DISEASE FOLLOWUP NOTE DATE OF SERVICE: 01/25/2025 SUBJECTIVE: The patient is seen and examined at bedside today. The patient has no fever and no chills. No bleeding tendency. No sore throat or rhinorrhea. No heat or cold intolerance. No depression. No suicidal ideation. PHYSICAL EXAMINATION: VITAL SIGNS: Temperature 97.5. EYES: No icterus. Pupils are equal and reactive. HENT: No oral thrush seen. Moist oral mucosa. NECK: Supple. No JVD. No thyromegaly. LUNGS: Good air entry. No rales. No rhonchi. CARDIOVASCULAR: S1 and S2, regular. No murmur heard. ABDOMEN: Soft and nontender. Bowel sounds present. CENTRAL NERVOUS SYSTEM: Awake, alert and oriented x3. No focal deficits. SKIN: No rashes. LYMPHATICS: No peripheral lymphadenopathy. BACK: No deformity. Surgical incision in the lumbar spine. ASSESSMENT: A 79-year-old male with multiple problems, which include; 1. Lumbar spine wound infection, status post debridement. 2. Polymicrobial wound infection. 3. Hypertension. 4. Benign prostatic hypertrophy. 5. Anemia. 6. Obesity. 7. Chronic back pain. PLAN: 1. Continue pain management. 2. Continue wound care. 3. Continue gastrointestinal prophylaxis. 4. Continue antimetics. 5. Continue deep vein thrombosis prophylaxis. TID: [id number] RECEIPT: [id number] [email or web address]
[2025-01-26] MEDS: LACTULOSE 20 GM/30 ML UDCUP PO PRN (14:24)
--- NOTE | 2025-01-26 15:54 | PN ---
[facility] PROGRESS NOTE Date of Service: Jan 26, 2025 Time of Service: 15:48 SUBJECTIVE: [ 01/20 Patient is 79 years old male with a past medical history of diabetes, hypertension, compression vertebral fracture, spinal stenosis, Parkinson, BPH, s/p recent laminectomy with Dr. Norman's 12/30/24, who came to emergency department from [facility] with a complaint of infected surgical site s/p laminectomy. Family members/ at the bedside stated that yesterday she realized that patient's wound has been very with TITI Mendoza patient and opening the wound, patient's realize that has this open has a bed and that is draining pus. She took the pictures and sent to Dr. Norman's, who recommended that patient comes to ER for admission-recommendations.] Most recent vital signs temperature 98.1 one 0 lying 20 blood pressure 113/72 patient on 2 L 96%. Sodium 134 potassium 3.1 CO2 26 BUN 32 creatinine 0.8 GFR 90 glucose 223 lactic acid 1.8 troponin negative x1 lipase 21. WBC 5.9 hemoglobin 10.8 hematocrit 3010.4 platelets 258. No radiology performed at this moment. Chest x-ray pending. We will admit patient under hospitalist care for further evaluation/recommendations. ID we will be consulted for the antibiotics Dr. Martinez with a consulted wound recommendations and Dr. Xiong for s/p laminectomy. 01/21 patient was seen by nurse practitioner and physician during rounding in emergency department in room ED 11. Home medication were reconciled by [employer]. At this moment we are pending further evaluation/recommendation by wound care, ID and neurosurgeon. All three consults were notified and are aware of consultations. Patient we will continue antibiotics. We will continue to monitor patient in the meantime. A.m. labs. 01/22 patient was seen by nurse practitioner and physician during rounding in room 329. Nurse practitioner was able to talk to Dr. Nava neurosurgeon regarding further recommendations and plan. As per surgeon CT spine lumbar, thoracic and cervical with the contrast to be ordered. MA[employer] SUPERVISOR placed the orders. Most recent WBC is 6.3. Patient continues to be on vancomycin and cefepime as per ID recommendations. As per wound care to surgical wound to thoracic spine cleanse with normal saline, pat dry, apply Dakins wet to dry cover with 4 x 4 gauze, abdominal pad, secure with tape change b.i.d. and PRN. Wound care to sacrum apply Venelex b.i.d. and PRN. Apply waffle mattress. Keep wounds clean and dry. Offloading/reposition q.2 hours. We will continue to monitor patient in the meantime. A.m. labs 01/23 patient was seen by nurse practitioner and physician during rounding in room 329. Patient was evaluated by neurosurgeon and today patient was taken for lumbar cleaning and debridement by . Klebsiella pneumoniae and Pseudomonas aeruginosa. Final urine culture negative. Blood culture 48 hours negative. As per ID continue vancomycin and cefepime. We will continue to monitor patient in the meantime. A.m. labs. 01/24 patient was seen by nurse practitioner and physician during rounding. Patient is s/p I and D of wound abscess at thoracolumbar spine with Dr. Nava on 01/23/2025. After surgery around 2208 RN paged hospitalist [employer] on-call regarding the hemoglobin mean trending down at that if patient is bleeding profusely at the surgical wound and blood pressure from 133/70 went down to 70 over 45. Patient was placed on 3 L nasal cannula satting 93%. Patient went into hemorrhagic shock rapid response was called normal saline IV fluids bolus were administered and albumin was given to the patient for emergency release of blood. Surgeon was notified patient was transfused with one PRBC and was placed on low-dose of Levophed for the blood pressure support. Patient then was taken to OR by . After procedure patient was brought back to ICU. Most recent hemoglobin 7.7 hematocrit 24.4 patient receiving another PRBC. Venous Doppler was performed pending results as well as carotid artery ultrasound was performed pending results. Most recent chest x-ray from 01/24/2025 showed endotracheal tube tip a 2 cm above the jaja. Right-sided central venous catheter tip overlies distal SVC. Stable small pleural effusions. Mild perihilar haziness bilaterally concerning for mild pulmonary edema as a new finding. We will continue to monitor patient in the meantime. A.m. labs. 01/25 patient is seen and examined at bedside, discussed with the RN, no acute events overnight, patient is status post incision and drainage of wound abscess a thoracolumbar spine by Dr. Nava on 01/23/2025. Patient tolerated the procedure well. Results of wound culture positive for E coli, Morganella Morgagni. Patient also with a aerobic culture positive for Enterococcus faecalis, E coli, Klebsiella aeruginosa and Pseudomonas aeruginosa. Continue the patient on broad-spectrum IV antibiotics to include vancomycin IV and cefep leigh ann. Continue to follow neurosurgical input and recommendation, continue to follow ID input recommendation, continue local wound care. The patient will benefit from discharge plan to [facility] facility. 01/26 patient is pending wound VAC placement. He is also pending to be accepted to LTAC. Patient remains on IV antibiotics. Physical therapy following. No new complaints or concerns. No acute events reported overnight. REVIEW OF SYSTEMS CONSTITUTIONAL: Denies fevers, chills, or night sweats. No unintentional weight loss reported. NEUROLOGICAL: Denies headache, amaurosis fugax, motor weakness, sensory deficit, vertigo/spinning sensation, gait abnormalities, or tremors. ENT: No hearing loss, otalgia, otorrhea, rhinitis, rhinorrhea, hoarseness, or sore throat. CARDIOVASCULAR: Denies any exertional angina, dyspnea on exertion, orthopnea, paroxysmal nocturnal dyspnea, palpitations, life-threatening arrhythmias, claudication. PULMONARY: Denies any shortness of breath, cough, phlegm/sputum, hemoptysis, pleuritic chest pain. SLEEP: Denies morning headaches, daytime somnolence or napping. Denies difficulty falling asleep, staying asleep, waking from sleep. Denies knowledge of snoring. GASTROINTESTINAL: Denies any type of dysphagia to either liquids or solids. Denies nausea, vomiting, pyrosis, early satiety, abdominal pain, diarrhea, constipation, or changes in stool consistency or caliber. Denies coffee-ground emesis, hematemesis, hematochezia, or melanotic stools. GENITOURINARY: Denies frequency, urgency, nocturia, hematuria or incontinence (Storage/Irritative symptoms.) Low urinary stream, straining to void, urinary intermittency or hesitancy, splitting of the voiding stream, terminal dribbling. ENDOCRINOLOGIC: Denies polyuria, polydipsia, polyphagia or heat/cold intolerances. HEMATOLOGIC: Denies thrombophilia/previous clots, or coagulopathy/bleeding disorders. ONCOLOGIC: Denies personal history of malignancy. DERMATOLOGIC: Denies rashes or pruritus. S/p laminectomy open wound PSYCHIATRIC: Denies any suicidal or homicidal ideation. Denies hallucinations. PHYSICAL EXAM PT INTUBATED Vital Signs (last 8hr) Date Time Temp Pulse Resp B/P (MAP) Pulse Ox O2 Delivery O2 Flow Rate FiO2 01/26/25 11:52 97.9 70 20 145/78 98 Room Air 01/26/25 11:19 78 20 01/26/25 10:24 98 Room Air* 0 21 01/26/25 08:00 97.5 83 20 141/70 98 Room Air LABS: Laboratory: Test 01/26/25 15:10 01/26/25 14:38 01/26/25 03:12 01/25/25 08:31 Range/Units Whole Blood Glucose 147 H 70-110 MG/DL Vancomycin Level Trough 13.4 10.0-20.0 UG/ML White Blood Count 5.2 4.8-10.8 K/uL Red Blood Count 3.07 L 4.50-6.20 MIL/uL Hemoglobin 9.5 L 14.0-18.0 g/dL Hematocrit 27.5 L 42-54 % Mean Corpuscular Volume 89.6 79-99 fL Mean Corpuscular Hemoglobin 30.9 27.0-33.0 pg Mean Corpuscular Hemoglobin Concent 34.5 32.0-36.0 g/dL Red Cell Distribution Width 16.3 H 11.0-15.5 % Platelet Count 223 130-400 K/uL Mean Platelet Volume 9.4 7.5-10.5 fL Nucleated Red Blood Cells 0.0 0.0-0.19 % Sodium Level 137 136-145 mmol/L Potassium Level 3.4 L 3.5-5.1 mmol/L Chloride Level 103 101-111 mmol/L Carbon Dioxide Level 18 L 21-32 mmol/L Blood Urea Nitrogen 10 7-18 mg/dL Creatinine 0.7 0.5-1.3 mg/dL Glomerular Filtration Rate Calc 94 >90 mL/min Random Glucose 111 H 70-105 mg/dL Total Calcium 8.1 L 8.5-10.1 mg/dL Magnesium Level 1.70 L 1.80-2.40 mg/dL Total Bilirubin 0.8 0.2-1.0 mg/dL Aspartate Amino Transf (AST/SGOT) 22 10-37 U/L Alanine Aminotransferase (ALT/SGPT) 21 12-78 U/L Alkaline Phosphatase 115 50-136 U/L Total Protein 5.3 L 6.0-8.3 g/dL Albumin 1.7 L 3.5-5.0 g/dL Blood Gas Specimen Type Venous Arterial Blood Oxygen Saturation 98.0 94.0-98.0 % Venous Blood pH 7.475 H 7.320-7.430 Venous Blood pCO2 at Patient Temp 20 *L 38-54 Venous Blood pO2 at Patient Temp 97.9 H 23.0-48.0 mmHg Venous Blood HCO3 14.5 L 22.0-29.0 Venous Blood Base Excess -6.4 L -2.0-3.0 Blood Gas Temperature 37.0 35.5-37.0 CELSIUS Blood Gas Vent Mode RA ROOM AIR FiO2 21.0 % Blood Gas Specimen Comment VENOUS Test 01/25/25 03:20 Range/Units Immature Granulocyte % (Auto) 0.8 0-1 % Neutrophils (%) (Auto) 85.9 H 40.0-77.0 % Lymphocytes (%) (Auto) 6.7 L 21.0-51.0 % Monocytes (%) (Auto) 6.1 3.0-13.0 % Eosinophils (%) (Auto) 0.5 0.0-8.0 % Basophils (%) (Auto) 0.0 0.0-5.0 % Neutrophils # (Auto) 5.5 1.8-7.7 K/uL Lymphocytes # (Auto) 0.4 L 1.0-4.8 K/uL Monocytes # (Auto) 0.4 0.1-1.0 K/uL Eosinophils # (Auto) 0.03 0.00-0.70 K/uL Basophils # (Auto) 0.00 0.00-0.20 K/uL Absolute Immature Granulocyte (auto 0.05 0-1 K/uL Current Medications Medications (Trade) Dose Ordered Sig/Steve Route PRN Reason Start Time Stop Time Status Last Admin Dose Admin Acetaminophen (TYLenol 325MG TAB) 650 mg Q4H PRN PO MILD PAIN (1-3) 01/20/25 16:00 02/19/25 15:59 01/24/25 19:26 650 MG Acetaminophen (TYLenol 325MG TAB) 650 mg Q6H PRN PO MILD PAIN (1-3) 01/20/25 16:00 01/23/25 07:25 DC Acetaminophen (TYLenol 325MG TAB) 650 mg Q6H PRN PO TEMPERATURE GREATER THAN 101.5 01/20/25 16:00 02/19/25 15:59 Al Hydroxide/Mg Hydroxide (MAALox PLUS 30ML) 30 ml Q6H PRN PO INDIGESTION 01/20/25 16:00 02/19/25 15:59 Albumin Human 250 ml @ 500 mls/hr AD IV 01/23/25 22:00 01/25/25 07:05 DC 01/23/25 21:58 500 MLS/HR Albuterol Sulfate (Proventil 0.083% 2.5mg/3ml) 2.5 mg [id number] IH 01/20/25 18:00 02/19/25 17:59 01/26/25 11:19 2.5 MG Aspirin (Aspirin 81mg Chew Tab) 81 mg DAILY PO 01/22/25 09:00 02/21/25 08:59 01/26/25 09:45 81 MG Atorvastatin Calcium (LIPItor 40MG) 80 mg DAILY PO 01/22/25 09:00 01/26/25 09:58 DC 01/25/25 09:29 80 MG Atorvastatin Calcium (LIPItor 40MG) 80 mg HS PO 01/26/25 21:00 02/21/25 08:59 Bisacodyl (DulcoLAX 5MG TAB) 10 mg DAILY PO 01/25/25 13:00 02/24/25 12:59 01/26/25 09:44 10 MG Cefepime HCl (MAXipime 1 GM vial) 1 gm Q8H IVPB 01/21/25 13:00 01/31/25 12:59 01/26/25 13:49 1 GM Clindamycin HCl/ Dextrose 50 ml @ 100 mls/hr ONCE STAT IV 01/20/25 14:30 01/20/25 14:59 DC 01/20/25 15:04 100 MLS/HR Clindamycin HCl/ Dextrose 50 ml @ 100 mls/hr Q8H IV 01/20/25 23:00 01/21/25 12:57 DC 01/21/25 08:07 100 MLS/HR Dextrose (D50w) 50 ml AD PRN IV HYPOGLYCEMIA PROTOCOL 01/20/25 16:00 02/19/25 15:59 Diphenhydramine HCl (BENAdryl INJ) 25 mg Q6H PRN IV SEVERE ITCHING/RASH 01/20/25 16:00 02/19/25 15:59 Docusate Sodium (COLace 100MG CAP) 100 mg BID PO 01/25/25 13:00 02/24/25 12:59 01/26/25 09:44 100 MG Famotidine (Pepcid 20mg Vial) 20 mg BID PRN IV NAUSEA/VOMITING 01/20/25 16:00 01/20/25 16:18 DC Fentanyl/Sodium Chloride 250 ml @ 0 mls/hr PROTOCOL IV 01/24/25 00:30 01/24/25 08:46 DC Finasteride (PROscar 5 MG TAB) 5 mg DAILY PO 01/22/25 09:00 02/21/25 08:59 01/26/25 09:45 5 MG Fluticasone Propionate (FLOnase 50 mcg/ spray 16g bottle) 1 SPRAY BID EN 01/21/25 21:00 02/20/25 20:59 01/26/25 09:43 1 SPRAYS Gabapentin (NEURontin 300 MG CAP) 300 mg TID PO 01/21/25 21:00 02/20/25 20:59 01/26/25 13:50 300 MG Glucagon (Glucagon 1mg Kit) 1 mg AD PRN IM HYPOGLYCEMIA PROTOCOL 01/20/25 16:00 02/19/25 15:59 Guaifenesin/ Dextromethorphan (RobiTUSSin DM 200/20MG 10ML) 10 ml Q4H PRN PO COUGH 01/20/25 16:00 02/19/25 15:59 HCTZ/Losartan Potassium (Hyzaar 50-12.5 Tablet) 1 tab DAILY PO 01/22/25 09:00 02/21/25 08:59 01/26/25 09:45 1 TAB Heparin Sodium (Porcine) (HEParin 5,000 UNIT VIAL) 5,000 unit BID SQ 01/20/25 21:00 02/19/25 20:59 01/26/25 09:52 5,000 UNIT Home Med (Home Medication) BID PO 01/21/25 21:00 02/20/25 20:59 Home Med (Home Medication) DAILY PO 01/22/25 09:00 02/21/25 08:59 Home Med (Home Medication) QID OP 01/21/25 17:00 02/20/25 16:59 Hydralazine HCl (APRESOLine 20MG INJ) 10 mg Q6H PRN IV For:SBP above 160;DBP above 90 01/20/25 16:00 02/19/25 15:59 Ibuprofen (moTRIN) 800 mg Q8H PRN PO MODERATE PAIN (4-6) 01/20/25 16:00 02/19/25 15:59 01/26/25 14:26 800 MG Insulin Human Regular (humuLIN R 100 UNIT/ML 3ML) INSULIN SLIDING SCAL... ACHS SQ 01/20/25 16:30 02/19/25 16:29 01/24/25 06:03 4 UNIT Ipratropium Humbird (AtrovENT UD) 0.5 mg [id number] IH 01/20/25 18:00 01/21/25 10:32 DC 01/21/25 06:07 0.5 MG Ipratropium [place]umbird (AtrovENT UD) 0.5 mg [id number] IH 01/21/25 12:00 02/19/25 17:59 01/26/25 11:19 0.5 MG Ketorolac Tromethamine (toRADol) 15 mg Q8H PRN IV MODERATE PAIN (4-6) IF NPO 01/20/25 16:00 01/23/25 07:25 DC Lactated Ringer's (Lactated Ringers 1000ml) 500 ml BOLUS IV 01/23/25 22:00 01/25/25 07:06 DC 01/24/25 06:42 500 ML Lactated Ringer's (Lactated Ringers 1000ml) 500 ml BOLUS IV 01/24/25 07:00 01/25/25 07:06 DC Lactulose (Constulose 20gm/ 30ml Udcup) 20 gm BID PRN PO CONSTIPATION 01/20/25 16:00 02/19/25 15:59 01/26/25 14:24 20 GM Magnesium Sulfate 50 ml @ 0 mls/hr PROTOCOL PRN IV other 01/20/25 16:00 02/19/25 15:59 01/25/25 06:09 25 MLS/HR Morphine Sulfate (morPHINE 4MG SYG) 1 mg Q4H PRN IVP SEVERE PAIN (7-10) 01/20/25 16:00 01/25/25 18:59 DC 01/25/25 12:09 1 MG Nitroglycerin (Nitrostat) 0.4 mg PROTOCOL PRN SL CHEST PAIN 01/20/25 16:00 02/19/25 15:59 Norepinephrine 250 ml @ 0 mls/hr PROTOCOL IV 01/23/25 22:30 02/22/25 22:29 Ondansetron HCl (zoFRAN 4MG INJ) 4 mg Q6H PRN IV NAUSEA/VOMITING 01/20/25 16:00 02/19/25 15:59 Pantoprazole Sodium (PROTonix 40MG TAB) 40 mg DAILY PO 01/22/25 09:00 02/21/25 08:59 01/26/25 09:45 40 MG Pharmacy Profile Note (Pharmacy Communication) 1 each ONCE MISC 01/24/25 21:00 01/25/25 07:06 DC Potassium Chloride 100 ml @ 100 mls/hr AD PRN IV POTASSIUM PROTOCOL 01/20/25 16:00 02/19/25 15:59 01/23/25 03:01 100 MLS/HR Potassium Chloride (K-Dur/Klor-Con 20meq) 20 meq AD PRN PO POTASSIUM PROTOCOL 01/20/25 16:00 02/19/25 15:59 01/26/25 05:47 20 MEQ Potassium Chloride (KCl 10% Elixir 20meq/15ml) 20 meq AD PRN PO POTASSIUM PROTOCOL 01/20/25 16:00 02/19/25 15:59 01/26/25 09:44 20 MEQ Propofol 100 ml @ 0 mls/hr PROTOCOL IV 01/24/25 00:30 01/24/25 08:46 DC 01/24/25 06:19 25 MLS/HR Sodium Hypochlorite (Dakin'S 0.25% Half Strength) thoracic spine wo... BID TP 01/21/25 21:00 02/20/25 20:59 01/26/25 09:55 1 APPL Sodium Chloride 1,000 ml @ 100 mls/hr Q10H IV 01/20/25 16:00 01/24/25 10:22 DC 01/24/25 03:28 100 MLS/HR Tamsulosin HCl (FloMAX) 0.4 mg DAILY PO 01/22/25 09:00 02/21/25 08:59 01/26/25 09:45 0.4 MG Vancomycin HCl 250 ml @ 125 mls/hr Q12H IV 01/22/25 02:00 01/23/25 02:05 DC 01/22/25 16:48 125 MLS/HR Vancomycin HCl (Vancomycin 750mg) 750 mg Q12H IVPB 01/23/25 04:00 02/02/25 03:59 01/26/25 03:54 750 MG Vancomycin HCl (Vancomycin Protocol) 1 each AD IV 01/21/25 13:00 02/04/25 12:59 Wound Care/ Dressing Products (Venelex Ointment) Sacral wound APPL... BID TP 01/21/25 21:00 02/20/25 20:59 01/26/25 09:53 1 GM Zolpidem Tartrate (AmbIEN) 5 mg HS PRN PO INSOMNIA 01/20/25 16:00 02/19/25 15:59 DIAGNOSTICS / RADIOLOGY: [ ] ASSESSMENT: [s/p Emergency closure of back wound done on 01/23/[address] Nava Hemorrhagic shock requiring blood transfusion, s/p I&D of wound abscess at thoracolumbar spine performed by Dr. Harish Nava on 01/24/2024 morning Hypotension, unresponsive to IV fluids and albumin, in need of pressor Severe anemiaAcute hypoxic respiratory failure POA Infected wound laminectomy 12/30/24 POA s/p I AND D with dr Nava 01/23/25 wound culture growing enterococcus faecalis, e coli, klebsiella aerogeneses, pseudomonas aeruginosa Tachycardia POA Multifactorial anemia POA Electrolyte imbalance hyponatremia Na 134 hypokalemia 3.1 POA Acute dehydration POA Hypotension Hyperlipidemia POA History of Stroke POA Uncontrolled diabetes mellitus type 2 with hyperglycemia POA Compression fracture Spinal stenosis s/p laminectomy 01/15 PLAN: patient is status post incision and drainage of wound abscess a thoracolumbar spine by Dr. Nava on 01/23/2025. Patient tolerated the procedure well. Results of wound culture positive for E coli, Morganella Morgagni. Patient also with a aerobic culture positive for Enterococcus faecalis, E coli, Klebsiella aeruginosa and Pseudomonas aeruginosa. Continue the patient on broad-spectrum IV antibiotics to include vancomycin IV and cefepime as per Infectious Disease. Continue to follow neurosurgical input and recommendation, continue local wound care. The patient will benefit from discharge plan to LTAC. NEURO: Minimize central acting medications as possible. Fall Precautions. Well lit room through the day and minimize interruptions through the night to prevent acute delirium. PULMONARY: Supplemental 02 as needed Titrate Fio2 to keep Spo2 > or = 92% DuoNebs and CPT as needed Out of bed to chair as tolerated Maintain aspiration precautions at all times CARDIOVASCULAR: Continue aspirin, atorvastatin, hydrochlorothiazide, losartan GI & NUTRITION: Continue nutritional support Aspirations precautions Prokinetic agents and laxatives as needed KIDNEYS & ELECTROLYTES: Strict monitoring of intake and output Daily weights Avoid nephrotoxic agents Monitor electrolytes and replace as needed Continue finasteride and tamsulosin ENDOCRINE: Maintain blood glucose between 100-180 at all times. Insulin sliding scale for blood glucose management Hypoglycemia and hyperglycemia protocol in place INFECTIOUS DISEASE: Trend temperature, WBC and procalcitonin level Follow cultures, deescalate antibiotics as soon as possible. Panculture if new onset fever HEMATOLOGY & COAGULATION: Monitor H&H. Keep Hgb > 7 Transfuse 1 unit of PRBC for Hgb < 7 Transfuse 1 pack of platelets of platelets < 20, 000 Watch for any signs and symptoms of bleeding SKIN: Pressure ulcer prevention per facility protocol Specialty mattress as needed ORTHO/REHAB Continue PT/OT Supportive measures: Continue GI with pantoprazole and DVT prophylaxis SCDs only due to concerns for bleeding All questions answered time spent: > 35 min ] GRACIELA MARROQUIN IV, MD Jan 26, 2025 15:54
--- NOTE | 2025-01-26 17:00 | NUR ---
[facility] Follow-up: Patient assessed by wound healing team. Orders from Dr. Vidal on 01-24-25 to apply wound vac today. Wound vac machine not at bedside, primary nurse made aware of wound vac not at bedside. Primary nurse to locate a wound vac and notified Dr. Vidal reason for wound vac not being placed today. Addendum: 01/28/25 at 1300 by ROMELIA WOLFF RN RN/ELI Amended: Links added.
[2025-01-27] VITALS (11 sets, daily range): BP systolic 112–160; BP diastolic 59–96; PULSE 74–103; RESP 16–20; TEMP 98.2–99.2; O2SAT 95–97
[2025-01-27 05:22] LABS: NUCLEATED RED BLOOD CELLS 0.0 % (0.0-0.19); PLATELET COUNT (AUTO) 182.0 K/uL (130-400); RED BLOOD CELL COUNT(AUTO) 2.92 MIL/uL (4.50-6.20); RED CELL DISTRIBUTION WIDTH 15.4 % (11.0-15.5); WHITE BLOOD COUNT (AUTO) 5.4 K/uL (4.8-10.8)
[2025-01-27 05:45] LABS: CREATININE 0.4 mg/dL (0.5-1.3); GLOMERULAR FILTR. RATE CALC 111.0 mL/min (>90); GLUCOSE,RANDOM 118.0 mg/dL (70-105); SODIUM SERUM 138.0 mmol/L (136-145); UREA NITROGEN, BLOOD 10.0 mg/dL (7-18)
--- NOTE | 2025-01-27 14:17 | NUR ---
[facility] Follow-up: Patient re-assessed by wound healing team. See wound assessment. Assessment and recommendations provided to primary nurse r/t Caron with wound vac. Education provided to patient and spouse r/t wound, wound care treatment, pressure ulcer prevention/management. Wound vac placed. Addendum: 01/28/25 at 1456 by ROMELIA WOLFF RN RN/ Amended: Links added.
--- NOTE | 2025-01-27 17:38 | PN ---
PROGRESS NOTE Date of Service: Jan 27, 2025 Time of Service: 17:37 SUBJECTIVE: Patient is evaluated at bedside in room 329. Patient's at bedside during evaluation. Patient is s/p I&D of wound dehiscence with wound infection to thoracolumbar spine by Dr. Vidal today. Patient is awake, alert, and oriented. Patient denies any complaints at this time. No signs of distress noted. Wound vac @ 125mmHG to thoracolumbar spine wound. REVIEW OF SYSTEMS CONSTITUTIONAL: Denies fever, chills, or fatigue. HEAD/FACE: No signs of trauma. EENT: Denies eye pain, blurred vision, double vision, or light sensitivity. RESPIRATORY: Denies shortness of breath, cough, wheezing CARDIOVASCULAR: Denies chest pain, palpitation, syncope GASTROINTESTINAL/ABDOMINAL: Denies abdominal pain, constipation, diarrhea, nausea or vomiting GENITOURINARY: Denies dysuria or hematuria. MUSCULOSKELETAL: Denies joint pain, tenderness, or trauma. INTEGUMENTARY: Open Surgical wound to thoracic lumbar spine NEUROLOGICAL/PSYCH: Denies anxiety, depression, heat or cold intolerance. PHYSICAL EXAM EYES: Anicteric. Pupils equal and reactive. HENT: No oral thrush seen, moist Oral mucosa NECK: Supple, no JVD or thyromegaly. LUNGS: Good air entry. No rales, no rhonchi. CARDIOVASCULAR: S1, S2 regular. No murmur heard. ABDOMEN: Soft, non tender, bowel sounds present, no organomegaly CENTRAL NERVOUS SYSTEM: Awake, alert, oriented x 3. No focal deficits. SKIN: discoloration noted to sacrum LYMPHATICS: No peripheral lymphadenopathy MUSCULOSKELETAL: No joint swelling, erythema or tenderness. EXTREMITIES: No cyanosis or clubbing BACK: Wound vac @ 125mmHG to thoracolumbar spine wound GENITOURINARY: No dysuria or hematuria Vital Signs (last 8hr) Date Time Temp Pulse Resp B/P (MAP) Pulse Ox O2 Delivery O2 Flow Rate FiO2 01/27/25 16:00 98.2 82 17 112/59 95 Room Air 01/27/25 12:00 98.4 89 18 158/78 97 Aerosol Face Mask 01/27/25 11:18 74 20 01/27/25 11:18 74 20 N/A Room Air 21 LABS: Laboratory: Test 01/27/25 15:46 01/27/25 05:10 01/26/25 14:38 01/26/25 03:12 Range/Units Whole Blood Glucose 120 H 70-110 MG/DL White Blood Count 5.4 4.8-10.8 K/uL Red Blood Count 2.92 L 4.50-6.20 MIL/uL Hemoglobin 8.9 L 14.0-18.0 g/dL Hematocrit 26.1 L 42-54 % Mean Corpuscular Volume 89.4 79-99 fL Mean Corpuscular Hemoglobin 30.5 27.0-33.0 pg Mean Corpuscular Hemoglobin Concent 34.1 32.0-36.0 g/dL Red Cell Distribution Width 15.4 11.0-15.5 % Platelet Count 182 130-400 K/uL Mean Platelet Volume 9.3 7.5-10.5 fL Nucleated Red Blood Cells 0.0 0.0-0.19 % Sodium Level 138 136-145 mmol/L Potassium Level 2.9 *L 3.5-5.1 mmol/L Chloride Level 104 101-111 mmol/L Carbon Dioxide Level 21 21-32 mmol/L Blood Urea Nitrogen 10 7-18 mg/dL Creatinine 0.4 L 0.5-1.3 mg/dL Glomerular Filtration Rate Calc 111 >90 mL/min Random Glucose 118 H 70-105 mg/dL Total Calcium 7.9 L 8.5-10.1 mg/dL Magnesium Level 2.10 1.80-2.40 mg/dL Vancomycin Level Trough 13.4 10.0-20.0 UG/ML Total Bilirubin 0.8 0.2-1.0 mg/dL Aspartate Amino Transf (AST/SGOT) 22 10-37 U/L Alanine Aminotransferase (ALT/SGPT) 21 12-78 U/L Alkaline Phosphatase 115 50-136 U/L Total Protein 5.3 L 6.0-8.3 g/dL Albumin 1.7 L 3.5-5.0 g/dL PROBLEM LIST : Medical Problems: Deep disruption of surgical wound Unspecified open wound of lower back Deep tissue injury to sacrum PLAN: Wound care to surgical wound to thoracic lumbar spine- Cleanse with normal saline, pat dry, apply adaptic/Vaseline gauze to bone/tendon, fill with black foam, cover with drape connect to wound vac started at 75mmhg/ continuous. Change 3 x week. Wound care to sacrum- Apply Venelex BID and PRN Apply waffle mattress Keep wounds clean and dry Offloading/reposition q 2 hours Continue IV antibiotics per ID Comorbidities per primary care team Further Management per hospital course. Thank You for the consult and allowing us to participate in the care of this patient. WENDY GONCALVES Jan 27, 2025 17:38
--- NOTE | 2025-01-27 18:18 | PN ---
INFECTIOUS DISEASE PROGRESS NOTE Date of Service: Jan 27, 2025 SUBJECTIVE: This is a 79-year-old male patient who was seen and examined at bedside in room 403. Patient is awake, alert and oriented x3. Patient's visiting at bedside. Patient is afebrile this morning with a temperature of 98.4. Patient continues on vancomycin and cefepime. Pending insurance approval to LT. PHYSICAL EXAM EYES: Anicteric. Pupils equal and reactive. HENT: No oral thrush seen, moist Oral mucosa. NECK: Supple, no JVD or thyromegaly. LUNGS: Good air entry. No rales, no rhonchi. CARDIOVASCULAR: S1, S2 regular. No murmur heard. ABDOMEN: Soft, non tender, bowel sounds present, no organomegaly. CENTRAL NERVOUS SYSTEM: Awake, alert, oriented x 3. SKIN: No rashes, no swelling. LYMPHATICS: No peripheral lymphadenopathy. MUSCULOSKELETAL: No joint swelling, erythema or tenderness. EXTREMITIES: No cyanosis or clubbing BACK: Surgical wound. GENITOURINARY: No dysuria or hematuria. Vital Sign (Last 12 Hours) 01/27/25 01/27/25 01/27/25 01/27/25 07:40 08:00 11:18 11:18 Temp 99.0 Pulse 103 74 74 Resp 18 20 20 B/P (MAP) 160/83 Pulse Ox 93 O2 Delivery Room Air* Room Air N/A Room Air O2 Flow Rate 0 FiO2 21 21 01/27/25 01/27/25 12:00 16:00 Temp 98.4 98.2 Pulse 89 82 Resp 18 17 B/P (MAP) 158/78 112/59 Pulse Ox 97 95 O2 Delivery Aerosol Face Mask Room Air Intake & Output (last 24hrs) 01/26/25 01/26/25 01/27/25 15:00 23:00 07:00 Intake Total 1440 ml 360 ml 250.0 ml Output Total 1900 ml 2000 ml Balance 1440 ml -1540 ml -1750.0 ml LABS: Laboratory: Test 01/27/25 15:46 01/27/25 05:10 01/26/25 14:38 01/26/25 03:12 Range/Units Whole Blood Glucose 120 H 70-110 MG/DL White Blood Count 5.4 4.8-10.8 K/uL Red Blood Count 2.92 L 4.50-6.20 MIL/uL Hemoglobin 8.9 L 14.0-18.0 g/dL Hematocrit 26.1 L 42-54 % Mean Corpuscular Volume 89.4 79-99 fL Mean Corpuscular Hemoglobin 30.5 27.0-33.0 pg Mean Corpuscular Hemoglobin Concent 34.1 32.0-36.0 g/dL Red Cell Distribution Width 15.4 11.0-15.5 % Platelet Count 182 130-400 K/uL Mean Platelet Volume 9.3 7.5-10.5 fL Nucleated Red Blood Cells 0.0 0.0-0.19 % Sodium Level 138 136-145 mmol/L Potassium Level 2.9 *L 3.5-5.1 mmol/L Chloride Level 104 101-111 mmol/L Carbon Dioxide Level 21 21-32 mmol/L Blood Urea Nitrogen 10 7-18 mg/dL Creatinine 0.4 L 0.5-1.3 mg/dL Glomerular Filtration Rate Calc 111 >90 mL/min Random Glucose 118 H 70-105 mg/dL Total Calcium 7.9 L 8.5-10.1 mg/dL Magnesium Level 2.10 1.80-2.40 mg/dL Vancomycin Level Trough 13.4 10.0-20.0 UG/ML Total Bilirubin 0.8 0.2-1.0 mg/dL Aspartate Amino Transf (AST/SGOT) 22 10-37 U/L Alanine Aminotransferase (ALT/SGPT) 21 12-78 U/L Alkaline Phosphatase 115 50-136 U/L Total Protein 5.3 L 6.0-8.3 g/dL Albumin 1.7 L 3.5-5.0 g/dL ASSESSMENT: Wound hematoma, status post wound exploration with drainage of hematoma on 01/24/2025. 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 Polymicrobial infection. Recent T12-L1 decompressive laminectomy on 01/01/2025. Spinal stenosis Diabetes mellitus. Benign prostatic hyperplasia. Postop anemia requiring blood transfusion. PLAN: Continue vancomycin per pharmacy protocol. Continue cefepime IV. Continue pain management. Continue GI prophylaxis. Continue Wound care as recommended by neurosurgeon. We will monitor electrolytes. Case management working on [facility] approval to [facility]. This case was reviewed and discussed with my supervising physician Dr. Fitzgerald and the above assessment and plan was formulated and agreed upon. ATTESTATION BY PHYSICIAN I have seen and examined the patient. I reviewed the documentation, medical decision making, and treatment plan as noted by the mid-level provider above. I agree with the findings and plan of care. DIANA FITZGERALD MD, [facility] Jan 27, 2025 18:18
--- NOTE | 2025-01-27 19:23 | PN ---
[facility] PROGRESS NOTE Date Patient Seen: Jan 27, 2025 Time of Visit: 1403 Supervising Physician: Dr. Wagner Primary Care Physician: Dr. Yosi Rg Attending physicians: [facility] Outpatient Specialists: Inpatient Consults: Dr. Josiah Noyola (ID), Dr. Harish Farmer (Neurosugery), BIS PROBLEM LIST: Intubated patient, extubated and downgraded transferred out of ICU Hemorrhagic shock requiring blood transfusion, s/p I&D of wound abscess at thoracolumbar spine performed by Dr. Harish Vidal on 01/24/2024 morning Severe anemia Wound dehiscence Electrolyte derangement (hypokalemia and hypomagnesemia) Hyperglycemia Elevated D-dimer Bilateral carotid stenosis INTERVAL HISTORY: 01/27 patient was seen and examined by bedside with family present. At time of visit patient has no specific complaints. He is on room air. He is currently pending a wound VAC to get placed. Patient will continue with the current IV antibiotics per ID recommendations. Patient's venous Dopplers were negative for DVT. We will order a CRP and ESR 4:00 a.m. and follow up in the morning. As per primary nurse no acute events to be reported at this time. Dispo per prima ry team Plan: Following neurosurgical recommendations Monitor for signs of bleeding Telemetry Continue Wound to surgical site Continue current IV antibiotics as per ID recommendations Aerobic culture back results:Escherichia coli +, Morganella morganii +, cefepime 1 g IV q.8 hours plus vancomycin 1 g Q 24 hours Continue with DVT & GI prophylaxis REVIEW OF SYSTEMS: 12 point review of system reviewed with patient all permanent positives mentioned above otherwise negative PHYSICAL EXAM: GENERAL: Acutely ill 79-year-old male lying in bed no obvious signs and symptoms of distress HEENT: EOMI, Sclera non icteric, moist mucosa. NECK: Supple, no JVD, trachea midline LUNGS: Diminished breath sounds bilaterally. No wheezes HEART: Regular rate and rhythm. Normal S1 and S2, without murmurs ABD: Abdomen soft, nontender. Bowel sounds present EXT: No clubbing cyanosis or edema NEURO: Awake alert answers questions appropriately Vital Signs (last 8hr) Date Time Temp Pulse Resp B/P (MAP) Pulse Ox O2 Delivery O2 Flow Rate FiO2 01/27/25 16:00 98.2 82 17 112/59 95 Room Air 01/27/25 12:00 98.4 89 18 158/78 97 Aerosol Face Mask LABS: Hematology Labs: Test 01/27/25 05:10 Range/Units White Blood Count 5.4 4.8-10.8 K/uL Red Blood Count 2.92 L 4.50-6.20 MIL/uL Hemoglobin 8.9 L 14.0-18.0 g/dL Hematocrit 26.1 L 42-54 % Mean Corpuscular Volume 89.4 79-99 fL Mean Corpuscular Hemoglobin 30.5 27.0-33.0 pg Mean Corpuscular Hemoglobin Concent 34.1 32.0-36.0 g/dL Red Cell Distribution Width 15.4 11.0-15.5 % Platelet Count 182 130-400 K/uL Mean Platelet Volume 9.3 7.5-10.5 fL Nucleated Red Blood Cells 0.0 0.0-0.19 % Chemistry Labs: Test 01/27/25 15:46 01/27/25 05:10 01/26/25 03:12 Range/Units Whole Blood Glucose 120 H 70-110 MG/DL Sodium Level 138 136-145 mmol/L Potassium Level 2.9 *L 3.5-5.1 mmol/L Chloride Level 104 101-111 mmol/L Carbon Dioxide Level 21 21-32 mmol/L Blood Urea Nitrogen 10 7-18 mg/dL Creatinine 0.4 L 0.5-1.3 mg/dL Glomerular Filtration Rate Calc 111 >90 mL/min Random Glucose 118 H 70-105 mg/dL Total Calcium 7.9 L 8.5-10.1 mg/dL Magnesium Level 2.10 1.80-2.40 mg/dL Total Bilirubin 0.8 0.2-1.0 mg/dL Aspartate Amino Transf (AST/SGOT) 22 10-37 U/L Alanine Aminotransferase (ALT/SGPT) 21 12-78 U/L Alkaline Phosphatase 115 50-136 U/L Total Protein 5.3 L 6.0-8.3 g/dL Albumin 1.7 L 3.5-5.0 g/dL DIAGNOSTICS / RADIOLOGY RESULTS: na PLAN NEURO: Minimize central acting medications as possible. Maintain fall precautions, adequate lighting during the day PULMONARY: Supplemental 02 as needed. Maintain aspiration precautions at all times CARDIOVASCULAR: Follow hemodynamics. Vital signs per facility protocol GI & NUTRITION: Continue with nutritional support. Continue stool softeners and laxatives as needed. KIDNEYS & ELECTROLYTES: Strict monitoring of intake, output and overall fluid balance. Avoid nephrotoxic medications to the extent possible. Medications to be dosed according to renal function. Monitor electrolytes and replace as needed ENDOCRINE: Maintain blood glucose between 100-180 at all times. Hypoglycemia protocol in place INFECTIOUS DISEASE: Trend temperature, WBC and procalcitonin level Follow cultures, deescalate antibiotics as soon as possible. Panculture if new onset fever ONCOLOGY/HEMATOLOGY/COAGULATION: Monitor for s/s of bleeding Monitor hemoglobin, coagulation studies as needed SKIN: Pressure ulcer prevention per facility protocol Specialty mattress ORTHO/REHAB: Continue PT/OT Prophylaxis: Continue GI and DVT prophylaxis Code Status: Full Resuscitation Disposition: Per primary team Other: Case discussed with supervising physician plan of care agreed upon CHANNING BARR Jan 27, 2025 19:23
[2025-01-28] VITALS (13 sets, daily range): BP systolic 125–157; BP diastolic 63–82; PULSE 76–93; RESP 16–20; TEMP 98.1–98.5; O2SAT 94–100
[2025-01-28 04:06] LABS: IMMATURE GRANULOCYTE ABSOLUTE 0.05 K/uL (0-1); NUCLEATED RED BLOOD CELLS 0.0 % (0.0-0.19); PLATELET COUNT (AUTO) 249 K/uL (130-400); RED BLOOD CELL COUNT(AUTO) 2.88 MIL/uL (4.50-6.20); RED CELL DISTRIBUTION WIDTH 15.4 % (11.0-15.5); WHITE BLOOD COUNT (AUTO) 5.5 K/uL (4.8-10.8)
[2025-01-28 04:20] LABS: CREATININE 0.4 mg/dL (0.5-1.3); GLOMERULAR FILTR. RATE CALC 111.0 mL/min (>90); GLUCOSE,RANDOM 103.0 mg/dL (70-105); SODIUM SERUM 136.0 mmol/L (136-145); UREA NITROGEN, BLOOD 10.0 mg/dL (7-18)
--- NOTE | 2025-01-28 14:47 | PN ---
[facility] PROGRESS NOTE Date of Service: Jan 28, 2025 Time of Service: 14:34 SUBJECTIVE: [ 01/20 Patient is 79 years old male with a past medical history of diabetes, hypertension, compression vertebral fracture, spinal stenosis, Parkinson, BPH, s/p recent laminectomy with Dr. Norman's 12/30/24, who came to emergency department from [facility] with a complaint of infected surgical site s/p laminectomy. Family members/ at the bedside stated that yesterday she realized that patient's wound has been very with TITI Mendoza patient and opening the wound, patient's realize that has this open has a bed and that is draining pus. She took the pictures and sent to Dr. Norman's, who recommended that patient comes to ER for admission-recommendations.] Most recent vital signs temperature 98.1 one 0 lying 20 blood pressure 113/72 patient on 2 L 96%. Sodium 134 potassium 3.1 CO2 26 BUN 32 creatinine 0.8 GFR 90 glucose 223 lactic acid 1.8 troponin negative x1 lipase 21. WBC 5.9 hemoglobin 10.8 hematocrit 3010.4 platelets 258. No radiology performed at this moment. Chest x-ray pending. We will admit patient under hospitalist care for further evaluation/recommendations. ID we will be consulted for the antibiotics Dr. Martinez with a consulted wound recommendations and Dr. Xiong for s/p laminectomy. 01/21 patient was seen by nurse practitioner and physician during rounding in emergency department in room ED 11. Home medication were reconciled by CHILD SUPPORT AGENT. At this moment we are pending further evaluation/recommendation by wound care, ID and neurosurgeon. All three consults were notified and are aware of consultations. Patient we will continue antibiotics. We will continue to monitor patient in the meantime. A.m. labs. 01/22 patient was seen by nurse practitioner and physician during rounding in room 329. Nurse practitioner was able to talk to Dr. Nava neurosurgeon regarding further recommendations and plan. As per surgeon CT spine lumbar, thoracic and cervical with the contrast to be ordered. CHILD SUPPORT AGENT placed the orders. Most recent WBC is 6.3. Patient continues to be on vancomycin and cefepime as per ID recommendations. As per wound care to surgical wound to thoracic spine cleanse with normal saline, pat dry, apply Dakins wet to dry cover with 4 x 4 gauze, abdominal pad, secure with tape change b.i.d. and PRN. Wound care to sacrum apply Venelex b.i.d. and PRN. Apply waffle mattress. Keep wounds clean and dry. Offloading/reposition q.2 hours. We will continue to monitor patient in the meantime. A.m. labs 01/23 patient was seen by nurse practitioner and physician during rounding in room 329. Patient was evaluated by neurosurgeon and today patient was taken for lumbar cleaning and debridement by . Klebsiella pneumoniae and Pseudomonas aeruginosa. Final urine culture negative. Blood culture 48 hours negative. As per ID continue vancomycin and cefepime. We will continue to monitor patient in the meantime. A.m. labs. 01/24 patient was seen by nurse practitioner and physician during rounding. Patient is s/p I and D of wound abscess at thoracolumbar spine with Dr. Nava on 01/23/2025. After surgery around [id number] RN paged hospitalist CHILD SUPPORT AGENT on-call regarding the hemoglobin mean trending down at that if patient is bleeding profusely at the surgical wound and blood pressure from 133/70 went down to 70 over 45. Patient was placed on 3 L nasal cannula satting 93%. Patient went into hemorrhagic shock rapid response was called normal saline IV fluids bolus were administered and albumin was given to the patient for emergency release of blood. Surgeon was notified patient was transfused with one PRBC and was placed on low-dose of Levophed for the blood pressure support. Patient then was taken to OR by . After procedure patient was brought back to ICU. Most recent hemoglobin 7.7 hematocrit 24.4 patient receiving another PRBC. Venous Doppler was performed pending results as well as carotid artery ultrasound was performed pending results. Most recent chest x-ray from 01/24/2025 showed endotracheal tube tip a 2 cm above the jaja. Right-sided central venous catheter tip overlies distal SVC. Stable small pleural effusions. Mild perihilar haziness bilaterally concerning for mild pulmonary edema as a new finding. We will continue to monitor patient in the meantime. A.m. labs. 01/25 patient is seen and examined at bedside, discussed with the RN, no acute events overnight, patient is status post incision and drainage of wound abscess a thoracolumbar spine by Dr. Nava on 01/23/2025. Patient tolerated the procedure well. Results of wound culture positive for E coli, Morganella Morgagni. Patient also with a aerobic culture positive for Enterococcus faecalis, E coli, Klebsiella aeruginosa and Pseudomonas aeruginosa. Continue the patient on broad-spectrum IV antibiotics to include vancomycin IV and cefep leigh ann. Continue to follow neurosurgical input and recommendation, continue to follow ID input recommendation, continue local wound care. The patient will benefit from discharge plan to detention facility. 01/26 patient is pending wound VAC placement. He is also pending to be accepted to LTAC. Patient remains on IV antibiotics. Physical therapy following. No new complaints or concerns. No acute events reported overnight. 01/28 patient is resting comfortably in bed. The patient and family are proud to say he is set up in a chair today. they report he is feeling much better. In terms of his migraine medication family has asked to hold the medicine as his migraines are situational usually occurring only when the patient walks from his home to his car. REVIEW OF SYSTEMS CONSTITUTIONAL: Denies fevers, chills, or night sweats. No unintentional weight loss reported. NEUROLOGICAL: Denies headache, amaurosis fugax, motor weakness, sensory deficit, vertigo/spinning sensation, gait abnormalities, or tremors. ENT: No hearing loss, otalgia, otorrhea, rhinitis, rhinorrhea, hoarseness, or sore throat. CARDIOVASCULAR: Denies any exertional angina, dyspnea on exertion, orthopnea, paroxysmal nocturnal dyspnea, palpitations, life-threatening arrhythmias, claudication. PULMONARY: Denies any shortness of breath, cough, phlegm/sputum, hemoptysis, pleuritic chest pain. SLEEP: Denies morning headaches, daytime somnolence or napping. Denies difficulty falling asleep, staying asleep, waking from sleep. Denies knowledge of snoring. GASTROINTESTINAL: Denies any type of dysphagia to either liquids or solids. Denies nausea, vomiting, pyrosis, early satiety, abdominal pain, diarrhea, constipation, or changes in stool consistency or caliber. Denies coffee-ground emesis, hematemesis, hematochezia, or melanotic stools. GENITOURINARY: Denies frequency, urgency, nocturia, hematuria or incontinence (Storage/Irritative symptoms.) Low urinary stream, straining to void, urinary intermittency or hesitancy, splitting of the voiding stream, terminal dribbling. ENDOCRINOLOGIC: Denies polyuria, polydipsia, polyphagia or heat/cold intoleran jason. HEMATOLOGIC: Denies thrombophilia/previous clots, or coagulopathy/bleeding disorders. ONCOLOGIC: Denies personal history of malignancy. DERMATOLOGIC: Denies rashes or pruritus. S/p laminectomy open wound PSYCHIATRIC: Denies any suicidal or homicidal ideation. Denies hallucinations. PHYSICAL EXAM PT INTUBATED Vital Signs (last 8hr) Date Time Temp Pulse Resp B/P (MAP) Pulse Ox O2 Delivery O2 Flow Rate FiO2 01/28/25 12:00 98.2 80 16 143/63 94 Room Air 01/28/25 11:05 76 18 N/A Room Air 21 01/28/25 11:02 76 18 01/28/25 08:00 94 Room Air* 0 21 01/28/25 07:50 98.4 93 16 147/77 97 Room Air 21 LABS: Laboratory: Test 01/28/25 11:27 01/28/25 02:41 01/27/25 05:10 01/26/25 14:38 Range/Units Whole Blood Glucose 137 H 70-110 MG/DL White Blood Count 5.5 4.8-10.8 K/uL Red Blood Count 2.88 L 4.50-6.20 MIL/uL Hemoglobin 8.9 L 14.0-18.0 g/dL Hematocrit 26.5 L 42-54 % Mean Corpuscular Volume 92.0 79-99 fL Mean Corpuscular Hemoglobin 30.9 27.0-33.0 pg Mean Corpuscular Hemoglobin Concent 33.6 32.0-36.0 g/dL Red Cell Distribution Width 15.4 11.0-15.5 % Platelet Count 249 # 130-400 K/uL Mean Platelet Volume 9.7 7.5-10.5 fL Immature Granulocyte % (Auto) 0.9 0-1 % Neutrophils (%) (Auto) 82.8 H 40.0-77.0 % Lymphocytes (%) (Auto) 6.9 L 21.0-51.0 % Monocytes (%) (Auto) 6.8 3.0-13.0 % Eosinophils (%) (Auto) 2.2 0.0-8.0 % Basophils (%) (Auto) 0.4 0.0-5.0 % Neutrophils # (Auto) 4.5 1.8-7.7 K/uL Lymphocytes # (Auto) 0.4 L 1.0-4.8 K/uL Monocytes # (Auto) 0.4 0.1-1.0 K/uL Eosinophils # (Auto) 0.12 0.00-0.70 K/uL Basophils # (Auto) 0.02 0.00-0.20 K/uL Absolute Immature Granulocyte (auto 0.05 0-1 K/uL Nucleated Red Blood Cells 0.0 0.0-0.19 % White Cell Morphology Comment See comments Erythrocyte Sedimentation Rate 61 H 0-20 MM/HR Sodium Level 136 136-145 mmol/L Potassium Level 3.6 3.5-5.1 mmol/L Chloride Level 103 101-111 mmol/L Carbon Dioxide Level 19 L 21-32 mmol/L Blood Urea Nitrogen 10 7-18 mg/dL Creatinine 0.4 L 0.5-1.3 mg/dL Glomerular Filtration Rate Calc 111 >90 mL/min Random Glucose 103 70-105 mg/dL Total Calcium 8.1 L 8.5-10.1 mg/dL C-Reactive Protein, Quantitative 97.90 H 0.5-3.0 mg/L Magnesium Level 2.10 1.80-2.40 mg/dL Vancomycin Level Trough 13.4 10.0-20.0 UG/ML Current Medications Medications (Trade) Dose Ordered Sig/Steve Route PRN Reason Start Time Stop Time Status Last Admin Dose Admin Acetaminophen (TYLenol 325MG TAB) 650 mg Q4H PRN PO MILD PAIN (1-3) 01/20/25 16:00 02/19/25 15:59 01/27/25 19:46 650 MG Acetaminophen (TYLenol 325MG TAB) 650 mg Q6H PRN PO MILD PAIN (1-3) 01/20/25 16:00 01/23/25 07:25 DC Acetaminophen (TYLenol 325MG TAB) 650 mg Q6H PRN PO TEMPERATURE GREATER THAN 101.5 01/20/25 16:00 02/19/25 15:59 Al Hydroxide/Mg Hydroxide (MAALox PLUS 30ML) 30 ml Q6H PRN PO INDIGESTION 01/20/25 16:00 02/19/25 15:59 Albumin Human 250 ml @ 500 mls/hr AD IV 01/23/25 22:00 01/25/25 07:05 DC 01/23/25 21:58 500 MLS/HR Albuterol Sulfate (Proventil 0.083% 2.5mg/3ml) 2.5 mg [id number] IH 01/20/25 18:00 02/19/25 17:59 01/28/25 11:02 2.5 MG Aspirin (Aspirin 81mg Chew Tab) 81 mg DAILY PO 01/22/25 09:00 02/21/25 08:59 01/28/25 09:58 81 MG Atorvastatin Calcium (LIPItor 40MG) 80 mg DAILY PO 01/22/25 09:00 01/26/25 09:58 DC 01/25/25 09:29 80 MG Atorvastatin Calcium (LIPItor 40MG) 80 mg HS PO 01/26/25 21:00 02/21/25 08:59 01/27/25 19:48 80 MG Bisacodyl (DulcoLAX 5MG TAB) 10 mg DAILY PO 01/25/25 13:00 02/24/25 12:59 01/28/25 09:57 10 MG Cefepime HCl (MAXipime 1 GM vial) 1 gm Q8H IVPB 01/21/25 13:00 01/31/25 12:59 01/28/25 13:07 1 GM Clindamycin HCl/ Dextrose 50 ml @ 100 mls/hr ONCE STAT IV 01/20/25 14:30 01/20/25 14:59 DC 01/20/25 15:04 100 MLS/HR Clindamycin HCl/ Dextrose 50 ml @ 100 mls/hr Q8H IV 01/20/25 23:00 01/21/25 12:57 DC 01/21/25 08:07 100 MLS/HR Dextrose (D50w) 50 ml AD PRN IV HYPOGLYCEMIA PROTOCOL 01/20/25 16:00 02/19/25 15:59 Diphenhydramine HCl (BENAdryl INJ) 25 mg Q6H PRN IV SEVERE ITCHING/RASH 01/20/25 16:00 02/19/25 15:59 Docusate Sodium (COLace 100MG CAP) 100 mg BID PO 01/25/25 13:00 02/24/25 12:59 01/28/25 09:58 100 MG Famotidine (Pepcid 20mg Vial) 20 mg BID PRN IV NAUSEA/VOMITING 01/20/25 16:00 01/20/25 16:18 DC Fentanyl/Sodium Chloride 250 ml @ 0 mls/hr PROTOCOL IV 01/24/25 00:30 01/24/25 08:46 DC Finasteride (PROscar 5 MG TAB) 5 mg DAILY PO 01/22/25 09:00 02/21/25 08:59 01/28/25 09:58 5 MG Fluticasone Propionate (FLOnase 50 mcg/ spray 16g bottle) 1 SPRAY BID EN 01/21/25 21:00 02/20/25 20:59 01/28/25 09:57 1 SPRAYS Gabapentin (NEURontin 300 MG CAP) 300 mg TID PO 01/21/25 21:00 02/20/25 20:59 01/28/25 14:14 300 MG Glucagon (Glucagon 1mg Kit) 1 mg AD PRN IM HYPOGLYCEMIA PROTOCOL 01/20/25 16:00 02/19/25 15:59 Guaifenesin/ Dextromethorphan (RobiTUSSin DM 200/20MG 10ML) 10 ml Q4H PRN PO COUGH 01/20/25 16:00 02/19/25 15:59 HCTZ/Losartan Potassium (Hyzaar 50-12.5 Tablet) 1 tab DAILY PO 01/22/25 09:00 02/21/25 08:59 01/28/25 09:57 1 TAB Heparin Sodium (Porcine) (HEParin 5,000 UNIT VIAL) 5,000 unit BID SQ 01/20/25 21:00 02/19/25 20:59 01/28/25 09:55 5,000 UNIT Home Med (Home Medication) BID PO 01/21/25 21:00 02/20/25 20:59 Home Med (Home Medication) DAILY PO 01/22/25 09:00 02/21/25 08:59 Home Med (Home Medication) QID OP 01/21/25 17:00 02/20/25 16:59 Hydralazine HCl (APRESOLine 20MG INJ) 10 mg Q6H PRN IV For:SBP above 160;DBP above 90 01/20/25 16:00 02/19/25 15:59 Ibuprofen (moTRIN) 800 mg Q8H PRN PO MODERATE PAIN (4-6) 01/20/25 16:00 02/19/25 15:59 01/28/25 10:03 800 MG Insulin Human Regular (humuLIN R 100 UNIT/ML 3ML) INSULIN SLIDING SCAL... ACHS SQ 01/20/25 16:30 02/19/25 16:29 01/24/25 06:03 4 UNIT Ipratropium [place] (AtrovENT UD) 0.5 mg [id number] IH 01/20/25 18:00 01/21/25 10:32 DC 01/21/25 06:07 0.5 MG Ipratropium [place] (AtrovENT UD) 0.5 mg [id number] IH 01/21/25 12:00 02/19/25 17:59 01/28/25 11:02 0.5 MG Ketorolac Tromethamine (toRADol) 15 mg Q8H PRN IV MODERATE PAIN (4-6) IF NPO 01/20/25 16:00 01/23/25 07:25 DC Lactated Ringer's (Lactated Ringers 1000ml) 500 ml BOLUS IV 01/23/25 22:00 01/25/25 07:06 DC 01/24/25 06:42 500 ML Lactated Ringer's (Lactated Ringers 1000ml) 500 ml BOLUS IV 01/24/25 07:00 01/25/25 07:06 DC Lactulose (Constulose 20gm/ 30ml Udcup) 20 gm BID PRN PO CONSTIPATION 01/20/25 16:00 02/19/25 15:59 01/26/25 18:26 20 GM Leptospermum [place] ([employer]) apply to lumbar area QTUTHSA TP 01/29/25 09:00 02/28/25 08:59 Magnesium Sulfate 50 ml @ 0 mls/hr PROTOCOL PRN IV other 01/20/25 16:00 02/19/25 15:59 01/26/25 20:47 15 MLS/HR Morphine Sulfate (morPHINE 4MG SYG) 1 mg Q4H PRN IVP SEVERE PAIN (7-10) 01/20/25 16:00 01/25/25 18:59 DC 01/25/25 12:09 1 MG Nitroglycerin (Nitrostat) 0.4 mg PROTOCOL PRN SL CHEST PAIN 01/20/25 16:00 02/19/25 15:59 Norepinephrine 250 ml @ 0 mls/hr PROTOCOL IV 01/23/25 22:30 01/26/25 15:54 DC Ondansetron HCl (zoFRAN 4MG INJ) 4 mg Q6H PRN IV NAUSEA/VOMITING 01/20/25 16:00 02/19/25 15:59 Pantoprazole Sodium (PROTonix 40MG TAB) 40 mg DAILY PO 01/22/25 09:00 02/21/25 08:59 01/28/25 09:58 40 MG Pharmacy Profile Note (Pharmacy Communication) 1 each ONCE MISC 01/24/25 21:00 01/25/25 07:06 DC Potassium Chloride 100 ml @ 100 mls/hr AD PRN IV POTASSIUM PROTOCOL 01/20/25 16:00 02/19/25 15:59 01/27/25 06:16 100 MLS/HR Potassium Chloride (K-Dur/Klor-Con 20meq) 20 meq AD PRN PO POTASSIUM PROTOCOL 01/20/25 16:00 02/19/25 15:59 01/28/25 04:34 20 MEQ Potassium Chloride (KCl 10% Elixir 20meq/15ml) 20 meq AD PRN PO POTASSIUM PROTOCOL 01/20/25 16:00 02/19/25 15:59 01/26/25 09:44 20 MEQ Propofol 100 ml @ 0 mls/hr PROTOCOL IV 01/24/25 00:30 01/24/25 08:46 DC 01/24/25 06:19 25 MLS/HR Sodium Hypochlorite (Dakin'S 0.25% Half Strength) thoracic spine wo... BID TP 01/21/25 21:00 02/20/25 20:59 01/26/25 09:55 1 APPL Sodium Chloride 1,000 ml @ 100 mls/hr Q10H IV 01/20/25 16:00 01/24/25 10:22 DC 01/24/25 03:28 100 MLS/HR Tamsulosin HCl (FloMAX) 0.4 mg DAILY PO 01/22/25 09:00 02/21/25 08:59 01/28/25 09:58 0.4 MG Vancomycin HCl 250 ml @ 125 mls/hr Q12H IV 01/22/25 02:00 01/23/25 02:05 DC 01/22/25 16:48 125 MLS/HR Vancomycin HCl (Vancomycin 750mg) 750 mg Q12H IVPB 01/23/25 04:00 02/02/25 03:59 01/28/25 04:26 750 MG Vancomycin HCl (Vancomycin Protocol) 1 each AD IV 01/21/25 13:00 02/04/25 12:59 Wound Care/ Dressing Products (Venelex Ointment) Sacral wound APPL... BID TP 01/21/25 21:00 02/20/25 20:59 01/28/25 12:18 1 GM Zolpidem Tartrate (AmbIEN) 5 mg HS PRN PO INSOMNIA 01/20/25 16:00 02/19/25 15:59 DIAGNOSTICS / RADIOLOGY: [ ] ASSESSMENT: [s/p Emergency closure of back wound done on 01/23/[address] Nava Hemorrhagic shock requiring blood transfusion, s/p I&D of wound abscess at thoracolumbar spine performed by Dr. Harish Nava on 01/24/2024 morning Hypotension, unresponsive to IV fluids and albumin, in need of pressor Severe anemiaAcute hypoxic respiratory failure POA Infected wound laminectomy 12/30/24 POA s/p I AND D with dr Nava 01/23/25 wound culture growing enterococcus faecalis, e coli, klebsiella aerogeneses, pseudomonas aeruginosa Tachycardia POA Multifactorial anemia POA Electrolyte imbalance hyponatremia Na 134 hypokalemia 3.1 POA Acute dehydration POA Hypotension Hyperlipidemia POA History of Stroke POA Uncontrolled diabetes mellitus type 2 with hyperglycemia POA Compression fracture Spinal stenosis s/p laminectomy 01/15 PLAN: patient is status post incision and drainage of wound abscess a thoracolumbar s pine by Dr. Nava on 01/23/2025. Patient tolerated the procedure well. Results of wound culture positive for E coli, Morganella Morgagni. Patient also with a aerobic culture positive for Enterococcus faecalis, E coli, Klebsiella aeruginosa and Pseudomonas aeruginosa. Continue the patient on broad-spectrum IV antibiotics to include vancomycin IV and cefepime as per Infectious Disease. Continue to follow neurosurgical input and recommendation, continue local wound care. The patient will benefit from discharge plan to LTAC. NEURO: Minimize central acting medications as possible. Fall Precautions. Well lit room through the day and minimize interruptions through the night to prevent acute delirium. PULMONARY: Supplemental 02 as needed Titrate Fio2 to keep Spo2 > or = 92% DuoNebs and CPT as needed Out of bed to chair as tolerated Maintain aspiration precautions at all times CARDIOVASCULAR: Continue aspirin, atorvastatin, hydrochlorothiazide, losartan GI & NUTRITION: Continue nutritional support Aspirations precautions Prokinetic agents and laxatives as needed KIDNEYS & ELECTROLYTES: Strict monitoring of intake and output Daily weights Avoid nephrotoxic agents Monitor electrolytes and replace as needed Continue finasteride and tamsulosin ENDOCRINE: Maintain blood glucose between 100-180 at all times. Insulin sliding scale for blood glucose management Hypoglycemia and hyperglycemia protocol in place INFECTIOUS DISEASE: Trend temperature, WBC and procalcitonin level Follow cultures, deescalate antibiotics as soon as possible. Panculture if new onset fever HEMATOLOGY & COAGULATION: Monitor H&H. Keep Hgb > 7 Transfuse 1 unit of PRBC for Hgb < 7 Transfuse 1 pack of platelets of platelets < 20, 000 Watch for any signs and symptoms of bleeding SKIN: Pressure ulcer prevention per facility protocol Specialty mattress as needed ORTHO/REHAB Continue PT/OT Supportive measures: Continue GI with pantoprazole and DVT prophylaxis SCDs only due to concerns for bleeding All questions answered time spent: > 35 min ] GRACIELA MARROQUIN IV, MD Jan 28, 2025 14:47
--- NOTE | 2025-01-28 14:54 | PN ---
INFECTIOUS DISEASE PROGRESS NOTE Date of Service: Jan 28, 2025 SUBJECTIVE: This is a 79-year-old male patient who was seen and examined at bedside in room 403. Patient is awake, alert and oriented x3. Patient is status post exploration of wound and drainage of hematoma on 07/2024. The wound VAC is intact and draining very minimal drainage. Patient pending insurance approval to [facility]. Remains afebrile, temperature is 98.2. We will continue on vancomycin and cefepime. PHYSICAL EXAM EYES: Anicteric. Pupils equal and reactive. HENT: No oral thrush seen, moist Oral mucosa. NECK: Supple, no JVD or thyromegaly. LUNGS: Good air entry. No rales, no rhonchi. CARDIOVASCULAR: S1, S2 regular. No murmur heard. ABDOMEN: Soft, non tender, bowel sounds present, no organomegaly. CENTRAL NERVOUS SYSTEM: Awake, alert, oriented x 3. SKIN: No rashes, no swelling. LYMPHATICS: No peripheral lymphadenopathy. MUSCULOSKELETAL: No joint swelling, erythema or tenderness. EXTREMITIES: No cyanosis or clubbing BACK: Surgical wound with wound VAC. GENITOURINARY: No dysuria or hematuria. Vital Sign (Last 12 Hours) 01/28/25 01/28/25 01/28/25 01/28/25 04:00 06:05 06:08 07:50 Temp 98.1 98.4 Pulse 80 85 85 93 Resp 18 18 18 16 B/P (MAP) 148/76 147/77 Pulse Ox 97 97 O2 Delivery Room Air N/A Room Air Room Air FiO2 21 21 01/28/25 01/28/25 01/28/25 01/28/25 08:00 11:02 11:05 12:00 Temp 98.2 Pulse 76 76 80 Resp 18 18 16 B/P (MAP) 143/63 Pulse Ox 94 94 O2 Delivery Room Air* N/A Room Air Room Air O2 Flow Rate 0 FiO2 21 21 Intake & Output (last 24hrs) 01/27/25 01/27/25 01/28/25 15:00 23:00 07:00 Intake Total 1250.0 ml 650.0 ml Output Total 800 ml 1810 ml Balance 450.0 ml -1160.0 ml LABS: Laboratory: Test 01/28/25 11:27 01/28/25 02:41 01/27/25 05:10 Range/Units Whole Blood Glucose 137 H 70-110 MG/DL White Blood Count 5.5 4.8-10.8 K/uL Red Blood Count 2.88 L 4.50-6.20 MIL/uL Hemoglobin 8.9 L 14.0-18.0 g/dL Hematocrit 26.5 L 42-54 % Mean Corpuscular Volume 92.0 79-99 fL Mean Corpuscular Hemoglobin 30.9 27.0-33.0 pg Mean Corpuscular Hemoglobin Concent 33.6 32.0-36.0 g/dL Red Cell Distribution Width 15.4 11.0-15.5 % Platelet Count 249 # 130-400 K/uL Mean Platelet Volume 9.7 7.5-10.5 fL Immature Granulocyte % (Auto) 0.9 0-1 % Neutrophils (%) (Auto) 82.8 H 40.0-77.0 % Lymphocytes (%) (Auto) 6.9 L 21.0-51.0 % Monocytes (%) (Auto) 6.8 3.0-13.0 % Eosinophils (%) (Auto) 2.2 0.0-8.0 % Basophils (%) (Auto) 0.4 0.0-5.0 % Neutrophils # (Auto) 4.5 1.8-7.7 K/uL Lymphocytes # (Auto) 0.4 L 1.0-4.8 K/uL Monocytes # (Auto) 0.4 0.1-1.0 K/uL Eosinophils # (Auto) 0.12 0.00-0.70 K/uL Basophils # (Auto) 0.02 0.00-0.20 K/uL Absolute Immature Granulocyte (auto 0.05 0-1 K/uL Nucleated Red Blood Cells 0.0 0.0-0.19 % White Cell Morphology Comment See comments Erythrocyte Sedimentation Rate 61 H 0-20 MM/HR Sodium Level 136 136-145 mmol/L Potassium Level 3.6 3.5-5.1 mmol/L Chloride Level 103 101-111 mmol/L Carbon Dioxide Level 19 L 21-32 mmol/L Blood Urea Nitrogen 10 7-18 mg/dL Creatinine 0.4 L 0.5-1.3 mg/dL Glomerular Filtration Rate Calc 111 >90 mL/min Random Glucose 103 70-105 mg/dL Total Calcium 8.1 L 8.5-10.1 mg/dL C-Reactive Protein, Quantitative 97.90 H 0.5-3.0 mg/L Magnesium Level 2.10 1.80-2.40 mg/dL ASSESSMENT: Wound hematoma, status post wound exploration with drainage of hematoma on 01/24/2025. 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 Polymicrobial infection. Recent T12-L1 decompressive laminectomy on 01/01/2025. Spinal stenosis Diabetes mellitus. Benign prostatic hyperplasia. Postop anemia requiring blood transfusion. PLAN: Continue vancomycin per pharmacy protocol. Continue cefepime IV. Continue pain management. Continue GI prophylaxis. Continue Wound care as recommended by neurosurgeon. We will monitor electrolytes. Case management working on [facility] to [facility]. This case was reviewed and discussed with my supervising physician Dr. Fitzgerald and the above assessment and plan was formulated and agreed upon. ATTESTATION BY PHYSICIAN I have seen and examined the patient. I reviewed the documentation, medical decision making, and treatment plan as noted by the mid-level provider above. I agree with the findings and plan of care. DIANA FITZGERALD MD, [facility] Jan 28, 2025 14:54
--- NOTE | 2025-01-28 14:56 | PN ---
[facility] PROGRESS NOTE Date of Service: Jan 27, 2025 - late dictation Time of Service: 14:56 SUBJECTIVE: [ 01/20 Patient is 79 years old male with a past medical history of diabetes, hypertension, compression vertebral fracture, spinal stenosis, Parkinson, BPH, s/p recent laminectomy with Dr. Norman's 12/30/24, who came to emergency department from [facility] with a complaint of infected surgical site s/p laminectomy. Family members/ at the bedside stated that yesterday she realized that patient's wound has been very with TITI Mendoza patient and opening the wound, patient's realize that has this open has a bed and that is draining pus. She took the pictures and sent to Dr. Norman's, who recommended that patient comes to ER for admission-recommendations.] Most recent vital signs temperature 98.1 one 0 lying 20 blood pressure 113/72 patient on 2 L 96%. Sodium 134 potassium 3.1 CO2 26 BUN 32 creatinine 0.8 GFR 90 glucose 223 lactic acid 1.8 troponin negative x1 lipase 21. WBC 5.9 hemoglobin 10.8 hematocrit 3010.4 platelets 258. No radiology performed at this moment. Chest x-ray pending. We will admit patient under hospitalist care for further evaluation/recommendations. ID we will be consulted for the antibiotics Dr. Martinez with a consulted wound recommendations and Dr. Xiong for s/p laminectomy. 01/21 patient was seen by nurse practitioner and physician during rounding in emergency department in room ED 11. Home medication were reconciled by [facility]. At this moment we are pending further evaluation/recommendation by wound care, ID and neurosurgeon. All three consults were notified and are aware of consultations. Patient we will continue antibiotics. We will continue to monitor patient in the meantime. A.m. labs. 01/22 patient was seen by nurse practitioner and physician during rounding in room 329. Nurse practitioner was able to talk to Dr. Nava neurosurgeon real beauchamp further recommendations and plan. As per surgeon CT spine lumbar, thoracic and cervical with the contrast to be ordered. STICK ROLLER placed the orders. Most recent WBC is 6.3. Patient continues to be on vancomycin and cefepime as per ID recommendations. As per wound care to surgical wound to thoracic spine cleanse with normal saline, pat dry, apply Dakins wet to dry cover with 4 x 4 gauze, abdominal pad, secure with tape change b.i.d. and PRN. Wound care to sacrum apply Venelex b.i.d. and PRN. Apply waffle mattress. Keep wounds clean and dry. Offloading/reposition q.2 hours. We will continue to monitor patient in the meantime. A.m. labs 01/23 patient was seen by nurse practitioner and physician during rounding in room 329. Patient was evaluated by neurosurgeon and today patient was taken for lumbar cleaning and debridement by . Klebsiella pneumoniae and Pseudomonas aeruginosa. Final urine culture negative. Blood culture 48 hours negative. As per ID continue vancomycin and cefepime. We will continue to monitor patient in the meantime. A.m. labs. 01/24 patient was seen by nurse practitioner and physician during rounding. Patient is s/p I and D of wound abscess at thoracolumbar spine with Dr. Nava on 01/23/2025. After surgery around 2208 RN paged hospitalist STICK ROLLER on-call regarding the hemoglobin mean trending down at that if patient is bleeding profusely at the surgical wound and blood pressure from 133/70 went down to 70 over 45. Patient was placed on 3 L nasal cannula satting 93%. Patient went into hemorrhagic shock rapid response was called normal saline IV fluids bolus were administered and albumin was given to the patient for emergency release of blood. Surgeon was notified patient was transfused with one PRBC and was placed on low-dose of Levophed for the blood pressure support. Patient then was taken to OR by . After procedure patient was brought back to ICU. Most recent hemoglobin 7.7 hematocrit 24.4 patient receiving another PRBC. Venous Do ppler was performed pending results as well as carotid artery ultrasound was performed pending results. Most recent chest x-ray from 01/24/2025 showed endotracheal tube tip a 2 cm above the jaja. Right-sided central venous catheter tip overlies distal SVC. Stable small pleural effusions. Mild perihilar haziness bilaterally concerning for mild pulmonary edema as a new finding. We will continue to monitor patient in the meantime. A.m. labs. 01/25 patient is seen and examined at bedside, discussed with the RN, no acute events overnight, patient is status post incision and drainage of wound abscess a thoracolumbar spine by Dr. Nava on 01/23/2025. Patient tolerated the procedure well. Results of wound culture positive for E coli, Morganella Morgagni. Patient also with a aerobic culture positive for Enterococcus faecalis, E coli, Klebsiella aeruginosa and Pseudomonas aeruginosa. Continue the patient on broad-spectrum IV antibiotics to include vancomycin IV and cefepime. Continue to follow neurosurgical input and recommendation, continue to follow ID input recommendation, continue local wound care. The patient will benefit from discharge plan to longterm facility. 01/26 patient is pending wound VAC placement. He is also pending to be accepted to LTAC. Patient remains on IV antibiotics. Physical therapy following. No new complaints or concerns. No acute events reported overnight. 01/27 patient is resting comfortably in bed. The patient and family are proud to say he is set up in a chair today. they report he is feeling much better. In terms of his migraine medication family has asked to hold the medicine as his migraines are situational usually occurring only when the patient walks from his home to his car. REVIEW OF SYSTEMS CONSTITUTIONAL: Denies fevers, chills, or night sweats. No unintentional weight loss reported. NEUROLOGICAL: Denies headache, amaurosis fugax, motor weakness, sensory deficit, vertigo/spinning sensation, gait abnormalities, or tremors. ENT: No hearing loss, otalgia, otorrhea, rhinitis, rhinorrhea, hoarseness, or sore throat. CARDIOVASCULAR: Denies any exertional angina, dyspnea on exertion, orthopnea, paroxysmal nocturnal dyspnea, palpitations, life-threatening arrhythmias, claudication. PULMONARY: Denies any shortness of breath, cough, phlegm/sputum, hemoptysis, pleuritic chest pain. SLEEP: Denies morning headaches, daytime somnolence or napping. Denies difficulty falling asleep, staying asleep, waking from sleep. Denies knowledge of snoring. GASTROINTESTINAL: Denies any type of dysphagia to either liquids or solids. Denies nausea, vomiting, pyrosis, early satiety, abdominal pain, diarrhea, constipation, or changes in stool consistency or caliber. Denies coffee-ground emesis, hematemesis, hematochezia, or melanotic stools. GENITOURINARY: Denies frequency, urgency, nocturia, hematuria or incontinence (Storage/Irritative symptoms.) Low urinary stream, straining to void, urinary intermittency or hesitancy, splitting of the voiding stream, terminal dribbling. ENDOCRINOLOGIC: Denies polyuria, polydipsia, polyphagia or heat/cold intolerances. HEMATOLOGIC: Denies thrombophilia/previous clots, or coagulopathy/bleeding disorders. ONCOLOGIC: Denies personal history of malignancy. DERMATOLOGIC: Denies rashes or pruritus. S/p laminectomy open wound PSYCHIATRIC: Denies any suicidal or homicidal ideation. Denies hallucinations. PHYSICAL EXAM Vital Signs (last 8hr) Date Time Temp Pulse Resp B/P (MAP) Pulse Ox O2 Delivery O2 Flow Rate FiO2 01/28/25 12:00 98.2 80 16 143/63 94 Room Air 01/28/25 11:05 76 18 N/A Room Air 21 01/28/25 11:02 76 18 01/28/25 08:00 94 Room Air* 0 21 01/28/25 07:50 98.4 93 16 147/77 97 Room Air 21 LABS: Laboratory: Test 01/28/25 11:27 01/28/25 02:41 01/27/25 05:10 Range/Units Whole Blood Glucose 137 H 70-110 MG/DL White Blood Count 5.5 4.8-10.8 K/uL Red Blood Count 2.88 L 4.50-6.20 MIL/uL Hemoglobin 8.9 L 14.0-18.0 g/dL Hematocrit 26.5 L 42-54 % Mean Corpuscular Volume 92.0 79-99 fL Mean Corpuscular Hemoglobin 30.9 27.0-33.0 pg Mean Corpuscular Hemoglobin Concent 33.6 32.0-36.0 g/dL Red Cell Distribution Width 15.4 11.0-15.5 % Platelet Count 249 # 130-400 K/uL Mean Platelet Volume 9.7 7.5-10.5 fL Immature Granulocyte % (Auto) 0.9 0-1 % Neutrophils (%) (Auto) 82.8 H 40.0-77.0 % Lymphocytes (%) (Auto) 6.9 L 21.0-51.0 % Monocytes (%) (Auto) 6.8 3.0-13.0 % Eosinophils (%) (Auto) 2.2 0.0-8.0 % Basophils (%) (Auto) 0.4 0.0-5.0 % Neutrophils # (Auto) 4.5 1.8-7.7 K/uL Lymphocytes # (Auto) 0.4 L 1.0-4.8 K/uL Monocytes # (Auto) 0.4 0.1-1.0 K/uL Eosinophils # (Auto) 0.12 0.00-0.70 K/uL Basophils # (Auto) 0.02 0.00-0.20 K/uL Absolute Immature Granulocyte (auto 0.05 0-1 K/uL Nucleated Red Blood Cells 0.0 0.0-0.19 % White Cell Morphology Comment See comments Erythrocyte Sedimentation Rate 61 H 0-20 MM/HR Sodium Level 136 136-145 mmol/L Potassium Level 3.6 3.5-5.1 mmol/L Chloride Level 103 101-111 mmol/L Carbon Dioxide Level 19 L 21-32 mmol/L Blood Urea Nitrogen 10 7-18 mg/dL Creatinine 0.4 L 0.5-1.3 mg/dL Glomerular Filtration Rate Calc 111 >90 mL/min Random Glucose 103 70-105 mg/dL Total Calcium 8.1 L 8.5-10.1 mg/dL C-Reactive Protein, Quantitative 97.90 H 0.5-3.0 mg/L Magnesium Level 2.10 1.80-2.40 mg/dL Current Medications Medications (Trade) Dose Ordered Sig/Steve Route PRN Reason Start Time Stop Time Status Last Admin Dose Admin Acetaminophen (TYLenol 325MG TAB) 650 mg Q4H PRN PO MILD PAIN (1-3) 01/20/25 16:00 02/19/25 15:59 01/27/25 19:46 650 MG Acetaminophen (TYLenol 325MG TAB) 650 mg Q6H PRN PO MILD PAIN (1-3) 01/20/25 16:00 01/23/25 07:25 DC Acetaminophen (TYLenol 325MG TAB) 650 mg Q6H PRN PO TEMPERATURE GREATER THAN 101.5 01/20/25 16:00 02/19/25 15:59 Al Hydroxide/Mg Hydroxide (MAALox PLUS 30ML) 30 ml Q6H PRN PO INDIGESTION 01/20/25 16:00 02/19/25 15:59 Albumin Human 250 ml @ 500 mls/hr AD IV 01/23/25 22:00 01/25/25 07:05 DC 10/3/25 21:58 500 MLS/HR Albuterol Sulfate (Proventil 0.083% 2.5mg/3ml) 2.5 mg D6PDPYS IH 01/20/25 18:00 02/19/25 17:59 01/28/25 11:02 2.5 MG Aspirin (Aspirin 81mg Chew Tab) 81 mg DAILY PO 01/22/25 09:00 02/21/25 08:59 01/28/25 09:58 81 MG Atorvastatin Calcium (LIPItor 40MG) 80 mg DAILY PO 01/22/25 09:00 01/26/25 09:58 DC 01/25/25 09:29 80 MG Atorvastatin Calcium (LIPItor 40MG) 80 mg HS PO 01/26/25 21:00 02/21/25 08:59 01/27/25 19:48 80 MG Bisacodyl (DulcoLAX 5MG TAB) 10 mg DAILY PO 01/25/25 13:00 02/24/25 12:59 01/28/25 09:57 10 MG Cefepime HCl (MAXipime 1 GM vial) 1 gm Q8H IVPB 01/21/25 13:00 01/31/25 12:59 01/28/25 13:07 1 GM Clindamycin HCl/ Dextrose 50 ml @ 100 mls/hr ONCE STAT IV 01/20/25 14:30 01/20/25 14:59 DC 01/20/25 15:04 100 MLS/HR Clindamycin HCl/ Dextrose 50 ml @ 100 mls/hr Q8H IV 01/20/25 23:00 01/21/25 12:57 DC 01/21/25 08:07 100 MLS/HR Dextrose (D50w) 50 ml AD PRN IV HYPOGLYCEMIA PROTOCOL 01/20/25 16:00 02/19/25 15:59 Diphenhydramine HCl (BENAdryl INJ) 25 mg Q6H PRN IV SEVERE ITCHING/RASH 01/20/25 16:00 02/19/25 15:59 Docusate Sodium (COLace 100MG CAP) 100 mg BID PO 01/25/25 13:00 02/24/25 12:59 01/28/25 09:58 100 MG Famotidine (Pepcid 20mg Vial) 20 mg BID PRN IV NAUSEA/VOMITING 01/20/25 16:00 01/20/25 16:18 DC Fentanyl/Sodium Chloride 250 ml @ 0 mls/hr PROTOCOL IV 01/24/25 00:30 01/24/25 08:46 DC Finasteride (PROscar 5 MG TAB) 5 mg DAILY PO 01/22/25 09:00 02/21/25 08:59 01/28/25 09:58 5 MG Fluticasone Propionate (FLOnase 50 mcg/ spray 16g bottle) 1 SPRAY BID EN 01/21/25 21:00 02/20/25 20:59 01/28/25 09:57 1 SPRAYS Gabapentin (NEURontin 300 MG CAP) 300 mg TID PO 01/21/25 21:00 02/20/25 20:59 01/28/25 14:14 300 MG Glucagon (Glucagon 1mg Kit) 1 mg AD PRN IM HYPOGLYCEMIA PROTOCOL 01/20/25 16:00 02/19/25 15:59 Guaifenesin/ Dextromethorphan (RobiTUSSin DM 200/20MG 10ML) 10 ml Q4H PRN PO COUGH 01/20/25 16:00 02/19/25 15:59 HCTZ/Losartan Potassium (Hyzaar 50-12.5 Tablet) 1 tab DAILY PO 01/22/25 09:00 02/21/25 08:59 01/28/25 09:57 1 TAB Heparin Sodium (Porcine) (HEParin 5,000 UNIT VIAL) 5,000 unit BID SQ 01/20/25 21:00 02/19/25 20:59 01/28/25 09:55 5,000 UNIT Home Med (Home Medication) BID PO 01/21/25 21:00 02/20/25 20:59 Home Med (Home Medication) DAILY PO 01/22/25 09:00 02/21/25 08:59 Home Med (Home Medication) QID OP 01/21/25 17:00 02/20/25 16:59 Hydralazine HCl (APRESOLine 20MG INJ) 10 mg Q6H PRN IV For:SBP above 160;DBP above 90 01/20/25 16:00 02/19/25 15:59 Ibuprofen (moTRIN) 800 mg Q8H PRN PO MODERATE PAIN (4-6) 01/20/25 16:00 02/19/25 15:59 01/28/25 10:03 800 MG Insulin Human Regular (humuLIN R 100 UNIT/ML 3ML) INSULIN SLIDING SCAL... ACHS SQ 01/20/25 16:30 02/19/25 16:29 01/24/25 06:03 4 UNIT Ipratropium [place] (AtrovENT UD) 0.5 mg [id number] IH 01/20/25 18:00 01/21/25 10:32 DC 01/21/25 06:07 0.5 MG Ipratropium [place] (AtrovENT UD) 0.5 mg [id number] IH 01/21/25 12:00 02/19/25 17:59 01/28/25 11:02 0.5 MG Ketorolac Tromethamine (toRADol) 15 mg Q8H PRN IV MODERATE PAIN (4-6) IF NPO 01/20/25 16:00 01/23/25 07:25 DC Lactated Ringer's (Lactated Ringers 1000ml) 500 ml BOLUS IV 01/23/25 22:00 01/25/25 07:06 DC 01/24/25 06:42 500 ML Lactated Ringer's (Lactated Ringers 1000ml) 500 ml BOLUS IV 01/24/25 07:00 01/25/25 07:06 DC Lactulose (Constulose 20gm/ 30ml Udcup) 20 gm BID PRN PO CONSTIPATION 01/20/25 16:00 02/19/25 15:59 01/26/25 18:26 20 GM Leptospermum Honey (Boxbecarl junction) apply to lumbar area QTUTHSA TP 01/29/25 09:00 02/28/25 08:59 Magnesium Sulfate 50 ml @ 0 mls/hr PROTOCOL PRN IV other 01/20/25 16:00 02/19/25 15:59 01/26/25 20:47 15 MLS/HR Morphine Sulfate (morPHINE 4MG SYG) 1 mg Q4H PRN IVP SEVERE PAIN (7-10) 01/20/25 16:00 01/25/25 18:59 DC 01/25/25 12:09 1 MG Nitroglycerin (Nitrostat) 0.4 mg PROTOCOL PRN SL CHEST PAIN 01/20/25 16:00 02/19/25 15:59 Norepinephrine 250 ml @ 0 mls/hr PROTOCOL IV 01/23/25 22:30 01/26/25 15:54 DC Ondansetron HCl (zoFRAN 4MG INJ) 4 mg Q6H PRN IV NAUSEA/VOMITING 01/20/25 16:00 02/19/25 15:59 Pantoprazole Sodium (PROTonix 40MG TAB) 40 mg DAILY PO 01/22/25 09:00 02/21/25 08:59 01/28/25 09:58 40 MG Pharmacy Profile Note (Pharmacy Communication) 1 each ONCE MISC 01/24/25 21:00 01/25/25 07:06 DC Potassium Chloride 100 ml @ 100 mls/hr AD PRN IV POTASSIUM PROTOCOL 01/20/25 16:00 02/19/25 15:59 01/27/25 06:16 100 MLS/HR Potassium Chloride (K-Dur/Klor-Con 20meq) 20 meq AD PRN PO POTASSIUM PROTOCOL 01/20/25 16:00 02/19/25 15:59 01/28/25 04:34 20 MEQ Potassium Chloride (KCl 10% Elixir 20meq/15ml) 20 meq AD PRN PO POTASSIUM PROTOCOL 01/20/25 16:00 02/19/25 15:59 01/26/25 09:44 20 MEQ Propofol 100 ml @ 0 mls/hr PROTOCOL IV 01/24/25 00:30 01/24/25 08:46 DC 01/24/25 06:19 25 MLS/HR Sodium Hypochlorite (Dakin'S 0.25% Half Strength) thoracic spine wo... BID TP 01/21/25 21:00 02/20/25 20:59 01/26/25 09:55 1 APPL Sodium Chloride 1,000 ml @ 100 mls/hr Q10H IV 01/20/25 16:00 01/24/25 10:22 DC 01/24/25 03:28 100 MLS/HR Tamsulosin HCl (FloMAX) 0.4 mg DAILY PO 01/22/25 09:00 02/21/25 08:59 01/28/25 09:58 0.4 MG Vancomycin HCl 250 ml @ 125 mls/hr Q12H IV 01/22/25 02:00 01/23/25 02:05 DC 01/22/25 16:48 125 MLS/HR Vancomycin HCl (Vancomycin 750mg) 750 mg Q12H IVPB 01/23/25 04:00 02/02/25 03:59 01/28/25 04:26 750 MG Vancomycin HCl (Vancomycin Protocol) 1 each AD IV 01/21/25 13:00 02/04/25 12:59 Wound Care/ Dressing Products (Venelex Ointment) Sacral wound APPL... BID TP 01/21/25 21:00 02/20/25 20:59 01/28/25 12:18 1 GM Zolpidem Tartrate (AmbIEN) 5 mg HS PRN PO INSOMNIA 01/20/25 16:00 02/19/25 15:59 DIAGNOSTICS / RADIOLOGY: [ ] ASSESSMENT: [s/p Emergency closure of back wound done on 01/23/[address] Nava Hemorrhagic shock requiring blood transfusion, s/p I&D of wound abscess at thoracolumbar spine performed by Dr. Harish Nava on 01/24/2024 morning Hypotension, unresponsive to IV fluids and albumin, in need of pressor Severe anemiaAcute hypoxic respiratory failure POA Infected wound laminectomy 12/30/24 POA s/p I AND D with dr Nava 01/23/25 wound culture growing enterococcus faecalis, e coli, klebsiella aerogeneses, pseudomonas aeruginosa Tachycardia POA Multifactorial anemia POA Electrolyte imbalance hyponatremia Na 134 hypokalemia 3.1 POA Acute dehydration POA Hypotension Hyperlipidemia POA History of Stroke POA Uncontrolled diabetes mellitus type 2 with hyperglycemia POA Compression fracture Spinal stenosis s/p laminectomy 01/15 PLAN: patient is status post incision and drainage of wound abscess a thoracolumbar spine by Dr. Nava on 01/23/2025. Patient tolerated the procedure well. Results of wound culture positive for E coli, Morganella Morgagni. Patient also with a aerobic culture positive for Enterococcus faecalis, E coli, Klebsiella aeruginosa and Pseudomonas aeruginosa. Continue the patient on broad-spectrum IV antibiotics to include vancomycin IV and cefepime as per Infectious Disease. Continue to follow neurosurgical input and recommendation, continue local wound care. The patient will benefit from discharge plan to LTAC. NEURO: Minimize central acting medications as possible. Fall Precautions. Well lit room through the day and minimize interruptions through the night to prevent acute delirium. PULMONARY: Supplemental 02 as needed Titrate Fio2 to keep Spo2 > or = 92% DuoNebs and CPT as needed Out of bed to chair as tolerated Maintain aspiration precautions at all times CARDIOVASCULAR: Continue aspirin, atorvastatin, hydrochlorothiazide, losartan GI & NUTRITION: Continue nutritional support Aspirations precautions Prokinetic agents and laxatives as needed KIDNEYS & ELECTROLYTES: Strict monitoring of intake and output Daily weights Avoid nephrotoxic agents Monitor electrolytes and replace as needed Continue finasteride and tamsulosin ENDOCRINE: Maintain blood glucose between 100-180 at all times. Insulin sliding scale for blood glucose management Hypoglycemia and hyperglycemia protocol in place INFECTIOUS DISEASE: Trend temperature, WBC and procalcitonin level Follow cultures, deescalate antibiotics as soon as possible. Panculture if new onset fever HEMATOLOGY & COAGULATION: Monitor H&H. Keep Hgb > 7 Transfuse 1 unit of PRBC for Hgb < 7 Transfuse 1 pack of platelets of platelets < 20, 000 Watch for any signs and symptoms of bleeding SKIN: Pressure ulcer prevention per facility protocol Specialty mattress as needed ORTHO/REHAB Continue PT/OT Supportive measures: Continue GI with pantoprazole and DVT prophylaxis SCDs only due to concerns for bleeding All questions answered time spent: > 35 min ] ATTESTATION BY PHYSICIAN I have seen and examined the patient. I reviewed the documentation, medical decision making, and treatment plan as noted by the mid-level provider above. I agree with the findings and plan of care. Anyi Sainz MD, [facility] Jan 28, 2025 14:56
--- NOTE | 2025-01-28 16:21 | PN ---
[facility] PROGRESS NOTE Date Patient Seen: Jan 28, 2025 Time of Visit: 1137 Supervising Physician: Dr. Horn Primary Care Physician: Dr. Yosi Rg Attending physicians: [facility] Outpatient Specialists: Inpatient Consults: Dr. Josiah Noyola (ID), Dr. Harish Farmer (Neurosugery), BIS PROBLEM LIST: Intubated patient, extubated and downgraded transferred out of ICU Hemorrhagic shock requiring blood transfusion, s/p I&D of wound abscess at thoracolumbar spine performed by Dr. Harish Vidal on 01/24/2024 morning Severe anemia Wound dehiscence culture positive for E Morganella Enterococcus Klebsiella and Pseudomonas Electrolyte derangement (hypokalemia and hypomagnesemia) Hyperglycemia Elevated D-dimer Bilateral carotid stenosis INTERVAL HISTORY: 01/27 patient was seen and examined by bedside with family present. At time of visit patient has no specific complaints. He is on room air. He is currently pending a wound VAC to get placed. Patient will continue with the current IV antibiotics per ID recommendations. Patient's venous Dopplers were negative for DVT. We will order a CRP and ESR 4:00 a.m. and follow up in the morning. As per primary nurse no acute events to be reported at this time. Dispo per primary team 01/28 patient was seen and examined at bedside with family present. At time of visit patient has no specific complaints. Patient has received wound VAC, which was done yesterday. Patient will continue with current IV antibiotics per ID recommendations. Patient denies any chest pain or shortness of breadth. Denies any nausea vomiting or abdominal pain. We will continue to monitor respiratory status closely. Dispo per primary team Plan: Following neurosurgical recommendations Monitor for signs of bleeding Telemetry Continue Wound to surgical site Continue current IV antibiotics as per ID recommendations Aerobic culture back results:Escherichia coli +, Morganella morganii +, cefepime 1 g IV q.8 hours plus vancomycin 1 g Q 24 hours Continue with DVT & GI prophylaxis REVIEW OF SYSTEMS: 12 point review of system reviewed with patient all permanent positives mentioned above otherwise negative PHYSICAL EXAM: GENERAL: Acutely ill 79-year-old male lying in bed no obvious signs and symptoms of distress HEENT: EOMI, Sclera non icteric, moist mucosa. NECK: Supple, no JVD, trachea midline LUNGS: Diminished breath sounds bilaterally. No wheezes HEART: Regular rate and rhythm. Normal S1 and S2, without murmurs ABD: Abdomen soft, nontender. Bowel sounds present EXT: No clubbing cyanosis or edema NEURO: Awake alert answers questions appropriately Vital Signs (last 8hr) Date Time Temp Pulse Resp B/P (MAP) Pulse Ox O2 Delivery O2 Flow Rate FiO2 01/28/25 12:00 98.2 80 16 143/63 94 Room Air 01/28/25 11:05 76 18 N/A Room Air 21 01/28/25 11:02 76 18 LABS: Hematology Labs: Test 01/28/25 02:41 Range/Units White Blood Count 5.5 4.8-10.8 K/uL Red Blood Count 2.88 L 4.50-6.20 MIL/uL Hemoglobin 8.9 L 14.0-18.0 g/dL Hematocrit 26.5 L 42-54 % Mean Corpuscular Volume 92.0 79-99 fL Mean Corpuscular Hemoglobin 30.9 27.0-33.0 pg Mean Corpuscular Hemoglobin Concent 33.6 32.0-36.0 g/dL Red Cell Distribution Width 15.4 11.0-15.5 % Platelet Count 249 # 130-400 K/uL Mean Platelet Volume 9.7 7.5-10.5 fL Immature Granulocyte % (Auto) 0.9 0-1 % Neutrophils (%) (Auto) 82.8 H 40.0-77.0 % Lymphocytes (%) (Auto) 6.9 L 21.0-51.0 % Monocytes (%) (Auto) 6.8 3.0-13.0 % Eosinophils (%) (Auto) 2.2 0.0-8.0 % Basophils (%) (Auto) 0.4 0.0-5.0 % Neutrophils # (Auto) 4.5 1.8-7.7 K/uL Lymphocytes # (Auto) 0.4 L 1.0-4.8 K/uL Monocytes # (Auto) 0.4 0.1-1.0 K/uL Eosinophils # (Auto) 0.12 0.00-0.70 K/uL Basophils # (Auto) 0.02 0.00-0.20 K/uL Absolute Immature Granulocyte (auto 0.05 0-1 K/uL Nucleated Red Blood Cells 0.0 0.0-0.19 % White Cell Morphology Comment See comments Erythrocyte Sedimentation Rate 61 H 0-20 MM/HR Chemistry Labs: Test 01/28/25 15:55 01/28/25 02:41 01/27/25 05:10 Range/Units Whole Blood Glucose 130 H 70-110 MG/DL Sodium Level 136 136-145 mmol/L Potassium Level 3.6 3.5-5.1 mmol/L Chloride Level 103 101-111 mmol/L Carbon Dioxide Level 19 L 21-32 mmol/L Blood Urea Nitrogen 10 7-18 mg/dL Creatinine 0.4 L 0.5-1.3 mg/dL Glomerular Filtration Rate Calc 111 >90 mL/min Random Glucose 103 70-105 mg/dL Total Calcium 8.1 L 8.5-10.1 mg/dL C-Reactive Protein, Quantitative 97.90 H 0.5-3.0 mg/L Magnesium Level 2.10 1.80-2.40 mg/dL DIAGNOSTICS / RADIOLOGY RESULTS: na PLAN NEURO: Minimize central acting medications as possible. Maintain fall precautions, adequate lighting during the day PULMONARY: Supplemental 02 as needed. Maintain aspiration precautions at all times CARDIOVASCULAR: Follow hemodynamics. Vital signs per facility protocol GI & NUTRITION: Continue with nutritional support. Continue stool softeners and laxatives as needed. KIDNEYS & ELECTROLYTES: Strict monitoring of intake, output and overall fluid balance. Avoid nephrotoxic medications to the extent possible. Medications to be dosed according to renal function. Monitor electrolytes and replace as needed ENDOCRINE: Maintain blood glucose between 100-180 at all times. Hypoglycemia protocol in place INFECTIOUS DISEASE: Trend temperature, WBC and procalcitonin level Follow cultures, deescalate antibiotics as soon as possible. Panculture if new onset fever ONCOLOGY/HEMATOLOGY/COAGULATION: Monitor for s/s of bleeding Monitor hemoglobin, coagulation studies as needed SKIN: Pressure ulcer prevention per facility protocol Specialty mattress ORTHO/REHAB: Continue PT/OT Prophylaxis: Continue GI and DVT prophylaxis Code Status: Full Resuscitation Disposition: Per primary team Other: Case discussed with supervising physician plan of care agreed upon CHANNING BARR Jan 28, 2025 16:21
--- NOTE | 2025-01-28 19:42 | PN ---
PROGRESS NOTE Date of Service: Jan 28, 2025 Time of Service: 19:40 SUBJECTIVE: Patient is evaluated at bedside in room 329. Patient's at bedside during evaluation. Patient is s/p I&D of wound dehiscence with wound infection to thoracolumbar spine by Dr. Vidal today. Patient is awake, alert, and oriented. Patient denies any complaints at this time. No signs of distress noted. Wound vac @ 125mmHG to thoracolumbar spine wound. REVIEW OF SYSTEMS CONSTITUTIONAL: Denies fever, chills, or fatigue. HEAD/FACE: No signs of trauma. EENT: Denies eye pain, blurred vision, double vision, or light sensitivity. RESPIRATORY: Denies shortness of breath, cough, wheezing CARDIOVASCULAR: Denies chest pain, palpitation, syncope GASTROINTESTINAL/ABDOMINAL: Denies abdominal pain, constipation, diarrhea, nausea or vomiting GENITOURINARY: Denies dysuria or hematuria. MUSCULOSKELETAL: Denies joint pain, tenderness, or trauma. INTEGUMENTARY: Open Surgical wound to thoracic lumbar spine NEUROLOGICAL/PSYCH: Denies anxiety, depression, heat or cold intolerance. PHYSICAL EXAM EYES: Anicteric. Pupils equal and reactive. HENT: No oral thrush seen, moist Oral mucosa NECK: Supple, no JVD or thyromegaly. LUNGS: Good air entry. No rales, no rhonchi. CARDIOVASCULAR: S1, S2 regular. No murmur heard. ABDOMEN: Soft, non tender, bowel sounds present, no organomegaly CENTRAL NERVOUS SYSTEM: Awake, alert, oriented x 3. No focal deficits. SKIN: discoloration noted to sacrum LYMPHATICS: No peripheral lymphadenopathy MUSCULOSKELETAL: No joint swelling, erythema or tenderness. EXTREMITIES: No cyanosis or clubbing BACK: Wound vac @ 125mmHG to thoracolumbar spine wound GENITOURINARY: No dysuria or hematuria Vital Signs (last 8hr) Date Time Temp Pulse Resp B/P (MAP) Pulse Ox O2 Delivery O2 Flow Rate FiO2 01/28/25 18:38 84 18 N/A Room Air 21 01/28/25 18:38 84 18 01/28/25 16:00 98.1 82 18 148/71 97 Room Air 21 01/28/25 12:00 98.2 80 16 143/63 94 Room Air LABS: Laboratory: Test 01/28/25 15:55 01/28/25 02:41 01/27/25 05:10 Range/Units Whole Blood Glucose 130 H 70-110 MG/DL White Blood Count 5.5 4.8-10.8 K/uL Red Blood Count 2.88 L 4.50-6.20 MIL/uL Hemoglobin 8.9 L 14.0-18.0 g/dL Hematocrit 26.5 L 42-54 % Mean Corpuscular Volume 92.0 79-99 fL Mean Corpuscular Hemoglobin 30.9 27.0-33.0 pg Mean Corpuscular Hemoglobin Concent 33.6 32.0-36.0 g/dL Red Cell Distribution Width 15.4 11.0-15.5 % Platelet Count 249 # 130-400 K/uL Mean Platelet Volume 9.7 7.5-10.5 fL Immature Granulocyte % (Auto) 0.9 0-1 % Neutrophils (%) (Auto) 82.8 H 40.0-77.0 % Lymphocytes (%) (Auto) 6.9 L 21.0-51.0 % Monocytes (%) (Auto) 6.8 3.0-13.0 % Eosinophils (%) (Auto) 2.2 0.0-8.0 % Basophils (%) (Auto) 0.4 0.0-5.0 % Neutrophils # (Auto) 4.5 1.8-7.7 K/uL Lymphocytes # (Auto) 0.4 L 1.0-4.8 K/uL Monocytes # (Auto) 0.4 0.1-1.0 K/uL Eosinophils # (Auto) 0.12 0.00-0.70 K/uL Basophils # (Auto) 0.02 0.00-0.20 K/uL Absolute Immature Granulocyte (auto 0.05 0-1 K/uL Nucleated Red Blood Cells 0.0 0.0-0.19 % White Cell Morphology Comment See comments Erythrocyte Sedimentation Rate 61 H 0-20 MM/HR Sodium Level 136 136-145 mmol/L Potassium Level 3.6 3.5-5.1 mmol/L Chloride Level 103 101-111 mmol/L Carbon Dioxide Level 19 L 21-32 mmol/L Blood Urea Nitrogen 10 7-18 mg/dL Creatinine 0.4 L 0.5-1.3 mg/dL Glomerular Filtration Rate Calc 111 >90 mL/min Random Glucose 103 70-105 mg/dL Total Calcium 8.1 L 8.5-10.1 mg/dL C-Reactive Protein, Quantitative 97.90 H 0.5-3.0 mg/L Magnesium Level 2.10 1.80-2.40 mg/dL PROBLEM LIST : Medical Problems: Deep disruption of surgical wound Unspecified open wound of lower back Deep tissue injury to sacrum PLAN: Wound care to surgical wound to thoracic lumbar spine- Cleanse with normal saline, pat dry, apply adaptic/Vaseline gauze to bone/tendon, fill with black foam, cover with drape connect to wound vac increased to 100mmhg/ continuous. Patient tolerating well. Change 3 x week. Wound care to sacrum- Apply Venelex BID and PRN Apply waffle mattress Keep wounds clean and dry Offloading/reposition q 2 hours Continue IV antibiotics per ID Comorbidities per primary care team Further Management per hospital course. Thank You for the consult and allowing us to participate in the care of this patient. ATTESTATION BY PHYSICIAN I have seen and examined the patient. I reviewed the documentation, medical decision making, and treatment plan as noted by the mid-level provider above. I agree with the findings and plan of care. VANCE ISRAEL MD, [facility] Jan 28, 2025 19:42
[2025-01-29] VITALS (28 sets, daily range): BP systolic 91–163; BP diastolic 47–86; PULSE 77–101; RESP 13–30; TEMP 97.5–99.4; O2SAT 85–97
[2025-01-29 04:50] LABS: CREATININE 0.4 mg/dL (0.5-1.3); GLOMERULAR FILTR. RATE CALC 111.0 mL/min (>90); GLUCOSE,RANDOM 137.0 mg/dL (70-105); SODIUM SERUM 138.0 mmol/L (136-145); UREA NITROGEN, BLOOD 8.0 mg/dL (7-18)
[2025-01-29] MEDS: HONEY 1 APPL/ML TUBE TP SCH (09:00)
--- NOTE | 2025-01-29 11:30 | NUR ---
PATIENT WITH SUSTAINED HEART RATE IN THE 140S MD NOTIFIED WITH NEW ORDERS RECEIVED.
--- NOTE | 2025-01-29 11:46 | EKG ---
[facility] Test Date: 2025-01-29 Test Time: 11:42:49 Pat Name: KAYLA BELLE Department: [facility] Room: 209 Gender: M Food Runner: vandana [id number] : 1945 Requested By: KATIE MORENO Order Number: [id number] Reading MD: Lizzeth Fields Measurements Intervals [place] Rate: 130 P: 74 VA: 164 QRS: 68 QRSD: 56 T: 43 QT: 282 QTc: 415 Interpretive Statements Sinus tachycardia Septal infarct , age undetermined Compared to ECG 01/20/2025 12:39:32 Myocardial infarct finding now present ST (T wave) deviation no longer present Electronically Signed On 01-29-2025 13:12:34 CDT by Lizzeth Fields Please click the below link to view image of tracing.
--- NOTE | 2025-01-29 11:50 | NUR ---
ORDERS RECEIVED FOR TRANSFER TO ROOM 209 , PATIENT RECEIVED METOPROLOL 2.5 MG IVP AT THIS TIME GIVEN BY MARTIN LAM .ATTENDING STRATEGY MANAGER KATIE AT BEDSIDE ,PATIENT TRANSFERRED AT THIS TIME AND BEDSIDE REPORT GIVEN TO ABIGAIL Hussein RN IN THE ICU.
[2025-01-29 11:53] LABS: ABG BASE EXCESS -1.1 mmol/L (-2.0-3.0); ABG HCO3 19.3 mmol/L (21.0-28.0); ABG OXYGEN SATURATION 96.8 % (94.0-98.0); ABG PCO2 21 mmHg (35-48); ABG PH 7.580 (7.350-7.450); CARBON MONOXIDE 0.6 % (0.5-1.5); DEVICE COMMENT RR; PO2, ARTERIAL BG 85.7 mmHg (83.0-108.0); TEMPERATURE, CELSIUS BG 37.0 CELSIUS (35.5-37.0); VENT MODE, BG NC (ROOM AIR)
[2025-01-29 11:58] LABS: IMMATURE GRANULOCYTE ABSOLUTE 0.14 K/uL (0-1); NUCLEATED RED BLOOD CELLS 0.3 % (0.0-0.19); PLATELET COUNT (AUTO) 359 K/uL (130-400); RED BLOOD CELL COUNT(AUTO) 3.43 MIL/uL (4.50-6.20); RED CELL DISTRIBUTION WIDTH 14.9 % (11.0-15.5); WHITE BLOOD COUNT (AUTO) 7.3 K/uL (4.8-10.8)
[2025-01-29 12:25] LABS: ASPARTATE AMINOTRANSFERASE 22.0 U/L (10-37); CREATININE 0.6 mg/dL (0.5-1.3); GLOMERULAR FILTR. RATE CALC 98.0 mL/min (>90); GLUCOSE,RANDOM 158.0 mg/dL (70-105); SODIUM SERUM 135.0 mmol/L (136-145); TOTAL PROTEIN, SERUM 6.3 g/dL (6.0-8.3); UREA NITROGEN, BLOOD 8.0 mg/dL (7-18)
[2025-01-29] MEDS: 0.9% NACL 250ML 250 ML IV SCH (13:15)
--- NOTE | 2025-01-29 13:33 | HMCIMG ---
CHEST 1VW REASON: TACHY COMPARISON: Prior chest radiograph from 01/24/2025 is available. FINDINGS: Single view of the chest was obtained. Lungs are clear there is blunting of the left costophrenic sulcus suggesting of small to moderate left-sided pleural effusion.. Heart size is normal. Previously seen support lines are not seen in the present study. There is no pulmonary vascular congestion. Mediastinum and bony thorax appear unremarkable. There are interpedicular screws and rods seen in the lower thoracic spine extending to the lumbar spine. IMPRESSION: 1. Newiv-le-tomghije left-sided pleural effusion 2. No evidence of airspace consolidation or pulmonary venous congestion.
--- NOTE | 2025-01-29 14:20 | NUR ---
[facility] Follow-up: Patient re-assessed by wound healing team, Wound improving. Assessment and recommendations provided to primary nurse Education provided. Wound vac changed. Addendum: 01/29/25 at 1625 by ROMELIA WOLFF RN RN/ Amended: Links added.
[2025-01-29] MEDS ORDERED: 0.9% NACL 250ML 250 ML IV SCH (14:30)
--- NOTE | 2025-01-29 14:30 | NUR ---
WOUND CARE TEAM WOUND CARE TEAM AT BEDSIDE PERFORMING WOUND VAC DRESSING CHANGE.
--- NOTE | 2025-01-29 15:40 | PN ---
[facility] PROGRESS NOTE Date of Service: Jan 29, 2025 Time of Service: 15:24 SUBJECTIVE: [The patient is a 79-year-old male with a history of diabetes, hypertension, vertebral compression fracture, spinal stenosis, Parkinsons disease, BPH, and recent thoracolumbar laminectomy, admitted for management of a postoperative wound infection. On 01/23/2025, he underwent incision and drainage of a thoracolumbar wound abscess. Wound cultures revealed polymicrobial infection, including E. coli, Morganella morganii, Enterococcus faecalis, Klebsiella pneumoniae, and Pseudomonas aeruginosa. He was started on broad-spectrum IV antibiotics (vancomycin and cefepime) per infectious disease recommendations. Following the procedure, the patient developed hemorrhagic shock due to si gnificant bleeding at the surgical site, requiring transfusion, vasopressor support, and emergent return to the operating room for hemostasis. He was transferred to the ICU for close monitoring. Over the subsequent days, the patients hemodynamics stabilized, and there were no further acute bleeding events. Wound care was continued, and plans were made for wound VAC placement and transfer to a higher level of care (LTAC or assisted facility). On 01/29/2025, the patient was noted to be resting comfortably in the PCCU. Family reported improvement, including the patients ability to sit up in a chair and participate in physical therapy. No new complaints or acute events were reported overnight. The patient remains on IV antibiotics, and multidisciplinary teams including neurosurgery, infectious disease, wound care, and critical care continue to follow. Discharge planning is ongoing, with consideration for transfer to LTAC or assisted facility as appropriate. REVIEW OF SYSTEMS CONSTITUTIONAL: Denies fevers, chills, or night sweats. No unintentional weight loss reported. NEUROLOGICAL: Denies headache, amaurosis fugax, motor weakness, sensory deficit, vertigo/spinning sensation, gait abnormalities, or tremors. ENT: No hearing loss, otalgia, otorrhea, rhinitis, rhinorrhea, hoarseness, or sore throat. CARDIOVASCULAR: Denies any exertional angina, dyspnea on exertion, orthopnea, paroxysmal nocturnal dyspnea, palpitations, life-threatening arrhythmias, claudication. PULMONARY: Denies any shortness of breath, cough, phlegm/sputum, hemoptysis, pleuritic chest pain. SLEEP: Denies morning headaches, daytime somnolence or napping. Denies difficulty falling asleep, staying asleep, waking from sleep. Denies knowledge of snoring. GASTROINTESTINAL: Denies any type of dysphagia to either liquids or solids. Denies nausea, vomiting, pyrosis, early satiety, abdominal pain, diarrhea, constipation, or changes in stool consistency or caliber. Denies coffee-ground emesis, hematemesis, hematochezia, or melanotic stools. GENITOURINARY: Denies frequency, urgency, nocturia, hematuria or incontinence (Storage/Irritative symptoms.) Low urinary stream, straining to void, urinary intermittency or hesitancy, splitting of the voiding stream, terminal dribbling. ENDOCRINOLOGIC: Denies polyuria, polydipsia, polyphagia or heat/cold intolerances. HEMATOLOGIC: Denies thrombophilia/previous clots, or coagulopathy/bleeding disorders. ONCOLOGIC: Denies personal history of malignancy. DERMATOLOGIC: Denies rashes or pruritus. S/p laminectomy open wound PSYCHIATRIC: Denies any suicidal or homicidal ideation. Denies hallucinations. PHYSICAL EXAM Vital Signs (last 8hr) Date Time Temp Pulse Resp B/P (MAP) Pulse Ox O2 Delivery O2 Flow Rate FiO2 01/29/25 14:00 96 Room Air* 0 21 01/29/25 14:00 96 18 114/54 94 Room Air 21 01/29/25 13:14 99.3 01/29/25 13:00 95 24 107/57 95 Room Air 01/29/25 12:15 95 30 91/50 97 Nasal Cannula 2.0 01/29/25 11:55 95 30 108/52 97 Nasal Cannula 2.0 01/29/25 11:50 109 125/62 01/29/25 11:10 85 18 N/A Room Air 21 01/29/25 11:00 98.2 94 18 163/86 99 Room Air 21 01/29/25 08:00 98.1 101 16 92/47 94 Room Air LABS: Laboratory: Test 01/29/25 11:52 01/29/25 11:50 01/29/25 11:29 01/29/25 05:24 Range/Units Blood Gas Specimen Type Arterial Arterial Blood pH 7.580 H 7.350-7.450 Arterial Blood Partial Pressure CO2 21 L 35-48 mmHg Arterial Blood Partial Pressure O2 85.7 83.0-108.0 mmHg Arterial Blood HCO3 19.3 L 21.0-28.0 mmol/L Arterial Blood Oxygen Saturation 96.8 94.0-98.0 % Arterial Blood Base Excess -1.1 -2.0-3.0 mmol/L Hemoglobin (Blood Gas) 11.0 L 13.5-17.5 g/dL Sodium (Blood Gas) 132 L 136-145 MMOL/L Bedside Potassium (Blood Gas) 4.1 3.4-4.5 MMOL/L Bedside Chloride (Blood Gas) 100 98-107 MMOL/L Bedside Glucose (Blood Gas) 172 H 65-95 MG/DL Bedside Ionized Calcium (Blood Gas) 1.12 L 1.15-1.33 MMOL/L Bedside Lactic Acid (Blood Gas) 2.63 H 0.36-0.75 MMOL/L Blood Gas Temperature 37.0 35.5-37.0 CELSIUS Blood Gas Flow-by 3.50 0.00-15.00 L/min Blood Gas Vent Mode NC ROOM AIR FiO2 34.0 % Blood Gas Specimen Comment RR White Blood Count 7.3 4.8-10.8 K/uL Red Blood Count 3.43 L 4.50-6.20 MIL/uL Hemoglobin 10.5 L 14.0-18.0 g/dL Hematocrit 31.6 L 42-54 % Mean Corpuscular Volume 92.1 79-99 fL Mean Corpuscular Hemoglobin 30.6 27.0-33.0 pg Mean Corpuscular Hemoglobin Concent 33.2 32.0-36.0 g/dL Red Cell Distribution Width 14.9 11.0-15.5 % Platelet Count 359 # 130-400 K/uL Mean Platelet Volume 9.6 7.5-10.5 fL Immature Granulocyte % (Auto) 1.9 H 0-1 % Neutrophils (%) (Auto) 92.2 H 40.0-77.0 % Lymphocytes (%) (Auto) 3.6 L 21.0-51.0 % Monocytes (%) (Auto) 0.8 L 3.0-13.0 % Eosinophils (%) (Auto) 1.2 0.0-8.0 % Basophils (%) (Auto) 0.3 0.0-5.0 % Neutrophils # (Auto) 6.7 1.8-7.7 K/uL Lymphocytes # (Auto) 0.3 L 1.0-4.8 K/uL Monocytes # (Auto) 0.1 0.1-1.0 K/uL Eosinophils # (Auto) 0.09 0.00-0.70 K/uL Basophils # (Auto) 0.02 0.00-0.20 K/uL Absolute Immature Granulocyte (auto 0.14 0-1 K/uL Nucleated Red Blood Cells 0.3 H 0.0-0.19 % D-Dimer Quantitative (PE/DVT) 2960 *H 0-500 ng/mL Sodium Level 135 L 136-145 mmol/L Potassium Level 4.0 3.5-5.1 mmol/L Chloride Level 98 L 101-111 mmol/L Carbon Dioxide Level 22 21-32 mmol/L Blood Urea Nitrogen 8 7-18 mg/dL Creatinine 0.6 0.5-1.3 mg/dL Glomerular Filtration Rate Calc 98 >90 mL/min Random Glucose 158 H 70-105 mg/dL Lactic Acid Level 3.2 H 0.8-2.5 mmol/L Total Calcium 8.8 8.5-10.1 mg/dL Magnesium Level 1.50 L 1.80-2.40 mg/dL Total Bilirubin 0.8 0.2-1.0 mg/dL Aspartate Amino Transf (AST/SGOT) 22 10-37 U/L Alanine Aminotransferase (ALT/SGPT) 27 12-78 U/L Alkaline Phosphatase 170 H 50-136 U/L Troponin I High Sensitivity 6 4-75 ng/L Total Protein 6.3 6.0-8.3 g/dL Albumin 2.0 L 3.5-5.0 g/dL Procalcitonin 0.20 0.05-0.5 ng/mL Whole Blood Glucose 145 H 70-110 MG/DL Bedside Glucose Comment Notified Nurse Test 01/28/25 02:41 Range/Units White Cell Morphology Comment See comments Erythrocyte Sedimentation Rate 61 H 0-20 MM/HR C-Reactive Protein, Quantitative 97.90 H 0.5-3.0 mg/L Current Medications Medications (Trade) Dose Ordered Sig/Steve Route PRN Reason Start Time Stop Time Status Last Admin Dose Admin Acetaminophen (TYLenol 325MG TAB) 650 mg Q4H PRN PO MILD PAIN (1-3) 01/20/25 16:00 02/19/25 15:59 01/29/25 13:14 650 MG Acetaminophen (TYLenol 325MG TAB) 650 mg Q6H PRN PO MILD PAIN (1-3) 01/20/25 16:00 01/23/25 07:25 DC Acetaminophen (TYLenol 325MG TAB) 650 mg Q6H PRN PO TEMPERATURE GREATER THAN 101.5 01/20/25 16:00 02/19/25 15:59 Al Hydroxide/Mg Hydroxide (MAALox PLUS 30ML) 30 ml Q6H PRN PO INDIGESTION 01/20/25 16:00 02/19/25 15:59 Albumin Human 250 ml @ 500 mls/hr AD IV 01/23/25 22:00 01/25/25 07:05 DC 01/23/25 21:58 500 MLS/HR Albuterol Sulfate (Proventil 0.083% 2.5mg/3ml) 2.5 mg [id number] IH 01/20/25 18:00 01/29/25 12:58 DC 01/29/25 06:25 2.5 MG Aspirin (Aspirin 81mg Chew Tab) 81 mg DAILY PO 01/22/25 09:00 02/21/25 08:59 01/29/25 10:21 81 MG Atorvastatin Calcium (LIPItor 40MG) 80 mg DAILY PO 01/22/25 09:00 01/26/25 09:58 DC 01/25/25 09:29 80 MG Atorvastatin Calcium (LIPItor 40MG) 80 mg HS PO 01/26/25 21:00 02/21/25 08:59 01/28/25 20:22 80 MG Bisacodyl (DulcoLAX 5MG TAB) 10 mg DAILY PO 01/25/25 13:00 02/24/25 12:59 01/29/25 10:20 10 MG Cefepime HCl (MAXipime 1 GM vial) 1 gm Q8H IVPB 01/21/25 13:00 01/31/25 12:59 01/29/25 13:13 1 GM Clindamycin HCl/ Dextrose 50 ml @ 100 mls/hr ONCE STAT IV 01/20/25 14:30 01/20/25 14:59 DC 01/20/25 15:04 100 MLS/HR Clindamycin HCl/ Dextrose 50 ml @ 100 mls/hr Q8H IV 01/20/25 23:00 01/21/25 12:57 DC 01/21/25 08:07 100 MLS/HR Dextrose (D50w) 50 ml AD PRN IV HYPOGLYCEMIA PROTOCOL 01/20/25 16:00 02/19/25 15:59 Diphenhydramine HCl (BENAdryl INJ) 25 mg Q6H PRN IV SEVERE ITCHING/RASH 01/20/25 16:00 02/19/25 15:59 Docusate Sodium (COLace 100MG CAP) 100 mg BID PO 01/25/25 13:00 02/24/25 12:59 01/29/25 10:21 100 MG Famotidine (Pepcid 20mg Vial) 20 mg BID PRN IV NAUSEA/VOMITING 01/20/25 16:00 01/20/25 16:18 DC Fentanyl/Sodium Chloride 250 ml @ 0 mls/hr PROTOCOL IV 01/24/25 00:30 01/24/25 08:46 DC Finasteride (PROscar 5 MG TAB) 5 mg DAILY PO 01/22/25 09:00 02/21/25 08:59 01/29/25 10:20 5 MG Fluticasone Propionate (FLOnase 50 mcg/ spray 16g bottle) 1 SPRAY BID EN 01/21/25 21:00 02/20/25 20:59 01/29/25 10:27 1 SPRAYS Gabapentin (NEURontin 300 MG CAP) 300 mg TID PO 01/21/25 21:00 02/20/25 20:59 01/29/25 13:14 300 MG Glucagon (Glucagon 1mg Kit) 1 mg AD PRN IM HYPOGLYCEMIA PROTOCOL 01/20/25 16:00 02/19/25 15:59 Guaifenesin/ Dextromethorphan (RobiTUSSin DM 200/20MG 10ML) 10 ml Q4H PRN PO COUGH 01/20/25 16:00 02/19/25 15:59 HCTZ/Losartan Potassium (Hyzaar 50-12.5 Tablet) 1 tab DAILY PO 01/22/25 09:00 02/21/25 08:59 01/29/25 10:54 1 TAB Heparin Sodium (Porcine) (HEParin 5,000 UNIT VIAL) 5,000 unit BID SQ 01/20/25 21:00 02/19/25 20:59 01/29/25 10:24 5,000 UNIT Home Med (Home Medication) BID PO 01/21/25 21:00 02/20/25 20:59 Home Med (Home Medication) DAILY PO 01/22/25 09:00 02/21/25 08:59 Home Med (Home Medication) QID OP 01/21/25 17:00 02/20/25 16:59 Hydralazine HCl (APRESOLine 20MG INJ) 10 mg Q6H PRN IV For:SBP above 160;DBP above 90 01/20/25 16:00 02/19/25 15:59 Ibuprofen (moTRIN) 800 mg Q8H PRN PO MODERATE PAIN (4-6) 01/20/25 16:00 02/19/25 15:59 01/29/25 01:10 800 MG Insulin Human Regular (humuLIN R 100 UNIT/ML 3ML) INSULIN SLIDING SCAL... ACHS SQ 01/20/25 16:30 02/19/25 16:29 01/28/25 20:30 4 UNIT Ipratropium Ayr (AtrovENT UD) 0.5 mg [id number] IH 01/20/25 18:00 01/21/25 10:32 DC 01/21/25 06:07 0.5 MG Ipratropium Ayr (AtrovENT UD) 0.5 mg [id number] IH 01/21/25 12:00 02/19/25 17:59 01/29/25 06:25 0.5 MG Ketorolac Tromethamine (toRADol) 15 mg Q8H PRN IV MODERATE PAIN (4-6) IF NPO 01/20/25 16:00 01/23/25 07:25 DC Lactated Ringer's (Lactated Ringers 1000ml) 500 ml BOLUS IV 01/23/25 22:00 01/25/25 07:06 DC 01/24/25 06:42 500 ML Lactated Ringer's (Lactated Ringers 1000ml) 500 ml BOLUS IV 01/24/25 07:00 01/25/25 07:06 DC Lactulose (Constulose 20gm/ 30ml Udcup) 20 gm BID PRN PO CONSTIPATION 01/20/25 16:00 02/19/25 15:59 01/26/25 18:26 20 GM [facility]ospermum [facility] apply to lumbar area QTUTHSA TP 01/29/25 09:00 02/28/25 08:59 Magnesium Sulfate 50 ml @ 0 mls/hr PROTOCOL PRN IV other 01/20/25 16:00 02/19/25 15:59 01/26/25 20:47 15 MLS/HR Morphine Sulfate (morPHINE 4MG SYG) 1 mg Q4H PRN IVP SEVERE PAIN (7-10) 01/20/25 16:00 01/25/25 18:59 DC 01/25/25 12:09 1 MG Nitroglycerin (Nitrostat) 0.4 mg PROTOCOL PRN SL CHEST PAIN 01/20/25 16:00 02/19/25 15:59 Norepinephrine 250 ml @ 0 mls/hr PROTOCOL IV 01/23/25 22:30 01/26/25 15:54 DC Ondansetron HCl (zoFRAN 4MG INJ) 4 mg Q6H PRN IV NAUSEA/VOMITING 01/20/25 16:00 02/19/25 15:59 Pantoprazole Sodium (PROTonix 40MG TAB) 40 mg DAILY PO 01/22/25 09:00 02/21/25 08:59 01/29/25 10:21 40 MG Pharmacy Profile Note (Pharmacy Communication) 1 each ONCE MISC 01/24/25 21:00 01/25/25 07:06 DC Potassium Chloride 100 ml @ 100 mls/hr AD PRN IV POTASSIUM PROTOCOL 01/20/25 16:00 02/19/25 15:59 01/27/25 06:16 100 MLS/HR Potassium Chloride (K-Dur/Klor-Con 20meq) 20 meq AD PRN PO POTASSIUM PROTOCOL 01/20/25 16:00 02/19/25 15:59 01/29/25 10:26 20 MEQ Potassium Chloride (KCl 10% Elixir 20meq/15ml) 20 meq AD PRN PO POTASSIUM PROTOCOL 01/20/25 16:00 02/19/25 15:59 01/26/25 09:44 20 MEQ Propofol 100 ml @ 0 mls/hr PROTOCOL IV 01/24/25 00:30 01/24/25 08:46 DC 01/24/25 06:19 25 MLS/HR Sodium Hypochlorite (Dakin'S 0.25% Half Strength) thoracic spine wo... BID TP 01/21/25 21:00 02/20/25 20:59 01/26/25 09:55 1 APPL Sodium Chloride 250 ml @ 0 mls/hr Q0M IV 01/29/25 13:30 02/28/25 13:29 01/29/25 13:15 250 MLS/HR Sodium Chloride 250 ml @ 0 mls/hr Q0M IV 01/29/25 14:30 02/28/25 14:29 Sodium Chloride 1,000 ml @ 100 mls/hr Q10H IV 01/20/25 16:00 01/24/25 10:22 DC 01/24/25 03:28 100 MLS/HR Tamsulosin HCl (FloMAX) 0.4 mg DAILY PO 01/22/25 09:00 02/21/25 08:59 01/29/25 10:21 0.4 MG Vancomycin HCl 250 ml @ 125 mls/hr Q12H IV 01/22/25 02:00 01/23/25 02:05 DC 01/22/25 16:48 125 MLS/HR Vancomycin HCl (Vancomycin 750mg) 750 mg Q12H IVPB 01/23/25 04:00 02/02/25 03:59 01/29/25 04:00 750 MG Vancomycin HCl (Vancomycin Protocol) 1 each AD IV 01/21/25 13:00 02/04/25 12:59 Wound Care/ Dressing Products (Venelex Ointment) Sacral wound APPL... BID TP 01/21/25 21:00 02/20/25 20:59 01/29/25 10:28 1 GM Zolpidem Tartrate (AmbIEN) 5 mg HS PRN PO INSOMNIA 01/20/25 16:00 02/19/25 15:59 DIAGNOSTICS / RADIOLOGY: [ ] ASSESSMENT: - Status post emergency closure of back wound performed by Dr. Vidal on 01/23/2025 (evening), following hemorrhagic shock and significant surgical site bleeding. - Hemorrhagic shock requiring blood transfusion and vasopressor support, status post I&D of thoracolumbar wound abscess by Dr. Harish Vidal on 01/23/2025 (morning). - Severe anemia secondary to acute blood loss and multifactorial causes. - Acute hypoxic respiratory failure on admission. - Infected laminectomy wound (s/p laminectomy 12/30/2024), complicated by polymicrobial infection. - Status post incision and drainage of thoracolumbar wound abscess (01/23/2025, Dr. Vidal). - Wound cultures positive for Enterococcus faecalis, E. coli, Klebsiella aerogenes, and Pseudomonas aeruginosa. - Tachycardia on admission. - Multifactorial anemia (acute blood loss, chronic disease). - Electrolyte imbalances: Hyponatremia (Na 134), hypokalemia (K 3.1) on admission. - Acute dehydration on admission. - Recurrent hypotension requiring vasopressor support. - Hyperlipidemia (history of). - History of stroke. - Uncontrolled type 2 diabetes mellitus with hyperglycemia. - Compression vertebral fracture. - Spinal stenosis, status post laminectomy (12/30/2024, Dr. Vidal). PLAN: - Postoperative thoracolumbar wound infection / Polymicrobial infection - Continue broad-spectrum IV antibiotics (vancomycin and cefepime) per Infectious Disease recommendations. - Maintain local wound care and dressing changes as per wound care team. - Monitor for signs of systemic infection or sepsis. - Continue to follow wound cultures and adjust antibiotics as needed. - Status post incision and drainage of thoracolumbar wound abscess - Monitor surgical site for signs of re-bleeding, infection, or dehiscence. - Neurosurgery to continue to follow and provide recommendations. - Continue wound VAC as indicated. - Hemorrhagic shock / Severe anemia - Monitor hemoglobin/hematocrit daily. - Transfuse PRBCs as clinically indicated. - Monitor for ongoing bleeding. - Continue to monitor hemodynamics closely in PCCU. - Acute hypoxic respiratory failure - Continue supplemental oxygen as needed. - Monitor respiratory status and oxygen saturation. - Pulmonary hygiene and incentive spirometry. - Electrolyte imbalances (hyponatremia, hypokalemia) / Acute dehydration - Monitor daily electrolytes. - Replace sodium and potassium as needed. - Maintain adequate IV fluids and monitor fluid balance. - Recurrent hypotension - Continue close hemodynamic monitoring in PCCU. - Titrate vasopressors as needed (currently off vasopressors). - Monitor for recurrence of hypotension. - Uncontrolled type 2 diabetes mellitus - Monitor blood glucose closely. - Continue sliding scale insulin and adjust regimen as needed. - Endocrinology consult if persistent hyperglycemia. - Hypertension - Monitor blood pressure. - Resume/adjust antihypertensive medications as tolerated. - History of hyperlipidemia - Continue statin therapy if not contraindicated. - History of stroke - Continue secondary stroke prevention measures as appropriate. - Compression vertebral fracture / Spinal stenosis / Parkinsons disease / BPH - Continue home medications as appropriate. - Physical and occupational therapy to assist with mobility and ADLs. - Urology to follow for BPH management if needed. - Acute clinical deterioration today - Continue close monitoring in PCCU. - Labs and imaging negative for PE; continue to monitor for other causes of decompensation. - Critical care team to follow and manage acute issues. - Discharge planning - Case management and social work to coordinate transfer to LTAC or assisted facility once stable. - Multidisciplinary team to continue involvement in care planning. Case seen and examined with Dr. Sainz above plan was formulated ] ATTESTATION BY PHYSICIAN I have seen and examined the patient. I reviewed the documentation, medical decision making, and treatment plan as noted by the mid-level provider above. I agree with the findings and plan of care. Anyi Sainz MD, [facility] Jan 29, 2025 15:40
--- NOTE | 2025-01-29 15:42 | PN ---
[facility] PROGRESS NOTE Date Patient Seen: Jan 29, 2025 Time of Visit: 1100 Supervising Physician: Dr. FOSTER Primary Care Physician: Dr. Yosi Rg Attending physicians: [facility] Outpatient Specialists: Inpatient Consults: Dr. Josiah Noyola (ID), Dr. Harish Farmer (Neurosugery), BIS PROBLEM LIST: Intubated patient, extubated and downgraded transferred out of ICU Hemorrhagic shock requiring blood transfusion, s/p I&D of wound abscess at thoracolumbar spine performed by Dr. Harish Vidal on 01/24/2024 morning Severe anemia Wound dehiscence culture positive for E Morganella Enterococcus Klebsiella and Pseudomonas Electrolyte derangement (hypokalemia and hypomagnesemia) Hyperglycemia Elevated D-dimer Bilateral carotid stenosis INTERVAL HISTORY: 01/27 patient was seen and examined by bedside with family present. At time of visit patient has no specific complaints. He is on room air. He is currently pending a wound VAC to get placed. Patient will continue with the current IV antibiotics per ID recommendations. Patient's venous Dopplers were negative for DVT. We will order a CRP and ESR 4:00 a.m. and follow up in the morning. As per primary nurse no acute events to be reported at this time. Dispo per primary team 01/28 patient was seen and examined at bedside with family present. At time of visit patient has no specific complaints. Patient has received wound VAC, which was done yesterday. Patient will continue with current IV antibiotics per ID recommendations. Patient denies any chest pain or shortness of breadth. Denies any nausea vomiting or abdominal pain. We will continue to monitor respiratory status closely. Dispo per primary team 01/29 patient was seen and examined at bedside with family present. At time of visit has no specific complaints. Patient talking on the phone to a family member on room air appears to be tolerating well. Patient's a.m. labs unremarkable. Patient has remained hemodynamically stable. From a respiratory standpoint patient has remained stable on room air we will continue to monitor respiratory status closely. Continue with IV antibiotics per ID recommendations. Dispo per primary team Plan: Following neurosurgical recommendations Monitor for signs of bleeding Telemetry Continue Wound to surgical site Continue current IV antibiotics as per ID recommendations Aerobic culture back results:Escherichia coli +, Morganella morganii +, cefepime 1 g IV q.8 hours plus vancomycin 1 g Q 24 hours Continue with DVT & GI prophylaxis REVIEW OF SYSTEMS: 12 point review of system reviewed with patient all permanent positives mentioned above otherwise negative PHYSICAL EXAM: GENERAL: Acutely ill 79-year-old male lying in bed no obvious signs and symptoms of distress HEENT: EOMI, Sclera non icteric, moist mucosa. NECK: Supple, no JVD, trachea midline LUNGS: Diminished breath sounds bilaterally. No wheezes HEART: Regular rate and rhythm. Normal S1 and S2, without murmurs ABD: Abdomen soft, nontender. Bowel sounds present EXT: No clubbing cyanosis or edema NEURO: Awake alert answers questions appropriately Vital Signs (last 8hr) Date Time Temp Pulse Resp B/P (MAP) Pulse Ox O2 Delivery O2 Flow Rate FiO2 01/29/25 15:00 86 26 116/54 95 Room Air 21 01/29/25 14:00 96 Room Air* 0 21 01/29/25 14:00 96 18 114/54 94 Room Air 21 01/29/25 13:14 99.3 01/29/25 13:00 95 24 107/57 95 Room Air 01/29/25 12:15 95 30 91/50 97 Nasal Cannula 2.0 01/29/25 11:55 95 30 108/52 97 Nasal Cannula 2.0 01/29/25 11:50 109 125/62 01/29/25 11:10 85 18 N/A Room Air 01/29/25 11:00 98.2 94 18 163/86 99 Room Air 01/29/25 08:00 98.1 101 16 92/47 94 Room Air LABS: Hematology Labs: Test 01/29/25 11:50 01/28/25 02:41 Range/Units White Blood Count 7.3 4.8-10.8 K/uL Red Blood Count 3.43 L 4.50-6.20 MIL/uL Hemoglobin 10.5 L 14.0-18.0 g/dL Hematocrit 31.6 L 42-54 % Mean Corpuscular Volume 92.1 79-99 fL Mean Corpuscular Hemoglobin 30.6 27.0-33.0 pg Mean Corpuscular Hemoglobin Concent 33.2 32.0-36.0 g/dL Red Cell Distribution Width 14.9 11.0-15.5 % Platelet Count 359 # 130-400 K/uL Mean Platelet Volume 9.6 7.5-10.5 fL Immature Granulocyte % (Auto) 1.9 H 0-1 % Neutrophils (%) (Auto) 92.2 H 40.0-77.0 % Lymphocytes (%) (Auto) 3.6 L 21.0-51.0 % Monocytes (%) (Auto) 0.8 L 3.0-13.0 % Eosinophils (%) (Auto) 1.2 0.0-8.0 % Basophils (%) (Auto) 0.3 0.0-5.0 % Neutrophils # (Auto) 6.7 1.8-7.7 K/uL Lymphocytes # (Auto) 0.3 L 1.0-4.8 K/uL Monocytes # (Auto) 0.1 0.1-1.0 K/uL Eosinophils # (Auto) 0.09 0.00-0.70 K/uL Basophils # (Auto) 0.02 0.00-0.20 K/uL Absolute Immature Granulocyte (auto 0.14 0-1 K/uL Nucleated Red Blood Cells 0.3 H 0.0-0.19 % White Cell Morphology Comment See comments Erythrocyte Sedimentation Rate 61 H 0-20 MM/HR Chemistry Labs: Test 01/29/25 11:50 01/29/25 11:29 01/29/25 05:24 01/28/25 02:41 Range/Units Sodium Level 135 L 136-145 mmol/L Potassium Level 4.0 3.5-5.1 mmol/L Chloride Level 98 L 101-111 mmol/L Carbon Dioxide Level 22 21-32 mmol/L Blood Urea Nitrogen 8 7-18 mg/dL Creatinine 0.6 0.5-1.3 mg/dL Glomerular Filtration Rate Calc 98 >90 mL/min Random Glucose 158 H 70-105 mg/dL Lactic Acid Level 3.2 H 0.8-2.5 mmol/L Total Calcium 8.8 8.5-10.1 mg/dL Magnesium Level 1.50 L 1.80-2.40 mg/dL Total Bilirubin 0.8 0.2-1.0 mg/dL Aspartate Amino Transf (AST/SGOT) 22 10-37 U/L Alanine Aminotransferase (ALT/SGPT) 27 12-78 U/L Alkaline Phosphatase 170 H 50-136 U/L Troponin I High Sensitivity 6 4-75 ng/L Total Protein 6.3 6.0-8.3 g/dL Albumin 2.0 L 3.5-5.0 g/dL Procalcitonin 0.20 0.05-0.5 ng/mL Whole Blood Glucose 145 H 70-110 MG/DL Bedside Glucose Comment Notified Nurse C-Reactive Protein, Quantitative 97.90 H 0.5-3.0 mg/L Coagulation Labs: Test 01/29/25 11:50 Range/Units D-Dimer Quantitative (PE/DVT) 2960 *H 0-500 ng/mL DIAGNOSTICS / RADIOLOGY RESULTS: na PLAN NEURO: Minimize central acting medications as possible. Maintain fall precautions, adequate lighting during the day PULMONARY: Supplemental 02 as needed. Maintain aspiration precautions at all times CARDIOVASCULAR: Follow hemodynamics. Vital signs per facility protocol GI & NUTRITION: Continue with nutritional support. Continue stool softeners and laxatives as needed. KIDNEYS & ELECTROLYTES: Strict monitoring of intake, output and overall fluid balance. Avoid nephrotoxic medications to the extent possible. Medications to be dosed according to renal function. Monitor electrolytes and replace as needed ENDOCRINE: Maintain blood glucose between 100-180 at all times. Hypoglycemia protocol in place INFECTIOUS DISEASE: Trend temperature, WBC and procalcitonin level Follow cultures, deescalate antibiotics as soon as possible. Panculture if new onset fever ONCOLOGY/HEMATOLOGY/COAGULATION: Monitor for s/s of bleeding Monitor hemoglobin, coagulation studies as needed SKIN: Pressure ulcer prevention per facility protocol Specialty mattress ORTHO/REHAB: Continue PT/OT Prophylaxis: Continue GI and DVT prophylaxis Code Status: Full Resuscitation Disposition: Per primary team Other: Case discussed with supervising physician plan of care agreed upon CHANNING BARR Jan 29, 2025 15:42
--- NOTE | 2025-01-29 16:30 | PN ---
PROGRESS NOTE Date of Service: Jan 29, 2025 Time of Service: 16:29 SUBJECTIVE: Patient is evaluated at bedside in room 329. Patient's at bedside during evaluation. Patient is s/p I&D of wound dehiscence with wound infection to thoracolumbar spine by Dr. Vidal today. Patient is awake, alert, and oriented. Patient denies any complaints at this time. No signs of distress noted. Wound vac @ 125mmHG to thoracolumbar spine wound. REVIEW OF SYSTEMS CONSTITUTIONAL: Denies fever, chills, or fatigue. HEAD/FACE: No signs of trauma. EENT: Denies eye pain, blurred vision, double vision, or light sensitivity. RESPIRATORY: Denies shortness of breath, cough, wheezing CARDIOVASCULAR: Denies chest pain, palpitation, syncope GASTROINTESTINAL/ABDOMINAL: Denies abdominal pain, constipation, diarrhea, nausea or vomiting GENITOURINARY: Denies dysuria or hematuria. MUSCULOSKELETAL: Denies joint pain, tenderness, or trauma. INTEGUMENTARY: Open Surgical wound to thoracic lumbar spine NEUROLOGICAL/PSYCH: Denies anxiety, depression, heat or cold intolerance. PHYSICAL EXAM EYES: Anicteric. Pupils equal and reactive. HENT: No oral thrush seen, moist Oral mucosa NECK: Supple, no JVD or thyromegaly. LUNGS: Good air entry. No rales, no rhonchi. CARDIOVASCULAR: S1, S2 regular. No murmur heard. ABDOMEN: Soft, non tender, bowel sounds present, no organomegaly CENTRAL NERVOUS SYSTEM: Awake, alert, oriented x 3. No focal deficits. SKIN: discoloration noted to sacrum LYMPHATICS: No peripheral lymphadenopathy MUSCULOSKELETAL: No joint swelling, erythema or tenderness. EXTREMITIES: No cyanosis or clubbing BACK: Wound vac @ 125mmHG to thoracolumbar spine wound GENITOURINARY: No dysuria or hematuria Vital Signs (last 8hr) Date Time Temp Pulse Resp B/P (MAP) Pulse Ox O2 Delivery O2 Flow Rate FiO2 01/29/25 16:10 99.0 01/29/25 16:00 77 21 115/58 95 Room Air 21 01/29/25 15:00 86 26 116/54 95 Room Air 21 01/29/25 14:00 96 Room Air* 0 21 01/29/25 14:00 96 18 114/54 94 Room Air 21 01/29/25 13:14 99.3 01/29/25 13:00 95 24 107/57 95 Room Air 21 01/29/25 12:15 95 30 91/50 97 Nasal Cannula 2.0 01/29/25 11:55 95 30 108/52 97 Nasal Cannula 2.0 01/29/25 11:50 109 125/62 01/29/25 11:10 85 18 N/A Room Air 21 01/29/25 11:00 98.2 94 18 163/86 99 Room Air 21 LABS: Laboratory: Test 01/29/25 16:01 01/29/25 15:19 01/29/25 11:52 01/29/25 11:50 Range/Units Whole Blood Glucose 147 H 70-110 MG/DL Lactic Acid Level 1.3 0.8-2.5 mmol/L Vancomycin Level Trough 15.5 10.0-20.0 UG/ML Blood Gas Specimen Type Arterial Arterial Blood pH 7.580 H 7.350-7.450 Arterial Blood Partial Pressure CO2 21 L 35-48 mmHg Arterial Blood Partial Pressure O2 85.7 83.0-108.0 mmHg Arterial Blood HCO3 19.3 L 21.0-28.0 mmol/L Arterial Blood Oxygen Saturation 96.8 94.0-98.0 % Arterial Blood Base Excess -1.1 -2.0-3.0 mmol/L Hemoglobin (Blood Gas) 11.0 L 13.5-17.5 g/dL Sodium (Blood Gas) 132 L 136-145 MMOL/L Bedside Potassium (Blood Gas) 4.1 3.4-4.5 MMOL/L Bedside Chloride (Blood Gas) 100 98-107 MMOL/L Bedside Glucose (Blood Gas) 172 H 65-95 MG/DL Bedside Ionized Calcium (Blood Gas) 1.12 L 1.15-1.33 MMOL/L Bedside Lactic Acid (Blood Gas) 2.63 H 0.36-0.75 MMOL/L Blood Gas Temperature 37.0 35.5-37.0 CELSIUS Blood Gas Flow-by 3.50 0.00-15.00 L/min Blood Gas Vent Mode NC ROOM AIR FiO2 34.0 % Blood Gas Specimen Comment RR White Blood Count 7.3 4.8-10.8 K/uL Red Blood Count 3.43 L 4.50-6.20 MIL/uL Hemoglobin 10.5 L 14.0-18.0 g/dL Hematocrit 31.6 L 42-54 % Mean Corpuscular Volume 92.1 79-99 fL Mean Corpuscular Hemoglobin 30.6 27.0-33.0 pg Mean Corpuscular Hemoglobin Concent 33.2 32.0-36.0 g/dL Red Cell Distribution Width 14.9 11.0-15.5 % Platelet Count 359 # 130-400 K/uL Mean Platelet Volume 9.6 7.5-10.5 fL Immature Granulocyte % (Auto) 1.9 H 0-1 % Neutrophils (%) (Auto) 92.2 H 40.0-77.0 % Lymphocytes (%) (Auto) 3.6 L 21.0-51.0 % Monocytes (%) (Auto) 0.8 L 3.0-13.0 % Eosinophils (%) (Auto) 1.2 0.0-8.0 % Basophils (%) (Auto) 0.3 0.0-5.0 % Neutrophils # (Auto) 6.7 1.8-7.7 K/uL Lymphocytes # (Auto) 0.3 L 1.0-4.8 K/uL Monocytes # (Auto) 0.1 0.1-1.0 K/uL Eosinophils # (Auto) 0.09 0.00-0.70 K/uL Basophils # (Auto) 0.02 0.00-0.20 K/uL Absolute Immature Granulocyte (auto 0.14 0-1 K/uL Nucleated Red Blood Cells 0.3 H 0.0-0.19 % D-Dimer Quantitative (PE/DVT) 2960 *H 0-500 ng/mL Sodium Level 135 L 136-145 mmol/L Potassium Level 4.0 3.5-5.1 mmol/L Chloride Level 98 L 101-111 mmol/L Carbon Dioxide Level 22 21-32 mmol/L Blood Urea Nitrogen 8 7-18 mg/dL Creatinine 0.6 0.5-1.3 mg/dL Glomerular Filtration Rate Calc 98 >90 mL/min Random Glucose 158 H 70-105 mg/dL Total Calcium 8.8 8.5-10.1 mg/dL Magnesium Level 1.50 L 1.80-2.40 mg/dL Total Bilirubin 0.8 0.2-1.0 mg/dL Aspartate Amino Transf (AST/SGOT) 22 10-37 U/L Alanine Aminotransferase (ALT/SGPT) 27 12-78 U/L Alkaline Phosphatase 170 H 50-136 U/L Troponin I High Sensitivity 6 4-75 ng/L Total Protein 6.3 6.0-8.3 g/dL Albumin 2.0 L 3.5-5.0 g/dL Procalcitonin 0.20 0.05-0.5 ng/mL Test 01/29/25 05:24 01/28/25 02:41 Range/Units Bedside Glucose Comment Notified Nurse White Cell Morphology Comment See comments Erythrocyte Sedimentation Rate 61 H 0-20 MM/HR C-Reactive Protein, Quantitative 97.90 H 0.5-3.0 mg/L PROBLEM LIST : Medical Problems: Deep disruption of surgical wound Unspecified open wound of lower back Deep tissue injury to sacrum PLAN: Wound care to surgical wound to thoracic lumbar spine: cleanse with normal saline, pat dry, apply drape to periwound, apply medihoney to base, apply adaptic/vaseline gauze to bone/tendon, fill wound with black foam, cover with drape, connect to wound vac, change 3x/wk. Q T-T-S. Wound care to sacrum- Apply Venelex BID and PRN Apply waffle mattress Keep wounds clean and dry Offloading/reposition q 2 hours Continue IV antibiotics per ID Comorbidities per primary care team Further Management per hospital course. Thank You for the consult and allowing us to participate in the care of this patient. WENDY GONCALVESP Jan 29, 2025 16:30
[2025-01-29 18:17] LABS: APPEARANCE,URINE CLOUDY (CLEAR); GLUCOSE, URINE (UA) >=1000 mg/dL (NEGATIVE); LEUKOCYTE ESTERASE ,URINE 250 Leu/uL (NEGATIVE); NITRATE,URINE NEGATIVE (NEGATIVE); OCCULT BLOOD,URINE MODERATE (NEGATIVE)
[2025-01-29 18:18] LABS: ADD UA MICROSCOPIC YES
[2025-01-29 18:20] LABS: OTHER CASTS, URINE 2 /LPF (None Seen); UNCLASSIFIED CRYSTAL 6 /HPF (None Seen); WBC CLUMP FEW /HPF (0-1); YEAST,URINE BUDDING MOD /HPF (None Seen)
--- NOTE | 2025-01-29 22:32 | PN ---
INFECTIOUS DISEASE PROGRESS NOTE Date of Service: Jan 29, 2025 SUBJECTIVE: This is a 79-year-old male patient who was seen and examined at bedside in room 403 this morning. Patient's visiting at bedside reported that patient was only able to dangle his feet from the bed during physical therapy session today. No dyspnea observe and saturating 94-99% on room air. No fever, temperature is 98.1. Patient is pending insurance approval to [facility]. We will continue on vancomycin and cefepime. PHYSICAL EXAM EYES: Anicteric. Pupils equal and reactive. HENT: No oral thrush seen, moist Oral mucosa. NECK: Supple, no JVD or thyromegaly. LUNGS: Good air entry. No rales, no rhonchi. CARDIOVASCULAR: S1, S2 regular. No murmur heard. ABDOMEN: Soft, non tender, bowel sounds present, no organomegaly. CENTRAL NERVOUS SYSTEM: Awake, alert, oriented x 3. SKIN: No rashes, no swelling. LYMPHATICS: No peripheral lymphadenopathy. MUSCULOSKELETAL: No joint swelling, erythema or tenderness. EXTREMITIES: No cyanosis or clubbing BACK: Surgical wound with wound VAC. GENITOURINARY: No dysuria or hematuria. Vital Sign (Last 12 Hours) 01/29/25 01/29/25 01/29/25 01/29/25 11:00 11:10 11:50 11:55 Temp 98.2 Pulse 94 85 109 95 Resp 18 18 30 B/P (MAP) 163/86 125/62 108/52 Pulse Ox 99 97 O2 Delivery Room Air N/A Room Air Nasal Cannula O2 Flow Rate 2.0 FiO2 21 01/29/25 01/29/25 01/29/25 01/29/25 12:15 13:00 13:05 13:14 Temp 99.3 99.3 Pulse 95 95 Resp 30 24 B/P (MAP) 91/50 107/57 Pulse Ox 97 95 O2 Delivery Nasal Cannula Room Air O2 Flow Rate 2.0 FiO2 21 01/29/25 01/29/25 01/29/25 01/29/25 14:00 14:00 15:00 16:00 Pulse 96 86 77 Resp 18 26 21 B/P (MAP) 114/54 116/54 115/58 Pulse Ox 94 96 95 95 O2 Delivery Room Air Room Air* Room Air Room Air O2 Flow Rate 0 FiO2 21 21 21 21 01/29/25 01/29/25 01/29/25 01/29/25 16:10 19:00 19:01 19:03 Temp 99.0 Pulse 89 84 84 Resp 19 20 18 Pulse Ox 97 O2 Delivery N/A Room Air FiO2 21 01/29/25 01/29/25 01/29/25 01/29/25 19:39 20:00 20:00 20:39 Temp 99.0 Pulse 94 91 89 Resp 19 22 20 B/P (MAP) 134/69 134/81 Pulse Ox 96 95 95 O2 Delivery Room Air Room Air* Room Air O2 Flow Rate 0 FiO2 21 21 01/29/25 01/29/25 21:00 21:39 Pulse 83 82 Resp 22 21 B/P (MAP) 148/73 Pulse Ox 96 91 O2 Delivery Room Air FiO2 21 Intake & Output (last 24hrs) 01/28/25 01/28/25 01/29/25 15:00 23:00 07:00 Intake Total 95.0 ml 480 ml 790.0 ml Output Total 1200 ml 600 ml Balance 95.0 ml -720 ml 190.0 ml LABS: Laboratory: Test 01/29/25 20:01 01/29/25 17:17 01/29/25 15:19 01/29/25 11:52 Range/Units Whole Blood Glucose 122 H 70-110 MG/DL Troponin I High Sensitivity 6 4-75 ng/L Urine Color LIGHT-YELLOW YELLOW Urine Appearance CLOUDY H CLEAR Urine pH 5.5 5.0-8.0 Urine Specific [place] 1.016 1.001-1.031 Urine Protein 10 H NEGATIVE mg/dL Urine Glucose (UA) >=1000 H NEGATIVE mg/dL Urine Ketones 40 H NEGATIVE mg/dL Urine Occult Blood MODERATE H NEGATIVE Urine Nitrate NEGATIVE NEGATIVE Urine Bilirubin NEGATIVE NEGATIVE mg/dL Urine Urobilinogen 0.2 0.2-1.0 mg/dL Urine Leukocyte Esterase 250 H NEGATIVE Bianca/uL Urine RBC 26-50 H 0-1 /HPF Urine WBC 26-50 H 0-1 /HPF Urine WBC Clumps (Auto) FEW 0-1 /HPF Urine Other Crystals (Auto) 6 None Seen /HPF Urine Bacteria FEW None Seen /HPF Urine Other Casts 2 None Seen /LPF Urine Yeast MOD None Seen /HPF Lactic Acid Level 1.3 0.8-2.5 mmol/L Vancomycin Level Trough 15.5 10.0-20.0 UG/ML Blood Gas Specimen Type Arterial Arterial Blood pH 7.580 H 7.350-7.450 Arterial Blood Partial Pressure CO2 21 L 35-48 mmHg Arterial Blood Partial Pressure O2 85.7 83.0-108.0 mmHg Arterial Blood HCO3 19.3 L 21.0-28.0 mmol/L Arterial Blood Oxygen Saturation 96.8 94.0-98.0 % Arterial Blood Base Excess -1.1 -2.0-3.0 mmol/L Hemoglobin (Blood Gas) 11.0 L 13.5-17.5 g/dL Sodium (Blood Gas) 132 L 136-145 MMOL/L Bedside Potassium (Blood Gas) 4.1 3.4-4.5 MMOL/L Bedside Chloride (Blood Gas) 100 98-107 MMOL/L Bedside Glucose (Blood Gas) 172 H 65-95 MG/DL Bedside Ionized Calcium (Blood Gas) 1.12 L 1.15-1.33 MMOL/L Bedside Lactic Acid (Blood Gas) 2.63 H 0.36-0.75 MMOL/L Blood Gas Temperature 37.0 35.5-37.0 CELSIUS Blood Gas Flow-by 3.50 0.00-15.00 L/min Blood Gas Vent Mode NC ROOM AIR FiO2 34.0 % Blood Gas Specimen Comment RR Test 01/29/25 11:50 01/29/25 05:24 01/28/25 02:41 Range/Units White Blood Count 7.3 4.8-10.8 K/uL Red Blood Count 3.43 L 4.50-6.20 MIL/uL Hemoglobin 10.5 L 14.0-18.0 g/dL Hematocrit 31.6 L 42-54 % Mean Corpuscular Volume 92.1 79-99 fL Mean Corpuscular Hemoglobin 30.6 27.0-33.0 pg Mean Corpuscular Hemoglobin Concent 33.2 32.0-36.0 g/dL Red Cell Distribution Width 14.9 11.0-15.5 % Platelet Count 359 # 130-400 K/uL Mean Platelet Volume 9.6 7.5-10.5 fL Immature Granulocyte % (Auto) 1.9 H 0-1 % Neutrophils (%) (Auto) 92.2 H 40.0-77.0 % Lymphocytes (%) (Auto) 3.6 L 21.0-51.0 % Monocytes (%) (Auto) 0.8 L 3.0-13.0 % Eosinophils (%) (Auto) 1.2 0.0-8.0 % Basophils (%) (Auto) 0.3 0.0-5.0 % Neutrophils # (Auto) 6.7 1.8-7.7 K/uL Lymphocytes # (Auto) 0.3 L 1.0-4.8 K/uL Monocytes # (Auto) 0.1 0.1-1.0 K/uL Eosinophils # (Auto) 0.09 0.00-0.70 K/uL Basophils # (Auto) 0.02 0.00-0.20 K/uL Absolute Immature Granulocyte (auto 0.14 0-1 K/uL Nucleated Red Blood Cells 0.3 H 0.0-0.19 % D-Dimer Quantitative (PE/DVT) 2960 *H 0-500 ng/mL Sodium Level 135 L 136-145 mmol/L Potassium Level 4.0 3.5-5.1 mmol/L Chloride Level 98 L 101-111 mmol/L Carbon Dioxide Level 22 21-32 mmol/L Blood Urea Nitrogen 8 7-18 mg/dL Creatinine 0.6 0.5-1.3 mg/dL Glomerular Filtration Rate Calc 98 >90 mL/min Random Glucose 158 H 70-105 mg/dL Total Calcium 8.8 8.5-10.1 mg/dL Magnesium Level 1.50 L 1.80-2.40 mg/dL Total Bilirubin 0.8 0.2-1.0 mg/dL Aspartate Amino Transf (AST/SGOT) 22 10-37 U/L Alanine Aminotransferase (ALT/SGPT) 27 12-78 U/L Alkaline Phosphatase 170 H 50-136 U/L Total Protein 6.3 6.0-8.3 g/dL Albumin 2.0 L 3.5-5.0 g/dL Procalcitonin 0.20 0.05-0.5 ng/mL Bedside Glucose Comment Notified Nurse White Cell Morphology Comment See comments Erythrocyte Sedimentation Rate 61 H 0-20 MM/HR C-Reactive Protein, Quantitative 97.90 H 0.5-3.0 mg/L ASSESSMENT: Wound hematoma, s/p wound exploration with drainage of hematoma on 01/24/2025. 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 Polymicrobial infection. Recent T12-L1 decompressive laminectomy on 01/01/2025. Spinal stenosis Diabetes mellitus. Benign prostatic hyperplasia. Postop anemia requiring blood transfusion. PLAN: Continue vancomycin per pharmacy protocol. Continue cefepime IV. Continue pain management. Continue GI prophylaxis. Continue Wound care as recommended by neurosurgeon. Pending insurance approval to [facility]. This case was reviewed and discussed with my supervising physician Dr. Fitzgerald and the above assessment and plan was formulated and agreed upon. ATTESTATION BY PHYSICIAN I have seen and examined the patient. I reviewed the documentation, medical decision making, and treatment plan as noted by the mid-level provider above. I agree with the findings and plan of care. DIANA FITZGERALD MD, [facility] Jan 29, 2025 22:32
[2025-01-30] VITALS (32 sets, daily range): BP systolic 120–143; BP diastolic 51–72; PULSE 67–100; RESP 15–23; TEMP 97.9–98.8; O2SAT 96–100
[2025-01-30 04:14] LABS: NUCLEATED RED BLOOD CELLS 0.0 % (0.0-0.19); PLATELET COUNT (AUTO) 300.0 K/uL (130-400); RED BLOOD CELL COUNT(AUTO) 2.77 MIL/uL (4.50-6.20); RED CELL DISTRIBUTION WIDTH 14.9 % (11.0-15.5); WHITE BLOOD COUNT (AUTO) 5.5 K/uL (4.8-10.8)
[2025-01-30 04:31] LABS: CREATININE 0.4 mg/dL (0.5-1.3); GLOMERULAR FILTR. RATE CALC 111.0 mL/min (>90); GLUCOSE,RANDOM 99.0 mg/dL (70-105); SODIUM SERUM 139.0 mmol/L (136-145); UREA NITROGEN, BLOOD 11.0 mg/dL (7-18)
--- NOTE | 2025-01-30 08:00 | PN ---
[facility] PROGRESS NOTE Date Patient Seen: Jan 30, 2025 Time of Visit: 07:59 Supervising Physician: LANCE FOSTER MD Primary Care Physician: Dr. Yosi Rg Attending physicians: [facility] Outpatient Specialists: Inpatient Consults: Dr. Josiah Noyola (ID), Dr. Harish Farmer (Neurosugery), BIS PROBLEM LIST: Intubated patient, extubated and downgraded transferred out of ICU Hemorrhagic shock requiring blood transfusion, s/p I&D of wound abscess at thoracolumbar spine performed by Dr. Harish Vidal on 01/24/2024 morning Severe anemia Wound dehiscence culture positive for E Morganella Enterococcus Klebsiella and Pseudomonas Electrolyte derangement (hypokalemia and hypomagnesemia) Hyperglycemia Elevated D-dimer Neg for DVT and Well's score for PE 1.5 (Low probability) Bilateral carotid stenosis INTERVAL HISTORY: Pt was transferred to ICU for an episode of anxiety with tachycardia as per Caitlin tanner. He was administered 250 of NS bolus and pt improved. Currently saturating well at , He is hemodynamically stable. Per pillowcase cutter he has been accepted at [facility]. HH slightly with some decreased from yesterday but denies any active bleed. He has no complains at this current time. Pt may remain PCCU status. Plan: Following neurosurgical recommendations Monitor for signs of bleeding Telemetry Continue Wound to surgical site Continue current IV antibiotics as per ID recommendations Aerobic culture back results:Escherichia coli +, Morganella morganii +, cefepime 1 g IV q.8 hours plus vancomycin 1 g Q 24 hours Continue with DVT & GI prophylaxis Dispo per primary BIS team will follow in [facility] REVIEW OF SYSTEMS: 12 point review of system reviewed with patient all permanent positives mentioned above otherwise negative PHYSICAL EXAM: GENERAL: Chronically ill male. HEENT: EOMI, Sclera non icteric, moist mucosa. NECK: Supple, no JVD, trachea midline LUNGS: clear breath sounds bilaterally. No wheezes HEART: Regular rate and rhythm. Normal S1 and S2, without murmurs ABD: Abdomen soft, nontender. Bowel sounds present EXT: No clubbing cyanosis or edema NEURO: Awake alert answers questions appropriately Vital Signs (last 8hr) Date Time Temp Pulse Resp B/P (MAP) Pulse Ox O2 Delivery O2 Flow Rate FiO2 01/30/25 06:06 78 17 01/30/25 06:06 78 20 N/Cannula Low lpm 28 01/30/25 03:39 98.1 77 19 131/63 99 Room Air 01/30/25 03:30 79 20 99 01/30/25 03:15 72 15 99 01/30/25 03:00 68 20 99 01/30/25 02:45 67 23 97 01/30/25 02:40 73 20 128/51 99 Room Air 01/30/25 02:30 68 21 98 01/30/25 02:15 68 23 98 01/30/25 02:00 74 20 87 01/30/25 01:45 77 18 94 01/30/25 01:40 78 18 128/62 99 Room Air 01/30/25 01:30 80 20 81 01/30/25 01:15 78 18 95 01/30/25 01:00 76 18 90 01/30/25 00:45 90 19 86 01/30/25 00:40 79 19 139/65 82 01/30/25 00:30 75 19 99 01/30/25 00:15 81 19 94 01/30/25 00:00 83 22 90 LABS: Hematology Labs: Test 01/30/25 03:56 01/29/25 11:50 Range/Units White Blood Count 5.5 4.8-10.8 K/uL Red Blood Count 2.77 L 4.50-6.20 MIL/uL Hemoglobin 8.7 L 14.0-18.0 g/dL Hematocrit 25.3 L 42-54 % Mean Corpuscular Volume 91.3 79-99 fL Mean Corpuscular Hemoglobin 31.4 27.0-33.0 pg Mean Corpuscular Hemoglobin Concent 34.4 32.0-36.0 g/dL Red Cell Distribution Width 14.9 11.0-15.5 % Platelet Count 300 130-400 K/uL Mean Platelet Volume 9.3 7.5-10.5 fL Nucleated Red Blood Cells 0.0 0.0-0.19 % Immature Granulocyte % (Auto) 1.9 H 0-1 % Neutrophils (%) (Auto) 92.2 H 40.0-77.0 % Lymphocytes (%) (Auto) 3.6 L 21.0-51.0 % Monocytes (%) (Auto) 0.8 L 3.0-13.0 % Eosinophils (%) (Auto) 1.2 0.0-8.0 % Basophils (%) (Auto) 0.3 0.0-5.0 % Neutrophils # (Auto) 6.7 1.8-7.7 K/uL Lymphocytes # (Auto) 0.3 L 1.0-4.8 K/uL Monocytes # (Auto) 0.1 0.1-1.0 K/uL Eosinophils # (Auto) 0.09 0.00-0.70 K/uL Basophils # (Auto) 0.02 0.00-0.20 K/uL Absolute Immature Granulocyte (auto 0.14 0-1 K/uL Chemistry Labs: Test 01/30/25 03:56 01/29/25 20:01 01/29/25 15:19 01/29/25 11:50 Range/Units Sodium Level 139 136-145 mmol/L Potassium Level 3.5 3.5-5.1 mmol/L Chloride Level 101 101-111 mmol/L Carbon Dioxide Level 24 21-32 mmol/L Blood Urea Nitrogen 11 7-18 mg/dL Creatinine 0.4 L 0.5-1.3 mg/dL Glomerular Filtration Rate Calc 111 >90 mL/min Random Glucose 99 70-105 mg/dL Total Calcium 8.3 L 8.5-10.1 mg/dL Magnesium Level 1.80 1.80-2.40 mg/dL Whole Blood Glucose 122 H 70-110 MG/DL Troponin I High Sensitivity 6 4-75 ng/L Lactic Acid Level 1.3 0.8-2.5 mmol/L Total Bilirubin 0.8 0.2-1.0 mg/dL Aspartate Amino Transf (AST/SGOT) 22 10-37 U/L Alanine Aminotransferase (ALT/SGPT) 27 12-78 U/L Alkaline Phosphatase 170 H 50-136 U/L Total Protein 6.3 6.0-8.3 g/dL Albumin 2.0 L 3.5-5.0 g/dL Procalcitonin 0.20 0.05-0.5 ng/mL Test 01/29/25 05:24 Range/Units Bedside Glucose Comment Notified Nurse Coagulation Labs: Test 01/29/25 11:50 Range/Units D-Dimer Quantitative (PE/DVT) 2960 *H 0-500 ng/mL DIAGNOSTICS / RADIOLOGY RESULTS: [ ] PLAN NEURO: Minimize central acting medications as possible. Maintain fall precautions, adequate lighting during the day PULMONARY: Supplemental 02 as needed. Maintain aspiration precautions at all times CARDIOVASCULAR: Follow hemodynamics. Vital signs per facility protocol GI & NUTRITION: Continue with nutritional support. Continue stool softeners and laxatives as needed. KIDNEYS & ELECTROLYTES: Strict monitoring of intake, output and overall fluid balance. Avoid nephrotoxic medications to the extent possible. Medications to be dosed according to renal function. Monitor electrolytes and replace as needed ENDOCRINE: Maintain blood glucose between 100-180 at all times. Hypoglycemia protocol in place INFECTIOUS DISEASE: Trend temperature, WBC and procalcitonin level Follow cultures, deescalate antibiotics as soon as possible. Panculture if new onset fever ONCOLOGY/HEMATOLOGY/COAGULATION: Monitor for s/s of bleeding Monitor hemoglobin, coagulation studies as needed SKIN: Pressure ulcer prevention per facility protocol Specialty mattress ORTHO/REHAB: Continue PT/OT Prophylaxis: Continue GI and DVT prophylaxis Code Status: Full Resuscitation Disposition: Per primary team Other: Case discussed with supervising physician plan of care agreed upon ATTESTATION BY PHYSICIAN I attest that I reviewed and discussed the case with the Physician Environmental Protection Inspector as well as agree with the Physician Environmental Protection Inspector's findings, plans of care, and documentation above. Lance Plunkett MD, [facility] Jan 30, 2025 07:59
--- NOTE | 2025-01-30 10:35 | PN ---
[facility] PROGRESS NOTE Date of Service: Jan 30, 2025 Time of Service: 10:29 SUBJECTIVE: [ 01/20 Patient is 79 years old male with a past medical history of diabetes, hypertension, compression vertebral fracture, spinal stenosis, Parkinson, BPH, s/p recent laminectomy with Dr. Norman's 12/30/24, who came to emergency department from [facility] with a complaint of infected surgical site s/p laminectomy. Family members/ at the bedside stated that yesterday she realized that patient's wound has been very with TITI Mendoza patient and opening the wound, patient's realize that has this open has a bed and that is draining pus. She took the pictures and sent to Dr. Norman's, who recommended that patient comes to ER for admission-recommendations.] Most recent vital signs temperature 98.1 one 0 lying 20 blood pressure 113/72 patient on 2 L 96%. Sodium 134 potassium 3.1 CO2 26 BUN 32 creatinine 0.8 GFR 90 glucose 223 lactic acid 1.8 troponin negative x1 lipase 21. WBC 5.9 hemoglobin 10.8 hematocrit 3010.4 platelets 258. No radiology performed at this moment. Chest x-ray pending. We will admit patient under hospitalist care for further evaluation/recommendations. ID we will be consulted for the antibiotics Dr. Martinez with a consulted wound recommendations and Dr. Xiong for s/p laminectomy. 01/21 patient was seen by nurse practitioner and physician during rounding in emergency department in room ED 11. Home medication were reconciled by HEAD BUTLER. At this moment we are pending further evaluation/recommendation by wound care, ID and neurosurgeon. All three consults were notified and are aware of consultations. Patient we will continue antibiotics. We will continue to monitor patient in the meantime. A.m. labs. 01/22 patient was seen by nurse practitioner and physician during rounding in room 329. Nurse practitioner was able to talk to Dr. Vidal neurosurgeon regarding further recommendations and plan. As per surgeon CT spine lumbar, thoracic and cervical with the contrast to be ordered. HEAD BUTLER placed the orders. Most recent WBC is 6.3. Patient continues to be on vancomycin and cefepime as per ID recommendations. As per wound care to surgical wound to thoracic spine cleanse with normal saline, pat dry, apply Dakins wet to dry cover with 4 x 4 gauze, abdominal pad, secure with tape change b.i.d. and PRN. Wound care to sacrum apply Venelex b.i.d. and PRN. Apply waffle mattress. Keep wounds clean and dry. Offloading/reposition q.2 hours. We will continue to monitor patient in the meantime. A.m. labs 01/23 patient was seen by nurse practitioner and physician during rounding in room 329. Patient was evaluated by neurosurgeon and today patient was taken for lumbar cleaning and debridement by . Klebsiella pneumoniae and Pseudomonas aeruginosa. Final urine culture negative. Blood culture 48 hours negative. As per ID continue vancomycin and cefepime. We will continue to monitor patient in the meantime. A.m. labs. 01/24 patient was seen by nurse practitioner and physician during rounding. Patient is s/p I and D of wound abscess at thoracolumbar spine with Dr. Vidal on 01/23/2025. After surgery around 2208 RN paged hospitalist HEAD BUTLER on-call regarding the hemoglobin mean trending down at that if patient is bleeding profusely at the surgical wound and blood pressure from 133/70 went down to 70 over 45. Patient was placed on 3 L nasal cannula satting 93%. Patient went into hemorrhagic shock rapid response was called normal saline IV fluids bolus were administered and albumin was given to the patient for emergency release of blood. Surgeon was notified patient was transfused with one PRBC and was placed on low-dose of Levophed for the blood pressure support. Patient then was taken to OR by . After procedure patient was brought back to ICU. Most recent hemoglobin 7.7 hematocrit 24.4 patient receiving another PRBC. Venous Doppler was performed pending results as well as carotid artery ultrasound was performed pending results. Most recent chest x-ray from 01/24/2025 showed endotracheal tube tip a 2 cm above the jaja. Right-sided central venous catheter tip overlies distal SVC. Stable small pleural effusions. Mild perihilar haziness bilaterally concerning for mild pulmonary edema as a new finding. We will continue to monitor patient in the meantime. A.m. labs. 01/25 patient is seen and examined at bedside, discussed with the RN, no acute events overnight, patient is status post incision and drainage of wound abscess a thoracolumbar spine by Dr. Vidal on 01/23/2025. Patient tolerated the procedure well. Results of wound culture positive for E coli, Morganella Morgagni. Patient also with a aerobic culture positive for Enterococcus faecalis, E coli, Klebsiella aeruginosa and Pseudomonas aeruginosa. Continue the patient on broad-spectrum IV antibiotics to include vancomycin IV and cefe pime. Continue to follow neurosurgical input and recommendation, continue to follow ID input recommendation, continue local wound care. The patient will benefit from discharge plan to [facility] facility. 01/26 patient is pending wound VAC placement. He is also pending to be accepted to LTAC. Patient remains on IV antibiotics. Physical therapy following. No new complaints or concerns. No acute events reported overnight. 01/28 patient is resting comfortably in bed. The patient and family are proud to say he is set up in a chair today. they report he is feeling much better. In terms of his migraine medication family has asked to hold the medicine as his migraines are situational usually occurring only when the patient walks from his home to his car. On 01/29/2025, the patient was noted to be resting comfortably in the PCCU. Family reported improvement, including the patients ability to sit up in a chair and participate in physical therapy. No new complaints or acute events were reported overnight. The patient remains on IV antibiotics, and multidisciplinary teams including neurosurgery, infectious disease, wound care, and critical care continue to follow. Discharge planning is ongoing, with consideration for transfer to LTAC or [facility] facility as appropriate. 01/30 patient has been transferred to the ICU patient underwent I and D yesterd ay. REVIEW OF SYSTEMS CONSTITUTIONAL: Denies fevers, chills, or night sweats. No unintentional weight loss reported. NEUROLOGICAL: Denies headache, amaurosis fugax, motor weakness, sensory deficit, vertigo/spinning sensation, gait abnormalities, or tremors. ENT: No hearing loss, otalgia, otorrhea, rhinitis, rhinorrhea, hoarseness, or sore throat. CARDIOVASCULAR: Denies any exertional angina, dyspnea on exertion, orthopnea, paroxysmal nocturnal dyspnea, palpitations, life-threatening arrhythmias, claudication. PULMONARY: Denies any shortness of breath, cough, phlegm/sputum, hemoptysis, pleuritic chest pain. SLEEP: Denies morning headaches, daytime somnolence or napping. Denies difficulty falling asleep, staying asleep, waking from sleep. Denies knowledge of snoring. GASTROINTESTINAL: Denies any type of dysphagia to either liquids or solids. Denies nausea, vomiting, pyrosis, early satiety, abdominal pain, diarrhea, constipation, or changes in stool consistency or caliber. Denies coffee-ground emesis, hematemesis, hematochezia, or melanotic stools. GENITOURINARY: Denies frequency, urgency, nocturia, hematuria or incontinence (Storage/Irritative symptoms.) Low urinary stream, straining to void, urinary intermittency or hesitancy, splitting of the voiding stream, terminal dribbling. ENDOCRINOLOGIC: Denies polyuria, polydipsia, polyphagia or heat/cold intolerances. HEMATOLOGIC: Denies thrombophilia/previous clots, or coagulopathy/bleeding disorders. ONCOLOGIC: Denies personal history of malignancy. DERMATOLOGIC: Denies rashes or pruritus. S/p laminectomy open wound PSYCHIATRIC: Denies any suicidal or homicidal ideation. Denies hallucinations. PHYSICAL EXAM Vital Signs (last 8hr) Date Time Temp Pulse Resp B/P (MAP) Pulse Ox O2 Delivery O2 Flow Rate FiO2 01/30/25 07:40 98.8 83 18 143/72 100 Room Air 01/30/25 06:06 78 17 01/30/25 06:06 78 20 N/Cannula Low lpm 28 01/30/25 03:39 98.1 77 19 131/63 99 Room Air 01/30/25 03:30 79 20 99 01/30/25 03:15 72 15 99 01/30/25 03:00 68 20 99 01/30/25 02:45 67 23 97 01/30/25 02:40 73 20 128/51 99 Room Air 01/30/25 02:30 68 21 98 LABS: Laboratory: Test 01/30/25 03:56 01/29/25 20:01 01/29/25 17:17 01/29/25 15:19 Range/Units White Blood Count 5.5 4.8-10.8 K/uL Red Blood Count 2.77 L 4.50-6.20 MIL/uL Hemoglobin 8.7 L 14.0-18.0 g/dL Hematocrit 25.3 L 42-54 % Mean Corpuscular Volume 91.3 79-99 fL Mean Corpuscular Hemoglobin 31.4 27.0-33.0 pg Mean Corpuscular Hemoglobin Concent 34.4 32.0-36.0 g/dL Red Cell Distribution Width 14.9 11.0-15.5 % Platelet Count 300 130-400 K/uL Mean Platelet Volume 9.3 7.5-10.5 fL Nucleated Red Blood Cells 0.0 0.0-0.19 % Erythrocyte Sedimentation Rate 54 H 0-20 MM/HR Sodium Level 139 136-145 mmol/L Potassium Level 3.5 3.5-5.1 mmol/L Chloride Level 101 101-111 mmol/L Carbon Dioxide Level 24 21-32 mmol/L Blood Urea Nitrogen 11 7-18 mg/dL Creatinine 0.4 L 0.5-1.3 mg/dL Glomerular Filtration Rate Calc 111 >90 mL/min Random Glucose 99 70-105 mg/dL Total Calcium 8.3 L 8.5-10.1 mg/dL Magnesium Level 1.80 1.80-2.40 mg/dL C-Reactive Protein, Quantitative 97.00 H 0.5-3.0 mg/L Whole Blood Glucose 122 H 70-110 MG/DL Troponin I High Sensitivity 6 4-75 ng/L Urine Color LIGHT-YELLOW YELLOW Urine Appearance CLOUDY H CLEAR Urine pH 5.5 5.0-8.0 Urine Specific [place] 1.016 1.001-1.031 Urine Protein 10 H NEGATIVE mg/dL Urine Glucose (UA) >=1000 H NEGATIVE mg/dL Urine Ketones 40 H NEGATIVE mg/dL Urine Occult Blood MODERATE H NEGATIVE Urine Nitrate NEGATIVE NEGATIVE Urine Bilirubin NEGATIVE NEGATIVE mg/dL Urine Urobilinogen 0.2 0.2-1.0 mg/dL Urine Leukocyte Esterase 250 H NEGATIVE Bianca/uL Urine RBC 26-50 H 0-1 /HPF Urine WBC 26-50 H 0-1 /HPF Urine WBC Clumps (Auto) FEW 0-1 /HPF Urine Other Crystals (Auto) 6 None Seen /HPF Urine Bacteria FEW None Seen /HPF Urine Other Casts 2 None Seen /LPF Urine Yeast MOD None Seen /HPF Lactic Acid Level 1.3 0.8-2.5 mmol/L Vancomycin Level Trough 15.5 10.0-20.0 UG/ML Test 01/29/25 11:52 01/29/25 11:50 01/29/25 05:24 Range/Units Blood Gas Specimen Type Arterial Arterial Blood pH 7.580 H 7.350-7.450 Arterial Blood Partial Pressure CO2 21 L 35-48 mmHg Arterial Blood Partial Pressure O2 85.7 83.0-108.0 mmHg Arterial Blood HCO3 19.3 L 21.0-28.0 mmol/L Arterial Blood Oxygen Saturation 96.8 94.0-98.0 % Arterial Blood Base Excess -1.1 -2.0-3.0 mmol/L Hemoglobin (Blood Gas) 11.0 L 13.5-17.5 g/dL Sodium (Blood Gas) 132 L 136-145 MMOL/L Bedside Potassium (Blood Gas) 4.1 3.4-4.5 MMOL/L Bedside Chloride (Blood Gas) 100 98-107 MMOL/L Bedside Glucose (Blood Gas) 172 H 65-95 MG/DL Bedside Ionized Calcium (Blood Gas) 1.12 L 1.15-1.33 MMOL/L Bedside Lactic Acid (Blood Gas) 2.63 H 0.36-0.75 MMOL/L Blood Gas Temperature 37.0 35.5-37.0 CELSIUS Blood Gas Flow-by 3.50 0.00-15.00 L/min Blood Gas Vent Mode NC ROOM AIR FiO2 34.0 % Blood Gas Specimen Comment RR Immature Granulocyte % (Auto) 1.9 H 0-1 % Neutrophils (%) (Auto) 92.2 H 40.0-77.0 % Lymphocytes (%) (Auto) 3.6 L 21.0-51.0 % Monocytes (%) (Auto) 0.8 L 3.0-13.0 % Eosinophils (%) (Auto) 1.2 0.0-8.0 % Basophils (%) (Auto) 0.3 0.0-5.0 % Neutrophils # (Auto) 6.7 1.8-7.7 K/uL Lymphocytes # (Auto) 0.3 L 1.0-4.8 K/uL Monocytes # (Auto) 0.1 0.1-1.0 K/uL Eosinophils # (Auto) 0.09 0.00-0.70 K/uL Basophils # (Auto) 0.02 0.00-0.20 K/uL Absolute Immature Granulocyte (auto 0.14 0-1 K/uL D-Dimer Quantitative (PE/DVT) 2960 *H 0-500 ng/mL Total Bilirubin 0.8 0.2-1.0 mg/dL Aspartate Amino Transf (AST/SGOT) 22 10-37 U/L Alanine Aminotransferase (ALT/SGPT) 27 12-78 U/L Alkaline Phosphatase 170 H 50-136 U/L Total Protein 6.3 6.0-8.3 g/dL Albumin 2.0 L 3.5-5.0 g/dL Procalcitonin 0.20 0.05-0.5 ng/mL Bedside Glucose Comment Notified Nurse Current Medications Medications (Trade) Dose Ordered Sig/Steve Route PRN Reason Start Time Stop Time Status Last Admin Dose Admin Acetaminophen (TYLenol 325MG TAB) 650 mg Q4H PRN PO MILD PAIN (1-3) 01/20/25 16:00 02/19/25 15:59 01/29/25 13:14 650 MG Acetaminophen (TYLenol 325MG TAB) 650 mg Q6H PRN PO MILD PAIN (1-3) 01/20/25 16:00 01/23/25 07:25 DC Acetaminophen (TYLenol 325MG TAB) 650 mg Q6H PRN PO TEMPERATURE GREATER THAN 101.5 01/20/25 16:00 02/19/25 15:59 01/30/25 04:12 650 MG Al Hydroxide/Mg Hydroxide (MAALox PLUS 30ML) 30 ml Q6H PRN PO INDIGESTION 01/20/25 16:00 02/19/25 15:59 Albumin Human 250 ml @ 500 mls/hr AD IV 01/23/25 22:00 01/25/25 07:05 DC 01/23/25 21:58 500 MLS/HR Albuterol Sulfate (Proventil 0.083% 2.5mg/3ml) 2.5 mg [id number] IH 01/20/25 18:00 01/29/25 12:58 DC 01/29/25 06:25 2.5 MG Aspirin (Aspirin 81mg Chew Tab) 81 mg DAILY PO 01/22/25 09:00 02/21/25 08:59 01/30/25 08:31 81 MG Atorvastatin Calcium (LIPItor 40MG) 80 mg DAILY PO 01/22/25 09:00 01/26/25 09:58 DC 01/25/25 09:29 80 MG Atorvastatin Calcium (LIPItor 40MG) 80 mg HS PO 01/26/25 21:00 02/21/25 08:59 01/29/25 20:30 80 MG Bisacodyl (DulcoLAX 5MG TAB) 10 mg DAILY PO 01/25/25 13:00 02/24/25 12:59 01/30/25 08:29 10 MG Cefepime HCl (MAXipime 1 GM vial) 1 gm Q8H IVPB 01/21/25 13:00 01/31/25 12:59 01/30/25 04:16 1 GM Clindamycin HCl/ Dextrose 50 ml @ 100 mls/hr ONCE STAT IV 01/20/25 14:30 01/20/25 14:59 DC 01/20/25 15:04 100 MLS/HR Clindamycin HCl/ Dextrose 50 ml @ 100 mls/hr Q8H IV 01/20/25 23:00 01/21/25 12:57 DC 01/21/25 08:07 100 MLS/HR Dextrose (D50w) 50 ml AD PRN IV HYPOGLYCEMIA PROTOCOL 01/20/25 16:00 02/19/25 15:59 Diphenhydramine HCl (BENAdryl INJ) 25 mg Q6H PRN IV SEVERE ITCHING/RASH 01/20/25 16:00 02/19/25 15:59 Docusate Sodium (COLace 100MG CAP) 100 mg BID PO 01/25/25 13:00 02/24/25 12:59 01/30/25 08:29 100 MG Famotidine (Pepcid 20mg Vial) 20 mg BID PRN IV NAUSEA/VOMITING 01/20/25 16:00 01/20/25 16:18 DC Fentanyl/Sodium Chloride 250 ml @ 0 mls/hr PROTOCOL IV 01/24/25 00:30 01/24/25 08:46 DC Finasteride (PROscar 5 MG TAB) 5 mg DAILY PO 01/22/25 09:00 02/21/25 08:59 01/30/25 08:30 5 MG Fluticasone Propionate (FLOnase 50 mcg/ spray 16g bottle) 1 SPRAY BID EN 01/21/25 21:00 02/20/25 20:59 01/29/25 21:00 1 SPRAYS Gabapentin (NEURontin 300 MG CAP) 300 mg TID PO 01/21/25 21:00 02/20/25 20:59 01/30/25 08:29 300 MG Glucagon (Glucagon 1mg Kit) 1 mg AD PRN IM HYPOGLYCEMIA PROTOCOL 01/20/25 16:00 02/19/25 15:59 Guaifenesin/ Dextromethorphan (RobiTUSSin DM 200/20MG 10ML) 10 ml Q4H PRN PO COUGH 01/20/25 16:00 02/19/25 15:59 HCTZ/Losartan Potassium (Hyzaar 50-12.5 Tablet) 1 tab DAILY PO 01/22/25 09:00 02/21/25 08:59 01/30/25 10:02 1 TAB Heparin Sodium (Porcine) (HEParin 5,000 UNIT VIAL) 5,000 unit BID SQ 01/20/25 21:00 02/19/25 20:59 01/30/25 10:01 5,000 UNIT Home Med (Home Medication) BID PO 01/21/25 21:00 02/20/25 20:59 01/30/25 08:32 1 EACH Home Med (Home Medication) DAILY PO 01/22/25 09:00 02/21/25 08:59 Home Med (Home Medication) QID OP 01/21/25 17:00 02/20/25 16:59 01/29/25 21:00 1 EACH Hydralazine HCl (APRESOLine 20MG INJ) 10 mg Q6H PRN IV For:SBP above 160;DBP above 90 01/20/25 16:00 02/19/25 15:59 Ibuprofen (moTRIN) 800 mg Q8H PRN PO MODERATE PAIN (4-6) 01/20/25 16:00 02/19/25 15:59 01/29/25 01:10 800 MG Insulin Human Regular (humuLIN R 100 UNIT/ML 3ML) INSULIN SLIDING SCAL... ACHS SQ 01/20/25 16:30 02/19/25 16:29 01/28/25 20:30 4 UNIT Ipratropium [place] (AtrovENT UD) 0.5 mg [id number] IH 01/20/25 18:00 01/21/25 10:32 DC 01/21/25 06:07 0.5 MG Ipratropium [place] (AtrovENT UD) 0.5 mg [id number] IH 01/21/25 12:00 02/19/25 17:59 01/30/25 06:05 0.5 MG Ketorolac Tromethamine (toRADol) 15 mg Q8H PRN IV MODERATE PAIN (4-6) IF NPO 01/20/25 16:00 01/23/25 07:25 DC Lactated Ringer's (Lactated Ringers 1000ml) 500 ml BOLUS IV 01/23/25 22:00 01/25/25 07:06 DC 01/24/25 06:42 500 ML Lactated Ringer's (Lactated Ringers 1000ml) 500 ml BOLUS IV 01/24/25 07:00 01/25/25 07:06 DC Lactulose (Constulose 20gm/ 30ml Udcup) 20 gm BID PRN PO CONSTIPATION 01/20/25 16:00 02/19/25 15:59 01/26/25 18:26 20 GM Leptospermum Honey (Medihoney) apply to lumbar area QTUTHSA TP 01/29/25 09:00 02/28/25 08:59 Magnesium Sulfate 50 ml @ 0 mls/hr PROTOCOL PRN IV other 01/20/25 16:00 02/19/25 15:59 01/30/25 06:04 25 MLS/HR Morphine Sulfate (morPHINE 4MG SYG) 1 mg Q4H PRN IVP SEVERE PAIN (7-10) 01/20/25 16:00 01/25/25 18:59 DC 01/25/25 12:09 1 MG Nitroglycerin (Nitrostat) 0.4 mg PROTOCOL PRN SL CHEST PAIN 01/20/25 16:00 02/19/25 15:59 Norepinephrine 250 ml @ 0 mls/hr PROTOCOL IV 01/23/25 22:30 01/26/25 15:54 DC Ondansetron HCl (zoFRAN 4MG INJ) 4 mg Q6H PRN IV NAUSEA/VOMITING 01/20/25 16:00 02/19/25 15:59 Pantoprazole Sodium (PROTonix 40MG TAB) 40 mg DAILY PO 01/22/25 09:00 02/21/25 08:59 01/30/25 10:02 40 MG Pharmacy Profile Note (Pharmacy Communication) 1 each ONCE MISC 01/24/25 21:00 01/25/25 07:06 DC Potassium Chloride 100 ml @ 100 mls/hr AD PRN IV POTASSIUM PROTOCOL 01/20/25 16:00 02/19/25 15:59 01/27/25 06:16 100 MLS/HR Potassium Chloride (K-Dur/Klor-Con 20meq) 20 meq AD PRN PO POTASSIUM PROTOCOL 01/20/25 16:00 02/19/25 15:59 01/30/25 06:04 20 MEQ Potassium Chloride (KCl 10% Elixir 20meq/15ml) 20 meq AD PRN PO POTASSIUM PROTOCOL 01/20/25 16:00 02/19/25 15:59 01/26/25 09:44 20 MEQ Propofol 100 ml @ 0 mls/hr PROTOCOL IV 01/24/25 00:30 01/24/25 08:46 DC 01/24/25 06:19 25 MLS/HR Sodium Hypochlorite (Dakin'S 0.25% Half Strength) thoracic spine wo... BID TP 01/21/25 21:00 02/20/25 20:59 01/26/25 09:55 1 APPL Sodium Chloride 250 ml @ 0 mls/hr Q0M IV 01/29/25 13:30 01/29/25 15:50 DC 01/29/25 13:15 250 MLS/HR Sodium Chloride 250 ml @ 0 mls/hr Q0M IV 01/29/25 14:30 01/29/25 17:11 DC Sodium Chloride 1,000 ml @ 100 mls/hr Q10H IV 01/20/25 16:00 01/24/25 10:22 DC 01/24/25 03:28 100 MLS/HR Tamsulosin HCl (FloMAX) 0.4 mg DAILY PO 01/22/25 09:00 02/21/25 08:59 01/30/25 10:02 0.4 MG Vancomycin HCl 250 ml @ 125 mls/hr Q12H IV 01/22/25 02:00 01/23/25 02:05 DC 01/22/25 16:48 125 MLS/HR Vancomycin HCl (Vancomycin 750mg) 750 mg Q12H IVPB 01/23/25 04:00 02/02/25 03:59 01/30/25 04:11 750 MG Vancomycin HCl (Vancomycin Protocol) 1 each AD IV 01/21/25 13:00 02/04/25 12:59 Wound Care/ Dressing Products (Venelex Ointment) Sacral wound APPL... BID TP 01/21/25 21:00 02/20/25 20:59 01/30/25 10:01 1 GM Zolpidem Tartrate (AmbIEN) 5 mg HS PRN PO INSOMNIA 01/20/25 16:00 02/19/25 15:59 DIAGNOSTICS / RADIOLOGY: [ ] ASSESSMENT: - Status post emergency closure of back wound performed by Dr. Vidal on 01/23/2025 (evening), following hemorrhagic shock and significant surgical site bleeding. - Hemorrhagic shock requiring blood transfusion and vasopressor support, status post I&D of thoracolumbar wound abscess by Dr. Harish Vidal on 01/23/2025 (morning). - Severe anemia secondary to acute blood loss and multifactorial causes. - Acute hypoxic respiratory failure on admission. - Infected laminectomy wound (s/p laminectomy 12/30/2024), complicated by polymicrobial infection. - Status post incision and drainage of thoracolumbar wound abscess (01/23/2025, Dr. Vidal). - Wound cultures positive for Enterococcus faecalis, E. coli, Klebsiella aerogenes, and Pseudomonas aeruginosa. - Tachycardia on admission. - Multifactorial anemia (acute blood loss, chronic disease). - Electrolyte imbalances: Hyponatremia (Na 134), hypokalemia (K 3.1) on admission. - Acute dehydration on admission. - Recurrent hypotension requiring vasopressor support. - Hyperlipidemia (history of). - History of stroke. - Uncontrolled type 2 diabetes mellitus with hyperglycemia. - Compression vertebral fracture. - Spinal stenosis, status post laminectomy (12/30/2024, Dr. Vidal). PLAN: - Postoperative thoracolumbar wound infection / Polymicrobial infection - Continue broad-spectrum IV antibiotics (vancomycin and cefepime) per Infectious Disease recommendations. - Maintain local wound care and dressing changes as per wound care team. - Monitor for signs of systemic infection or sepsis. - Continue to follow wound cultures and adjust antibiotics as needed. - Status post incision and drainage of thoracolumbar wound abscess - Monitor surgical site for signs of re-bleeding, infection, or dehiscence. - Neurosurgery to continue to follow and provide recommendations. - Continue wound VAC as indicated. - Hemorrhagic shock / Severe anemia - Monitor hemoglobin/hematocrit daily. - Transfuse PRBCs as clinically indicated. - Monitor for ongoing bleeding. - Continue to monitor hemodynamics closely in PCCU. - Acute hypoxic respiratory failure - Continue supplemental oxygen as needed. - Monitor respiratory status and oxygen saturation. - Pulmonary hygiene and incentive spirometry. - Electrolyte imbalances (hyponatremia, hypokalemia) / Acute dehydration - Monitor daily electrolytes. - Replace sodium and potassium as needed. - Maintain adequate IV fluids and monitor fluid balance. - Recurrent hypotension - Continue close hemodynamic monitoring in PCCU. - Titrate vasopressors as needed (currently off vasopressors). - Monitor for recurrence of hypotension. - Uncontrolled type 2 diabetes mellitus - Monitor blood glucose closely. - Continue sliding scale insulin and adjust regimen as needed. - Endocrinology consult if persistent hyperglycemia. - Hypertension - Monitor blood pressure. - Resume/adjust antihypertensive medications as tolerated. - History of hyperlipidemia - Continue statin therapy if not contraindicated. - History of stroke - Continue secondary stroke prevention measures as appropriate. - Compression vertebral fracture / Spinal stenosis / Parkinsons disease / BPH - Continue home medications as appropriate. - Physical and occupational therapy to assist with mobility and ADLs. - Urology to follow for BPH management if needed. - Acute clinical deterioration today - Continue close monitoring in PCCU. - Labs and imaging negative for PE; continue to monitor for other causes of decompensation. - Critical care team to follow and manage acute issues. - Discharge planning - Case management and social work to coordinate transfer to LTAC or [facility] facility once stable. - Multidisciplinary team to continue involvement in care planning. ] GRACIELA MARROQUIN IV, MD Jan 30, 2025 10:35
[2025-01-30] MEDS ORDERED: BALS60OI TP (14:32)
[2025-01-30] MEDS ORDERED: CEFEPIME HCL IVPB (14:32)
[2025-01-30] MEDS ORDERED: VANC750I IVPB (14:32)
[2025-01-30] MEDS ORDERED: doCUSate SODIUM 100 MG CAP PO (14:32)
[2025-01-30] MEDS ORDERED: INSU100V3 SQ (14:32)
--- NOTE | 2025-01-30 14:33 | DS ---
Discharge Summary Hospital Course Summary: Patient is 79 years old male with a past medical history of diabetes, hypertension, compression vertebral fracture, spinal stenosis, Parkinson, BPH, s/p recent laminectomy with Dr. Blancas 12/30/24, who came to emergency department from [facility] with a complaint of infected surgical site s/p rodriguez inectomy. Family members/ at the bedside stated that yesterday she realized that patient's wound has been very with POA Mendoza patient and opening the wound, patient's realize that has this open has a bed and that is draining pus. She took the pictures and sent to Dr. Blancas, who recommended that patient comes to ER for admission-recommendations.] Most recent vital signs temperature 98.1 one 0 lying 20 blood pressure 113/72 patient on 2 L 96%. Sodium 134 potassium 3.1 CO2 26 BUN 32 creatinine 0.8 GFR 90 glucose 223 lactic acid 1.8 troponin negative x1 lipase 21. WBC 5.9 hemoglobin 10.8 hematocrit 3010.4 platelets 258. No radiology performed at this moment. Chest x-ray pending. We will admit patient under hospitalist care for further evaluat ion/recommendations. ID we will be consulted for the antibiotics Dr. Martinez with a consulted wound recommendations and Dr. Xiong for s/p laminectomy. 01/20 Patient is 79 years old male with a past medical history of diabetes, hypertension, compression vertebral fracture, spinal stenosis, Parkinson, BPH, s/p recent laminectomy with Dr. Blancas 12/30/24, who came to emergency department from [facility] with a complaint of infected surgical site s/p laminectomy. Family members/ at the bedside stated that yesterday she realized that patient's wound has been very with POA Mendoza patient and opening the wound, patient's realize that has this open has a bed and that is draining pus. She took the pictures and sent to Dr. Blancas, who recommended that patient comes to ER for admission-recommendations.] Most recent vital signs temperature 98.1 one 0 lying 20 blood pressure 113/72 patient on 2 L 96%. Sodium 134 potassium 3.1 CO2 26 BUN 32 creatinine 0.8 GFR 90 glucose 223 lactic acid 1.8 troponin negative x1 lipase 21. WBC 5.9 hemoglobin 10.8 hematocrit 3010.4 platelets 258. No radiology performed at this moment. Chest x-ray pending. We will admit patient under hospitalist care for further evaluation/recommendations. ID we will be consulted for the antibiotics Dr. Martinez with a consulted wound recommendations and Dr. Xiong for s/p laminectomy. 01/21 patient was seen by nurse practitioner and physician during rounding in emergency department in room ED 11. Home medication were reconciled by COMPUTER ENGINEERING PROFESSOR. At this moment we are pending further evaluation/recommendation by wound care, ID and neurosurgeon. All three consults were notified and are aware of consultations. Patient we will continue antibiotics. We will continue to monitor patient in the meantime. A.m. labs. 01/22 patient was seen by nurse practitioner and physician during rounding in room 329. Nurse practitioner was able to talk to Dr. Vidal neurosurgeon regarding further recommendations and plan. As per surgeon CT spine lumbar, thoracic and cervical with the contrast to be ordered. COMPUTER ENGINEERING PROFESSOR placed the orders. Most recent WBC is 6.3. Patient continues to be on vancomycin and cefepime as per ID recommendations. As per wound care to surgical wound to thoracic spine cleanse with normal saline, pat dry, apply Dakins wet to dry cover with 4 x 4 gauze, abdominal pad, secure with tape change b.i.d. and PRN. Wound care to sacrum apply Venelex b.i.d. and PRN. Apply waffle mattress. Keep wounds clean and dry. Offloading/reposition q.2 hours. We will continue to monitor patient in the meantime. A.m. labs 01/23 patient was seen by nurse practitioner and physician during rounding in room 329. Patient was evaluated by neurosurgeon and today patient was taken for lumbar cleaning and debridement by . Klebsiella pneumoniae and Pseudomonas aeruginosa. Final urine culture negative. Blood culture 48 hours negative. As per ID continue vancomycin and cefepime. We will continue to monitor patient in the meantime. A.m. labs. 01/24 patient was seen by nurse practitioner and physician during rounding. Patient is s/p I and D of wound abscess at thoracolumbar spine with Dr. Vidal on 01/23/2025. After surgery around [id number] RN paged hospitalist COMPUTER ENGINEERING PROFESSOR on-call regarding the hemoglobin mean trending down at that if patient is bleeding profusely at the surgical wound and blood pressure from 133/70 went down to 70 over 45. Patient was placed on 3 L nasal cannula satting 93%. Patient went into hemorrhagic shock rapid response was called normal saline IV fluids bolus were administered and albumin was given to the patient for emergency release of b lood. Surgeon was notified patient was transfused with one PRBC and was placed on low-dose of Levophed for the blood pressure support. Patient then was taken to OR by . After procedure patient was brought back to ICU. Most recent hemoglobin 7.7 hematocrit 24.4 patient receiving another PRBC. Venous Doppler was performed pending results as well as carotid artery ultrasound was performed pending results. Most recent chest x-ray from 01/24/2025 showed endotracheal tube tip a 2 cm above the jaja. Right-sided central venous catheter tip overlies distal SVC. Stable small pleural effusions. Mild perihilar haziness bilaterally concerning for mild pulmonary edema as a new finding. We will continue to monitor patient in the meantime. A.m. labs. 01/25 patient is seen and examined at bedside, discussed with the RN, no acute events overnight, patient is status post incision and drainage of wound abscess a thoracolumbar spine by Dr. Vidal on 01/23/2025. Patient tolerated the procedure well. Results of wound culture positive for E coli, Morganella Morgagni. Patient also with a aerobic culture positive for Enterococcus faecalis, E coli, Klebsiella aeruginosa and Pseudomonas aeruginosa. Continue the patient on broad-spectrum IV antibiotics to include vancomycin IV and cefepime. Continue to follow neurosurgical input and recommendation, continue to follow ID input recommendation, continue local wound care. The patient will benefit from discharge plan to retirement facility. 01/26 patient is pending wound VAC placement. He is also pending to be accepted to LTAC. Patient remains on IV antibiotics. Physical therapy following. No new complaints or concerns. No acute events reported overnight. 01/28 patient is resting comfortably in bed. The patient and family are proud to say he is set up in a chair today. they report he is feeling much better. In terms of his migraine medication family has asked to hold the medicine as his migraines are situational usually occurring only when the patient walks from his home to his car. On 01/29/2025, the patient was noted to be resting comfortably in the PCCU. Family reported improvement, including the patients ability to sit up in a chair and participate in physical therapy. No new complaints or acute events were reported overnight. The patient remains on IV antibiotics, and multidisciplinary teams including neurosurgery, infectious disease, wound care, and critical care continue to follow. Discharge planning is ongoing, with consideration for transfer to LTAC or retirement facility as appropriate. 01/30 patient has been transferred to the ICU patient underwent I and D yesterday. No complications reported. During my evaluation patient was resting comfortably in stable condition. Decision was made to discharge patient to LTAC. Medications as per med rec. Assessment/Plan: ASSESSMENT: - Status post emergency closure of back wound performed by Dr. Vidal on 01/23/2025 (evening), following hemorrhagic shock and significant surgical site bleeding. - Hemorrhagic shock requiring blood transfusion and vasopressor support, status post I&D of thoracolumbar wound abscess by Dr. Harish Vidal on 01/23/2025 (morning). - Severe anemia secondary to acute blood loss and multifactorial causes. - Acute hypoxic respiratory failure on admission. - Infected laminectomy wound (s/p laminectomy 12/30/2024), complicated by polymicrobial infection. - Status post incision and drainage of thoracolumbar wound abscess (01/23/2025, Dr. Vidal). - Wound cultures positive for Enterococcus faecalis, E. coli, Klebsiella aerogenes, and Pseudomonas aeruginosa. - Tachycardia on admission. - Multifactorial anemia (acute blood loss, chronic disease). - Electrolyte imbalances: Hyponatremia (Na 134), hypokalemia (K 3.1) on admission. - Acute dehydration on admission. - Recurrent hypotension requiring vasopressor support. - Hyperlipidemia (history of). - History of stroke. - Uncontrolled type 2 diabetes mellitus with hyperglycemia. - Compression vertebral fracture. - Spinal stenosis, status post laminectomy (12/30/2024, Dr. Vidal). PLAN: - Postoperative thoracolumbar wound infection / Polymicrobial infection - Continue broad-spectrum IV antibiotics (vancomycin and cefepime) per Infectious Disease recommendations. - Maintain local wound care and dressing changes as per wound care team. - Monitor for signs of systemic infection or sepsis. - Continue to follow wound cultures and adjust antibiotics as needed. - Status post incision and drainage of thoracolumbar wound abscess - Monitor surgical site for signs of re-bleeding, infection, or dehiscence. - Neurosurgery to continue to follow and provide recommendations. - Continue wound VAC as indicated. - Hemorrhagic shock / Severe anemia - Monitor hemoglobin/hematocrit daily. - Transfuse PRBCs as clinically indicated. - Monitor for ongoing bleeding. - Continue to monitor hemodynamics closely in PCCU. - Acute hypoxic respiratory failure - Continue supplemental oxygen as needed. - Monitor respiratory status and oxygen saturation. - Pulmonary hygiene and incentive spirometry. - Electrolyte imbalances (hyponatremia, hypokalemia) / Acute dehydration - Monitor daily electrolytes. - Replace sodium and potassium as needed. - Maintain adequate IV fluids and monitor fluid balance. - Recurrent hypotension - Continue close hemodynamic monitoring in PCCU. - Titrate vasopressors as needed (currently off vasopressors). - Monitor for recurrence of hypotension. - Uncontrolled type 2 diabetes mellitus - Monitor blood glucose closely. - Continue sliding scale insulin and adjust regimen as needed. - Endocrinology consult if persistent hyperglycemia. - Hypertension - Monitor blood pressure. - Resume/adjust antihypertensive medications as tolerated. - History of hyperlipidemia - Continue statin therapy if not contraindicated. - History of stroke - Continue secondary stroke prevention measures as appropriate. - Compression vertebral fracture / Spinal stenosis / Parkinsons disease / BPH - Continue home medications as appropriate. - Physical and occupational therapy to assist with mobility and ADLs. - Urology to follow for BPH management if needed. - Acute clinical deterioration today - Continue close monitoring in PCCU. - Labs and imaging negative for PE; continue to monitor for other causes of decompensation. - Critical care team to follow and manage acute issues. - Discharge planning - Case management and social work to coordinate transfer to LTAC or retirement facility once stable. - Multidisciplinary team to continue involvement in care planning. ] Home Medications: Active Scripts Vancomycin HCl (Vancocin) 750 Mg Inj, 750 MG IVPB Q12H, #1 ML as per id Prov:GRACIELA MARROQUIN IV, MD 01/30/25 Insulin Regular, Human (Humulin R) 100 Unit/Ml Vial, 0 UNIT SQ ACHS, #1 VIAL sliding scale Prov:GRACIELA MARROQUIN IV, MD 01/30/25 [doCUSate SODIUM 100 MG CAP] 100 MG CAPSULE No Conflict Check, 100 MG PO BID, #60 0 Refills Prov:GRACIELA MARROQUIN IV, MD 01/30/25 [ceFEPime HCL 1 GM vial] 1 GM VIAL No Conflict Check, 1 GM IVPB Q8H, #1 0 Refills as per id Prov:GRACIELA MARROQUIN IV, MD 01/30/25 Balsam Shafer/Parrott Oil (Venelex Ointment) 60 Gm Oint...g., 0 GM TP BID, #1 EACH topically to affected area Prov:GRACIELA MARROQUIN IV, MD 01/30/25 Reported Medications Carboxymethylcellulose Sodium (Refresh Tears) 0.5 % Drops, 1 DROP OP QID for 30 Days, #15 ML 0 Refills 12/27/24 Fluticasone Propionate (Flonase Nasal [place]) 50 Mcg/Actuation [place], 50 MCG NASAL BID, SPRAY 12/27/24 Losartan/Hydrochlorothiazide (Losartan-Hctz 50-12.5 mg Tab) 50 Mg-12.5 Mg Tablet, 1 TAB PO DAILY for 30 Days, #30 TAB 0 Refills PATIENT STATES HE ONLY TAKES HALF A TAB 12/21/24 Carbidopa/Levodopa (Carbidopa-Levo 25-100 mg Odt) 25 Mg-100 Mg Tab.rapdis, 1 EACH PO BID, TAB 08/21/24 Rosuvastatin Calcium (Rosuvastatin Calcium) 5 Mg Tablet, 20 MG PO DAILY, TAB 08/21/24 Aspirin (ASPIRIN 81MG CHEW TAB) 81 Mg Tab.chew, 1 TAB PO DAILY for 30 Days, #30 TAB 0 Refills 08/21/24 Finasteride (Finasteride) 5 Mg Tablet, 1 TAB PO DAILY for 30 Days, #30 TAB 0 Refills 08/21/24 Duloxetine HCl (Duloxetine HCl) 20 Mg Capsule.dr, 1 CAP PO DAILY for 30 Days, #30 CAP 0 Refills 08/21/24 Tamsulosin HCl (Flomax) 0.4 Mg Cap.er.24h, 1 CAP PO DAILY for 30 Days, #30 CAP 0 Refills 08/21/24 Empagliflozin (Jardiance) 25 Mg Tablet, 1 TAB PO DAILY for 30 Days, #30 TAB 0 Refills 08/21/24 Gabapentin (Gabapentin) 100 Mg Capsule, 300 MG PO TID, CAP 08/21/24 Omeprazole (Omeprazole) 20 Mg Capsule.dr, 20 MG PO TIDAC, CAP 07/26/21 Time spent arranging discharge: 31-60 minutes GRACIELA MARROQUIN IV, MD Jan 30, 2025 14:33
--- NOTE | 2025-01-30 14:50 | PN ---
INFECTIOUS DISEASE PROGRESS NOTE Date of Service: Jan 30, 2025 SUBJECTIVE: This 79 year old male patient is being seen today in the ICU. Awake, alert and oriented, able to follow simple commands. Patient remains on cefepime and vancomycin. No reports of fever or chills. He is calm. No distress. Family at bedside. We continue to follow patient. PHYSICAL EXAM EYES: Anicteric. Pupils equal and reactive. HENT: No oral thrush seen, moist Oral mucosa. NECK: Supple, no JVD or thyromegaly. LUNGS: Good air entry. No rales, no rhonchi. CARDIOVASCULAR: S1, S2 regular. No murmur heard. ABDOMEN: Soft, non tender, bowel sounds present, no organomegaly. CENTRAL NERVOUS SYSTEM: Awake, alert, oriented x 3. SKIN: No rashes, no swelling. LYMPHATICS: No peripheral lymphadenopathy. MUSCULOSKELETAL: No joint swelling, erythema or tenderness. EXTREMITIES: No cyanosis or clubbing BACK: Surgical wound with wound VAC. GENITOURINARY: No dysuria or hematuria. Vital Sign (Last 12 Hours) 01/30/25 01/30/25 01/30/25 01/30/25 03:00 03:15 03:30 03:39 Temp 98.1 Pulse 68 72 79 77 Resp 20 15 20 19 B/P (MAP) 131/63 Pulse Ox 99 99 99 99 O2 Delivery Room Air 01/30/25 01/30/25 01/30/25 01/30/25 06:06 06:06 07:40 11:25 Temp 98.8 Pulse 78 78 83 73 Resp 20 17 18 17 B/P (MAP) 143/72 Pulse Ox 100 O2 Delivery N/Cannula Low lpm Room Air FiO2 28 Intake & Output (last 24hrs) 01/29/25 01/29/25 01/30/25 15:00 23:00 07:00 Intake Total 503.0 ml 670.0 ml 500.0 ml Output Total 950 ml 1100 ml Balance 503.0 ml -280.0 ml -600.0 ml LABS: Laboratory: Test 01/30/25 12:17 01/30/25 03:56 01/29/25 20:01 01/29/25 17:17 Range/Units Whole Blood Glucose 137 H 70-110 MG/DL White Blood Count 5.5 4.8-10.8 K/uL Red Blood Count 2.77 L 4.50-6.20 MIL/uL Hemoglobin 8.7 L 14.0-18.0 g/dL Hematocrit 25.3 L 42-54 % Mean Corpuscular Volume 91.3 79-99 fL Mean Corpuscular Hemoglobin 31.4 27.0-33.0 pg Mean Corpuscular Hemoglobin Concent 34.4 32.0-36.0 g/dL Red Cell Distribution Width 14.9 11.0-15.5 % Platelet Count 300 130-400 K/uL Mean Platelet Volume 9.3 7.5-10.5 fL Nucleated Red Blood Cells 0.0 0.0-0.19 % Erythrocyte Sedimentation Rate 54 H 0-20 MM/HR Sodium Level 139 136-145 mmol/L Potassium Level 3.5 3.5-5.1 mmol/L Chloride Level 101 101-111 mmol/L Carbon Dioxide Level 24 21-32 mmol/L Blood Urea Nitrogen 11 7-18 mg/dL Creatinine 0.4 L 0.5-1.3 mg/dL Glomerular Filtration Rate Calc 111 >90 mL/min Random Glucose 99 70-105 mg/dL Total Calcium 8.3 L 8.5-10.1 mg/dL Magnesium Level 1.80 1.80-2.40 mg/dL C-Reactive Protein, Quantitative 97.00 H 0.5-3.0 mg/L Troponin I High Sensitivity 6 4-75 ng/L Urine Color LIGHT-YELLOW YELLOW Urine Appearance CLOUDY H CLEAR Urine pH 5.5 5.0-8.0 Urine Specific [place] 1.016 1.001-1.031 Urine Protein 10 H NEGATIVE mg/dL Urine Glucose (UA) >=1000 H NEGATIVE mg/dL Urine Ketones 40 H NEGATIVE mg/dL Urine Occult Blood MODERATE H NEGATIVE Urine Nitrate NEGATIVE NEGATIVE Urine Bilirubin NEGATIVE NEGATIVE mg/dL Urine Urobilinogen 0.2 0.2-1.0 mg/dL Urine Leukocyte Esterase 250 H NEGATIVE Bianca/uL Urine RBC 26-50 H 0-1 /HPF Urine WBC 26-50 H 0-1 /HPF Urine WBC Clumps (Auto) FEW 0-1 /HPF Urine Other Crystals (Auto) 6 None Seen /HPF Urine Bacteria FEW None Seen /HPF Urine Other Casts 2 None Seen /LPF Urine Yeast MOD None Seen /HPF Test 01/29/25 15:19 10/9/25 11:52 01/29/25 11:50 01/29/25 05:24 Range/Units Lactic Acid Level 1.3 0.8-2.5 mmol/L Vancomycin Level Trough 15.5 10.0-20.0 UG/ML Blood Gas Specimen Type Arterial Arterial Blood pH 7.580 H 7.350-7.450 Arterial Blood Partial Pressure CO2 21 L 35-48 mmHg Arterial Blood Partial Pressure O2 85.7 83.0-108.0 mmHg Arterial Blood HCO3 19.3 L 21.0-28.0 mmol/L Arterial Blood Oxygen Saturation 96.8 94.0-98.0 % Arterial Blood Base Excess -1.1 -2.0-3.0 mmol/L Hemoglobin (Blood Gas) 11.0 L 13.5-17.5 g/dL Sodium (Blood Gas) 132 L 136-145 MMOL/L Bedside Potassium (Blood Gas) 4.1 3.4-4.5 MMOL/L Bedside Chloride (Blood Gas) 100 98-107 MMOL/L Bedside Glucose (Blood Gas) 172 H 65-95 MG/DL Bedside Ionized Calcium (Blood Gas) 1.12 L 1.15-1.33 MMOL/L Bedside Lactic Acid (Blood Gas) 2.63 H 0.36-0.75 MMOL/L Blood Gas Temperature 37.0 35.5-37.0 CELSIUS Blood Gas Flow-by 3.50 0.00-15.00 L/min Blood Gas Vent Mode NC ROOM AIR FiO2 34.0 % Blood Gas Specimen Comment RR Immature Granulocyte % (Auto) 1.9 H 0-1 % Neutrophils (%) (Auto) 92.2 H 40.0-77.0 % Lymphocytes (%) (Auto) 3.6 L 21.0-51.0 % Monocytes (%) (Auto) 0.8 L 3.0-13.0 % Eosinophils (%) (Auto) 1.2 0.0-8.0 % Basophils (%) (Auto) 0.3 0.0-5.0 % Neutrophils # (Auto) 6.7 1.8-7.7 K/uL Lymphocytes # (Auto) 0.3 L 1.0-4.8 K/uL Monocytes # (Auto) 0.1 0.1-1.0 K/uL Eosinophils # (Auto) 0.09 0.00-0.70 K/uL Basophils # (Auto) 0.02 0.00-0.20 K/uL Absolute Immature Granulocyte (auto 0.14 0-1 K/uL D-Dimer Quantitative (PE/DVT) 2960 *H 0-500 ng/mL Total Bilirubin 0.8 0.2-1.0 mg/dL Aspartate Amino Transf (AST/SGOT) 22 10-37 U/L Alanine Aminotransferase (ALT/SGPT) 27 12-78 U/L Alkaline Phosphatase 170 H 50-136 U/L Total Protein 6.3 6.0-8.3 g/dL Albumin 2.0 L 3.5-5.0 g/dL Procalcitonin 0.20 0.05-0.5 ng/mL Bedside Glucose Comment Notified Nurse ASSESSMENT: Wound hematoma, s/p wound exploration with drainage of hematoma on 01/24/2025. 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 Polymicrobial infection. Recent T12-L1 decompressive laminectomy on 01/01/2025. Spinal stenosis Diabetes mellitus. Benign prostatic hyperplasia. Postop anemia requiring blood transfusion. PLAN: Continue vancomycin per pharmacy protocol. Continue cefepime IV. Continue pain management. Continue GI prophylaxis. Continue Wound care as recommended by neurosurgeon. Pending insurance approval to [facility]. Continue critical care support This case was reviewed and discussed with my supervising physician Dr. Noyola and the above assessment and plan was formulated and agreed upon. YAZ MEJIAP Jan 30, 2025 14:50
--- NOTE | 2025-01-30 17:00 | NUR ---
REPORT CALLED TO CAROLE VERMA AT [facility]. [facility] CALLED.
--- NOTE | 2025-01-30 17:00 | NUR ---
WOUND VAC DISCONTINUED FOR TRANSFER TO [facility] AND WOUND CARE COMPLETED.
--- NOTE | 2025-01-30 20:15 | NUR ---
EMS ARRIVED PATIENT TRANSPORTED TO [facility].
== END 2025-01-30 20:15 | DRG 856 ==
LOC: EDH 12:25 → EDHIP 15:48 → 3AH 01-21 21:48 → 2CV 01-24 00:30 → 2BH 01-24 15:48 → 4AH 01-24 17:17 → 2BH 01-29 11:49
PROVIDERS: ADMIT Internal Medicine; ATTEND Internal Medicine
PROC: 30233N1 Transfusion of Nonautologous Red Blood Cells into Peripheral Vein, Percutaneous Approach (ICD-10-PCS; 2025-01-23)
PROC: 0JB70ZZ Excision of Back Subcutaneous Tissue and Fascia, Open Approach (ICD-10-PCS; principal; 2025-01-23 08:00)
PROC: 0H96X0Z Drainage of Back Skin with Drainage Device, External Approach (ICD-10-PCS; 2025-01-24)
PROC: 0HC6XZZ Extirpation of Matter from Back Skin, External Approach (ICD-10-PCS; 2025-01-24)
DX: T81.41XA Infection following a procedure, superficial incisional surgical site, initial encounter (principal); J96.01 Acute respiratory failure with hypoxia; R57.8 Other shock; E87.1 Hypo-osmolality and hyponatremia; D62 Acute posthemorrhagic anemia; E87.4 Mixed disorder of acid-base balance; R00.0 Tachycardia, unspecified; E86.0 Dehydration; E87.6 Hypokalemia; I95.9 Hypotension, unspecified; E11.65 Type 2 diabetes mellitus with hyperglycemia; E11.649 Type 2 diabetes mellitus with hypoglycemia without coma; E83.42 Hypomagnesemia; E78.00 Pure hypercholesterolemia, unspecified; G43.909 Migraine, unspecified, not intractable, without status migrainosus; I10 Essential (primary) hypertension; S31.000A Unspecified open wound of lower back and pelvis without penetration into retroperitoneum, initial encounter; S30.0XXA Contusion of lower back and pelvis, initial encounter; N40.0 Benign prostatic hyperplasia without lower urinary tract symptoms; K59.00 Constipation, unspecified; G89.29 Other chronic pain; G20.A1 Parkinson's disease without dyskinesia, without mention of fluctuations; E66.9 Obesity, unspecified; B95.2 Enterococcus as the cause of diseases classified elsewhere; X58.XXXA Exposure to other specified factors, initial encounter; F41.9 Anxiety disorder, unspecified; Z83.3 Family history of diabetes mellitus; Z86.73 Personal history of transient ischemic attack (TIA), and cerebral infarction without residual deficits; Z68.24 Body mass index [BMI] 24.0-24.9, adult; Y93.89 Activity, other specified; Y92.89 Other specified places as the place of occurrence of the external cause; Y99.8 Other external cause status
CPT/HCPCS: 36415; 36430; 36556; 36600; 71045; 72126; 72129; 72132; 80048; 80053; 80076; 80202; 81001; 82140; 82150; 82435; 82550; 82803; 82947; 82948; 83036; 83605; 83690; 83735; 83880; 84132; 84145; 84295; 84439; 84443; 84481; 84484; 85014; 85018; 85025; 85027; 85378; 85384; 85610; 85651; 85730; 86140; 86850; 86900; 86901; 86922; 86923; 87040; 87070; 87076; 87086; 87186; 87205; 87426; 87804; 93005; 93880; 93970; 93971; 94002; 94640; 94664; 99285; C1894; G0378; J0330; J0690; J0692; J1100; J1580; J1644; J1815; J2003; J2250; J2270; J2371; J2405; J2704; J2710; J3010; J3260; J3373; J3475; J3480; J3490; J7030; J7050; P9016; P9045; Q9967; A4216; A4222; A4223; A4600; A4649; A4930; A6210; A9272; A9900; C1750; C1751; J0665; J3370; J3375